=== PATIENT | female | born 1955 | race Caucasian/White ===

== ENCOUNTER 2018-04-06 13:31 | Emergency (ER) | payer MEDICAID, SELFPAY ==
[2018-04-06 13:36] VITALS: BP 146/68; PULSE 106; RESP 17; TEMP 35.9; O2SAT 97
--- NOTE | 2018-04-06 13:57 | W.ED.GENAD ---
Discharge Plan Disposition Patient Disposition: HOME Condition: Stable Discharge Details Chief Complaint: Cellulitis Clinical Impression: Abscess of neck Primary Care Provider: Malinda Call ED Provider: Chito Givens Home Meds and New Rx's Prescriptions: New sulfamethoxazole-trimethoprim [Bactrim DS] 800-160 mg tablet 1 tab PO BID Qty: 10 RF: 0 Continue rizatriptan [Maxalt-CAREER REPRESENTATIVE] 10 MG tablet,disintegrating 10 mg PO ONCE RF: 0 fluoxetine 40 MG capsule 40 mg PO DAILY RF: 0 loratadine 10 MG tablet 10 mg PO DAILY RF: 0 calcium carbonate-vitamin D3 1 EACH tablet 2 tab PO DAILY RF: 0 bupropion HCl 150 MG tablet extended release 12 hr 150 mg PO DAILY RF: 0 loperamide [Imodium A-D] 2 MG tablet 2 mg PO PRN PRNRF: 0 propranolol 10 MG tablet 10 mg PO BID Qty: 180 RF: 3 albuterol sulfate [ProAir HFA] 1 PUFF HFA aerosol inhaler 2 puff Inhalation Q2H PRN PRNQty: 1 RF: 3 tiotropium bromide [Spiriva with HandiHaler] 18 MCG capsule, w/inhalation device 18 mcg Inhalation DAILY Qty: 1 RF: 3 apixaban [Eliquis] 5 MG tablet 5 mg PO BID Qty: 60 RF: 3 Discharge Instructions Instructions: Abscess (ED) Discharge Data Discharge Physician: Chito Givens Medical Decision Making 63 yo female comes in with redness and swelling to the neck just posterior and inferior to the right ear. No fevers or chills. HAs abscess on exam that I drained and obtained bloody/purulent material. No fevers, severe pain or crepitus and appears well systemically sod oubt sepsis or nec fasc. Will place on abx, advised f/u with pcp and return precautions given Differential Diagnosis abscess, cellulitis HPI General Mode of arrival: ambulatory. Date/Time Provider Initiated Documentation: 04/06/18 13:35. Limitations to Documentation: no limitations. Information obtained by: patient. History of Present Illness 63 year old F presents to the emergency department with the chief complaint of right neck rash, described as mild, with intensity rated at 3. Quality is described as burning, and is localized to the neck. Patient reports no radiation. Patient started experiencing this day(s) (3) and it has been constant. No relieving factors improve symptom(s), No exacerbating factors reported . Patient notes no other symptoms.. Patient did receive the following treatments prior to arrival, none Related Data Home Medications Medication Instructions Recorded Confirmed loratadine 10 mg PO DAILY 09/22/12 04/06/18 bupropion HCl 150 mg PO DAILY 04/02/14 04/06/18 calcium carbonate-vitamin D3 2 tab PO DAILY 04/02/14 04/06/18 fluoxetine 40 mg PO DAILY tab-cap 01/11/15 04/06/18 rizatriptan [Maxalt-CAREER REPRESENTATIVE] 10 mg PO ONCE tab-cap 01/11/15 04/06/18 loperamide [Imodium A-D] 2 mg PO PRN PRN 02/24/16 01/11/18 albuterol sulfate [ProAir HFA] 2 puff INHALATION Q2H PRN PRN #1 10/29/16 04/06/18 inh propranolol 10 mg PO BID #180 tab-cap 10/29/16 04/06/18 tiotropium bromide [Spiriva with 18 mcg INHALATION DAILY #1 tab-cap 10/29/16 04/06/18 HandiHaler] apixaban [Eliquis] 5 mg PO BID #60 tablet 12/24/16 04/06/18 sulfamethoxazole-trimethoprim 1 tab PO BID #10 tab 04/06/18 [Bactrim DS] Previous Rx's Medication Instructions Recorded albuterol sulfate [ProAir HFA] 2 puff INHALATION Q2H PRN PRN #1 10/29/16 inh propranolol 10 mg PO BID #180 tab-cap 10/29/16 tiotropium bromide [Spiriva with 18 mcg INHALATION DAILY #1 tab-cap 10/29/16 HandiHaler] apixaban [Eliquis] 5 mg PO BID #60 tablet 12/24/16 sulfamethoxazole-trimethoprim 1 tab PO BID #10 tab 04/06/18 [Bactrim DS] Allergies Allergy/AdvReac Type Severity Reaction Status Date / Time aspirin AdvReac Mild Nausea Unverified 04/06/18 13:39 egg AdvReac Mild Nausea Unverified 04/06/18 13:39 chocolate flavor AdvReac cough Unverified 04/06/18 13:39 migraines General Stated Complaint: Cellulitis KIERAN: 3 Review of Systems Review of Systems All systems reviewed & are unremarkable except as noted in HPI and below Constitutional Denies chills, Denies fever(s) and Denies weakness Eyes Denies loss of vision ENT Denies change in voice Cardiovascular Denies chest pain and Denies dyspnea Respiratory Denies dyspnea Gastrointestinal Denies abdominal pain, Denies nausea and Denies vomiting Genitourinary Denies dysuria Musculoskeletal Denies joint swelling Neurologic Denies loss of vision and Denies weakness Psychiatric Denies depression Endocrine Denies cold intolerance and Denies heat intolerance Allergic/Immunologic Denies urticaria PFSH Medical History Arthritis COPD (chronic obstructive pulmonary disease) Depression with anxiety Essential tremor HTN (hypertension) Migraine Pulmonary emboli Weight gain Social History Smoking/Tobacco Use Status: Current every day Exam Const General: no acute distress Orientation: alert HENMT Head: normal to inspection Ears: external ears normal General nose exam: external nose normal Mouth: moist mucous membranes Eyes General: appearance normal, both eyes and all related structures Neck Neck: full ROM, no lymphadenopathy and other (2x2cm fluctuance with 1cm surrounding erythema just posterior the the right ear, no crepitus or severe pain) Resp Effort & Inspection: normal respiratory effort and able to speak in complete sentences Cardio Rate: regular rate Neuro General: alert and oriented x3 Extrem General: normal to inspection Psych Mental Status: mental status grossly normal Course Vital Signs Temperature 35.9 C L 04/06/18 13:36 Pulse 106 H 04/06/18 13:36 Respiratory Rate 17 04/06/18 13:36 Blood Pressure 146/68 H 04/06/18 13:36 Pulse Oximetry 97 04/06/18 13:36 Temperature 35.9 C L 04/06/18 13:36 Temperature Source Temporal Artery Scan 04/06/18 13:36 Pulse 106 H 04/06/18 13:36 Respiratory Rate 17 04/06/18 13:36 Respiratory Effort 04/06/18 13:43 Blood Pressure 146/68 H 04/06/18 13:36 Pulse Oximetry 97 04/06/18 13:36 Oxygen Delivery Method Room Air 04/06/18 13:36 Oxygen Flow Rate 0 10/20/18 13:36 Procedures Abscess I/D Site: Neck Side (if applicable): Right Sedation/analgesia: None Amount of anesthesia used (mL): 5 Technique: Incised with #11 Blade Amount of fluid expressed (mL): 5 Irrigation: Yes Packing used?: None Complications: Other (none)
--- NOTE | 2018-04-06 14:02 | ED.GENADUL_ITS ---
Discharge Plan Disposition Patient Disposition: HOME Condition: Stable Discharge Details Chief Complaint: Cellulitis Clinical Impression: Abscess of neck Primary Care Provider: Malinda Call ED Provider: Chito Givens Home Meds and New Rx's Prescriptions: New sulfamethoxazole-trimethoprim [Bactrim DS] 800-160 mg tablet 1 tab PO BID Qty: 10 RF: 0 Continue rizatriptan [Maxalt-PUBLIC EMPLOYMENT MEDIATOR] 10 MG tablet,disintegrating 10 mg PO ONCE RF: 0 fluoxetine 40 MG capsule 40 mg PO DAILY RF: 0 loratadine 10 MG tablet 10 mg PO DAILY RF: 0 calcium carbonate-vitamin D3 1 EACH tablet 2 tab PO DAILY RF: 0 bupropion HCl 150 MG tablet extended release 12 hr 150 mg PO DAILY RF: 0 loperamide [Imodium A-D] 2 MG tablet 2 mg PO PRN PRNRF: 0 propranolol 10 MG tablet 10 mg PO BID Qty: 180 RF: 3 albuterol sulfate [ProAir HFA] 1 PUFF HFA aerosol inhaler 2 puff Inhalation Q2H PRN PRNQty: 1 RF: 3 tiotropium bromide [Spiriva with HandiHaler] 18 MCG capsule, w/inhalation device 18 mcg Inhalation DAILY Qty: 1 RF: 3 apixaban [Eliquis] 5 MG tablet 5 mg PO BID Qty: 60 RF: 3 Discharge Instructions Instructions: Abscess (ED) Discharge Data Discharge Physician: Chito Givens Medical Decision Making 63 yo female comes in with redness and swelling to the neck just posterior and inferior to the right ear. No fevers or chills. HAs abscess on exam that I drained and obtained bloody/purulent material. No fevers, severe pain or crepitus and appears well systemically sod oubt sepsis or nec fasc. Will place on abx, advised f/u with pcp and return precautions given Differential Diagnosis abscess, cellulitis HPI General Mode of arrival: ambulatory . Date/Time Provider Initiated Documentation: 04/06/18 13:35 . Limitations to Documentation: no limitations . Information obtained by: patient . History of Present Illness 63 year old F presents to the emergency department with the chief complaint of right neck rash, described as mild, with intensity rated at 3. Quality is described as burning, and is localized to the neck. Patient reports no radiation. Patient started experiencing this day(s) (3) and it has been constant. No relieving factors improve symptom(s), No exacerbating factors reported . Patient notes no other symptoms.. Patient did receive the following treatments prior to arrival, none Related Data Home Medications Medication Instructions Recorded Confirmed loratadine 10 mg PO DAILY 09/22/12 04/06/18 bupropion HCl 150 mg PO DAILY 04/02/14 04/06/18 calcium carbonate-vitamin D3 2 tab PO DAILY 04/02/14 04/06/18 fluoxetine 40 mg PO DAILY tab-cap 01/11/15 04/06/18 rizatriptan [Maxalt-PUBLIC EMPLOYMENT MEDIATOR] 10 mg PO ONCE tab-cap 01/11/15 04/06/18 loperamide [Imodium A-D] 2 mg PO PRN PRN 02/24/16 01/11/18 albuterol sulfate [ProAir HFA] 2 puff INHALATION Q2H PRN PRN #1 10/29/16 inh propranolol 10 mg PO BID #180 tab-cap 10/29/16 04/06/18 tiotropium bromide [Spiriva with 18 mcg INHALATION DAILY #1 tab-cap 10/29/16 HandiHaler] apixaban [Eliquis] 5 mg PO BID #60 tablet 12/24/16 04/06/18 sulfamethoxazole-trimethoprim 1 tab PO BID #10 tab 04/06/18 [Bactrim DS] Previous Rx's Medication Instructions Recorded albuterol sulfate [ProAir HFA] 2 puff INHALATION Q2H PRN PRN #1 10/29/16 inh propranolol 10 mg PO BID #180 tab-cap 10/29/16 tiotropium bromide [Spiriva with 18 mcg INHALATION DAILY #1 tab-cap 10/29/16 HandiHaler] apixaban [Eliquis] 5 mg PO BID #60 tablet 12/24/16 sulfamethoxazole-trimethoprim 1 tab PO BID #10 tab 04/06/18 [Bactrim DS] Allergies Allergy/AdvReac Type Severity Reaction Status Date / Time aspirin AdvReac Mild Nausea Unverified 04/06/18 13:39 egg AdvReac Mild Nausea Unverified 04/06/18 13:39 chocolate flavor AdvReac cough Unverified 04/06/18 13:39 migraines General Stated Complaint: Cellulitis KIERAN: 3 Review of Systems Review of Systems All systems reviewed & are unremarkable except as noted in HPI and below Constitutional Denies chills, Denies fever(s) and Denies weakness Eyes Denies loss of vision ENT Denies change in voice Cardiovascular Denies chest pain and Denies dyspnea Respiratory Denies dyspnea Gastrointestinal Denies abdominal pain, Denies nausea and Denies vomiting Genitourinary Denies dysuria Musculoskeletal Denies joint swelling Neurologic Denies loss of vision and Denies weakness Psychiatric Denies depression Endocrine Denies cold intolerance and Denies heat intolerance Allergic/Immunologic Denies urticaria PFSH Medical History Arthritis COPD (chronic obstructive pulmonary disease) Depression with anxiety Essential tremor HTN (hypertension) Migraine Pulmonary emboli Weight gain Social History Smoking/Tobacco Use Status: Current every day Exam Const General: no acute distress Orientation: alert HENMT Head: normal to inspection Ears: external ears normal General nose exam: external nose normal Mouth: moist mucous membranes Eyes General: appearance normal, both eyes and all related structures Neck Neck: full ROM, no lymphadenopathy and other (2x2cm fluctuance with 1cm surrounding erythema just posterior the the right ear, no crepitus or severe pain) Resp Effort & Inspection: normal respiratory effort and able to speak in complete sentences Cardio Rate: regular rate Neuro General: alert and oriented x3 Extrem General: normal to inspection Psych Mental Status: mental status grossly normal Course Vital Signs Temperature 35.9 C L 04/06/18 13:36 Pulse 106 H 04/06/18 13:36 Respiratory Rate 17 04/06/18 13:36 Blood Pressure 146/68 H 04/06/18 13:36 Pulse Oximetry 97 04/06/18 13:36 Temperature 35.9 C L 04/06/18 13:36 Temperature Source Temporal Artery Scan 04/06/18 13:36 Pulse 106 H 04/06/18 13:36 Respiratory Rate 17 04/06/18 13:36 Respiratory Effort 04/06/18 13:43 Blood Pressure 146/68 H 04/06/18 13:36 Pulse Oximetry 97 04/06/18 13:36 Oxygen Delivery Method Room Air 04/06/18 13:36 Oxygen Flow Rate 0 10/20/18 13:36 Procedures Abscess I/D Site: Neck Side (if applicable): Right Sedation/analgesia: None Amount of anesthesia used (mL): 5 Technique: Incised with #11 Blade Amount of fluid expressed (mL): 5 Irrigation: Yes Packing used?: None Complications: Other (none)
== END 2018-04-06 14:41 | disposition home or self-care (01) ==
LOC: ER 14:14
PROVIDERS: Emergency Provider Emergency Medicine; PCP Nurse Practitioner
DX: L02.11 Cutaneous abscess of neck (principal); I10 Essential (primary) hypertension; J44.9 Chronic obstructive pulmonary disease, unspecified; F17.210 Nicotine dependence, cigarettes, uncomplicated
CPT/HCPCS: 10060

== ENCOUNTER 2018-04-08 14:20 | Outpatient (REF) | payer MEDICAID, SELFPAY | END 2018-04-08 14:40 | LOC: NCHCN 14:20 | PROVIDERS: PCP Nurse Practitioner; Visit Provider Family Medicine | DX: L02.11 Cutaneous abscess of neck (principal) | CPT/HCPCS: 87077; 87070; 87186; 87205 ==

== ENCOUNTER 2018-07-16 01:57 | Outpatient (CLI) | payer MEDICAID, SELFPAY | END 2018-07-16 02:17 | PROVIDERS: PCP Nurse Practitioner; Visit Provider Nurse Practitioner | DX: J44.9 Chronic obstructive pulmonary disease, unspecified (principal) ==

== ENCOUNTER 2018-07-26 10:45 | Inpatient (IN) | payer MEDICARE, MEDICAID, SELFPAY ==
[2018-07-26 10:48] VITALS: BP 122/91; PULSE 129; RESP 26; TEMP 36.3; O2SAT 97
[2018-07-26 11:01] VITALS: TEMP 38.2
--- NOTE | 2018-07-26 11:03 | DI.RAD_ITS ---
SYMPTOMS/DIAGNOSIS: FEVER, COUGH, CRACKLES, COPD, ? PNEUMONIA AP AND LATERAL CHEST: The heart is not enlarged. There is loss of the contour of the diaphragm on the left which may indicate a left lower lobe pneumonia. Otherwise the lungs appear generally clear with some suggestion of streaky and patchy posterior radiodensities on the lateral view. No pleural effusion is seen. CONCLUSION: Suspect left basilar pneumonia. Appropriate follow up studies requested.
--- NOTE | 2018-07-26 11:06 | ED.GENADUL_ITS ---
Discharge Plan Disposition Patient Disposition: [facility] INPATIENT Condition: Good Discharge Details Chief Complaint: RespSymp Clinical Impression: Community acquired pneumonia, Asthma exacerbation in COPD, Influenza A Primary Care Provider: Malinda Call ED Provider: Clifford Borges Home Meds and New Rx's Prescriptions: No Action rizatriptan [Maxalt-MATHEMATICIAN RESEARCH] 10 MG tablet,disintegrating 10 mg PO ONCE RF: 0 fluoxetine 40 MG capsule 40 mg PO DAILY RF: 0 loratadine 10 MG tablet 10 mg PO DAILY RF: 0 calcium carbonate-vitamin D3 1 EACH tablet 2 tab PO DAILY RF: 0 bupropion HCl 150 MG tablet extended release 12 hr 150 mg PO DAILY RF: 0 loperamide [Imodium A-D] 2 MG tablet 2 mg PO PRN PRNRF: 0 propranolol 10 MG tablet 10 mg PO BID Qty: 180 RF: 3 ProAir HFA 1 PUFF HFA aerosol inhaler 2 puff Inhalation Q2H PRN PRNQty: 1 RF: 3 Spiriva with HandiHaler 18 MCG capsule, w/inhalation device 18 mcg Inhalation DAILY Qty: 1 RF: 3 Eliquis 5 MG tablet 5 mg PO BID Qty: 60 RF: 3 Medical Decision Making This is a pleasant 63-year-old female with a past medical history of PEs, COPD, hypertension, who presents for 3 days of shortness of breath, fever, chills, cough, productive green sputum and mild headache. Patient has notably decreased breath sounds throughout, wheezes and rhonchi throughout. No significant chest pain on exam. She is hypoxic at 88-89% on room air, and she does not normally use oxygen. She is febrile here. With her cough, chills, fever, tachycardia and mild shortness of breath and concern for community- acquired pneumonia. She has been taking her Eliquis as directed and I feel that a new or worsening PE is unlikely, she does demonstrate a normal blood pressure. We will check for flu, rehydrate, start antibiotics for community-acquired pneumonia which I highly suspect, treat for COPD exacerbation, and place the patient on oxygen. I feel that she will require admission with her current symptomatology. EKG 10: 57 Rate 110, intervals normal, sinus tachycardia, no significant ST elevations or depressions, no T wave inversions except for V1, no Q waves. 1242PM laboratory workup has returned and the patient is influenza positive, she has a mild improvement with the breathing treatments, laboratory workup is relatively benign, troponin and EKG are benign. On my inspection of the chest x-ray does appear that there is a mild right lower/mid lobe infiltrate, which correlates well with her symptomatology. With the patient's risk factors in general for both her COPD exacerbation and influenza I feel that she would benefit from antibiotic coverage anyway for clinical pneumonia even without radiographic evidence. Patient has been started on Rocephin and azithromycin. She has been started on Tamiflu for her influenza. I did contact the hospitalist and she agrees with the assessment and plan and the need for admission. I have extensively reviewed the treatment plan with the patient. I have addressed all patient concerns at this time. I have also discussed the plan with the admitting physician and they agree with the current assessment and plan and have agreed to assume responsibility for the patient. All parties demonstrate verbal understanding and agreement with our assessment and plan at this time. HPI General Date/Time Provider Initiated Documentation: 07/26/18 10:47 . HPI Narrative: This is a 63-year-old female with a past medical history of pulmonary embolisms for which she takes Eliquis, COPD, hypertension, and migraines who presents today for evaluations of feeling ill. For the last 3 days she has had upper respiratory symptoms with shortness of breath, chills, night sweats, cough with productive green sputum, mild headache, but no significant chest pain. She denies any fever at home but has felt very warm. She denies any vomiting or diarrhea but does admit to decreased appetite. She has not taken the flu vaccine secondary to an allergy to eggs. She has been taking her Eliquis and other medications as directed, including her breathing treatments at home however unfortunately none of these have improved her symptoms. Last admission was greater than 90 days ago. She has been on no recent antibiotics. She denies any recent long trips, avoidance of anticoagulants, recent surgeries except for an in office removal of a superficial cyst/abscess. The patient is hemoptysis, hematemesis, hematochezia, melena, or acholic stool. She denies any dysuria or hematuria. She has no other complaints at this time. No other modifying factors. Related Data Home Medications Medication Instructions Recorded Confirmed loratadine 10 mg PO DAILY 09/22/12 07/26/18 bupropion HCl 150 mg PO DAILY 04/02/14 07/26/18 calcium carbonate-vitamin D3 2 tab PO DAILY 04/02/14 07/26/18 fluoxetine 40 mg PO DAILY tab-cap 01/11/15 07/26/18 rizatriptan [Maxalt-MATHEMATICIAN RESEARCH] 10 mg PO ONCE tab-cap 01/11/15 07/26/18 loperamide [Imodium A-D] 2 mg PO PRN PRN 02/24/16 07/26/18 ProAir HFA 2 puff INHALATION Q2H PRN PRN #1 17 07/26/18 inh Spiriva with HandiHaler 18 mcg INHALATION DAILY #1 tab-cap 17 07/26/18 propranolol 10 mg PO BID #180 tab-cap 10/29/16 07/26/18 Eliquis 5 mg PO BID #60 tablet 12/24/16 07/26/18 Previous Rx's Medication Instructions Recorded ProAir HFA 2 puff INHALATION Q2H PRN PRN #1 10/29/16 inh Spiriva with HandiHaler 18 mcg INHALATION DAILY #1 tab-cap 10/29/16 propranolol 10 mg PO BID #180 tab-cap 10/29/16 Eliquis 5 mg PO BID #60 tablet 12/24/16 Allergies Allergy/AdvReac Type Severity Reaction Status Date / Time aspirin AdvReac Mild Nausea Unverified 07/26/18 11:14 egg AdvReac Mild Nausea Unverified 07/26/18 11:14 chocolate flavor AdvReac cough Unverified 07/26/18 11:14 migraines General Stated Complaint: RespSymp KIERAN: 3 Review of Systems Review of Systems All systems reviewed & are unremarkable except as noted in HPI and below PFSH Social History Smoking and Tabacco status: Current every day Exam Narrative Exam Narrative: 1.Const: Well-nourished, Well-developed, appearing stated age 2.Eyes: PERRL, no conjunctival injection, and symmetrical lids. 3.ENT: Atraumatic external nose and ears. Moist MM. Neck: Symmetric, trachea midline, No thyromegaly. Patient demonstrates good movement of cervical neck. There is no nuchal rigidity, no nuchal tenderness. Patient is able to flex the neck without any difficulty or significant pain. Negative Kernig's and Brudzinski sign. 4.CVS: +S1/S2. Peripheral pulses 2+ and equal in all extremities. Brisk capillary refill in all extremities. 5.RESP: Notable decreased breath sounds throughout, wheezes and rhonchi throughout. Minimal crackles. 6.GI: Soft, Nondistended, No hepatosplenomegaly. No guarding or rebound. No significant tenderness on exam. 7.MSK: Normocephalic/Atraumatic, Extremities w/o deformity or ttp No cyanosis or clubbing, Normal movement of all extremities no significant calf tenderness.. 8.Skin: Warm, Dry. No rashes or lesions. 9.Neuro: district administrator II-XII grossly intact. Sensation grossly intact, no focal neurologic deficits. 10.Psych: (AAO) x3. Appropriate mood and affect Course Vital Signs Temperature 36.3 C L 07/26/18 10:48 Pulse 129 H 07/26/18 10:48 Respiratory Rate 26 H 07/26/18 10:48 Blood Pressure 122/91 H 07/26/18 10:48 Pulse Oximetry 97 07/26/18 10:48 Temperature 38.2 C H 07/26/18 11:01 Temperature Source Oral 07/26/18 11:01 Pulse 129 H 07/26/18 10:48 Respiratory Rate 26 H 07/26/18 10:48 Respiratory Effort Non-Labored 07/26/18 10:50 Blood Pressure 122/91 H 07/26/18 10:48 Blood Pressure Position Sitting 07/26/18 10:48 Pulse Oximetry 97 07/26/18 10:48 Oxygen Delivery Method Room Air 07/26/18 10:48 Oxygen Flow Rate 0 07/26/18 10:48 Pain Level 8 07/26/18 10:48 Comment 07/26/18 10:48 Lab/Test Results Lab/Test Results: 07/26/18 11:03 Blood Blood Culture - Pending 07/26/18 11:03 Blood Blood Culture - Pending
[2018-07-26 11:25] LABS: Lactate-non-spesis 1.1 mmol/l (0.6-1.4)
[2018-07-26 11:30] LABS: Abs Immature Grans 0.01 k/cumm (0.0-0.09); Absolute Basophil Count 0.01 k/cumm (0.0-0.2); Absolute Lymphocyte Count 0.56 k/cumm (1.2-3.4); Absolute Neutrophil Count 4.57 k/cumm (1.2-6.7); Basophils % 0.2; HCT 41.4 % (36.0-46.0); HGB 13.4 g/dL (12.0-15.5); Immature Grans % 0.2; Lymphocytes % 9.6; Mean Corp. HGB Concentration 32.4 g/dL (32.0-36.0); Mean Corpuscular Hemoglobin 28.4 pg (27.0-33.0); Mean Corpuscular Volume 87.7 fL (80-95); Mean Platelet Volume 10.3 fL (8.0-11.0); Platelet Count 183 x1000/uL (130-400); RBC 4.72 m/cumm (4.00-5.20); RBC Distribution Width 13.2 % (11.7-14.6); White Blood Cell Count 5.85 k/cumm (4.4-10.8)
[2018-07-26] MEDS: Acetaminophen 500 MG TAB 1000 MG PO (11:33)
[2018-07-26] MEDS: Albuterol/Ipratropium 3 ML UPD VIAL UPD ×2 (11:34→20:41)
[2018-07-26] MEDS: diphenhydrAMINE 25 MG CAP PO (11:36)
[2018-07-26] MEDS: methylPREDNISolone SUCC 125 MG VIAL IVP (11:36)
[2018-07-26] MEDS: Metoclopramide 10 MG/2 ML VIAL IVP (11:37)
[2018-07-26 11:42] LABS: INR 1.1 (0.9-1.1); PTT Activated 27.3 sec (21.0-31.4)
[2018-07-26] MEDS: Normal Saline 1,000 ML 1000 ML IV (11:44)
[2018-07-26 11:46] LABS: ALT 23 U/L (12-78); AST 19 U/L (15-37); Albumin 3.4 g/dL (3.4-5.0); Alkaline Phosphatase 104 U/L (46-116); Anion Gap 11.6 mmol/L (3-11); BUN 16 mg/dL (7-18); Bilirubin, Total 0.4 mg/dL (0.2-1.0); CO2 24.4 mmol/L (21.0-32.0); CREATININE 0.78 mg/dL (0.55-1.02); Chloride 100 mmol/L (98-107); Glucose 118 mg/dL (70-100); Potassium 3.8 mmol/L (3.5-5.1); Sodium 136 mmol/L (136-145); Total Protein 7.8 g/dL (6.4-8.2)
[2018-07-26 11:48] LABS: Troponin I < 0.02 ng/mL (0.00-0.06)
[2018-07-26 11:56] LABS: Bilirubin Small (Negative); Blood Negative (Negative); Clarity Clear; Glucose Negative (Negative); Ketones 80 mg/dL (Negative); Leukocyte Esterase Negative (Negative); Nitrite Negative (Negative); Specific Gravity >= 1.030 (1.005-1.025); Urobilinogen 0.2 EU/dL (Up TO 0.2)
[2018-07-26 11:57] LABS: Bacteria Moderate HPF (Negative); C & S Indicated? No; Crystals Negative HPF (Negative); Epithelial Cells Few HPF (Negative); Mucus Trace (Negative); Other Cells Few Renal (Negative); RBC 0-2 (0-2); WBC 0-2 HPF (0-5)
[2018-07-26] MEDS: AZITHROMYCIN 500 MG in Normal Saline 250 ML 250 MG IVPB (12:53)
[2018-07-26 12:57] VITALS: BP 116/45; PULSE 96; RESP 18; TEMP 37.4; O2SAT 95
[2018-07-26 13:53] VITALS: BP 133/78; PULSE 90; RESP 20; TEMP 36.6; O2SAT 98
[2018-07-26] MEDS: Normal Saline 1,000 ML 125 ML IV ×2 (14:44→22:32)
[2018-07-26] MEDS: Benzonatate 200 MG CAP PO ×2 (14:44→20:46)
[2018-07-26] MEDS: Oseltamivir 75 MG CAP PO ×2 (14:45→20:45)
[2018-07-26 15:59] VITALS: BP 131/68; PULSE 87; RESP 24; TEMP 37.4; O2SAT 95
--- NOTE | 2018-07-26 16:44 | W.PM.HP.N ---
Date of service: 07/26/18 Time of Service: 16:44 Assessment and Plan (1) CAP (community acquired pneumonia): Start date: 07/26/18 Start time: 17:05 Current visit: Yes Status: Acute Positive influenza A, likely cause, started on Azithromycin and rocephin until sputum culture results. Blood cultures in ED and lactate 1.1, guaifenin po bid . (2) Influenza A: Start date: 07/26/18 Start time: 17:03 Current visit: Yes Status: Acute Positive for influenza A which likely exacerbated COPD and caused CAP. Started on tamiflu. (3) COPD with acute exacerbation: Start date: 07/26/18 Start time: 17:05 Current visit: Yes Status: Acute Likely due to influenza A. duonebs, albuterol, 80 mg solumedrol q8, ICS, sputum culture, Protonix 40 mg po while on steroids. (4) DVT prophylaxis: Start date: 07/26/18 Start time: 17:07 Current visit: Yes Status: Acute Currently taking eliquis for stable PE (5) Pulmonary embolism: Start date: 07/26/18 Start time: 17:08 Current visit: Yes Status: Chronic Continue Eliquis. History of Present Illness Chief Complaint: CAP, COPD Exacerbation Narrative: Mr. Lang is a 63 y.o female with PMH of non oxygen dependent COPD, PE, HTN, GERD, who presents to [facility] ED after 3 days of SOB, fever, chills, cough, productive green sputum. She endorses being around the flu with her neighbors. She did test positive for flu A and was started on tamiflu. Her SpO 2 in ED on RA 88 placed on 2 L for 92 %. CXR shows Left basilar pneumonia which azithromycin and rocephin have been started for CAP blood cultures and sputum have been ordered and will treat according to results. She currently takes eliquis for her hx of PE. Duonebs, steroids and ICS have been ordered for COPD exacerbation. I will continue her propanolol for HTN as well. Review of Systems Constitutional Reports system reviewed and no additional complaints, except as docu Eyes Reports system reviewed and no additional complaints, except as docu ENT Reports system reviewed and no additional complaints, except as docu Cardiovascular Reports system reviewed and no additional complaints, except as docu Respiratory Reports as per [facility] Gastrointestinal Reports system reviewed and no additional complaints, except as docu Genitourinary Reports system reviewed and no additional complaints, except as [facility] Musculoskeletal Reports system reviewed and no additional complaints, except as [facility] Integumentary/Breasts Reports system reviewed and no additional complaints, except as [facility] Neurologic Reports system reviewed and no additional complaints, except as [facility] Psychiatric Reports system reviewed and no additional complaints, except as docu PFSH Family History Sister Diabetes Brother Hypertension Other Heart disease Social History Smoking and Tabacco status: Current every day Meds Home Medications Medication Instructions Recorded Confirmed Type loratadine 10 mg PO DAILY 09/22/12 07/26/18 History bupropion HCl 150 mg PO DAILY 04/02/14 07/26/18 History calcium carbonate-vitamin D3 2 tab PO DAILY 04/02/14 07/26/18 History fluoxetine 40 mg PO DAILY tab-cap 01/11/15 07/26/18 History rizatriptan [Maxalt-LINEMAN] 10 mg PO ONCE tab-cap 01/11/15 07/26/18 History loperamide [Imodium A-D] 2 mg PO PRN PRN 02/24/16 07/26/18 History ProAir HFA 2 puff INHALATION Q2H PRN PRN #1 10/29/16 07/26/18 Rx inh Spiriva with HandiHaler 18 mcg INHALATION DAILY #1 tab-cap 10/29/16 07/26/18 Rx propranolol 10 mg PO BID #180 tab-cap 10/29/16 07/26/18 Rx Eliquis 5 mg PO BID #60 tablet 12/24/16 07/26/18 Rx Allergies Allergy/AdvReac Type Severity Reaction Status Date / Time aspirin AdvReac Mild Nausea Unverified 07/26/18 11:14 egg AdvReac Mild Nausea Unverified 07/26/18 11:14 chocolate flavor AdvReac cough Unverified 07/26/18 11:14 migraines Exam Const General: cooperative HENMT Head: normal to inspection Eyes General: appearance normal, both eyes and all related structures Neck Neck: normal visual inspection Lymphatic: no lymphadenopathy noted and no lymphedema noted Chest Chest: normal inspection of the chest Resp Effort & Inspection: able to speak in complete sentences and cough (green sputum) Auscultation: crackles (that clear with coughing) Cardio Jugular venous pressure: no JVD Rate: regular rate Rhythm: regular rhythm Heart Sounds: S1 normal and S2 normal GI Inspection: normal to inspection Skin General skin exam: no rashes or lesions noted Extrem General: normal to inspection Results Labs : 07/26/18 11:15 07/26/18 11:15 Laboratory Results - last 24 hr 07/26/18 07/26/18 07/26/18 11:15 11:15 11:15 WBC 5.85 RBC 4.72 Hgb 13.4 Hct 41.4 MCV 87.7 MCH 28.4 MCHC 32.4 RDW 13.2 Plt Count 183 MPV 10.3 Immature Gran % 0.2 Neutrophils % 78.0 Lymphocytes % 9.6 Monocytes % 12.0 Eosinophils % 0.0 Basophils % 0.2 Absolute Neutrophils 4.57 Absolute Lymphocytes 0.56 L Absolute Monocytes 0.70 Absolute Eosinophils 0.00 Absolute Basophils 0.01 PT 11.0 INR 1.1 APTT 27.3 Sodium 136 Potassium 3.8 Chloride 100 Carbon Dioxide 24.4 Anion Gap 11.6 H BUN 16 Creatinine 0.78 Estimated GFR/1.73 m2 >= 60.00 Glucose 118 H Lactate Calcium 9.0 Total Bilirubin 0.4 AST 19 ALT 23 Alkaline Phosphatase 104 Troponin I < 0.02 Total Protein 7.8 Albumin 3.4 Urine Color Urine Clarity Urine pH Ur Specific [place] Urine Protein Urine Ketones Urine Blood Urine Nitrite Urine Bilirubin Urine Urobilinogen Ur Leukocyte Esterase Urine RBC Urine WBC Ur Epithelial Cells Urine Crystals Urine Bacteria Urine Mucus Urine Other Ur Culture Indicated? Urine Glucose 07/26/18 07/26/18 11:15 11:38 WBC RBC Hgb Hct MCV MCH MCHC RDW Plt Count MPV Immature Gran % Neutrophils % Lymphocytes % Monocytes % Eosinophils % Basophils % Absolute Neutrophils Absolute Lymphocytes Absolute Monocytes Absolute Eosinophils Absolute Basophils PT INR APTT Sodium Potassium Chloride Carbon Dioxide Anion Gap BUN Creatinine Estimated GFR/1.73 m2 Glucose Lactate 1.1 Calcium Total Bilirubin AST ALT Alkaline Phosphatase Troponin I Total Protein Albumin Urine Color Yellow Urine Clarity Clear Urine pH 6.0 Ur Specific [place] >= 1.030 H Urine Protein 30 H Urine Ketones 80 H Urine Blood Negative Urine Nitrite Negative Urine Bilirubin Small H Urine Urobilinogen 0.2 Ur Leukocyte Esterase Negative Urine RBC 0-2 Urine WBC 0-2 Ur Epithelial Cells Few Urine Crystals Negative Urine Bacteria Moderate Urine Mucus Trace Urine Other Few renal Ur Culture Indicated? No Urine Glucose Negative Last Vital Signs Temp 37.4 C 07/26/18 15:59 Pulse 87 07/26/18 15:59 Resp 24 07/26/18 15:59 BP 131/68 07/26/18 15:59 Pulse Ox 95 07/26/18 15:59
--- NOTE | 2018-07-26 16:47 | HPE_ITS ---
Date of service: 07/26/18 Time of Service: 16:44 Assessment and Plan (1) CAP (community acquired pneumonia): Start date: 07/26/18 Start time: 17:05 Current visit: Yes Status: Acute Positive influenza A, likely cause, started on Azithromycin and rocephin until sputum culture results. Blood cultures in ED and lactate 1.1, guaifenin po bid . (2) Influenza A: Start date: 07/26/18 Start time: 17:03 Current visit: Yes Status: Acute Positive for influenza A which likely exacerbated COPD and caused CAP. Started on tamiflu. (3) COPD with acute exacerbation: Start date: 07/26/18 Start time: 17:05 Current visit: Yes Status: Acute Likely due to influenza A. duonebs, albuterol, 80 mg solumedrol q8, ICS, sputum culture, Protonix 40 mg po while on steroids. (4) DVT prophylaxis: Start date: 07/26/18 Start time: 17:07 Current visit: Yes Status: Acute Currently taking eliquis for stable PE (5) Pulmonary embolism: Start date: 07/26/18 Start time: 17:08 Current visit: Yes Status: Chronic Continue Eliquis. History of Present Illness Chief Complaint: CAP, COPD Exacerbation Narrative: Mr. Lang is a 63 y.o female with PMH of non oxygen dependent COPD, PE, HTN, GERD, who presents to [facility] ED after 3 days of SOB, fever, chills, cough, productive green sputum. She endorses being around the flu with her neighbors. She did test positive for flu A and was started on tamiflu. Her SpO 2 in ED on RA 88 placed on 2 L for 92 %. CXR shows Left basilar pneumonia which azithromycin and rocephin have been started for CAP blood cultures and sputum have been ordered and will treat according to results. She currently takes eliquis for her hx of PE. Duonebs, steroids and ICS have been ordered for COPD exacerbation. I will continue her propanolol for HTN as well. Review of Systems Constitutional Reports system reviewed and no additional complaints, except as docu Eyes Reports system reviewed and no additional complaints, except as docu ENT Reports system reviewed and no additional complaints, except as docu Cardiovascular Reports system reviewed and no additional complaints, except as docu Respiratory Reports as per [facility] Gastrointestinal Reports system reviewed and no additional complaints, except as docu Genitourinary Reports system reviewed and no additional complaints, except as [facility] Musculoskeletal Reports system reviewed and no additional complaints, except as [facility] Integumentary/Breasts Reports system reviewed and no additional complaints, except as [facility] Neurologic Reports system reviewed and no additional complaints, except as [facility] Psychiatric Reports system reviewed and no additional complaints, except as docu PFSH Family History Sister Diabetes Brother Hypertension Other Heart disease Social History Smoking and Tabacco status: Current every day Meds Home Medications Medication Instructions Recorded Confirmed Type loratadine 10 mg PO DAILY 09/22/12 07/26/18 History bupropion HCl 150 mg PO DAILY 04/02/14 07/26/18 History calcium carbonate-vitamin D3 2 tab PO DAILY 04/02/14 07/26/18 History fluoxetine 40 mg PO DAILY tab-cap 01/11/15 07/26/18 History rizatriptan [Maxalt-ADDING MACHINE OPERATOR] 10 mg PO ONCE tab-cap 01/11/15 07/26/18 History loperamide [Imodium A-D] 2 mg PO PRN PRN 02/24/16 07/26/18 History ProAir HFA 2 puff INHALATION Q2H PRN PRN #1 10/29/16 07/26/18 Rx inh Spiriva with HandiHaler 18 mcg INHALATION DAILY #1 tab-cap 10/29/16 07/26/18 Rx propranolol 10 mg PO BID #180 tab-cap 10/29/16 07/26/18 Rx Eliquis 5 mg PO BID #60 tablet 12/24/16 07/26/18 Rx Allergies Allergy/AdvReac Type Severity Reaction Status Date / Time aspirin AdvReac Mild Nausea Unverified 07/26/18 11:14 egg AdvReac Mild Nausea Unverified 07/26/18 11:14 chocolate flavor AdvReac cough Unverified 07/26/18 11:14 migraines Exam Const General: cooperative HENMT Head: normal to inspection Eyes General: appearance normal, both eyes and all related structures Neck Neck: normal visual inspection Lymphatic: no lymphadenopathy noted and no lymphedema noted Chest Chest: normal inspection of the chest Resp Effort & Inspection: able to speak in complete sentences and cough (green sputum) Auscultation: crackles (that clear with coughing) Cardio Jugular venous pressure: no JVD Rate: regular rate Rhythm: regular rhythm Heart Sounds: S1 normal and S2 normal GI Inspection: normal to inspection Skin General skin exam: no rashes or lesions noted Extrem General: normal to inspection Results Labs : 07/26/18 11:15 07/26/18 11:15 Laboratory Results - last 24 hr 07/26/18 07/26/18 07/26/18 11:15 11:15 11:15 WBC 5.85 RBC 4.72 Hgb 13.4 Hct 41.4 MCV 87.7 MCH 28.4 MCHC 32.4 RDW 13.2 Plt Count 183 MPV 10.3 Immature Gran % 0.2 Neutrophils % 78.0 Lymphocytes % 9.6 Monocytes % 12.0 Eosinophils % 0.0 Basophils % 0.2 Absolute Neutrophils 4.57 Absolute Lymphocytes 0.56 L Absolute Monocytes 0.70 Absolute Eosinophils 0.00 Absolute Basophils 0.01 PT 11.0 INR 1.1 APTT 27.3 Sodium 136 Potassium 3.8 Chloride 100 Carbon Dioxide 24.4 Anion Gap 11.6 H BUN 16 Creatinine 0.78 Estimated GFR/1.73 m2 >= 60.00 Glucose 118 H Lactate Calcium 9.0 Total Bilirubin 0.4 AST 19 ALT 23 Alkaline Phosphatase 104 Troponin I < 0.02 Total Protein 7.8 Albumin 3.4 Urine Color Urine Clarity Urine pH Ur Specific [place] Urine Protein Urine Ketones Urine Blood Urine Nitrite Urine Bilirubin Urine Urobilinogen Ur Leukocyte Esterase Urine RBC Urine WBC Ur Epithelial Cells Urine Crystals Urine Bacteria Urine Mucus Urine Other Ur Culture Indicated? Urine Glucose 07/26/18 07/26/18 11:15 11:38 WBC RBC Hgb Hct MCV MCH MCHC RDW Plt Count MPV Immature Gran % Neutrophils % Lymphocytes % Monocytes % Eosinophils % Basophils % Absolute Neutrophils Absolute Lymphocytes Absolute Monocytes Absolute Eosinophils Absolute Basophils PT INR APTT Sodium Potassium Chloride Carbon Dioxide Anion Gap BUN Creatinine Estimated GFR/1.73 m2 Glucose Lactate 1.1 Calcium Total Bilirubin AST ALT Alkaline Phosphatase Troponin I Total Protein Albumin Urine Color Yellow Urine Clarity Clear Urine pH 6.0 Ur Specific [place] >= 1.030 H Urine Protein 30 H Urine Ketones 80 H Urine Blood Negative Urine Nitrite Negative Urine Bilirubin Small H Urine Urobilinogen 0.2 Ur Leukocyte Esterase Negative Urine RBC 0-2 Urine WBC 0-2 Ur Epithelial Cells Few Urine Crystals Negative Urine Bacteria Moderate Urine Mucus Trace Urine Other Few renal Ur Culture Indicated? No Urine Glucose Negative Last Vital Signs Temp 37.4 C 07/26/18 15:59 Pulse 87 07/26/18 15:59 Resp 24 07/26/18 15:59 BP 131/68 07/26/18 15:59 Pulse Ox 95 07/26/18 15:59
[2018-07-26] MEDS: methylPREDNISolone SUCC 125 MG VIAL 80 MG IVP (20:42)
[2018-07-26] MEDS: Budesonide/Formoterol 160/4.5 6 GM 60 PUFF INH IH (20:43)
[2018-07-26] MEDS: Acetaminophen 325 MG TAB PO (20:44)
[2018-07-26] MEDS: Normal Saline Flush 10 ML SYR IVP (20:44)
[2018-07-26] MEDS: guaiFENesin 600 MG TABCR PO (20:45)
[2018-07-26] MEDS: Propranolol 10 MG TAB PO (20:46)
[2018-07-26] MEDS: Apixaban 5 MG TAB PO (20:46)
[2018-07-26 23:57] VITALS: BP 114/66; PULSE 77; RESP 19; TEMP 37; O2SAT 92
[2018-07-27] VITALS (13 sets, daily range): BP systolic 105–146; BP diastolic 65–82; PULSE 54–91; RESP 1–24; TEMP 36.9–37.2; O2SAT 87–97
[2018-07-27] MEDS: Albuterol/Ipratropium 3 ML UPD VIAL UPD ×6 (00:10→23:49)
[2018-07-27] MEDS: Normal Saline Flush 10 ML SYR IVP ×2 (04:25→13:16)
[2018-07-27] MEDS: methylPREDNISolone SUCC 125 MG VIAL 80 MG IVP ×3 (04:26→20:28)
[2018-07-27] MEDS: Normal Saline 1,000 ML 125 ML IV (06:07)
[2018-07-27 07:52] LABS: Absolute Lymphocyte Count 0.62 k/cumm (1.2-3.4); Absolute Monocyte Count 0.19 k/cumm (0.11-0.7); Absolute Neutrophil Count 3.46 k/cumm (1.2-6.7); HCT 37.7 % (36.0-46.0); Lymphocytes % 14.5; Mean Corp. HGB Concentration 31.8 g/dL (32.0-36.0); Mean Corpuscular Hemoglobin 28.2 pg (27.0-33.0); Mean Corpuscular Volume 88.7 fL (80-95); Mean Platelet Volume 10.4 fL (8.0-11.0); Monocytes % 4.4; Neutrophils % 81.1; Platelet Count 194 x1000/uL (130-400); RBC 4.25 m/cumm (4.00-5.20); RBC Distribution Width 13.1 % (11.7-14.6); White Blood Cell Count 4.27 k/cumm (4.4-10.8)
[2018-07-27 08:05] LABS: Anion Gap 8.5 mmol/L (3-11); BUN 13 mg/dL (7-18); CO2 25.5 mmol/L (21.0-32.0); CREATININE 0.59 mg/dL (0.55-1.02); Calcium 8.3 mg/dL (8.5-10.1); Chloride 108 mmol/L (98-107); Glucose 148 mg/dL (70-100); Magnesium 1.9 mg/dL (1.8-2.4); Sodium 142 mmol/L (136-145)
[2018-07-27] MEDS: Pantoprazole 40 MG TABCR PO (08:49)
[2018-07-27] MEDS: Budesonide/Formoterol 160/4.5 6 GM 60 PUFF INH IH ×2 (08:55→20:29)
[2018-07-27] MEDS: buPROPion-CR 150 MG TABCR PO (10:20)
[2018-07-27] MEDS: FLUoxetine 20 MG CAP 40 MG PO (10:21)
[2018-07-27] MEDS: Propranolol 10 MG TAB PO ×2 (10:21→20:26)
[2018-07-27] MEDS: Oseltamivir 75 MG CAP PO ×2 (10:21→20:26)
[2018-07-27] MEDS: Apixaban 5 MG TAB PO ×2 (10:21→20:25)
[2018-07-27] MEDS: guaiFENesin 600 MG TABCR PO ×2 (10:22→20:25)
[2018-07-27] MEDS: Benzonatate 200 MG CAP PO ×3 (10:23→20:25)
--- NOTE | 2018-07-27 11:52 | W.PM.PROGNOT ---
Date of Service Date of service: 07/27/18 Time of Service: 12:07 Assessment and Plan (1) Influenza A: Start date: 07/27/18 Start time: 11:53 Current visit: Yes Status: Acute Day 2 of tamiflu bid continue, feeling better, afebrile (2) COPD with acute exacerbation: Start date: 07/27/18 Start time: 11:56 Current visit: Yes Status: Acute likely from Influenza A, 91% on RA. Continue with steroids and nebs, ICS, and exercise oximetery. (3) CAP (community acquired pneumonia): Start date: 07/27/18 Start time: 11:57 Current visit: Yes Status: Acute Likely from Flu, continue with azithromycin and ceftriaxone. Day 2, O2 sat is 91% (4) Pulmonary embolism: Start date: 07/27/18 Start time: 12:02 Current visit: Yes Status: Chronic on current treatment with eliquis for prehospital PE (5) Essential tremor: Start date: 07/27/18 Start time: 12:05 Current visit: Yes Status: Acute left arm is tremorous, continue home medication of propanolol (6) DVT prophylaxis: Start date: 07/27/18 Start time: 12:06 Current visit: Yes Status: Acute currently taking eliquis. (7) Discharge planning issues: Start date: 07/27/18 Start time: 12:06 Current visit: Yes Status: Acute Should be able to go home Subjective Patient reports: feels better Interval history since last seen: Mrs. Lang is a 63 y.o female with PMH of non oxygen dependent COPD, PE, GERD, essential tremor who presents to [facility] ED after 3 days of SOB, fever, chills, cough, productive green sputum. She endorses being around the flu with her neighbors. She did test positive for flu A and was started on tamiflu. Her SpO 2 in ED on RA 88 placed on 2 L for 92 %. CXR shows Left basilar pneumonia which azithromycin and rocephin have been started for CAP blood cultures and sputum have been ordered and will treat according to results. She currently takes eliquis for her hx of PE. Duonebs, steroids and ICS have been ordered for COPD exacerbation. Today she is feeling better. She feels a little tired but states she slept well. Her lungs are clear and SPO2 on RA was 91%. I will keep her on steroids 80 IV for another day and wean her down. I have decreased her fluid rate and she is on her 2 day of tamiflu, feeling better. I will RT ambulate her with exercise oximetry. Exam Const General: cooperative, healthy appearing, comfortable and no acute distress [facility] Head: normal to inspection Eyes General: appearance normal, both eyes and all related structures Neck Neck: normal visual inspection Lymphatic: no lymphadenopathy noted and no lymphedema noted Chest Chest: normal inspection of the chest Resp Effort & Inspection: able to speak in complete sentences and cough (green sputum) Auscultation: clear to auscultation bilaterally Cardio Jugular venous pressure: no JVD Rate: regular rate Rhythm: regular rhythm Heart Sounds: S1 normal and S2 normal GI Inspection: normal to inspection Skin General skin exam: no rashes or lesions noted Extrem General: normal to inspection Other: no edema, tremors to left arm Objective Objective Clinical Data: Abnormal lab results 07/26/18 07/27/18 07/27/18 Range/Units 11:38 07:20 07:20 WBC 4.27 L (4.4-10.8) k/cumm MCHC 31.8 L (32.0-36.0) g/dL Absolute Lymphocytes 0.62 L (1.2-3.4) k/cumm Chloride 108 H (98-107) mmol/L Glucose 148 H (70-100) mg/dL Calcium 8.3 L (8.5-10.1) mg/dL Ur Specific [place] >= 1.030 H (1.005-1.025) Urine Protein 30 H (Negative) mg/dL Urine Ketones 80 H (Negative) mg/dL Urine Bilirubin Small H (Negative) Vital Signs Temperature 37.1 C 07/27/18 03:37 Temperature Source Tympanic 07/27/18 03:37 Pulse 68 07/27/18 07:23 Pulse Rhythm Regular 07/27/18 00:00 Respiratory Rate 20 07/27/18 07:23 Respiratory Effort 07/27/18 00:00 Respiratory Depth Normal 07/27/18 00:00 Respiratory Pattern Normal 07/27/18 00:00 Blood Pressure 105/65 07/27/18 03:37 Blood Pressure Position Sitting 07/26/18 10:48 Pulse Oximetry 90 L 07/27/18 07:23 Oxygen Delivery Method Room Air 07/27/18 07:00 Oxygen Flow Rate 0 07/27/18 07:00 Pain Level 8 07/26/18 20:44 Comment 07/26/18 13:53 Intake & Output 07/26/18 07/26/18 07/27/18 11:59 23:59 11:59 Intake Total 1210.833 / 4058.348 5803.917 / 1397.917 Output Total 1800 / 1800 1600 / 1600 Balance -589.167 / -589.167 -202.083 / -202.083 Weight 74.389 kg 102.6 kg 77.4 kg Intake: IV 970.833 / 970.833 947.917 / 947.917 Oral 240 / 240 450 / 450 Output: Urine 1800 / 1800 1600 / 1600 Other: Urine Color Yellow Yellow Urine Appearance Clear Clear Urine Odor Normal Normal Stool Size Copious Stool Characteristics Soft Formed Brown Voiding Methods Toilet Toilet Laboratory Results WBC 4.27 k/cumm (4.4-10.8) L 07/27/18 07:20 RBC 4.25 m/cumm (4.00-5.20) 07/27/18 07:20 Hgb 12.0 g/dL (12.0-15.5) 07/27/18 07:20 Hct 37.7 % (36.0-46.0) 07/27/18 07:20 MCV 88.7 fL (80-95) 07/27/18 07:20 MCH 28.2 pg (27.0-33.0) 07/27/18 07:20 MCHC 31.8 g/dL (32.0-36.0) L 07/27/18 07:20 RDW 13.1 % (11.7-14.6) 07/27/18 07:20 Plt Count 194 x1000/uL (130-400) 07/27/18 07:20 MPV 10.4 fL (8.0-11.0) 07/27/18 07:20 Immature Gran % 0.0 07/27/18 07:20 Neutrophils % 81.1 07/27/18 07:20 Lymphocytes % 14.5 07/27/18 07:20 Monocytes % 4.4 07/27/18 07:20 Eosinophils % 0.0 07/27/18 07:20 Basophils % 0.0 07/27/18 07:20 Absolute Neutrophils 3.46 k/cumm (1.2-6.7) 07/27/18 07:20 Absolute Lymphocytes 0.62 k/cumm (1.2-3.4) L 07/27/18 07:20 Absolute Monocytes 0.19 k/cumm (0.11-0.7) 07/27/18 07:20 Absolute Eosinophils 0.00 k/cumm (0.0-0.7) 07/27/18 07:20 Absolute Basophils 0.00 k/cumm (0.0-0.2) 07/27/18 07:20 PT 11.0 sec (9.3-11.0) 07/26/18 11:15 INR 1.1 (0.9-1.1) 07/26/18 11:15 APTT 27.3 sec (21.0-31.4) 07/26/18 11:15 Sodium 142 mmol/L (136-145) 07/27/18 07:20 Potassium 4.0 mmol/L (3.5-5.1) 07/27/18 07:20 Chloride 108 mmol/L (98-107) H 07/27/18 07:20 Carbon Dioxide 25.5 mmol/L (21.0-32.0) 07/27/18 07:20 Anion Gap 8.5 mmol/L (3-11) 07/27/18 07:20 BUN 13 mg/dL (7-18) 07/27/18 07:20 Creatinine 0.59 mg/dL (0.55-1.02) 07/27/18 07:20 Estimated GFR/1.73 m2 >= 60.00 (mL/min/1.73m2) 07/27/18 07:20 Glucose 148 mg/dL (70-100) H 07/27/18 07:20 Lactate 1.1 mmol/l (0.6-1.4) 07/26/18 11:15 Calcium 8.3 mg/dL (8.5-10.1) L 07/27/18 07:20 Magnesium 1.9 mg/dL (1.8-2.4) 07/27/18 07:20 Total Bilirubin 0.4 mg/dL (0.2-1.0) 07/26/18 11:15 AST 19 U/L (15-37) 07/26/18 11:15 ALT 23 U/L (12-78) 07/26/18 11:15 Alkaline Phosphatase 104 U/L (46-116) 07/26/18 11:15 Troponin I < 0.02 ng/mL (0.00-0.06) 07/26/18 11:15 Total Protein 7.8 g/dL (6.4-8.2) 07/26/18 11:15 Albumin 3.4 g/dL (3.4-5.0) 07/26/18 11:15 Urine Color Yellow (Yellow) 07/26/18 11:38 Urine Clarity Clear 07/26/18 11:38 Urine pH 6.0 (5-8) 07/26/18 11:38 Ur Specific [place] >= 1.030 (1.005-1.025) H 07/26/18 11:38 Urine Protein 30 mg/dL (Negative) H 07/26/18 11:38 Urine Ketones 80 mg/dL (Negative) H 07/26/18 11:38 Urine Blood Negative (Negative) 07/26/18 11:38 Urine Nitrite Negative (Negative) 07/26/18 11:38 Urine Bilirubin Small (Negative) H 07/26/18 11:38 Urine Urobilinogen 0.2 EU/dL (Up TO 0.2) 07/26/18 11:38 Ur Leukocyte Esterase Negative (Negative) 07/26/18 11:38 Urine RBC 0-2 (0-2) 07/26/18 11:38 Urine WBC 0-2 HPF (0-5) 07/26/18 11:38 Ur Epithelial Cells Few HPF (Negative) 07/26/18 11:38 Urine Crystals Negative HPF (Negative) 07/26/18 11:38 Urine Bacteria Moderate HPF (Negative) 07/26/18 11:38 Urine Mucus Trace (Negative) 07/26/18 11:38 Urine Other Few renal (Negative) 07/26/18 11:38 Ur Culture Indicated? No 07/26/18 11:38 Urine Glucose Negative mg/dL (Negative) 07/26/18 11:38
--- NOTE | 2018-07-27 12:51 | PHARADMIT ---
Admission Pharmacy Clinical Review Flu A, CAP, acute exac. of COPD Code Status Full Code Current Weight 77.4 kg Renally Cleared and Narrow Therapeutic Index Meds Crcl ~90.9 mL/min using adjusted body weight QTc Value / Action Taken QTc 446 BP Control, Fever BP 113/74 afebrile Electrolytes reviewed Cl 108 DVT Prophylaxis pt is on apixaban Opiate Usage / Scheduled Bowel Regimen Ordered no/prn Plt/SCr for Heparin / Enoxaparin plt 194 SCr 0.59 INR for Warfarin n/a H/H stable, WBC/Bands h/h 12.0/37.7 wbc 4.27 Antibiotic appropriateness ceftriaxone and azithromycin for CAP Cultures and Sensitivities blood and sputum cultures pending rapid flu- positive for Flu A antigen; has oseltamivir ordered Surgical ABX d/c within 24 hr n/a DM control / Insulin Dosing BG Heart Failure (Check EF%) (BLANCA's, B-Block, Diuretics) propranolol IV to PO Switch n/a Home Meds Reviewed -propranolol may diminish the bronchodilatory effects of albuterol -loratadine may enhance the anticholinergic effects of tiotropium -bupropion and fluoxetine may inhibit the metabolism of propranolol Home Meds Not Ordered calcium and vit D, loperamide, loratadine, rizatriptan, triotropium Comments day 2 of oseltamivir and abx
[2018-07-27] MEDS: AZITHROMYCIN 500 MG in Normal Saline 250 ML 250 MG IVPB (13:15)
[2018-07-27] MEDS: Normal Saline 1,000 ML 75 ML IV (16:42)
--- NOTE | 2018-07-27 20:30 | PDOC.CMIN ---
Care Management Initial Assess REASON FOR HOSPITALIZATION:: Flu A, Acute exacerbation of COPD PAST MEDICAL HISTORY/PAST SURGICAL HISTORY:: Arthritis, COPD, Depression with Anxiety, essential tremor, HTN, Migraine, PE, Weight gain, current everyday smoker, colonoscopy, hysterectomy, bunionectomy, foot surgery PREVIOUS FUNCTIONAL STATUS/SOCIAL/FAMILY SUPPORTS:: Tracie resides with her adult son Roge in [facility]. Tracie is independent at baseline but states that she does not drive and depends on family and friends for transportation. Tracie shares that she has a large family, all of whom are supportive. CURRENT FUNCTIONAL STATUS:: Tracie was unavailable; assessment per chart review--CM will assess when Tracie is available. ADVANCE DIRECTIVES:: None on file at [facility]. Has patient been provided with information about the portal?: No Did the patient sign up for the portal?: No CODE STATUS:: Full Code INSURANCE COVERAGE / FINANCIAL ISSUES:: Medicaid CURRENT HOME/COMMUNITY SERVICES/EQUIPMENT:: Handheld shower, PRIMARY CARE PHYSICIAN:: Malinda Call POTENTIAL DISCHARGE NEEDS:: F/U appointment with PCP, evaluation for further needs, smoking cessation supports. PATIENT/FAMILY EDUCATION NEEDS:: Review discharge instructions, any limitations, and ongoing discharge planning discussion; Ask Me Three. ANTICIPATED BARRIERS TO DISCHARGE:: None identified. TRANSPORTATION:: Via private vehicle with family. PLAN:: Tracie will continue to be closely monitored and treated accordingly at this time. CM will continue to follow and support discharge planning consideration. Tracie will likely return home when ready per MD and transport via private vehicle with family.
--- NOTE | 2018-07-27 20:38 | INITIAL_ITS ---
Care Management Initial Assess REASON FOR HOSPITALIZATION:: Flu A, Acute exacerbation of COPD PAST MEDICAL HISTORY/PAST SURGICAL HISTORY:: Arthritis, COPD, Depression with Anxiety, essential tremor, HTN, Migraine, PE, Weight gain, current everyday smoker, colonoscopy, hysterectomy, bunionectomy, foot surgery PREVIOUS FUNCTIONAL STATUS/SOCIAL/FAMILY SUPPORTS:: Tracie resides with her adult son Roge in [facility]. Tracie is independent at baseline but states that she does not drive and depends on family and friends for transportation. Tracie shares that she has a large family, all of whom are supportive. CURRENT FUNCTIONAL STATUS:: Tracie was unavailable; assessment per chart review--CM will assess when Tracie is available. ADVANCE DIRECTIVES:: None on file at [facility]. Has patient been provided with information about the portal?: No Did the patient sign up for the portal?: No CODE STATUS:: Full Code INSURANCE COVERAGE / FINANCIAL ISSUES:: Medicaid CURRENT HOME/COMMUNITY SERVICES/EQUIPMENT:: Handheld shower, PRIMARY CARE PHYSICIAN:: Malinda Call POTENTIAL DISCHARGE NEEDS:: F/U appointment with PCP, evaluation for further needs, smoking cessation supports. PATIENT/FAMILY EDUCATION NEEDS:: Review discharge instructions, any limitations, and ongoing discharge planning discussion; Ask Me Three. ANTICIPATED BARRIERS TO DISCHARGE:: None identified. TRANSPORTATION:: Via private vehicle with family. PLAN:: Tracie will continue to be closely monitored and treated accordingly at this time. CM will continue to follow and support discharge planning considerati on. rTacie will likely return home when ready per MD and transport via private vehicle with family.
[2018-07-28 00:19] VITALS: RESP 1
[2018-07-28] MEDS: methylPREDNISolone SUCC 125 MG VIAL 80 MG IVP (03:34)
[2018-07-28 03:37] VITALS: BP 158/83; PULSE 60; RESP 16; TEMP 37.1; O2SAT 91
[2018-07-28] MEDS: Acetaminophen 325 MG TAB PO (03:37)
[2018-07-28] MEDS: Normal Saline 1,000 ML 75 ML IV (06:05)
[2018-07-28] MEDS: Albuterol/Ipratropium 3 ML UPD VIAL UPD ×2 (06:38→11:30)
[2018-07-28 07:59] VITALS: BP 158/83; PULSE 72; RESP 18; TEMP 37; O2SAT 94
[2018-07-28 08:00] LABS: Abs Immature Grans 0.01 k/cumm (0.0-0.09); Absolute Lymphocyte Count 0.69 k/cumm (1.2-3.4); Absolute Monocyte Count 0.31 k/cumm (0.11-0.7); Absolute Neutrophil Count 7.22 k/cumm (1.2-6.7); HCT 38.6 % (36.0-46.0); HGB 12.2 g/dL (12.0-15.5); Immature Grans % 0.1; Lymphocytes % 8.4; Mean Corp. HGB Concentration 31.6 g/dL (32.0-36.0); Mean Corpuscular Hemoglobin 28.2 pg (27.0-33.0); Mean Corpuscular Volume 89.4 fL (80-95); Mean Platelet Volume 10.6 fL (8.0-11.0); Monocytes % 3.8; Neutrophils % 87.7; Platelet Count 179 x1000/uL (130-400); RBC 4.32 m/cumm (4.00-5.20); RBC Distribution Width 13.4 % (11.7-14.6); White Blood Cell Count 8.23 k/cumm (4.4-10.8)
[2018-07-28 08:08] LABS: Anion Gap 9.6 mmol/L (3-11); BUN 15 mg/dL (7-18); CO2 26.4 mmol/L (21.0-32.0); CREATININE 0.62 mg/dL (0.55-1.02); Calcium 8.7 mg/dL (8.5-10.1); Chloride 107 mmol/L (98-107); Glucose 138 mg/dL (70-100); Magnesium 1.9 mg/dL (1.8-2.4); Potassium 3.8 mmol/L (3.5-5.1); Sodium 143 mmol/L (136-145)
[2018-07-28] MEDS: Oseltamivir 75 MG CAP PO (09:05)
[2018-07-28] MEDS: guaiFENesin 600 MG TABCR PO (09:05)
[2018-07-28] MEDS: Benzonatate 200 MG CAP PO (09:05)
[2018-07-28] MEDS: Apixaban 5 MG TAB PO (09:06)
[2018-07-28] MEDS: FLUoxetine 20 MG CAP 40 MG PO (09:06)
[2018-07-28] MEDS: Pantoprazole 40 MG TABCR PO (09:06)
[2018-07-28] MEDS: buPROPion-CR 150 MG TABCR PO (09:06)
[2018-07-28] MEDS: Propranolol 10 MG TAB PO (09:06)
[2018-07-28 09:25] VITALS: O2SAT 94
[2018-07-28] MEDS: Budesonide/Formoterol 160/4.5 6 GM 60 PUFF INH IH (09:25)
[2018-07-28] MEDS: Potassium Chloride 20 MEQ TABCR PO (09:29)
[2018-07-28] MEDS: Magnesium Oxide 400 MG TAB PO (09:30)
--- NOTE | 2018-07-28 09:49 | PT.INIE ---
Date of service: 07/28/18 Time of Service: 09:49 PT Notes Inpatient Physical Therapy Evaluation Date: Saturday, July 28, 2018 Referring Doctor: Cele Lewis PT Orders: PT CONSULT: Essential tremors and strengthening Patient Profile/Admitting Diagnosis: Patient admitted to [facility] July 26, 2018 secondary to community-acquired pneumonia and influenza. PMHX: COPD with acute exacerbation with no oxygen dependency, DVT, PE (on Eliquis) hypertension,GERD, essential tremors Social History/Home Situation: Lives on a second story apartment. Full flight with railing into dwelling. Lives with her son who is disabled secondary to head trauma. Current Functional Limitations: Deconditioned Equipment Owned/DME: none Subjective: Feeling much better. I feel I am ready to go back home. I have been up a number of times walking to the bathroom already. Objective: General Observation: IV right forearm. Patient resting comfortably in bed with HOB at 35 degrees. Mental Status: Alert and orientated x3 Pain: 0/10 Vital Signs: 94% O2 on room air ROM: Right Upper Extremity: WFL Left Upper Extremity: WFL Right Lower Extremity: WFL Left Lower Extremity: WFL Strength: Right Upper Extremity: 5/5 Left Upper Extremity: 5/5 Right Lower Extremity: 5/5 Left Lower Extremity: 5/5 Sensation: Intact to light touch to bilateral LE Bed Mobility/Transfers: Supine-sit: SBA Sit-stand: SBA Stand to sit: SBA Bed mobility: I Gait: 250' SBA with no assistive device. Negotiated clinic steps with railing SBA. Balance: Static Sitting: Normal Dynamic Sitting: Normal Static Standing: Normal Dynamic Standing: Normal Special Tests: Mobility Limitations Standardized Measure [facility] AM-PAC 6 clicks Basic Mobility Inpatient Short Form: Raw Score: 24 Standardized Score: 61.14 CMS Score: 0% [facility] Modifier: CH Informed Consent/Education: Patient instructed in purpose of PT consult and plan of care. Assessment: Patient is a 63 year old female referred to physical therapy services with the diagnosis of community acquired pneumonia and influenza. Patient presents with clinical signs and symptoms consistent with this diagnosis. She is at premorbid functional level/baseline. She is independent with functional mobility, transfers and gait. Patient does not need formal PT at this time. She has good balance does not need an assistive device for ambulation. Patient is assessed as a X Low 23179 [] Moderate 84574 [] High 07184 complexity based on the following: History: as per emr Examination: no limitations Presentation: stable Decision Making: [facility] 0% Plan of Care/Treatment Plan: Plan of care has been reviewed with the OCCUPATIONAL HYGIENIST providing the service under Physical Therapy direction. Patient does not require formal physical therapy at this time DISCHARGE RECOMMENDATIONS: Discharge to home TREATMENT CODE/TIME: IE 20 minutes 9:30-9:50
--- NOTE | 2018-07-28 10:00 | IN_ITS ---
Date of service: 07/28/18 Time of Service: 09:49 PT Notes Inpatient Physical Therapy Evaluation Date: Saturday, July 28, 2018 Referring Doctor: Cele Lewis PT Orders: PT CONSULT: Essential tremors and strengthening Patient Profile/Admitting Diagnosis: Patient admitted to [facility] July 26, 2018 secondary to community-acquired pneumonia and influenza. PMHX: COPD with acute exacerbation with no oxygen dependency, DVT, PE (on Eliquis) hypertension,GERD, essential tremors Social History/Home Situation: Lives on a second story apartment. Full flight with railing into dwelling. Lives with her son who is disabled secondary to head trauma. Current Functional Limitations: Deconditioned Equipment Owned/DME: none Subjective: Feeling much better. I feel I am ready to go back home. I have been up a number of times walking to the bathroom already. Objective: General Observation: IV right forearm. Patient resting comfortably in bed with HOB at 35 degrees. Mental Status: Alert and orientated x3 Pain: 0/10 Vital Signs: 94% O2 on room air ROM: Right Upper Extremity: WFL Left Upper Extremity: WFL Right Lower Extremity: WFL Left Lower Extremity: WFL Strength: Right Upper Extremity: 5/5 Left Upper Extremity: 5/5 Right Lower Extremity: 5/5 Left Lower Extremity: 5/5 Sensation: Intact to light touch to bilateral LE Bed Mobility/Transfers: Supine-sit: SBA Sit-stand: SBA Stand to sit: SBA Bed mobility: I Gait: 250' SBA with no assistive device. Negotiated clinic steps with railing SBA. Balance: Static Sitting: Normal Dynamic Sitting: Normal Static Standing: Normal Dynamic Standing: Normal Special Tests: Mobility Limitations Standardized Measure [facility] AM-PAC 6 clicks Basic Mobility Inpatient Short Form: Raw Score: 24 Standardized Score: 61.14 CMS Score: 0% [facility] Modifier: CH Informed Consent/Education: Patient instructed in purpose of PT consult and plan of care. Assessment: Patient is a 63 year old female referred to physical therapy services with the diagnosis of community acquired pneumonia and influenza. Patient presents with clinical signs and symptoms consistent with this diagnosis. She is at premorbid functional level/baseline. She is independent with functional mobility, transfers and gait. Patient does not need formal PT at this time. She has good balance does not need an assistive device for ambulation. Patient is assessed as a X Low 06442 [] Moderate 98627 [] High 53281 complexity based on the following: History: as per emr Examination: no limitations Presentation: stable Decision Making: [facility] [address] 0% Plan of Care/Treatment Plan: Plan of care has been reviewed with the FUEL CELL ASSEMBLER providing the service under Physical Therapy direction. Patient does not require formal physical therapy at this time DISCHARGE RECOMMENDATIONS: Discharge to home TREATMENT CODE/TIME: IE 20 minutes 9:30-9:50
--- NOTE | 2018-07-28 11:05 | W.PM.DS.N ---
Date of service: 07/28/18 Time of Service: 11:06 DS: Diagnosis Discharge Diagnosis (1) Influenza A: Status: Acute (2) COPD with acute exacerbation: Status: Acute (3) CAP (community acquired pneumonia): Status: Acute (4) Pulmonary embolism: Status: Chronic (5) Essential tremor: Status: Acute (6) DVT prophylaxis: Status: Acute (7) Discharge planning issues: Status: Acute Discharge Plan Disposition Patient Disposition: HOME Condition: Good Discharge Details Reason For Visit: FLU A, CAP, ACUTE EXAC. OF COPD Admit Date/Time: 07/26/18 12:35 Admit Provider: Michelle Rowan Attending Provider: Michelle Rowan Primary Care Provider: Malinda Call Hospital Course Hospital Course: Mrs. Lang is a 63 y.o female with PMH of non oxygen dependent COPD, PE, HTN, GERD, who presents to [facility] ED after 3 days of SOB, fever, chills, cough, productive green sputum. She endorses being around the flu with her neighbors. She did test positive for flu A and was started on tamiflu. Her SpO 2 in ED on RA 88 placed on 2 L for 92 %. CXR showed Left basilar pneumonia which azithromycin and rocephin have been started for CAP. She currently takes eliquis for her hx of PE. Today she is doing very well. Oxygen on RA 95%, exercise oximetry was 92 ambulating, LSC and no SOB. Her cough has improved. Her BC are showing no growth, WBC at 6 and afebrile, She is responding well to steroids, nebs and antibotics. I will continue azithromycin x 4 days and cefpodixime x 5 days, along with steroid taper and tamiflu x 3 days. (1) Influenza A: Day 3 of tamiflu bid continue, feeling better, afebrile (2) COPD with acute exacerbation: likely from Influenza A, 95 % on RA, exercise spo2 was 92%, continue nebs, steroid taper (3) CAP (community acquired pneumonia): Likely from Flu, continue with azithromycin, cefpodixime, nebs, steroid taper, tamiflu (4) Pulmonary embolism: on current treatment with eliquis for prehospital PE (5) Essential tremor: left arm is tremorous, continue home medication of propanolol (6) DVT prophylaxis: currently taking eliquis. (7) Discharge planning issues: Should be able to go home Home Meds and New Rx's Prescriptions: New benzonatate 200 mg Capsule 200 mg PO TID Qty: 15 RF: 0 Symbicort 160-4.5 mcg/actuation Hfa Aerosol Inhaler 2 puff Inhalation BID Qty: 6 RF: 0 guaifenesin [Mucinex] 600 mg Tablet Extended Release 12hr 600 mg PO BID Qty: 10 RF: 0 prednisone 10 mg tablet 10 mg PO DAILY Qty: 42 RF: 0 cefpodoxime 200 mg tablet 200 mg PO BID 5 Days Qty: 10 RF: 0 famotidine [Heartburn Relief (famotidine)] 20 mg tablet 20 mg PO DAILY Qty: 30 RF: 0 oseltamivir [Tamiflu] 75 mg capsule 75 mg PO BID 3 Days Qty: 6 RF: 0 azithromycin 500 mg tablet 500 mg PO DAILY 3 Days Qty: 3 RF: 0 Lactobacillus acidophilus 1 billion cell capsule 100 mg PO DAILY Qty: 30 RF: 0 Continued rizatriptan [Maxalt-REAL ESTATE ECONOMIST] 10 MG tablet,disintegrating 10 mg PO ONCE RF: 0 fluoxetine 40 MG capsule 40 mg PO DAILY RF: 0 loratadine 10 MG tablet 10 mg PO DAILY RF: 0 calcium carbonate-vitamin D3 1 EACH tablet 2 tab PO DAILY RF: 0 bupropion HCl 150 MG tablet extended release 12 hr 150 mg PO DAILY RF: 0 loperamide [Imodium A-D] 2 MG tablet 2 mg PO PRN PRNRF: 0 propranolol 10 MG tablet 10 mg PO BID Qty: 180 RF: 3 ProAir HFA 1 PUFF HFA aerosol inhaler 2 puff Inhalation Q2H PRN PRNQty: 1 RF: 3 Spiriva with HandiHaler 18 MCG capsule, w/inhalation device 18 mcg Inhalation DAILY Qty: 1 RF: 3 Eliquis 5 MG tablet 5 mg PO BID Qty: 60 RF: 3 Discharge Instructions Instructions: Influenza (GEN), COPD (Chronic Obstructive Pulmonary Disease) (GEN), Community Acquired Pneumonia (GEN) Additional Instructions: Follow up with your primary Provider in one week, Take all prescriptions as prescribed. Finish all antibiotics. Take probiotic for 1 month. Go to the Emergency Department if worsening cough, fever, swelling, Chest pain or Shortness of Breath Stand Alone Forms: Nursing Discharge Form Referrals: Malinda Call [Primary Care Provider] - Activity:: Activity as Tolerated Equipment/Supplies:: No Equipment Needed Diet:: As Tolerated Discharge Orders Discharge Orders: Discharge Order (Routine); Ordered 07/28/18 Ordered By: Cele Lewis Exam Const General: cooperative, healthy appearing and no acute distress Orientation: alert, awake and oriented x3 HENMT Head: normal to inspection Eyes General: appearance normal, both eyes and all related structures Chest Chest: normal inspection of the chest Resp Effort & Inspection: normal respiratory effort and able to speak in complete sentences Auscultation: clear to auscultation bilaterally and diminished lung sounds Cardio Jugular venous pressure: no JVD Rhythm: regular rhythm Heart Sounds: S1 normal and S2 normal GI Inspection: normal to inspection Skin General skin exam: no rashes or lesions noted Extrem General: normal to inspection Psych Appearance: grossly normal DS: Data Vitals/I&O Vitals and I&O: Vital Signs Temperature 37.0 C 07/28/18 07:59 Temperature Source Tympanic 07/28/18 07:59 Pulse 72 07/28/18 07:59 Pulse Rhythm Regular 07/28/18 09:21 Respiratory Rate 18 07/28/18 07:59 Respiratory Effort Non-Labored 07/28/18 09:21 Respiratory Depth Normal 07/28/18 09:21 Respiratory Pattern Normal 07/28/18 09:21 Blood Pressure 158/83 H 07/28/18 07:59 Blood Pressure Position Sitting 07/26/18 10:48 Pulse Oximetry 94 L 07/28/18 07:59 Oxygen Delivery Method Room Air 07/28/18 07:59 Oxygen Flow Rate 0 07/28/18 07:59 Pain Level 7 07/28/18 03:37 Comment 07/28/18 03:37 Intake & Output 07/27/18 07/27/18 07/28/18 11:59 23:59 11:59 Intake Total 1637.917 / 3590.417 1952.50 / 3590.417 1397.5 / 1397.5 Output Total 1800 / 2351 551 / 2351 1200 / 1200 Balance -162.083 / 6934.733 1481.50 / 1239.417 197.5 / 197.5 Weight 77.4 kg 77.2 kg Intake: IV 947.917 / 2420.417 1472.50 / 2420.417 827.5 / 827.5 Oral 690 / 1170 480 / 1170 570 / 570 Output: Urine 1800 / 2350 550 / 2350 1200 / 1200 Stool Other: Urine Color Yellow Yellow Yellow Urine Appearance Clear Clear Clear Urine Odor Normal Normal Stool Size Large Moderate Small Stool Characteristics Soft Soft Soft Formed Liquid Brown Brown Voiding Methods Toilet Toilet Toilet Completed studies during hospitalization [Text1]: AP AND LATERAL CHEST: 07/26/2018 The heart is not enlarged. There is loss of the contour of the diaphragm on the left which may indicate a left lower lobe pneumonia. Otherwise the lungs appear generally clear with some suggestion of streaky and patchy posterior radiodensities on the lateral view. No pleural effusion is seen. CONCLUSION: Suspect left basilar pneumonia. Appropriate follow up studies requested. Gram Stain Final 07/27/18-1109 GRAM STAIN Moderate White Blood Cells Moderate Epithelial Cells Mixed Gram Positive & Gram Negative Abbi; None Predominant Rare Yeast Labs on day of discharge: Labs from last 24 hours 07/28/18 07/28/18 07:45 07:45 WBC 8.23 D RBC 4.32 Hgb 12.2 Hct 38.6 MCV 89.4 MCH 28.2 MCHC 31.6 L RDW 13.4 Plt Count 179 MPV 10.6 Immature Gran % 0.1 Neutrophils % 87.7 Lymphocytes % 8.4 Monocytes % 3.8 Eosinophils % 0.0 Basophils % 0.0 Absolute Neutrophils 7.22 H Absolute Lymphocytes 0.69 L Absolute Monocytes 0.31 Absolute Eosinophils 0.00 Absolute Basophils 0.00 Sodium 143 Potassium 3.8 Chloride 107 Carbon Dioxide 26.4 Anion Gap 9.6 BUN 15 Creatinine 0.62 Estimated GFR/1.73 m2 >= 60.00 Glucose 138 H Calcium 8.7 Magnesium 1.9 07/27/18 09:15 Sputum Sputum Culture - Pending Preliminary micro results at discharge 07/26/18 11:34 Blood Culture - Preliminary Blood NO GROWTH 24 HOURS 07/26/18 11:15 Blood Culture - Preliminary Blood NO GROWTH 24 HOURS 07/27/18 09:15 Sputum Culture - Pending Sputum [facility] Medical History HTN (hypertension) COPD (chronic obstructive pulmonary disease) Migraine Arthritis Depression with anxiety Essential tremor Pulmonary emboli Weight gain Family History Sister Diabetes Brother Hypertension Other Heart disease Social History Smoking and Tabacco status: Current every day
[2018-07-28 11:25] VITALS: BP 160/84; PULSE 63; RESP 18; TEMP 37; O2SAT 94
[2018-07-28] MEDS: AZITHROMYCIN 500 MG in Normal Saline 250 ML 250 MG IVPB (11:32)
--- NOTE | 2018-07-28 14:47 | PDOC.CMDIS ---
LACE Index Scoring Tool - Questions: Length of Stay (in days): 3 Acuity (Admit via E.D.?): Yes Comorbidities: Chronic Pulmonary Disease E.D. Visits: 3 - Answers: Total Score: 11 Risk of Readmission: High Risk Care Management Discharge Reason for Hospitalization: Flu A, Acute exacerbation of COPD Discharge Plan: Tracie will return home when ready per MD with no additional services anticipated at this time. She will transport via private vehicle with family. Patient/Family Education Needs: Review discharge instructions, any limitations, and ongoing discharge planning discussion; Ask Me Three.
== END 2018-07-28 12:59 | disposition home or self-care (01) | DRG 194 ==
LOC: ER 13:35 → MS 13:56
PROVIDERS: Nurse Practitioner Family; Admitting Provider Internal Medicine; Emergency Provider Student in an Organized Health Care Education/Training Program; PCP Nurse Practitioner; Visit Provider Internal Medicine
DX: J44.0 Chronic obstructive pulmonary disease with (acute) lower respiratory infection; J44.1 Chronic obstructive pulmonary disease with (acute) exacerbation; F17.210 Nicotine dependence, cigarettes, uncomplicated; G25.0 Essential tremor; I10 Essential (primary) hypertension; K21.9 Gastro-esophageal reflux disease without esophagitis; F41.8 Other specified anxiety disorders; Z86.711 Personal history of pulmonary embolism; Z79.01 Long term (current) use of anticoagulants; J10.00 Influenza due to other identified influenza virus with unspecified type of pneumonia
CPT/HCPCS: 36415; 80048; 80053; 87040; 87077; 87449; 93005; 94618; 94640; 96361; 96365; 96366; 96368; 96375; 97161; 99233; 99239; 99285; 71046; 81003; 81015; 83605; 83735; 84484; 85025; 85610; 85730; 87070; 87205; 93010; 99222; J0456; J0696; J2765; J2930; J7620

== ENCOUNTER 2019-06-26 20:06 | Emergency (ER) | payer MEDICARE, MEDICAID, SELFPAY ==
[2019-06-26] VITALS (26 sets, daily range): BP systolic 122–160; BP diastolic 68–90; PULSE 76–93; RESP 4–37; TEMP 37.4; O2SAT 90–96
--- NOTE | 2019-06-26 20:37 | ED.GENADUL_ITS ---
Discharge Plan Disposition Patient Disposition: HOME Condition: Good Discharge Details Chief Complaint: RespSymp Clinical Impression: Bronchitis, Community acquired pneumonia, Acute exacerbation of chronic obstructive pulmonary disease Primary Care Provider: Malinda Call ED Provider: Clifford Borges Home Meds and New Rx's Prescriptions: New ipratropium-albuterol 0.5 mg-3 mg(2.5 mg base)/3 mL solution for nebulization 3 ml IH Q6H Qty: 90 RF: 0 prednisone 50 MG tablet 50 mg PO DAILY Qty: 5 RF: 0 doxycycline hyclate 100 mg capsule 100 mg PO BID Qty: 20 RF: 0 No Action rizatriptan [Maxalt-HYDRAULIC ELEVATOR CONSTRUCTOR] 10 MG tablet,disintegrating 10 mg PO ONCE RF: 0 fluoxetine 40 MG capsule 40 mg PO DAILY RF: 0 loratadine 10 MG tablet 10 mg PO DAILY RF: 0 calcium carbonate-vitamin D3 1 EACH tablet 2 tab PO DAILY RF: 0 bupropion HCl 150 MG tablet extended release 12 hr 150 mg PO DAILY RF: 0 loperamide [Imodium A-D] 2 MG tablet 2 mg PO PRN PRNRF: 0 propranolol 10 MG tablet 10 mg PO BID Qty: 180 RF: 3 ProAir HFA 1 PUFF HFA aerosol inhaler 2 puff Inhalation Q2H PRN PRNQty: 1 RF: 3 Spiriva with HandiHaler 18 MCG capsule, w/inhalation device 18 mcg Inhalation DAILY Qty: 1 RF: 3 Eliquis 5 MG tablet 5 mg PO BID Qty: 60 RF: 3 benzonatate 200 mg Capsule 200 mg PO TID Qty: 15 RF: 0 Symbicort 160-4.5 mcg/actuation Hfa Aerosol Inhaler 2 puff Inhalation BID Qty: 6 RF: 0 guaifenesin [Mucinex] 600 mg Tablet Extended Release 12hr 600 mg PO BID Qty: 10 RF: 0 prednisone 10 mg tablet 10 mg PO DAILY Qty: 42 RF: 0 famotidine [Heartburn Relief (famotidine)] 20 mg tablet 20 mg PO DAILY Qty: 30 RF: 0 Lactobacillus acidophilus 1 billion cell capsule 100 mg PO DAILY Qty: 30 RF: 0 Discharge Instructions Instructions: COPD (Chronic Obstructive Pulmonary Disease) (ED), Community Acquired Pneumonia (ED) Additional Instructions: At this time your oxygen remained stable, there is no evidence of heart abnormality or problem on your work-up. Your symptoms appear consistent with mild pneumonia/bronchitis and COPD exacerbation. Please use the Symbicort inhaler with the spacer twice daily. Please take the antibiotic doxycycline twice daily as directed. Do not take your calcium with this or any dairy products as it can decrease absorption. Additionally make sure you take the doxycycline with food otherwise it can cause nausea and vomiting. Please use the nebulizer that we have provided and the nebulizer solutions every 4-6 hours as needed for the next 2 to 3 days. Please take the prednisone as directed to help with your COPD. If you notice any worsening of your symptoms, or any new symptoms such as vomiting, diarrhea, fever, chills, shortness of breath, chest pain, numbness, weakness, or fainting , please return immediately to the emergency department for reevaluation. Please follow up with your primary care provider as soon as possible for reassessment and reevaluation. As always, it was a pleasure participating in your medical care today. Referrals: Malinda Call [Primary Care Provider] - Medical Decision Making 64-year-old female with a past medical history of pulmonary embolism on Eliquis, hypertension, COPD, who presents today for cough, mild shortness of breath, productive green sputum. Patient states that she recently ran out of her inhaler at home, but when she was using it had notable improvement of her symptoms. Symptoms have been present for the last 3 to 5 days. Family members have been sick with similar symptoms. Due to her egg allergy she has not gotten her influenza vaccine. She does admit to mild pain when she coughs but denies otherwise any pleuritic chest pain, chest heaviness, chest tightness, bandlike sensation around the chest, or tearing sensation. She does have a family history of cardiac disease but has no cardiac disease for self. She has been taking her Eliquis as directed. She denies any recent long trips, surgeries, procedures, hemoptysis, nausea vomiting or diarrhea. No other complaints at this time. No other modifying factors. Patient's physical exam demonstrates no pitting edema or calf tenderness. She has coarse breath sounds throughout, crackles and wheezes throughout. Oxygenation is stable on room air at this time. Symptoms are inconsistent with PE especially in conjunction with her Eliquis use. Certainly unlikely for ACS, symptoms are most concerning and consistent with community-acquired pneumonia and COPD exacerbation. We will get a chest x-ray, evaluate for influenza, give duo nebs, steroids, reassess. Of note she has not had any admissions since last year, no recent antibiotics. 9:07 PM Patient's fever had results read clear lungs, however I do disagree, I do feel that there is evidence of a small infiltrate in the right mid to lower lung meyers. This also correlates notably clinically well with her symptomatology. Will start antibiotics of Rocephin and doxycycline. Pending the remainder of the laboratory work-up. 10:56 PM Laboratory work-up is returned, no significant white count, left shift, VBG stable, electrolytes normal, troponin normal, proBNP normal, port score is 54 points, low risk category. Ambulatory pulse ox demonstrates no hypoxemia with ambulation, no significant tachycardia. She remains afebrile, lung sounds have improved with breathing treatments. Patient is feeling better. She is hemodynamically stable. I had a long discussion regarding inpatient versus outpatient admission, I do feel that she would be stable for outpatient treatment. Weighing the risks and benefits after discussion with the patient about this patient has chosen outpatient treatment. I do feel this is notably reasonable. We will treat with outpatient doxycycline, will give 2 pills to go. We will give Symbicort for inhalation, nebulizer for home use, and prescription for steroids. We discussed red flags which return. I have extensively reviewed the treatment plan and discharge instructions with the patient. I have addressed all patient concerns at this time. The patient was made aware of what symptoms to monitor for that would warrant a return to the emergency department. Discussed the plan with the patient, they demonstrate verbal understanding and agreement with our assessment and plan at this time. EKG 21: 20 Rate 84, intervals normal, sinus rhythm, no significant ST elevations or depressions, no T wave inversions. No evidence of STEMI. Comparison of prior EKG from 07/26/2018 demonstrates evidence of no significant change or abnormality. FINDINGS: Lungs: Clear lungs. Pleural space: No pneumothorax. No sizable pleural effusion. Heart/Mediastinum: No cardiomegaly. Bones/joints: Unremarkable. IMPRESSION: Clear lungs. Thank you for allowing us to participate in the care of your patient. Dictated and Authenticated by: Bryce Breaux MD 06/26/2019 9:05 PM Eastern Time ([place] & [place]) HPI General Date/Time Provider Initiated Documentation: 06/26/19 20:09 . HPI Narrative: 64-year-old female with a past medical history of pulmonary embolism on Eliquis, hypertension, COPD, who presents today for cough, mild shortness of breath, productive green sputum. Patient states that she recently ran out of her inhaler at home, but when she was using it had notable improvement of her symptoms. Symptoms have been present for the last 3 to 5 days. Family members have been sick with similar symptoms. Due to her egg allergy she has not gotten her influenza vaccine. She does admit to mild pain when she coughs but denies otherwise any pleuritic chest pain, chest heaviness, chest tightness, bandlike sensation around the chest, or tearing sensation. She does have a family history of cardiac disease but has no cardiac disease for self. She has been taking her Eliquis as directed. She denies any recent long trips, surgeries, procedures, hemoptysis, nausea vomiting or diarrhea. No other complaints at this time. No other modifying factors. Related Data Home Medications Medication Instructions Recorded Confirmed loratadine 10 mg PO DAILY 09/22/12 07/26/18 bupropion HCl 150 mg PO DAILY 04/02/14 07/26/18 calcium carbonate-vitamin D3 2 tab PO DAILY 04/02/14 07/26/18 fluoxetine 40 mg PO DAILY tab-cap 01/11/15 07/26/18 rizatriptan [Maxalt-HYDRAULIC ELEVATOR CONSTRUCTOR] 10 mg PO ONCE tab-cap 01/11/15 07/26/18 loperamide [Imodium A-D] 2 mg PO PRN PRN 02/24/16 07/26/18 ProAir HFA 2 puff INHALATION Q2H PRN PRN #1 10/29/16 07/26/18 inh Spiriva with HandiHaler 18 mcg INHALATION DAILY #1 tab-cap 10/29/16 07/26/18 propranolol 10 mg PO BID #180 tab-cap 10/29/16 07/26/18 Eliquis 5 mg PO BID #60 tablet 12/24/16 07/26/18 Lactobacillus acidophilus 100 mg PO DAILY #30 cap 07/28/18 benzonatate 200 mg PO TID #15 cap 07/28/18 budesonide-formoterol [Symbicort] 2 puff INHALATION BID #6 gm 07/28/18 famotidine [Heartburn Relief 20 mg PO DAILY #30 tab 07/28/18 (famotidine)] guaifenesin [Mucinex] 600 mg PO BID #10 tab 07/28/18 prednisone 10 mg PO DAILY #42 tab 07/28/18 doxycycline hyclate 100 mg PO BID #20 cap 06/26/19 ipratropium-albuterol 3 ml IH Q6H #90 ml 06/26/19 prednisone 50 mg PO DAILY #5 tab 06/26/19 Previous Rx's Medication Instructions Recorded ProAir HFA 2 puff INHALATION Q2H PRN PRN #1 10/29/16 inh Spiriva with HandiHaler 18 mcg INHALATION DAILY #1 tab-cap 10/29/16 propranolol 10 mg PO BID #180 tab-cap 10/29/16 Eliquis 5 mg PO BID #60 tablet 12/24/16 Lactobacillus acidophilus 100 mg PO DAILY #30 cap 07/28/18 benzonatate 200 mg PO TID #15 cap 07/28/18 budesonide-formoterol [Symbicort] 2 puff INHALATION BID #6 gm 07/28/18 famotidine [Heartburn Relief 20 mg PO DAILY #30 tab 07/28/18 (famotidine)] guaifenesin [Mucinex] 600 mg PO BID #10 tab 07/28/18 prednisone 10 mg PO DAILY #42 tab 07/28/18 doxycycline hyclate 100 mg PO BID #20 cap 06/26/19 ipratropium-albuterol 3 ml IH Q6H #90 ml 06/26/19 prednisone 50 mg PO DAILY #5 tab 06/26/19 Allergies Allergy/AdvReac Type Severity Reaction Status Date / Time aspirin AdvReac Mild Nausea Unverified 07/26/18 11:14 egg AdvReac Mild Nausea Unverified 07/26/18 11:14 chocolate flavor AdvReac cough Unverified 07/26/18 11:14 migraines General KIERAN: 3 Review of Systems All systems reviewed & are unremarkable except as noted in HPI and below PFSH Social History Smoking/Tobacco Use Status: Current every day Drug use: Never Do you feel safe in your relationship?: Yes Exam Narrative Exam Narrative: 1.Const: Well-nourished, Well-developed, appearing stated age 2.Eyes: PERRL, no conjunctival injection, and symmetrical lids. 3.ENT: Atraumatic external nose and ears. Moist MM. Neck: Symmetric, trachea midline, No thyromegaly. 4.CVS: +S1/S2, No murmurs or gallops. Peripheral pulses 2+ and equal in all extremities. Brisk capillary refill in all extremities. Radial pulses +2 bilaterally. 5.RESP: Unlabored respiratory effort. Crackles and wheezes throughout, diminished breath sounds in the bases bilaterally. No rhonchi. 6.GI: Soft, Nontender/Nondistended, No hepatosplenomegaly. No guarding or rebound. 7.MSK: Normocephalic/Atraumatic, Extremities w/o deformity or ttp No cyanosis or clubbing, Normal movement of all extremities, no calf tenderness, no pitting edema. 8.Skin: Warm, Dry. No rashes or lesions. 9.Neuro: wetlands technician II-XII grossly intact. Sensation grossly intact, no focal neurologic deficits. 10.Psych: (AAO) x3. Appropriate mood and affect
[2019-06-26] MEDS: methylPREDNISolone SUCC 125 MG VIAL (20:40)
[2019-06-26] MEDS: Albuterol/Ipratropium 3 ML UPD VIAL (20:44)
--- NOTE | 2019-06-26 21:00 | DI.RAD_ITS ---
EXAM: XR CHEST 2V PA LATERAL CLINICAL HISTORY: cough, crackles throughout, r/o pneumonia TECHNIQUE: COMPARISON: XR CHEST 2V PA LATERAL from 07/26/2018 FINDINGS: The heart may be mildly enlarged. Lungs appear predominantly clear, question slight scarring or atel ectasis in the bases. No lucia consolidation seen. IMPRESSION: Question basilar atelectasis and/or scarring. Follow-up film may be obtained if clinically indicated .
[2019-06-26 21:01] LABS: BE (Venous) 3.4 mmol/L (-3-3); HCO3 (Venous) 29 mmol/L (22-28); O2 Sat (Venous) 64 % (70-80); TCO2 (Venous) 26 mmol/L (22-29); pCO2 (Venous) 50 mm/Hg (34-47); pH (Venous) 7.37 (7.35-7.45); pO2 (Venous) 35 mm/Hg (28-44)
[2019-06-26 21:02] LABS: Abs Immature Grans 0.01 k/cumm (0.0-0.09); Absolute Basophil Count 0.02 k/cumm (0.0-0.2); Absolute Eosinophil Count 0.32 k/cumm (0.0-0.7); Absolute Lymphocyte Count 1.78 k/cumm (1.2-3.4); Absolute Neutrophil Count 2.51 k/cumm (1.2-6.7); Basophils % 0.4; HCT 41.7 % (36.0-46.0); HGB 13.2 g/dL (12.0-15.5); Immature Grans % 0.2 %; Lymphocytes % 33.3; Mean Corp. HGB Concentration 31.7 g/dL (32.0-36.0); Mean Corpuscular Hemoglobin 28.3 pg (27.0-33.0); Mean Corpuscular Volume 89.3 fL (80-95); Mean Platelet Volume 9.8 fL (8.0-11.0); Monocytes % 13.1; Platelet Count 272 x1000/uL (130-400); RBC 4.67 m/cumm (4.00-5.20); RBC Distribution Width 13.6 % (11.7-14.6); White Blood Cell Count 5.34 k/cumm (4.4-10.8)
--- NOTE | 2019-06-26 21:06 | DI.VRAD_ITS ---
PROCEDURE INFORMATION: Exam: XR Chest, 2 Views Exam date and time: 06/26/2019 8:53 PM Age: 64 years old Clinical indication: Cough and shortness of breath; Patient HX: Productive cough, green sputum, SOB, weakness. Crackles throughout. R/O pneumonia TECHNIQUE: Imaging protocol: XR of the chest Views: 2 views. COMPARISON: CR XR CHEST 2V PA LATERAL 07/26/2018 11:59 AM FINDINGS: Lungs: Clear lungs. Pleural space: No pneumothorax. No sizable pleural effusion. Heart/Mediastinum: No cardiomegaly. Bones/joints: Unremarkable. IMPRESSION: Clear lungs. Dictated and Authenticated by: Bryce Breaux MD. Ordering:BRANDON Horton MD
[2019-06-26 21:07] LABS: Lactate 0.9 mmol/L (0.6-1.4)
[2019-06-26 21:30] LABS: ALT 31 U/L (14-59); AST 25 U/L (15-37); Albumin 3.4 g/dL (3.4-5.0); Alkaline Phosphatase 106 U/L (46-116); Anion Gap 7.1 mmol/L (3-11); BUN 23 mg/dL (7-18); Bilirubin, Total 0.2 mg/dL (0.2-1.0); CO2 29.9 mmol/L (21.0-32.0); CREATININE 0.86 mg/dL (0.55-1.02); Chloride 106 mmol/L (98-107); Glucose 86 mg/dL (74-106); NT-proBNP 97 pg/mL (<300); Potassium 4.3 mmol/L (3.5-5.1); Sodium 143 mmol/L (136-145); Total Protein 7.3 g/dL (6.4-8.2)
[2019-06-26 21:35] LABS: Troponin I < 0.05 ng/Ml (<0.06)
[2019-06-26] MEDS: DOXYCYCLINE 100 MG in Normal Saline 100 ML IVPB (21:41)
[2019-06-26] MEDS: cefTRIAXone 2 GM/50 ML BAG IVPB (22:51)
[2019-06-26] MEDS: Budesonide/Formoterol 160/4.5 6 GM 60 PUFF INH IH (23:15)
== END 2019-06-26 23:30 | disposition home or self-care (01) ==
PROVIDERS: Emergency Provider Student in an Organized Health Care Education/Training Program; PCP Nurse Practitioner
DX: J44.0 Chronic obstructive pulmonary disease with (acute) lower respiratory infection (principal); J20.9 Acute bronchitis, unspecified; J18.9 Pneumonia, unspecified organism; J44.1 Chronic obstructive pulmonary disease with (acute) exacerbation; Z79.01 Long term (current) use of anticoagulants; Z86.711 Personal history of pulmonary embolism; F17.210 Nicotine dependence, cigarettes, uncomplicated; I10 Essential (primary) hypertension
CPT/HCPCS: 36415; 80053; 82805; 87449; 93005; 94640; 96365; 96367; 96375; 99285; 71046; 83605; 83880; 84484; 85025; 93010; J2930; J7620

== ENCOUNTER 2019-10-04 16:01 | Emergency (ER) | payer MEDICARE, MEDICAID, SELFPAY ==
[2019-10-04 16:07] VITALS: BP 153/89; PULSE 85; RESP 30; TEMP 36.6; O2SAT 98
--- NOTE | 2019-10-04 16:31 | DI.RAD_ITS ---
EXAM: XR PORTABLE CHEST AP CLINICAL HISTORY: SOB TECHNIQUE: COMPARISON: XR CHEST 2V PA LATERAL from 06/26/2019 FINDINGS: The heart may be mildly enlarged. There is a poor inspiration. No focal pulmonary consolidation see n. No evidence of pneumothorax IMPRESSION: No evidence of acute process. No change from 06/26/2019.
--- NOTE | 2019-10-04 16:32 | ED.GENADUL_ITS ---
Discharge Plan Disposition Patient Disposition: HOME Condition: Stable Discharge Details Chief Complaint: SOB Clinical Impression: COPD exacerbation Primary Care Provider: Malinda Call ED Provider: Nicolas Xavier Home Meds and New Rx's Prescriptions: New prednisone 20 mg tablet 60 mg PO DAILY 5 Days Qty: 15 RF: 0 No Action rizatriptan [Maxalt-CERTIFIED ORTHOTIST] 10 MG tablet,disintegrating 10 mg PO ONCE RF: 0 fluoxetine 40 MG capsule 40 mg PO DAILY RF: 0 loratadine 10 MG tablet 10 mg PO DAILY RF: 0 calcium carbonate-vitamin D3 1 EACH tablet 2 tab PO DAILY RF: 0 bupropion HCl 150 MG tablet extended release 12 hr 150 mg PO DAILY RF: 0 loperamide [Imodium A-D] 2 MG tablet 2 mg PO PRN PRNRF: 0 propranolol 10 MG tablet 10 mg PO BID Qty: 180 RF: 3 albuterol sulfate [ProAir HFA] 1 PUFF HFA aerosol inhaler 2 puff Inhalation Q2H PRN PRNQty: 1 RF: 3 Spiriva with HandiHaler 18 MCG capsule, w/inhalation device 18 mcg Inhalation DAILY Qty: 1 RF: 3 ipratropium-albuterol 0.5 mg-3 mg(2.5 mg base)/3 mL solution for nebulization 3 ml IH Q6H Qty: 90 RF: 0 Eliquis 5 MG tablet 5 mg PO BID Qty: 60 RF: 3 budesonide-formoterol [Symbicort] 160-4.5 mcg/actuation Hfa Aerosol Inhaler 2 puff Inhalation BID Qty: 6 RF: 0 guaifenesin [Mucinex] 600 mg Tablet Extended Release 12hr 600 mg PO BID Qty: 10 RF: 0 famotidine [Heartburn Relief (famotidine)] 20 mg tablet 20 mg PO DAILY Qty: 30 RF: 0 Discharge Instructions Instructions: COPD (Chronic Obstructive Pulmonary Disease) (ED) Additional Instructions: At this time work-up in the ER on unremarkable for emergent process. You responded nicely to the breathing treatments and steroids. Continue current home medications and add on prednisone as directed. I have set you up for Covid testing on Sunday, you should receive a call Sunday morning. I also recommend reaching out to your primary care provider on Sunday for prompt outpatient reevaluation. Please watch for new or worsening symptoms and return to the ER for any concerns At this time your symptoms are concerning for coronavirus. CDC does recommend testing. It takes 48 - 72 hours for the test results to return. You will be contacted by [facility] staff when your results return. If you do not hear from them in 48 to 72 hours, please contact [facility]. Out of an abundance of precaution it is highly recommended that you self quarantine yourself for a total of 14 days or until symptom-free for greater than 24 to 48 hours. It would be prudent to wear a mask at all times, always wash her hands frequently, and follow-up closely with your primary care provider. It is recommended that you call your primary care provider prior to reassessment. If you are going to a health facility, please call/contact them before you arrive. At this time based on your current symptoms the CDC does not recommend admission, and there is no current clinical indication for your admission here at the hospital. However it is vitally important to monitor your symptoms closely, and if you notice any worsening of your symptoms, or any new symptoms such as worsening shortness of breath, difficulty breathing, persistent fever, worsening chills, chest pain, numbness, weakness, or fainting please call and then return immediately to the emergency department for reevaluation. Please call your primary care provider as soon as possible to make them aware of your current situation and for continued monitoring. As always, it was a pleasure participating in your medical care today. Stand Alone Forms: POSITIVE COVID-19/TO BE TESTED Discharge Data Discharge Date/Time-TO BE ENTERED AT DEPARTURE: 10/04/19 18:16 Medical Decision Making 64-year-old female with history of COPD, pulmonary embolism, hypertension, migraines, presents for what she describes as 12-week history of worsening and progressive mild dry cough and wheezing. Reports increased over the past week. She has not been seen by her primary care provider for the symptoms. She has been taking her medications as directed. Of note she was slightly tachypneic during triage but not during my evaluation. She has diffuse wheezing throughout. Extremely low suspicion that this is COVID given her symptoms and the duration however will make her a PUI. Will obtain cardiac work-up including BNP. Given the duration of her symptoms I do believe a single troponin is sufficient here in the ER. Will obtain chest x- ray, give IV Solu-Medrol, and I would like to give her neb treatments to help with her wheezing. Most likely diagnosis is that of COPD exacerbation but obviously cannot exclude pneumonia, viral syndrome, bronchitis, CHF, atypical ACS, and as above extremely low suspicion for PE given her symptoms and the fact that she is already on Eliquis. Chest x-ray clear, laboratory values unremarkable. Upon reevaluation patient reports dramatic improvement of her symptoms with the breathing treatments. O2 sats are still in the high 90s on room air and her respiratory rate is in the low 20s. We discussed our options. Patient is comfortable with discharge at this time. We will set her up with a 5-day burst dose of steroids and I do recommend that she reaches out to her primary care provider on Sunday for prompt outpatient reevaluation. She was encouraged to return to the ER for new or worsening symptoms. I do believe that COVID is rather unlikely given her symptoms today are primarily respiratory I will set her up for COVID testing on Sunday through our tent. The patient demonstartes some symptomsas noted by the CDC for coronavirus inc luding cough, and shortness of breath. The patient looks notably clinically well, and does not demonstrate evidence of respiratory distress, significant or severe illness, or sepsis. Per CDC recommendations, coronavirus testing will be performed on Sunday. Additionally, patient currently does not demonstrate symptoms indicative of admission or further observation here. At this time based on the patient's current clinical picture symptoms are likely secondary to a non-coronavirus viral illness. Out of an abundance of precaution taking into account the current level of national concern, the patient's entire clinical picture, and CDC recommendations, the patient can be discharged home. Per CDC recommendations we will recommend a 14-day quarantine of the patient I have discussed good handwashing techniques, the importance of a mask, and we have also included CDC recommendations for home monitoring and isolation. I have extensively reviewed the treatment plan and discharge instructions with the patient. I have addressed all patient concerns at this time. The patient was made aware of what symptoms to monitor for that would warrant a return to the emergency department. I also discussed the importance of calling the patients's PCP, as well as the ED for any concern on prior to return. Discussed the plan with the patient, they demonstrate verbal understanding and agreement with our assessment and plan at this time. Medical Records Medical records reviewed: Yes I reviewed the patient's medical records. Imaging Data Radiologic Study: Attestation: I personally reviewed and interpreted this imaging study as follows: Imaging: X-Ray My impression: Read by me as negative, later confirmed through virtual radiology Lab Data Lab results reviewed: Yes I reviewed the patient's lab results. Lab results narrative: Laboratory Tests Range/Units 10/04/19 10/04/19 16:30 16:30 WBC (4.4-10.8) k/cumm 8.13 RBC (4.00-5.20) m/cumm 4.75 Hgb (12.0-15.5) g/dL 13.4 Hct (36.0-46.0) % 41.9 MCV (80-95) fL 88.2 MCH (27.0-33.0) pg 28.2 MCHC (32.0-36.0) g/dL 32.0 RDW (11.7-14.6) % 13.4 Plt Count (130-400) x1000/uL 313 MPV (8.0-11.0) fL 10.0 Immature Gran % % 0.1 Neutrophils % 59.5 Lymphocytes % 23.2 Monocytes % 8.6 Eosinophils % 8.0 Basophils % 0.6 Absolute Neutrophils (1.2-6.7) k/cumm 4.83 Absolute Lymphocytes (1.2-3.4) k/cumm 1.89 Absolute Monocytes (0.11-0.7) k/cumm 0.70 Absolute Eosinophils (0.0-0.7) k/cumm 0.65 Absolute Basophils (0.0-0.2) k/cumm 0.05 Sodium (136-145) mmol/L 140 Potassium (3.5-5.1) mmol/L 4.3 Chloride (98-107) mmol/L 106 Carbon Dioxide (21.0-32.0) mmol/L 26.0 Anion Gap (3-11) mmol/L 8.0 BUN (7-18) mg/dL 12 Creatinine (0.55-1.02) mg/dL 0.67 Estimated GFR/1.73 m2 (mL/min/1.73m2) >= 60.00 Glucose (74-106) mg/dL 101 Calcium (8.5-10.1) mg/dL 8.8 Magnesium (1.8-2.4) mg/dL 2.1 Total Bilirubin (0.2-1.0) mg/dL 0.3 AST (15-37) U/L 15 ALT (14-59) U/L 22 Alkaline Phosphatase (46-116) U/L 93 Troponin I (<0.06) ng/Ml < 0.05 NT-Pro-B Natriuret Pep (<300) pg/mL 152 Total Protein (6.4-8.2) g/dL 7.3 Albumin (3.4-5.0) g/dL 3.5 ECG Data Attestation: I personally reviewed and interpreted this ECG (s) as follows: Interpretation: EKG performed at 1622, reviewed and interpreted by Dr. Samayoa. Sinus rhythm, ventricular rate of 86. No acute ST elevation segments. HPI General Mode of arrival: ambulatory . Date/Time Provider Initiated Documentation: 10/04/19 16:11 . Limitations to Documentation: no limitations . Information obtained by: patient . HPI Narrative: This is a 64-year-old female with a history of COPD, migraines, hypertension, PE, currently anticoagulated, taking Eliquis. She reports primarily wheezing, mild dry cough, mild shortness of breath worsening over a 12-week time span but worse over the last week or so. She denies any headache, chest pain, fever, productive cough, recent travel or sick contact. She has not been seen by her primary care provider for her symptoms. She does not use oxygen at home at baseline. She reports that she has been taking all of her medications including her Eliquis inhalers as directed but they do not seem to be working as well. She denies any pain or swelling in her legs. Related Data Home Medications Medication Instructions Recorded Confirmed loratadine 10 mg PO DAILY 09/22/12 10/04/19 bupropion HCl 150 mg PO DAILY 04/02/14 10/04/19 calcium carbonate-vitamin D3 2 tab PO DAILY 04/02/14 10/04/19 fluoxetine 40 mg PO DAILY tab-cap 01/11/15 10/04/19 rizatriptan [Maxalt-CERTIFIED ORTHOTIST] 10 mg PO ONCE tab-cap 01/11/15 10/04/19 loperamide [Imodium A-D] 2 mg PO PRN PRN 02/24/16 10/04/19 Spiriva with HandiHaler 18 mcg INHALATION DAILY #1 tab-cap 10/29/16 10/04/19 albuterol sulfate [ProAir HFA] 2 puff INHALATION Q2H PRN PRN #1 10/29/16 10/04/19 inh propranolol 10 mg PO BID #180 tab-cap 10/29/16 10/04/19 Eliquis 5 mg PO BID #60 tablet 12/24/16 10/04/19 budesonide-formoterol [Symbicort] 2 puff INHALATION BID #6 gm 07/28/18 10/04/19 famotidine [Heartburn Relief 20 mg PO DAILY #30 tab 07/28/18 10/04/19 (famotidine)] guaifenesin [Mucinex] 600 mg PO BID #10 tab 07/28/18 10/04/19 ipratropium-albuterol 3 ml IH Q6H #90 ml 06/26/19 10/04/19 prednisone 60 mg PO DAILY 5 Days #15 tab 10/04/19 Previous Rx's Medication Instructions Recorded Spiriva with HandiHaler 18 mcg INHALATION DAILY #1 tab-cap 10/29/16 albuterol sulfate [ProAir HFA] 2 puff INHALATION Q2H PRN PRN #1 10/29/16 inh propranolol 10 mg PO BID #180 tab-cap 10/29/16 Eliquis 5 mg PO BID #60 tablet 12/24/16 budesonide-formoterol [Symbicort] 2 puff INHALATION BID #6 gm 07/28/18 famotidine [Heartburn Relief 20 mg PO DAILY #30 tab 07/28/18 (famotidine)] guaifenesin [Mucinex] 600 mg PO BID #10 tab 07/28/18 ipratropium-albuterol 3 ml IH Q6H #90 ml 06/26/19 prednisone 60 mg PO DAILY 5 Days #15 tab 10/04/19 Allergies Allergy/AdvReac Type Severity Reaction Status Date / Time aspirin AdvReac Mild Nausea Unverified 10/04/19 16:12 egg AdvReac Mild Nausea Unverified 10/04/19 16:12 chocolate flavor AdvReac cough Unverified 10/04/19 16:12 migraines General Stated Complaint: SOB KIERAN: 2 Review of Systems Constitutional Constitutional: Denies chills, Denies fatigue, Denies fever(s), Denies headache(s) and Denies weakness Eyes Eyes: Denies eye discharge ENT Ears, Nose, Mouth, and Throat: Denies headache(s), Denies nasal congestion and Denies sore throat Cardiovascular Cardiovascular: Denies chest pain and Reports dyspnea Respiratory Respiratory: Reports cough, Reports dyspnea and Reports wheezing Gastrointestinal Gastrointestinal: Denies abdominal pain, Denies diarrhea, Denies nausea and Denies vomiting Genitourinary Genitourinary: Denies dysuria Musculoskeletal Musculoskeletal: Denies back pain, Denies myalgias, Denies numbness and Denies tingling Integumentary/Breasts Skin/Breast: Denies rash Neurologic Neurologic: Denies headache(s), Denies numbness, Denies tingling and Denies weakness Endocrine Endocrine: Denies fatigue Allergic/Immunologic Allergic/Immunologic: Reports wheezing PFSH Medical History Arthritis COPD (chronic obstructive pulmonary disease) Depression with anxiety Essential tremor HTN (hypertension) Migraine Pulmonary emboli Weight gain Family History Sister Diabetes Brother Hypertension Other Heart disease Social History Smoking/Tobacco Use Status: Former Tobacco Use Alcohol Intake: never Drug use: Never Substance use type: marijuana Do you feel safe at home: Yes Do you feel safe in your relationship?: Yes Exam Const General: cooperative, healthy appearing, comfortable and no acute distress Orientation: alert and awake [facility] Head: normal to inspection, normocephalic and atraumatic Ears: external ears normal, TM's normal bilaterally and EAC's normal General nose exam: nasal discharge clear Mouth: moist mucous membranes Throat: posterior oropharynx normal Eyes Conjunctivae: conjunctivae normal Neck Neck: normal visual inspection, full ROM, no lymphadenopathy, trachea midline and supple Chest Chest: normal inspection of the chest and normal palpation of entire chest wall Resp Effort & Inspection: normal respiratory effort, able to speak in complete sentences and cough Quality of cough: dry Auscultation: wheezes expiratory wheezes (Throughout) Cardio Rate: regular rate Rhythm: regular rhythm GI Inspection: normal to inspection Palpation: soft, not firm, no guarding and nontender Auscultation: normal bowel sounds Back/Spine/Pelvis Back: No back tenderness Skin General skin exam: no rashes or lesions noted Neuro General: patient alert, patient awake, patient oriented x3, moves all extremities and no focal motor deficits Cognition: normal cognition Motor: muscle tone normal throughout and strength 5/5 throughout Sensory Exam: no sensory deficits noted Extrem General: normal to inspection, full ROM, capillary refill normal, no pedal edema and no calf tenderness Psych Appearance: grossly normal Mental Status: mental status grossly normal Course Vital Signs Vital signs: Vital Signs Temperature 36.6 C 10/04/19 16:07 Pulse 85 10/04/19 16:07 Respiratory Rate 30 H 10/04/19 16:07 Blood Pressure 153/89 H 10/04/19 16:07 Pulse Oximetry 98 10/04/19 16:07 Temperature 36.6 C 10/04/19 16:07 Temperature Source Temporal Artery Scan 10/04/19 16:07 Pulse 85 10/04/19 16:07 Respiratory Rate 30 H 10/04/19 16:07 Respiratory Effort Accessory Muscle Use 10/04/19 16:11 Blood Pressure 153/89 H 10/04/19 16:07 Blood Pressure Position Supine 10/04/19 16:07 Pulse Oximetry 98 10/04/19 16:07 Oxygen Delivery Method Room Air 10/04/19 16:07 Oxygen Flow Rate 0 10/04/19 16:07 Pain Level 0 10/04/19 16:07
[2019-10-04 16:33] VITALS: RESP 22
[2019-10-04 16:47] LABS: Abs Immature Grans 0.01 k/cumm (0.0-0.09); Absolute Basophil Count 0.05 k/cumm (0.0-0.2); Absolute Eosinophil Count 0.65 k/cumm (0.0-0.7); Absolute Lymphocyte Count 1.89 k/cumm (1.2-3.4); Absolute Neutrophil Count 4.83 k/cumm (1.2-6.7); Basophils % 0.6; HCT 41.9 % (36.0-46.0); HGB 13.4 g/dL (12.0-15.5); Immature Grans % 0.1 %; Lymphocytes % 23.2; Mean Corpuscular Hemoglobin 28.2 pg (27.0-33.0); Mean Corpuscular Volume 88.2 fL (80-95); Monocytes % 8.6; Neutrophils % 59.5; Platelet Count 313 x1000/uL (130-400); RBC 4.75 m/cumm (4.00-5.20); RBC Distribution Width 13.4 % (11.7-14.6); White Blood Cell Count 8.13 k/cumm (4.4-10.8)
[2019-10-04 17:03] LABS: ALT 22 U/L (14-59); AST 15 U/L (15-37); Albumin 3.5 g/dL (3.4-5.0); Alkaline Phosphatase 93 U/L (46-116); BUN 12 mg/dL (7-18); Bilirubin, Total 0.3 mg/dL (0.2-1.0); CREATININE 0.67 mg/dL (0.55-1.02); Calcium 8.8 mg/dL (8.5-10.1); Chloride 106 mmol/L (98-107); Glucose 101 mg/dL (74-106); Magnesium 2.1 mg/dL (1.8-2.4); NT-proBNP 152 pg/mL (<300); Potassium 4.3 mmol/L (3.5-5.1); Sodium 140 mmol/L (136-145); Total Protein 7.3 g/dL (6.4-8.2); Troponin I < 0.05 ng/Ml (<0.06)
--- NOTE | 2019-10-04 17:06 | DI.VRAD_ITS ---
PROCEDURE INFORMATION: Exam: XR Chest, 1 View Exam date and time: 10/04/2019 4:55 PM Age: 64 years old Clinical indication: Shortness of breath TECHNIQUE: Imaging protocol: XR of the chest Views: 1 view. COMPARISON: CR XR CHEST 2V PA LATERAL 06/26/2019 8:50 PM FINDINGS: Lungs: Low lung volumes. Lungs otherwise clear. Pleural space: Unremarkable. No pleural effusion. No pneumothorax. Heart/Mediastinum: Stable enlarged cardiomediastinal silhouette. Bones/joints: Unremarkable. IMPRESSION: No acute findings. Dictated and Authenticated by: Lele Veras MD. Ordering:OBDULIO Valenzuela MD
[2019-10-04] MEDS: methylPREDNISolone SUCC 125 MG VIAL IVP (17:10)
[2019-10-04 17:20] VITALS: RESP 4; O2SAT 95
[2019-10-04] MEDS: Albuterol 2.5 MG/3 ML INH SOLN VIAL UPD (17:20)
[2019-10-04 17:21] VITALS: RESP 4
[2019-10-04] MEDS: Albuterol/Ipratropium 3 ML UPD VIAL UPD (17:21)
[2019-10-04 17:53] VITALS: BP 139/86; PULSE 80; RESP 22; TEMP 37; O2SAT 96
== END 2019-10-04 18:16 | disposition home or self-care (01) ==
PROVIDERS: Emergency Provider Physician Assistant; PCP Nurse Practitioner
DX: J44.1 Chronic obstructive pulmonary disease with (acute) exacerbation (principal); Z87.891 Personal history of nicotine dependence; R05 Cough; I10 Essential (primary) hypertension
CPT/HCPCS: 80053; 93005; 94640; 96374; 99284; 71045; 83735; 83880; 84484; 85025; 93010; J2930; J7613; J7620

== ENCOUNTER 2019-11-11 13:45 | Emergency (ER) | payer MEDICARE, MEDICAID, SELFPAY ==
[2019-11-11] VITALS (49 sets, daily range): BP systolic 105–138; BP diastolic 46–91; PULSE 67–99; RESP 4–30; TEMP 36.6; O2SAT 90–100
--- NOTE | 2019-11-11 13:45 | DI.RAD_ITS ---
EXAM: XR PORTABLE CHEST AP CLINICAL HISTORY: SOB TECHNIQUE: 2D digital imaging was performed. COMPARISON: CR XR CHEST 2V PA LATERAL from 07/26/2018 CR,XR XR CHEST 2V PA LATERAL from 06/26/2019 CR,XR XR PORTABLE CHEST AP from 10/04/2019 FINDINGS: The heart appears mildly enlarged. The aorta is mildly ectatic. Leads overlie the chest. The lung s are not well inflated. No infiltrate, effusion or pulmonary edema is seen. IMPRESSION: Limited exam. No acute abnormality.
--- NOTE | 2019-11-11 13:59 | W.ED.GENAD ---
Discharge Plan Disposition Patient Disposition: HOME Condition: Stable Discharge Details Chief Complaint: SOB Clinical Impression: COPD (chronic obstructive pulmonary disease) Primary Care Provider: Malinda Call ED Provider: Nicolas Xavier Home Meds and New Rx's Prescriptions: New prednisone 20 mg tablet 60 mg PO DAILY 5 Days Qty: 15 RF: 0 Continued rizatriptan [Maxalt-FLUID DYNAMICIST] 10 MG tablet,disintegrating 10 mg PO ONCE RF: 0 fluoxetine 40 MG capsule 40 mg PO DAILY RF: 0 loratadine 10 MG tablet 10 mg PO DAILY RF: 0 calcium carbonate-vitamin D3 1 EACH tablet 2 tab PO DAILY RF: 0 bupropion HCl 150 MG tablet extended release 12 hr 150 mg PO DAILY RF: 0 loperamide [Imodium A-D] 2 MG tablet 2 mg PO PRN PRNRF: 0 propranolol 10 MG tablet 10 mg PO BID Qty: 180 RF: 3 albuterol sulfate [ProAir HFA] 1 PUFF HFA aerosol inhaler 2 puff Inhalation Q2H PRN PRNQty: 1 RF: 3 Spiriva with HandiHaler 18 MCG capsule, w/inhalation device 18 mcg Inhalation DAILY Qty: 1 RF: 3 ipratropium-albuterol 0.5 mg-3 mg(2.5 mg base)/3 mL solution for nebulization 3 ml IH Q6H Qty: 90 RF: 0 Eliquis 5 MG tablet 5 mg PO BID Qty: 60 RF: 3 budesonide-formoterol [Symbicort] 160-4.5 mcg/actuation Hfa Aerosol Inhaler 2 puff Inhalation BID Qty: 6 RF: 0 guaifenesin [Mucinex] 600 mg Tablet Extended Release 12hr 600 mg PO BID Qty: 10 RF: 0 famotidine [Heartburn Relief (famotidine)] 20 mg tablet 20 mg PO DAILY Qty: 30 RF: 0 Discharge Instructions Instructions: COPD (Chronic Obstructive Pulmonary Disease) (ED) Additional Instructions: Prednisone as directed. Continue your home medications. You will be contacted tomorrow for outpatient COVID testing. Please watch for new or worsening symptoms and return to the ER for any concerns. I do recommend reaching out your primary care provider tomorrow for prompt outpatient reevaluation Stand Alone Forms: POSITIVE COVID-19/TO BE TESTED Discharge Data Discharge Date/Time-TO BE ENTERED AT DEPARTURE: 11/11/19 18:00 Medical Decision Making <Emelia Lao - Last Filed: 11/12/19 21:59> 64-year-old female with a history of COPD presents with a chief complaint of shortness of breath. This began 2 nights ago was associated with one episode of substernal chest pain which lasted less than 30 minutes. She is chest pain free upon arrival to the department. She does use albuterol nebulizers at home and has had 1 prior to arrival with little to no relief. She does have wheezes scattered throughout bilaterally on auscultation. She is satting 95% on room air, she denies fever, recent travel, no sick contacts no nausea vomiting diarrhea. She denies pain. EKG was reviewed by Nicki Samayoa MD ER attending, old EKG available for review no significant change noted, no ST elevation or depression no STEMI. 1313: Patient reevaluation after nebulizer, patient states that she feels much better and less short of breath. Lung sounds are still with scattered wheezes throughout additional nebulizer ordered. At this time we are awaiting second troponin which is due to be drawn in approximately 5 PM. Care will be handed off to oncoming provider AJ Romero pending second troponin, if negative I will suggest outpatient COVID-19 testing through the tent. 1542: Patient resting quietly, breathing eupneic. <AJ Lindsey - Last Filed: 11/11/19 17:47> This is a 64-year-old female with history of hypertension, COPD, migraines, PE, currently anticoagulated presenting to the ER today with 2-day history of increasing shortness of breath, did have mild chest pain 2 days ago but that resolved completely, using her home nebs without much improvement. I received signout with the patient resting comfortably, sleeping, pending repeat troponin and EKG. Patient has already received 2 neb treatments here in the ER and reported to be feeling much improved. Upon evaluation patient is resting comfortably, she tells me that she feels much improved when compared to her initial evaluation. She appears well, nontoxic. Head normocephalic, atraumatic. Moist mucous membranes. Heart regular rate and rhythm. Patient is able to speak in full sentences, no respiratory distress. There are occasional expiratory wheezes scattered throughout which primarily clear with coughing. O2 sats are in the mid to high 90s on room air. Abdomen is soft, nontender. Legs without any pedal edema, negative Homans sign bilaterally. Repeat EKG at 1714. Sinus rhythm, ventricular rate of 77. No acute ST elevation or depression segments. Reviewed and interpreted with Dr. Samayoa. Repeat troponin was less than 0.05. We will provide patient with 60 mg p.o. steroids now and sent home with a burst dose for the next 5 days. Patient reports that she feels comfortable with discharge at this time. She does have neb treatments at home that she will continue using as directed and will reach out to her primary care provider tomorrow for prompt outpatient reevaluation. Patient was encouraged to return to the ER for new or worsening symptoms. Patient has been set up for Covid testing tomorrow Medical Records Medical records reviewed: Yes I reviewed the patient's medical records. Lab Data Lab results reviewed: Yes I reviewed the patient's lab results. Lab results narrative: Laboratory Tests Range/Units 11/11/19 11/11/19 11/11/19 14:00 14:00 16:55 WBC (4.4-10.8) k/cumm 6.83 RBC (4.00-5.20) m/cumm 4.80 Hgb (12.0-15.5) g/dL 13.4 Hct (36.0-46.0) % 41.9 MCV (80-95) fL 87.3 MCH (27.0-33.0) pg 27.9 MCHC (32.0-36.0) g/dL 32.0 RDW (11.7-14.6) % 13.2 Plt Count (130-400) x1000/uL 346 MPV (8.0-11.0) fL 9.9 Immature Gran % % 0.3 Neutrophils % 56.8 Lymphocytes % 29.6 Monocytes % 7.3 Eosinophils % 5.4 Basophils % 0.6 Absolute Neutrophils (1.2-6.7) k/cumm 3.88 Absolute Lymphocytes (1.2-3.4) k/cumm 2.02 Absolute Monocytes (0.11-0.7) k/cumm 0.50 Absolute Eosinophils (0.0-0.7) k/cumm 0.37 Absolute Basophils (0.0-0.2) k/cumm 0.04 Sodium (136-145) mmol/L 137 Potassium (3.5-5.1) mmol/L 4.1 Chloride (98-107) mmol/L 102 Carbon Dioxide (21.0-32.0) mmol/L 28.8 Anion Gap (3-11) mmol/L 6.2 BUN (7-18) mg/dL 17 Creatinine (0.55-1.02) mg/dL 0.84 Estimated GFR/1.73 m2 (mL/min/1.73m2) >= 60.00 Glucose (74-106) mg/dL 112 H Calcium (8.5-10.1) mg/dL 9.4 Magnesium (1.8-2.4) mg/dL 2.1 Total Bilirubin (0.2-1.0) mg/dL 0.4 AST (15-37) U/L 17 ALT (14-59) U/L 21 Alkaline Phosphatase (46-116) U/L 96 Troponin I (<0.06) ng/Ml < 0.05 < 0.05 Total Protein (6.4-8.2) g/dL 8.0 Albumin (3.4-5.0) g/dL 3.6 HPI <Emelia Lao - Last Filed: 11/12/19 21:59> General Mode of arrival: ambulatory. Date/Time Provider Initiated Documentation: 11/11/19 13:50. Limitations to Documentation: no limitations. Information obtained by: patient. HPI Narrative: 64-year-old female with a history of COPD presents with a chief complaint of shortness of breath. This began 2 nights ago was associated with one episode of substernal chest pain which lasted less than 30 minutes. She is chest pain free upon arrival to the department. She does use albuterol nebulizers at home and has had 1 prior to arrival with little to no relief. She does have wheezes scattered throughout bilaterally on auscultation. She is satting 95% on room air, she denies fever, recent travel, no sick contacts no nausea vomiting diarrhea. She denies pain. Related Data Home Medications Medication Instructions Recorded Confirmed loratadine 10 mg PO DAILY 09/22/12 11/11/19 bupropion HCl 150 mg PO DAILY 04/02/14 11/11/19 calcium carbonate-vitamin D3 2 tab PO DAILY 10/16/14 05/26/20 fluoxetine 40 mg PO DAILY tab-cap 01/11/15 11/11/19 rizatriptan [Maxalt-FLUID DYNAMICIST] 10 mg PO ONCE tab-cap 01/11/15 11/11/19 loperamide [Imodium A-D] 2 mg PO PRN PRN 02/24/16 11/11/19 Spiriva with HandiHaler 18 mcg INHALATION DAILY #1 tab-cap 10/29/16 11/11/19 albuterol sulfate [ProAir HFA] 2 puff INHALATION Q2H PRN PRN #1 10/29/16 11/11/19 inh propranolol 10 mg PO BID #180 tab-cap 10/29/16 11/11/19 Eliquis 5 mg PO BID #60 tablet 12/24/16 11/11/19 budesonide-formoterol [Symbicort] 2 puff INHALATION BID #6 gm 07/28/18 11/11/19 famotidine [Heartburn Relief 20 mg PO DAILY #30 tab 07/28/18 11/11/19 (famotidine)] guaifenesin [Mucinex] 600 mg PO BID #10 tab 07/28/18 11/11/19 ipratropium-albuterol 3 ml IH Q6H #90 ml 06/26/19 11/11/19 prednisone 60 mg PO DAILY 5 Days #15 tab 11/11/19 Previous Rx's Medication Instructions Recorded Spiriva with HandiHaler 18 mcg INHALATION DAILY #1 tab-cap 10/29/16 albuterol sulfate [ProAir HFA] 2 puff INHALATION Q2H PRN PRN #1 10/29/16 inh propranolol 10 mg PO BID #180 tab-cap 10/29/16 Eliquis 5 mg PO BID #60 tablet 12/24/16 budesonide-formoterol [Symbicort] 2 puff INHALATION BID #6 gm 07/28/18 famotidine [Heartburn Relief 20 mg PO DAILY #30 tab 07/28/18 (famotidine)] guaifenesin [Mucinex] 600 mg PO BID #10 tab 07/28/18 ipratropium-albuterol 3 ml IH Q6H #90 ml 06/26/19 prednisone 60 mg PO DAILY 5 Days #15 tab 11/11/19 Allergies Allergy/AdvReac Type Severity Reaction Status Date / Time aspirin AdvReac Mild Nausea Unverified 11/11/19 13:54 egg AdvReac Mild Nausea Unverified 11/11/19 13:54 chocolate flavor AdvReac cough Unverified 11/11/19 13:54 migraines General Stated Complaint: SOB KIERAN: 2 Review of Systems <Emelia Lao - Last Filed: 11/12/19 21:59> Narrative: Constitutional: Negative for weight loss, alert and oriented, well groomed, normal body habitus, appears comfortable. HEENT: Denies trauma, headaches, blurry vision, nasal discharge, sore throat, trouble swallowing. Chest: Denies chest pain, palpitations, irregular rhythm, hypertension. Respiratory: Denies cough, hemoptysis. Positive shortness of breath and wheezes history of COPD. GI: Denies abdominal pain, nausea, vomiting, diarrhea, constipation. : Denies dysuria, hematuria, flank pain, rectal bleeding. Neuro: Denies dizziness, blurry vision, weakness, syncope, headache or facial numbness. Hematologic: Denies easy bruising, intolerance to heat or cold, hair loss. All systems reviewed & are unremarkable except as noted in HPI and below PFSH <Emelia Lao - Last Filed: 11/12/19 21:59> Medical History Arthritis COPD (chronic obstructive pulmonary disease) Depression with anxiety Essential tremor HTN (hypertension) Migraine Pulmonary emboli Weight gain Family History Sister Diabetes Brother Hypertension Other Heart disease Social History Smoking/Tobacco Use Status: Former Tobacco Use Alcohol Intake: never Drug use: Never Do you feel safe at home: Yes Do you feel safe in your relationship?: Yes Exam <Emelia Lao - Last Filed: 11/12/19 21:59> Narrative Exam Narrative: Constitutional: Alert and oriented x3. Appears stated age. Normal body habitus. Head: Normocephalic, no trauma. Eyes: Pupils PERRLA, Red reflex noted, EOM's intact. Eyelids symmetrical without lesions, discharge, or swelling. ENT: Bilateral TM's WNL, External ear normal to inspection, no mastoid TTP, swelling, or erythema, Nasal turbinates WNL, no nasal discharge. Normal dentition, Posterior pharynx WNL, no exudate. Chest: RRR, Normal S1, S2, distal pulses intact. Resp: Inspiratory and expiratory scattered wheezes throughout lung meyers. Musculoskeletal: Normal gait, 5/5 strength to all four extremities. Skin: No suspicious rashes or lesions. Capillary refill less than 2 sec. Neurologic: Cranial nerves II-XII intact. Alert and oriented x 3. DTR's intact. Hematologic/Lymphatic: No ecchymosis, no lymphadenopathy. Course <Emelia Lao - Last Filed: 11/12/19 21:59> Vital Signs Vital signs: Vital Signs Temperature 36.6 C 11/11/19 13:49 Pulse 81 11/11/19 13:49 Respiratory Rate 24 11/11/19 13:49 Blood Pressure 138/89 11/11/19 13:49 Pulse Oximetry 95 11/11/19 13:49 Temperature 36.6 C 11/11/19 13:49 Temperature Source Temporal Artery Scan 11/11/19 13:49 Pulse 81 11/11/19 13:49 Respiratory Rate 24 11/11/19 13:49 Respiratory Effort Labored 11/11/19 13:52 Blood Pressure 138/89 11/11/19 13:49 Blood Pressure Position Supine 11/11/19 13:49 Pulse Oximetry 95 11/11/19 13:49 Oxygen Delivery Method Room Air 11/11/19 13:49 Oxygen Flow Rate 0 11/11/19 13:49 Pain Level 0 11/11/19 13:49 Sign Out <Emelia Lao - Last Filed: 11/12/19 21:59> Sign Out Data: Sign Out Comment: Pending repeat Troponin and discharge. Last updated by Emelia Lao at 11/11/19 15:43
[2019-11-11] MEDS: Normal Saline Flush 10 ML SYR IVP (14:00)
[2019-11-11] MEDS: Albuterol/Ipratropium 3 ML UPD VIAL UPD ×2 (14:05→15:12)
[2019-11-11 14:13] LABS: Abs Immature Grans 0.02 k/cumm (0.0-0.09); Absolute Basophil Count 0.04 k/cumm (0.0-0.2); Absolute Eosinophil Count 0.37 k/cumm (0.0-0.7); Absolute Lymphocyte Count 2.02 k/cumm (1.2-3.4); Absolute Neutrophil Count 3.88 k/cumm (1.2-6.7); Basophils % 0.6; Eosinophils % 5.4; HCT 41.9 % (36.0-46.0); HGB 13.4 g/dL (12.0-15.5); Immature Grans % 0.3 %; Lymphocytes % 29.6; Mean Corpuscular Hemoglobin 27.9 pg (27.0-33.0); Mean Corpuscular Volume 87.3 fL (80-95); Mean Platelet Volume 9.9 fL (8.0-11.0); Monocytes % 7.3; Neutrophils % 56.8; Platelet Count 346 x1000/uL (130-400); RBC Distribution Width 13.2 % (11.7-14.6); White Blood Cell Count 6.83 k/cumm (4.4-10.8)
[2019-11-11 14:23] LABS: ALT 21 U/L (14-59); AST 17 U/L (15-37); Albumin 3.6 g/dL (3.4-5.0); Alkaline Phosphatase 96 U/L (46-116); Anion Gap 6.2 mmol/L (3-11); BUN 17 mg/dL (7-18); Bilirubin, Total 0.4 mg/dL (0.2-1.0); CO2 28.8 mmol/L (21.0-32.0); CREATININE 0.84 mg/dL (0.55-1.02); Calcium 9.4 mg/dL (8.5-10.1); Chloride 102 mmol/L (98-107); Glucose 112 mg/dL (74-106); Magnesium 2.1 mg/dL (1.8-2.4); Potassium 4.1 mmol/L (3.5-5.1); Sodium 137 mmol/L (136-145)
[2019-11-11 14:25] LABS: Troponin I < 0.05 ng/Ml (<0.06)
[2019-11-11 17:27] LABS: Troponin I < 0.05 ng/Ml (<0.06)
[2019-11-11] MEDS: predniSONE 20 MG TAB 60 MG PO (17:58)
== END 2019-11-11 18:00 | disposition home or self-care (01) ==
PROVIDERS: Registered Nurse Emergency; Emergency Provider Physician Assistant; PCP Nurse Practitioner
DX: J44.9 Chronic obstructive pulmonary disease, unspecified (principal); R07.9 Chest pain, unspecified; I10 Essential (primary) hypertension; Z86.711 Personal history of pulmonary embolism; Z79.01 Long term (current) use of anticoagulants
CPT/HCPCS: 36415; 80053; 93005; 94640; 99285; 71045; 83735; 84484; 85025; 93010; J7512; J7620

== ENCOUNTER 2020-01-12 05:16 | Emergency (ER) | payer MEDICARE, MEDICAID, SELFPAY ==
[2020-01-12 05:14] VITALS: BP 142/108; PULSE 107; RESP 18; TEMP 37.2; O2SAT 96
[2020-01-12 05:21] VITALS: RESP 23
--- NOTE | 2020-01-12 05:25 | ED.GENADUL_ITS ---
Discharge Plan Disposition Patient Disposition: HOME Condition: Stable Discharge Details Chief Complaint: SOB Clinical Impression: COPD with acute exacerbation Primary Care Provider: Malinda Call ED Provider: Chito Givens Home Meds and New Rx's Prescriptions: New prednisone 20 mg tablet 60 mg PO DAILY 4 Days Qty: 12 RF: 0 doxycycline hyclate 100 mg tablet 100 mg PO BID Qty: 14 RF: 0 Continued rizatriptan [Maxalt-EVENTS AND PROMOTIONS ASSISTANT] 10 MG tablet,disintegrating 10 mg PO ONCE RF: 0 fluoxetine 40 MG capsule 40 mg PO DAILY RF: 0 loratadine 10 MG tablet 10 mg PO DAILY RF: 0 calcium carbonate-vitamin D3 1 EACH tablet 2 tab PO DAILY RF: 0 bupropion HCl 150 MG tablet extended release 12 hr 150 mg PO DAILY RF: 0 loperamide [Imodium A-D] 2 MG tablet 2 mg PO PRN PRNRF: 0 propranolol 10 MG tablet 10 mg PO BID Qty: 180 RF: 3 albuterol sulfate [ProAir HFA] 1 PUFF HFA aerosol inhaler 2 puff Inhalation Q2H PRN PRNQty: 1 RF: 3 Spiriva with HandiHaler 18 MCG capsule, w/inhalation device 18 mcg Inhalation DAILY Qty: 1 RF: 3 ipratropium-albuterol 0.5 mg-3 mg(2.5 mg base)/3 mL solution for nebulization 3 ml IH Q6H Qty: 90 RF: 0 Eliquis 5 MG tablet 5 mg PO BID Qty: 60 RF: 3 budesonide-formoterol [Symbicort] 160-4.5 mcg/actuation Hfa Aerosol Inhaler 2 puff Inhalation BID Qty: 6 RF: 0 Discharge Instructions Instructions: COPD (Chronic Obstructive Pulmonary Disease) (ED) Additional Instructions: follow up with your primary care provider within 1 week if you feel more ill, have worsening trouble breathing or chest pain/pressure return to the emergency department Medical Decision Making 65 yo female with hx of copd, PE, who comes in with cc of shortness of breath slowly worsening since the time that her duoneb stopped working Sunday night and mild increase in dry cough. Denies fevers, chest pain/pressure, recent travel or sick contacts. She called ems today and was given duoneb with someimprovement in symptoms. Arrives hd stable in no distress speaking in full sentences though does have diffuse wheezing consistent with copd exacerbation in all lung meyers. Suspect copd exacerbation due to machine malfunction. Will tx with nebs and steroids. No chest pain/pressure and exam consistent with copd so doubt acs and no jvd, crackles or pedal edema so doubt chf. Is on eliquis with no missed doses per pt and nocalf pain or leg swelling or pleuritic chest pain so doubt PE. No fever and no focal findings on lung exam so doubt pna though will likely tx with abx given increase in cough pt remains stable, sleeping on reassmessment with stable vitals and lungs clear now and feels better. Will d/c on prednisone and doxy and have RT see if we can assist in getting her duoneb machine replaced Differential Diagnosis Differential Diagnosis: copd, pna, pe Medical Records Medical records reviewed: Yes I reviewed the patient's medical records. Lab Data Lab results reviewed: Yes I reviewed the patient's lab results. HPI General Mode of arrival: EMS . Date/Time Provider Initiated Documentation: 01/12/20 05:18 . Limitations to Documentation: no limitations . Information obtained by: patient . History of Present Illness 65 year old F presents to the emergency department with the chief complaint of shortness of breath, described as moderate, and it has been constant. No relieving factors improve symptom(s), No exacerbating factors reported . Patient notes no other symptoms.. Related Data Home Medications Medication Instructions Recorded Confirmed loratadine 10 mg PO DAILY 09/22/12 01/12/20 bupropion HCl 150 mg PO DAILY 04/02/14 01/12/20 calcium carbonate-vitamin D3 2 tab PO DAILY 04/02/14 01/12/20 fluoxetine 40 mg PO DAILY tab-cap 01/11/15 01/12/20 rizatriptan [Maxalt-EVENTS AND PROMOTIONS ASSISTANT] 10 mg PO ONCE tab-cap 01/11/15 01/12/20 loperamide [Imodium A-D] 2 mg PO PRN PRN 02/24/16 01/12/20 Spiriva with HandiHaler 18 mcg INHALATION DAILY #1 tab-cap 10/29/16 01/12/20 albuterol sulfate [ProAir HFA] 2 puff INHALATION Q2H PRN PRN #1 10/29/16 01/12/20 inh propranolol 10 mg PO BID #180 tab-cap 10/29/16 01/12/20 Eliquis 5 mg PO BID #60 tablet 12/24/16 01/12/20 budesonide-formoterol [Symbicort] 2 puff INHALATION BID #6 gm 07/28/18 01/12/20 ipratropium-albuterol 3 ml IH Q6H #90 ml 06/26/19 01/12/20 doxycycline hyclate 100 mg PO BID #14 tab 01/12/20 prednisone 60 mg PO DAILY 4 Days #12 tab 01/12/20 Previous Rx's Medication Instructions Recorded Spiriva with HandiHaler 18 mcg INHALATION DAILY #1 tab-cap 10/29/16 albuterol sulfate [ProAir HFA] 2 puff INHALATION Q2H PRN PRN #1 10/29/16 inh propranolol 10 mg PO BID #180 tab-cap 10/29/16 Eliquis 5 mg PO BID #60 tablet 12/24/16 budesonide-formoterol [Symbicort] 2 puff INHALATION BID #6 gm 07/28/18 ipratropium-albuterol 3 ml IH Q6H #90 ml 06/26/19 doxycycline hyclate 100 mg PO BID #14 tab 01/12/20 prednisone 60 mg PO DAILY 4 Days #12 tab 01/12/20 Allergies Allergy/AdvReac Type Severity Reaction Status Date / Time aspirin AdvReac Mild Nausea Unverified 01/12/20 05:19 egg AdvReac Mild Nausea Unverified 01/12/20 05:19 chocolate flavor AdvReac cough Unverified 01/12/20 05:19 migraines General Stated Complaint: SOB KIERAN: 3 Review of Systems All systems reviewed & are unremarkable except as noted in HPI and below Constitutional Constitutional: Denies chills, Denies fever(s) and Denies weakness Cardiovascular Cardiovascular: Denies chest pain Gastrointestinal Gastrointestinal: Denies abdominal pain, Denies nausea and Denies vomiting Musculoskeletal Musculoskeletal: Denies joint swelling Neurologic Neurologic: Denies weakness Psychiatric Psychiatric: Denies depression [facility] Medical History (Updated 01/12/20 @ 06:16 by Chito Givens MD) Arthritis COPD (chronic obstructive pulmonary disease) (Chronic) Depression with anxiety Essential tremor HTN (hypertension) Migraine Pulmonary emboli Weight gain Surgical History (Updated 01/12/20 @ 05:18 by Ellyn Mackenzie) History of bunionectomy (Acute) History of partial hysterectomy (Acute) Social History Smoking/Tobacco Use Status: Former Tobacco Use Alcohol Intake: never Drug use: Never Do you feel safe at home: Yes Do you feel safe in your relationship?: Yes Exam Const General: no acute distress Orientation: alert HENMT Head: normal to inspection Ears: external ears normal General nose exam: external nose normal Mouth: moist mucous membranes Eyes General: appearance normal, both eyes and all related structures Neck Neck: normal visual inspection Resp Effort & Inspection: normal respiratory effort and able to speak in complete sentences Cardio Rate: regular rate Skin General skin exam: no rashes or lesions noted Neuro General: patient alert and patient oriented x3 Extrem General: normal to inspection Psych Mental Status: mental status grossly normal Course Vital Signs Vital signs: Vital Signs Temperature 37.2 C 01/12/20 05:14 Pulse 107 H 01/12/20 05:14 Respiratory Rate 18 01/12/20 05:14 Blood Pressure 142/108 H 01/12/20 05:14 Pulse Oximetry 96 01/12/20 05:14 Temperature 37.2 C 01/12/20 05:14 Temperature Source Skin 01/12/20 05:14 Pulse 107 H 01/12/20 05:14 Respiratory Rate 18 01/12/20 05:14 Blood Pressure 142/108 H 01/12/20 05:14 Pulse Oximetry 96 01/12/20 05:14 Pain Level 8 01/12/20 05:14
[2020-01-12] MEDS: methylPREDNISolone SUCC 125 MG VIAL IVP (05:32)
[2020-01-12 05:33] VITALS: PULSE 99; RESP 27; RESP 4; O2SAT 94
[2020-01-12] MEDS: Albuterol/Ipratropium 3 ML UPD VIAL UPD (05:33)
[2020-01-12 05:34] LABS: BE (Venous) 0.4 mmol/L (-3-3); HCO3 (Venous) 25 mmol/L (22-28); O2 Sat (Venous) 93 % (70-80); TCO2 (Venous) 22 mmol/L (22-29); pCO2 (Venous) 39 mm/Hg (34-47); pH (Venous) 7.42 (7.35-7.45); pO2 (Venous) 65 mm/Hg (28-44)
[2020-01-12 05:37] LABS: Abs Immature Grans 0.02 k/cumm (0.0-0.09); Absolute Basophil Count 0.04 k/cumm (0.0-0.2); Absolute Eosinophil Count 0.83 k/cumm (0.0-0.7); Absolute Lymphocyte Count 2.91 k/cumm (1.2-3.4); Absolute Monocyte Count 0.81 k/cumm (0.11-0.7); Absolute Neutrophil Count 4.15 k/cumm (1.2-6.7); Basophils % 0.5; Eosinophils % 9.5; HGB 13.2 g/dL (12.0-15.5); Immature Grans % 0.2 %; Lymphocytes % 33.2; Mean Corp. HGB Concentration 32.2 g/dL (32.0-36.0); Mean Corpuscular Hemoglobin 28.2 pg (27.0-33.0); Mean Corpuscular Volume 87.6 fL (80-95); Mean Platelet Volume 10.2 fL (8.0-11.0); Monocytes % 9.2; Neutrophils % 47.4; Platelet Count 256 x1000/uL (130-400); RBC 4.68 m/cumm (4.00-5.20); RBC Distribution Width 14.9 % (11.7-14.6); White Blood Cell Count 8.76 k/cumm (4.4-10.8)
[2020-01-12 05:52] LABS: ALT 23 U/L (14-59); AST 18 U/L (15-37); Albumin 3.6 g/dL (3.4-5.0); Alkaline Phosphatase 77 U/L (46-116); Anion Gap 10.6 mmol/L (3-11); BUN 23 mg/dL (7-18); Bilirubin, Total 0.3 mg/dL (0.2-1.0); CO2 25.4 mmol/L (21.0-32.0); CREATININE 0.88 mg/dL (0.55-1.02); Calcium 9.3 mg/dL (8.5-10.1); Chloride 105 mmol/L (98-107); Glucose 129 mg/dL (74-106); Potassium 3.5 mmol/L (3.5-5.1); Sodium 141 mmol/L (136-145); Total Protein 7.1 g/dL (6.4-8.2)
[2020-01-12 06:05] LABS: INR 1.1 (0.9-1.1); PTT Activated 27.4 sec (21.0-31.4); Prothrombin Time 11.2 sec (9.3-11.0)
[2020-01-12] MEDS: Doxycycline Hyclate 100 MG CAP PO (06:32)
--- NOTE | 2020-01-12 07:07 | NUR.NOTE ---
Referral faxed to [facility].Nursing Note:
[2020-01-12 07:26] VITALS: BP 146/88; PULSE 96; RESP 28; O2SAT 94
--- NOTE | 2020-01-12 10:03 | PDOC.ERCMACT ---
- If Service Date Differs Date of service: 01/12/20 Time of Service: 10:03 Care Management Activity Note CM completes and faxes authorization form for transport to [facility].
== END 2020-01-12 07:25 | disposition home or self-care (01) ==
LOC: ER 06:55
PROVIDERS: Emergency Provider Emergency Medicine; PCP Nurse Practitioner
DX: J44.1 Chronic obstructive pulmonary disease with (acute) exacerbation (principal); Z86.711 Personal history of pulmonary embolism; I10 Essential (primary) hypertension
CPT/HCPCS: 36415; 80053; 82805; 94640; 96374; 99284; 85025; 85610; 85730; J2930; J7620

== ENCOUNTER 2020-01-20 00:22 | Outpatient (CLI) | payer MEDICARE, MEDICAID, SELFPAY | END 2020-01-20 00:42 | PROVIDERS: PCP Nurse Practitioner; Visit Provider Nurse Practitioner | DX: R69 Illness, unspecified (principal) ==

== ENCOUNTER 2020-02-06 13:59 | Emergency (ER) | payer MEDICARE, MEDICAID, SELFPAY ==
[2020-02-06] VITALS (30 sets, daily range): BP systolic 120–151; BP diastolic 60–98; PULSE 67–94; RESP 1–20; TEMP 36.4–36.7; O2SAT 90–99
[2020-02-06] MEDS: methylPREDNISolone SUCC 125 MG VIAL IVP (14:00)
[2020-02-06] MEDS: Albuterol/Ipratropium 3 ML UPD VIAL UPD ×2 (14:00→15:04)
--- NOTE | 2020-02-06 14:00 | DI.RAD_ITS ---
EXAM: XR PORTABLE CHEST AP CLINICAL HISTORY: shortness of breath, wheeze TECHNIQUE: 2D digital imaging was performed. COMPARISON: CR XR PORTABLE CHEST AP from 11/11/2019 FINDINGS: LUNGS: Clear. No pleural abnormality seen. HEART: Normal. MEDIASTINUM: Normal. OTHER FINDINGS: None. IMPRESSION: No acute pulmonary findings. DATA REPOSITORY: RADIATION DOSE DELIVERED:
--- NOTE | 2020-02-06 14:00 | RT.EKG_ITS ---
APPROVED REPORT Exam: Resting ECG Patient Location: E HR:90 bpm ECG Measurements Heart Rate 90 AXIS AZ 141 P 48 QRSd 79 QRS 45 QT 383 T 47 QTc 469 Conclusion Sinus rhythm...normal P axis, V-rate 60- 99 Ventricular premature complex...V complex w/ short R-R interval Borderline ST elevation, anterolateral leads...ST >0.06mV, I aVL V2-V6 no stemi
--- NOTE | 2020-02-06 14:23 | ED.GENADUL_ITS ---
Discharge Plan Disposition Patient Disposition: HOME Condition: Stable Discharge Details Chief Complaint: SOB Clinical Impression: COPD with acute exacerbation Primary Care Provider: Malinda Call ED Provider: Tomy Taveras Home Meds and New Rx's Prescriptions: Continued rizatriptan [Maxalt-[employer] SO[employer]ING] 10 MG tablet,disintegrating 10 mg PO ONCE RF: 0 fluoxetine 40 MG capsule 40 mg PO DAILY RF: 0 calcium carb-vit D2-minerals Tablet 1 tab PO DAILY RF: 0 loratadine 10 MG tablet 10 mg PO DAILY RF: 0 calcium carbonate-vitamin D3 1 EACH tablet 2 tab PO DAILY RF: 0 bupropion HCl 150 MG tablet extended release 12 hr 150 mg PO DAILY RF: 0 loperamide [Imodium A-D] 2 MG tablet 2 mg PO PRN PRNRF: 0 propranolol 10 MG tablet 10 mg PO BID Qty: 180 RF: 3 albuterol sulfate [ProAir HFA] 1 PUFF HFA aerosol inhaler 2 puff Inhalation Q2H PRN PRNQty: 1 RF: 3 Spiriva with HandiHaler 18 MCG capsule, w/inhalation device 18 mcg Inhalation DAILY Qty: 1 RF: 3 ipratropium-albuterol 0.5 mg-3 mg(2.5 mg base)/3 mL solution for nebulization 3 ml IH Q6H Qty: 90 RF: 0 Eliquis 5 MG tablet 5 mg PO BID Qty: 60 RF: 3 budesonide-formoterol [Symbicort] 160-4.5 mcg/actuation Hfa Aerosol Inhaler 2 puff Inhalation BID Qty: 6 RF: 0 No Action prednisone 10 mg tablet 10 mg PO DAILY Qty: 39 RF: 0 Discharge Instructions Instructions: COPD (Chronic Obstructive Pulmonary Disease) (ED) Additional Instructions: Please take medication as prescribed. Use your nebulizer as prescribed. Please contact your primary care physician to arrange follow-up. Return to the ER for any worsening or new concerning symptoms. Referrals: Malinda Call [Primary Care Provider] - Discharge Data Discharge Date/Time-TO BE ENTERED AT DEPARTURE: 02/06/20 17:25 Medical Decision Making 65-year-old female with history of COPD exacerbation here with wheezing and shortness of breath. Patient saturating low 90s and tachypneic with bilateral wheeze. No COVID-19 exposure, no fever. Screening ECG was reviewed and interpreted by me: Nondiagnostic, please see report. Chest x-ray was reviewed and interpreted by radiology: IMPRESSION: No acute pulmonary findings. Exam and history consistent with acute COPD exacerbation. Patient was here about a month ago with similar and responded to prednisone and doxycycline treatment. Patient denies any cough or fever. Patient was given DuoNeb x2 and Solu-Medrol and reassess. She notes she feels much better and is breathing at baseline. She continues to have mild wheeze which she notes is normal for her. She does have nebulizer at home and understands how to use it. I encouraged her to use this today. She understands importance of timely follow-up with her PCP and to return should have any worsening or new concerning symptoms. HPI General Mode of arrival: ambulatory . Date/Time Provider Initiated Documentation: 02/06/20 14:03 . Limitations to Documentation: no limitations . Information obtained by: patient . HPI Narrative: 65-year-old female with history of COPD exacerbation here with wheezing and shortness of breath. Patient notes shortness of breath has been persistent since this morning. Severe. No relief with albuterol MDI today. No chest pain. No COVID-19 exposure, no associated fever. Related Data Home Medications Medication Instructions Recorded Confirmed loratadine 10 mg PO DAILY 09/22/12 02/12/20 bupropion HCl 150 mg PO DAILY 04/02/14 02/12/20 calcium carbonate-vitamin D3 2 tab PO DAILY 04/02/14 02/12/20 fluoxetine 40 mg PO DAILY tab-cap 01/11/15 02/12/20 rizatriptan [Maxalt-[employer]] 10 mg PO ONCE tab-cap 01/11/15 02/12/20 loperamide [Imodium A-D] 2 mg PO PRN PRN 02/24/16 02/12/20 Spiriva with HandiHaler 18 mcg INHALATION DAILY #1 tab-cap 10/29/16 02/12/20 albuterol sulfate [ProAir HFA] 2 puff INHALATION Q2H PRN PRN #1 10/29/16 02/12/20 inh propranolol 10 mg PO BID #180 tab-cap 10/29/16 02/12/20 Eliquis 5 mg PO BID #60 tablet 12/24/16 02/12/20 budesonide-formoterol [Symbicort] 2 puff INHALATION BID #6 gm 07/28/18 02/12/20 ipratropium-albuterol 3 ml IH Q6H #90 ml 06/26/19 02/12/20 calcium carb-vit D2-minerals 1 tab PO DAILY tab 02/04/20 02/12/20 prednisone 10 mg PO DAILY #39 tab 02/12/20 Previous Rx's Medication Instructions Recorded Spiriva with HandiHaler 18 mcg INHALATION DAILY #1 tab-cap 10/29/16 albuterol sulfate [ProAir HFA] 2 puff INHALATION Q2H PRN PRN #1 10/29/16 inh propranolol 10 mg PO BID #180 tab-cap 10/29/16 Eliquis 5 mg PO BID #60 tablet 12/24/16 budesonide-formoterol [Symbicort] 2 puff INHALATION BID #6 gm 07/28/18 ipratropium-albuterol 3 ml IH Q6H #90 ml 06/26/19 prednisone 10 mg PO DAILY #39 tab 02/12/20 Allergies Allergy/AdvReac Type Severity Reaction Status Date / Time aspirin AdvReac Mild Nausea Unverified 02/12/20 12:12 egg AdvReac Mild Nausea Unverified 02/12/20 12:12 chocolate flavor AdvReac cough Unverified 02/12/20 12:12 migraines General Stated Complaint: SOB KIERAN: 3 Review of Systems All systems reviewed & are unremarkable except as noted in HPI and below Constitutional Constitutional: Denies fever(s) Cardiovascular Cardiovascular: Denies chest pain and Reports dyspnea Respiratory Respiratory: Reports dyspnea PFSH Medical History (Updated 02/12/20 @ 15:09 by Grant Lang MD) Anxiety with depression (Acute) Arthritis COPD (chronic obstructive pulmonary disease) (Chronic) Depression with anxiety Elevated hemoglobin A1c (Acute) Essential tremor H/O: HTN (hypertension) (Acute) HTN (hypertension) Knee joint pain (Acute) Migraine Pneumonia (Acute) Pulmonary emboli Screening for breast cancer (Acute) Weight gain Surgical History History of bunionectomy (Acute) History of partial hysterectomy (Acute) Family History Sister Diabetes Brother Hypertension Other Heart disease Social History Smoking/Tobacco Use Status: Former Tobacco Use Alcohol Intake: never Drug use: Never Substance use type: does not use Do you feel safe at home: Yes Do you feel safe in your relationship?: Yes Exam Const General: cooperative and no acute distress HENMT Mouth: moist mucous membranes Eyes Conjunctivae: normal conjunctivae Sclera: normal sclerae Neck Neck: trachea midline, supple and no JVD Resp Effort & Inspection: able to speak in complete sentences and tachypneic Auscultation: no rales, no rhonchi, wheezes expiratory wheezes (Faint bilateral) and other (Decreased breath sounds bilaterally) Cardio Jugular venous pressure: no JVD Rate: regular rate and not tachycardic Rhythm: regular rhythm GI Palpation: soft, not firm, no guarding, no masses, not rigid and nontender Skin General skin exam: no rashes or lesions noted Neuro General: patient alert, patient awake and tone normal Extrem General: no calf tenderness and no edema Psych Appearance: grossly normal Mental Status: mental status grossly normal Speech and Movement: speech and movement normal Course Vital Signs Vital signs: Vital Signs Temperature 36.4 C L 02/06/20 13:46 Pulse 94 H 02/06/20 13:46 Respiratory Rate 20 02/06/20 13:46 Blood Pressure 135/75 02/06/20 13:46 Pulse Oximetry 93 L 02/06/20 13:46 Temperature 36.4 C L 02/06/20 13:46 Temperature Source Tympanic 02/06/20 13:46 Pulse 94 H 02/06/20 13:46 Respiratory Rate 16 02/06/20 13:54 Respiratory Effort 02/06/20 13:54 Respiratory Depth Normal 02/06/20 13:54 Respiratory Pattern Normal 02/06/20 13:54 Blood Pressure 135/75 02/06/20 13:46 Blood Pressure Position Sitting 02/06/20 13:46 Pulse Oximetry 93 L 02/06/20 13:46 Oxygen Delivery Method Room Air 02/06/20 13:46 Oxygen Flow Rate 0 02/06/20 13:46 Pain Level 0 02/06/20 13:46
[2020-02-06 14:39] LABS: Abs Immature Grans 0.02 10^3/uL (0.0-0.06); Absolute Basophil Count 0.05 10^3/uL (0.0-0.2); Absolute Eosinophil Count 0.56 10^3/uL (0.0-0.7); Absolute Lymphocyte Count 1.52 10^3/uL (1.2-3.4); Absolute Monocyte Count 0.48 10^3/uL (0.1-0.8); Absolute Neutrophil Count 6.43 10^3/uL (1.2-6.7); Basophils % 0.6; Eosinophils % 6.2; HCT 43.1 % (36.0-46.0); HGB 13.9 g/dL (11.2-15.7); Immature Grans % 0.2; Lymphocytes % 16.8; MCH 28.4 pg (27.0-33.0); MCHC 32.3 % (32.0-36.0); MPV 10.2 fL (8.0-11.0); Monocytes % 5.3; Neutrophils % 70.9; Nucleated RBC 0 %; Platelet Count 252 10^3/uL (130-400); RDW 13.7 % (11.7-14.6); RDW-SD 43.7 fL; WBC 9.06 10^3/uL (4.4-10.8)
[2020-02-06 14:46] LABS: Anion Gap 7.7 mmol/L (3-11); BUN 15 mg/dL (7-18); CO2 27.3 mmol/L (21.0-32.0); CREATININE 0.66 mg/dL (0.55-1.02); Calcium 9.2 mg/dL (8.5-10.1); Chloride 104 mmol/L (98-107); Glucose 114 mg/dL (74-106); Potassium 4.2 mmol/L (3.5-5.1); Sodium 139 mmol/L (136-145)
== END 2020-02-06 17:25 | disposition home or self-care (01) ==
PROVIDERS: Emergency Provider Student in an Organized Health Care Education/Training Program; PCP Nurse Practitioner
DX: J44.1 Chronic obstructive pulmonary disease with (acute) exacerbation (principal); R06.82 Tachypnea, not elsewhere classified; I10 Essential (primary) hypertension; Z79.51 Long term (current) use of inhaled steroids; Z87.891 Personal history of nicotine dependence
CPT/HCPCS: 36415; 80048; 93005; 94640; 96374; 99285; 71045; 85025; 93010; 99284; J2930; J7620

== ENCOUNTER 2020-02-12 12:05 | Emergency (ER) | payer MEDICARE, MEDICAID, SELFPAY ==
[2020-02-12] VITALS (36 sets, daily range): BP systolic 129–155; BP diastolic 53–96; PULSE 69–99; RESP 4–34; TEMP 36.4–36.6; O2SAT 91–100
--- NOTE | 2020-02-12 12:15 | RT.EKG_ITS ---
APPROVED REPORT Exam: Resting ECG Patient Location: E HR:81 bpm ECG Measurements Heart Rate 81 AXIS OR 154 P 52 QRSd 79 QRS 43 QT 393 T 43 QTc 458 Conclusion Sinus rhythm...normal P axis, Multiple ventricular premature complexes...V complexes w/ short R-R intervals Borderline ST elevation, lateral leads...ST >0.06mV, I aVL V5 V6. ST chsnges similar to 11/11/19
--- NOTE | 2020-02-12 12:21 | ED.GENADUL_ITS ---
Discharge Plan Disposition Patient Disposition: HOME Condition: Improving Discharge Details Chief Complaint: SOB Clinical Impression: COPD with acute exacerbation Primary Care Provider: Malinda Call ED Provider: Grant Lang Home Meds and New Rx's Prescriptions: New prednisone 10 mg tablet 10 mg PO DAILY Qty: 39 RF: 0 Continued rizatriptan [Maxalt-S[employer] LEADER] 10 MG tablet,disintegrating 10 mg PO ONCE RF: 0 fluoxetine 40 MG capsule 40 mg PO DAILY RF: 0 calcium carb-vit D2-minerals Tablet 1 tab PO DAILY RF: 0 loratadine 10 MG tablet 10 mg PO DAILY RF: 0 calcium carbonate-vitamin D3 1 EACH tablet 2 tab PO DAILY RF: 0 bupropion HCl 150 MG tablet extended release 12 hr 150 mg PO DAILY RF: 0 loperamide [Imodium A-D] 2 MG tablet 2 mg PO PRN PRNRF: 0 propranolol 10 MG tablet 10 mg PO BID Qty: 180 RF: 3 albuterol sulfate [ProAir HFA] 1 PUFF HFA aerosol inhaler 2 puff Inhalation Q2H PRN PRNQty: 1 RF: 3 Spiriva with HandiHaler 18 MCG capsule, w/inhalation device 18 mcg Inhalation DAILY Qty: 1 RF: 3 ipratropium-albuterol 0.5 mg-3 mg(2.5 mg base)/3 mL solution for nebulization 3 ml IH Q6H Qty: 90 RF: 0 Eliquis 5 MG tablet 5 mg PO BID Qty: 60 RF: 3 budesonide-formoterol [Symbicort] 160-4.5 mcg/actuation Hfa Aerosol Inhaler 2 puff Inhalation BID Qty: 6 RF: 0 Discharge Instructions Instructions: COPD (Chronic Obstructive Pulmonary Disease) (ED) Additional Instructions: We will ask our occasional caregiver to arrange an outpatient follow-up for you in clinic for recheck. Continue your regular medications. Take prednisone as prescribed with next dose tomorrow morning. Return if you have recurrent difficulty breathing or any other acute concerns. Today you underwent laboratory testing, CT scan of the chest and do not have evidence of pneumonia or blood clot present. Medical Decision Making 65-year-old female with history of COPD states she was at home when she developed fairly rapid onset of shortness of breath. She had an inhaler at home and then a DuoNeb by EMS which provided her some relief. She denies a new cough. She is not had a fever, no known sick contacts or travel. She arrives to the ED with a blood pressure 155/96, pulse in the 90s she speaking in full sentences and oxygenating 93 to 94% on room air. Patient does have a history of PE in addition to COPD. Today's differential diagnosis includes COPD exacerbation, breakthrough PE, must exclude ACS, as well as bronchitis versus pneumonia. Patient IV access established, given parenteral steroids, inhaled beta agonist therapy. Labs: White count of 8, reassuring chemistries, negative troponin, BNP of 208. D-dimer is elevated at 889. Patient referred for CT imaging of the chest to rule out PE versus other underlying lung pathology: No acute findings per Dr. Marx. Patient received 5 aliquot administration of DuoNeb in addition to parenteral steroids. She was observed over 3 hours time with subjective and objective improvement. Her work of breathing decreased, her wheezing improved, her oxygenation remained within normal limits and 95 to 100% through the latter half of her stay. Do not feel she requires admission, she is desirous of returning to home. As she was just on a small burst of steroid and she will need additional systemic steroids, I will place her on a burst of steroids with taper. She is due for outpatient PFTs. She has a working nebulizer with medications at home. We will ask occasional caregiver to arrange a follow-up for her in clinic for recheck. Lab Data Lab results reviewed: Yes I reviewed the patient's lab results. Labs: Laboratory Results - last 24 hr 02/12/20 02/12/20 02/12/20 12:12 12:12 12:12 WBC 8.37 RBC 4.87 Hgb 13.7 Hct 42.4 MCV 87.1 MCH 28.1 MCHC 32.3 RDW 14.0 Plt Count 260 MPV 10.5 Immature Gran % 0.5 Neutrophils % 63.7 Lymphocytes % 22.1 Monocytes % 6.6 Eosinophils % 6.7 Basophils % 0.4 Nucleated RBC % 0 Absolute Neutrophils 5.34 Absolute Lymphocytes 1.85 Absolute Monocytes 0.55 Absolute Eosinophils 0.56 Absolute Basophils 0.03 D-Dimer 889 H Sodium 142 Potassium 4.2 Chloride 105 Carbon Dioxide 29.4 Anion Gap 7.6 BUN 9 Creatinine 0.74 Estimated GFR/1.73 m2 >= 60.00 Glucose 102 Calcium 9.5 Magnesium 2.0 Total Bilirubin 0.4 AST 13 L ALT 26 Alkaline Phosphatase 68 Troponin I < 0.05 Total Protein 7.0 Albumin 3.4 HPI General Mode of arrival: EMS . Date/Time Provider Initiated Documentation: 02/12/20 12:58 . Limitations to Documentation: no limitations . Information obtained by: patient and EMS . History of Present Illness 65 year old F presents to the emergency department with the chief complaint of Shortness of breath at home, described as moderate, Quality is described as dull, and is localized to the chest. Patient reports no radiation. Patient started experiencing this minute(s) and it has been other (Improving). other things that improve symptom(s), (DuoNeb by EMS) No exacerbating factors reported . Patient notes shortness of breath; denies chest pain, cough, fever/chills, loss of appetite and nausea/vomiting. Patient did receive the following treatments prior to arrival, none Related Data Home Medications Medication Instructions Recorded Confirmed loratadine 10 mg PO DAILY 09/22/12 02/12/20 bupropion HCl 150 mg PO DAILY 04/02/14 02/12/20 calcium carbonate-vitamin D3 2 tab PO DAILY 04/02/14 02/12/20 fluoxetine 40 mg PO DAILY tab-cap 01/11/15 02/12/20 rizatriptan [Maxalt-S[employer]ONMENT[employer]ACT[employer] LEADER] 10 mg PO ONCE tab-cap 01/11/15 02/12/20 loperamide [Imodium A-D] 2 mg PO PRN PRN 02/24/16 02/12/20 Spiriva with HandiHaler 18 mcg INHALATION DAILY #1 tab-cap 10/29/16 02/12/20 albuterol sulfate [ProAir HFA] 2 puff INHALATION Q2H PRN PRN #1 10/29/16 02/12/20 inh propranolol 10 mg PO BID #180 tab-cap 10/29/16 02/12/20 Eliquis 5 mg PO BID #60 tablet 12/24/16 02/12/20 budesonide-formoterol [Symbicort] 2 puff INHALATION BID #6 gm 07/28/18 02/12/20 ipratropium-albuterol 3 ml IH Q6H #90 ml 06/26/19 02/12/20 calcium carb-vit D2-minerals 1 tab PO DAILY tab 02/04/20 02/12/20 prednisone 10 mg PO DAILY #39 tab 02/12/20 Previous Rx's Medication Instructions Recorded Spiriva with HandiHaler 18 mcg INHALATION DAILY #1 tab-cap 10/29/16 albuterol sulfate [ProAir HFA] 2 puff INHALATION Q2H PRN PRN #1 10/29/16 inh propranolol 10 mg PO BID #180 tab-cap 10/29/16 Eliquis 5 mg PO BID #60 tablet 12/24/16 budesonide-formoterol [Symbicort] 2 puff INHALATION BID #6 gm 07/28/18 ipratropium-albuterol 3 ml IH Q6H #90 ml 06/26/19 prednisone 10 mg PO DAILY #39 tab 02/12/20 Allergies Allergy/AdvReac Type Severity Reaction Status Date / Time aspirin AdvReac Mild Nausea Unverified 02/12/20 12:12 egg AdvReac Mild Nausea Unverified 02/12/20 12:12 chocolate flavor AdvReac cough Unverified 02/12/20 12:12 migraines General Stated Complaint: SOB KIERAN: 3 Review of Systems Narrative: No cough, no fever, otherwise well. No known sick contacts. Denies chest pain or syncope. 8 systems reviewed and otherwise negative. States she is taking her Eliquis. [facility] Medical History Anxiety with depression (Acute) Arthritis COPD (chronic obstructive pulmonary disease) (Chronic) Depression with anxiety Elevated hemoglobin A1c (Acute) Essential tremor H/O: HTN (hypertension) (Acute) HTN (hypertension) Knee joint pain (Acute) Migraine Pneumonia (Acute) Pulmonary emboli Screening for breast cancer (Acute) Weight gain Surgical History History of bunionectomy (Acute) History of partial hysterectomy (Acute) Family History Sister Diabetes Brother Hypertension Other Heart disease Social History Smoking/Tobacco Use Status: Former Tobacco Use Alcohol Intake: never Drug use: Never Substance use type: does not use Do you feel safe at home: Yes Do you feel safe in your relationship?: Yes Exam Narrative Exam Narrative: GEN: awake, alert, oriented 3. Pleasant, well groomed, interactive. HEAD: Normocephalic, atraumatic ENT: Mucous membranes moist, oropharynx unremarkable, External ear exam unremarkable EYES: PERRL, EOMI NECK: Full ROM, no KWAME, no menigismus CHEST/RESP: Bilateral slight inspiratory and moderate expiratory wheeze present CARDIOVASCULAR: RRR, no murmur, rub kelly. 2+ Rad pulse bilateral ABDOMEN: Soft, nontender, no mass. +Bowel sounds EXT: Full ROM, no edema, no rash Neuro: Grossly normal neurologic exam, conversant, interactive. Psych: Speech fluent, thoughts congruent, affect normal Course Vital Signs Vital signs: Vital Signs Temperature 36.6 C 02/12/20 12:05 Pulse 93 H 02/12/20 12:05 Respiratory Rate 18 02/12/20 12:05 Blood Pressure 155/96 H 02/12/20 12:05 Pulse Oximetry 95 02/12/20 12:05 Temperature 36.6 C 02/12/20 12:05 Temperature Source Temporal Artery Scan 02/12/20 12:05 Pulse 93 H 02/12/20 12:05 Respiratory Rate 18 02/12/20 12:16 Respiratory Effort 02/12/20 12:16 Blood Pressure 155/96 H 02/12/20 12:05 Blood Pressure Position Sitting 02/12/20 12:05 Pulse Oximetry 95 02/12/20 12:05 Oxygen Delivery Method Room Air 02/12/20 12:05 Oxygen Flow Rate 0 02/12/20 12:05
[2020-02-12] MEDS: Normal Saline Flush 10 ML SYR IVP (12:25)
[2020-02-12] MEDS: methylPREDNISolone SUCC 125 MG VIAL IVP (12:25)
[2020-02-12] MEDS: Albuterol/Ipratropium 3 ML UPD VIAL UPD (12:35)
[2020-02-12 12:37] LABS: Abs Immature Grans 0.04 10^3/uL (0.0-0.06); Absolute Basophil Count 0.03 10^3/uL (0.0-0.2); Absolute Eosinophil Count 0.56 10^3/uL (0.0-0.7); Absolute Lymphocyte Count 1.85 10^3/uL (1.2-3.4); Absolute Monocyte Count 0.55 10^3/uL (0.1-0.8); Absolute Neutrophil Count 5.34 10^3/uL (1.2-6.7); Basophils % 0.4; Eosinophils % 6.7; HCT 42.4 % (36.0-46.0); HGB 13.7 g/dL (11.2-15.7); Immature Grans % 0.5; Lymphocytes % 22.1; MCH 28.1 pg (27.0-33.0); MCHC 32.3 % (32.0-36.0); MCV 87.1 fL (80-95); MPV 10.5 fL (8.0-11.0); Monocytes % 6.6; Neutrophils % 63.7; Nucleated RBC 0 %; Platelet Count 260 10^3/uL (130-400); RBC 4.87 10^6/uL (3.93-5.22); WBC 8.37 10^3/uL (4.4-10.8)
[2020-02-12] MEDS: Albuterol/Ipratropium 3 ML UPD VIAL (12:42)
[2020-02-12 12:49] LABS: ALT 26 U/L (14-59); AST 13 U/L (15-37); Albumin 3.4 g/dL (3.4-5.0); Alkaline Phosphatase 68 U/L (46-116); Anion Gap 7.6 mmol/L (3-11); BUN 9 mg/dL (7-18); Bilirubin, Total 0.4 mg/dL (0.2-1.0); CO2 29.4 mmol/L (21.0-32.0); CREATININE 0.74 mg/dL (0.55-1.02); Calcium 9.5 mg/dL (8.5-10.1); Chloride 105 mmol/L (98-107); Glucose 102 mg/dL (74-106); Potassium 4.2 mmol/L (3.5-5.1); Sodium 142 mmol/L (136-145); Troponin I < 0.05 ng/mL (<0.06)
--- NOTE | 2020-02-12 13:00 | DI.CT_ITS ---
EXAM: CT CHEST PE CTA CLINICAL HISTORY: Hx PE, COPD, +SOB TECHNIQUE: COMPARISON: CT CHEST FOR PULMONARY EMBOLUS from 12/23/2016 CT CHEST FOR PULMONARY EMBOLUS from 12/23/2016 FINDINGS: CT angiography of the chest was performed bolus infusion of 62 cc Omnipaque 350. Images obtained thr ough the upper abdomen show unremarkable appearance of visualized portions of liver, spleen, pancreas , adrenals, and kidneys. There is no mediastinal or hilar adenopathy. Tracheobronchial tree appears intact. Mild lingular sc arring or atelectasis is noted. Otherwise lungs appear clear. No pleural effusion or pneumothorax. No evidence of pulmonary embolic disease. Thoracic aorta and major branch vessels appear intact with no evidence of thoracic aortic aneurysm or dissection. IMPRESSION: No evidence of pulmonary embolic disease. No evidence of acute process. RADIATION DOSE DELIVERED: 357.37mGy.cm Total DLP
[2020-02-12 13:08] LABS: D-Dimer 889 ng/mlFEU (<500)
[2020-02-12 13:19] LABS: NT-proBNP 208 pg/mL (<300)
[2020-02-12] MEDS: Omnipaque 350 MG/ML 100 ML BTL IJ (13:40)
[2020-02-12] MEDS: Normal Saline - Diluent 50 ML VIAL IV (13:41)
[2020-02-12] MEDS: Albuterol/Ipratropium 3 ML UPD VIAL 6 ML UPD (14:10)
--- NOTE | 2020-02-12 14:16 | NUR.NOTE ---
Nursing Note: More air movement noted after repeat duoneb treatment. Wheezing heard throughout. Patient appears more comfortable.
[2020-02-12] MEDS: predniSONE 40 MG, predniSONE 10 MG 50 MG PO (15:17)
--- NOTE | 2020-02-12 17:37 | NUR.NOTE ---
Nursing Note: Referral to PCP for follow up sent.
== END 2020-02-12 15:46 | disposition home or self-care (01) ==
PROVIDERS: Emergency Provider Emergency Medicine; PCP Nurse Practitioner
DX: J44.1 Chronic obstructive pulmonary disease with (acute) exacerbation (principal); Z87.891 Personal history of nicotine dependence; I10 Essential (primary) hypertension; Z79.51 Long term (current) use of inhaled steroids; Z86.711 Personal history of pulmonary embolism; Z79.01 Long term (current) use of anticoagulants
CPT/HCPCS: 36415; 71275; 80053; 93005; 94640; 96374; 99285; 83735; 83880; 84484; 85025; 85379; 93010; 99284; J2930; J3490; J7512; J7620

== ENCOUNTER 2020-04-08 08:25 | Observation (INO) | payer OTHER, MEDICAID, SELFPAY ==
[2020-04-08] VITALS (56 sets, daily range): BP systolic 112–170; BP diastolic 56–111; PULSE 109–134; RESP 2–35; TEMP 36.6–37.6; O2SAT 89–100
--- NOTE | 2020-04-08 08:22 | W.ED.GENAD ---
Discharge Plan Disposition Patient Disposition: [facility] INPATIENT Condition: Fair Discharge Details Clinical Impression: Acute exacerbation of chronic obstructive pulmonary disease Admit Date/Time: 04/08/20 13:08 Admit Provider: Nicolas Feliciano Attending Provider: Nicolas Feliciano Primary Care Provider: Malinda Call ED Provider: Nicki Samayoa Discharge Data Discharge Date/Time-TO BE ENTERED AT DEPARTURE: 04/08/20 14:43 Medical Decision Making 0830 -- 65-year-old female with a history of COPD, pulmonary embolism on Eliquis, hypertension, anxiety, depression presents with dry cough, shortness of breath and chest tightness since last night. Rate 120s, oxygen saturation 94% on room air and afebrile on arrival. She appears to have minimal work of breathing. She has scattered wheezing and minimal rhonchi throughout. Suspect most likely COPD exacerbation. During age and history, will also obtain a cardiac work-up, chest x-ray, EKG and give 7.5 mg neb and 125 Solu-Medrol IV. PE appears less likely as she is taking Eliquis and she has wheezing and rhonchi consistent with her previous COPD exacerbations. 0940 -- patient reassessed and she states she feels only slightly better. Patient noted to be talking on the phone quite loudly and appears in no acute respiratory distress. Oxygen saturation 96% on room air. She has increase in sounds of wheezing and rhonchi. Will give a 5 mg neb and reassess. Labs and imaging reviewed and unremarkable. 1050 --patient reassessed and she feels a little better. O2 sat 91% on room air. She states she does not feel ready to go home at this time. Breath sounds improved. We will give her some time and then give another 5 mg albuterol neb and reassess. 1245 --patient ambulated and oxygen saturation low to mid 90s on room air which is close to her baseline. She complained of some shortness of breath but mainly fatigue as she was awake all night with the symptoms. Patient was able to eat a meal but states this made her cough more. She has audible wheezing noted when speaking. Oxygen saturation 97% on room air. Patient states she does not feel well enough to go home. Will admit patient for continued nebs and IV steroids. We will also obtain a CT chest to rule out any other acute findings not noted on chest x-ray, obtain an ABG. Case discussed with hospitalist who accepts patient for admission. Medical Records Medical records reviewed: Yes I reviewed the patient's medical records. Imaging Data Radiologic Study: Radiologist's impression: XR PORTABLE CHEST AP CLINICAL HISTORY: sob, cough, r/o pneumonia, chf TECHNIQUE: 2D digital imaging was performed. COMPARISON: CR,XR XR CHEST 2V PA LATERAL from 06/26/2019 CR,XR XR PORTABLE CHEST AP from 10/04/2019 CR XR PORTABLE CHEST AP from 11/11/[address] CHEST PE CTA from 02/12/2020 FINDINGS: LUNGS: Clear. No pleural abnormality seen. HEART: Normal size.. MEDIASTINUM: Mildly tortuous aorta. IMPRESSION: No evidence pneumonia or CHF. Lab Data Lab results reviewed: Yes I reviewed the patient's lab results. Labs: Laboratory Tests Range/Units 04/08/20 04/08/20 04/08/20 08:35 08:35 08:35 WBC (4.4-10.8) 10^3/uL 10.66 RBC (3.93-5.22) 10^6/uL 4.77 Hgb (11.2-15.7) g/dL 13.3 Hct (36.0-46.0) % 42.9 MCV (80-95) fL 89.9 MCH (27.0-33.0) pg 27.9 MCHC (32.0-36.0) % 31.0 L RDW (11.7-14.6) % 13.6 Plt Count (130-400) 10^3/uL 253 MPV (8.0-11.0) fL 10.2 Immature Gran % 0.5 Neutrophils % 65.8 Lymphocytes % 18.8 Monocytes % 7.1 Eosinophils % 7.1 Basophils % 0.7 Nucleated RBC % % 0 Absolute Neutrophils (1.2-6.7) 10^3/uL 7.02 H Absolute Lymphocytes (1.2-3.4) 10^3/uL 2.00 Absolute Monocytes (0.1-0.8) 10^3/uL 0.76 Absolute Eosinophils (0.0-0.7) 10^3/uL 0.76 H Absolute Basophils (0.0-0.2) 10^3/uL 0.07 PT (9.3-11.0) sec 10.5 INR (0.9-1.1) 1.0 APTT (21.0-31.4) sec 24.7 Sodium (136-145) mmol/L 139 Potassium (3.5-5.1) mmol/L 3.3 L Chloride (98-107) mmol/L 105 Carbon Dioxide (21.0-32.0) mmol/L 25.9 Anion Gap (3-11) mmol/L 8.1 BUN (7-18) mg/dL 15 Creatinine (0.55-1.02) mg/dL 0.73 Estimated GFR/1.73 m2 (mL/min/1.73m2) >= 60.00 Glucose (74-106) mg/dL 126 H Calcium (8.5-10.1) mg/dL 9.0 Magnesium (1.8-2.4) mg/dL 2.2 Total Bilirubin (0.2-1.0) mg/dL 0.5 AST (15-37) U/L 15 ALT (14-59) U/L 20 Alkaline Phosphatase (46-116) U/L 88 Troponin I (<0.06) ng/mL < 0.05 NT-Pro-B Natriuret Pep (<300) pg/mL Total Protein (6.4-8.2) g/dL 7.4 Albumin (3.4-5.0) g/dL 3.6 Range/Units 04/08/20 04/08/20 11:30 11:30 WBC (4.4-10.8) 10^3/uL RBC (3.93-5.22) 10^6/uL Hgb (11.2-15.7) g/dL Hct (36.0-46.0) % MCV (80-95) fL MCH (27.0-33.0) pg MCHC (32.0-36.0) % RDW (11.7-14.6) % Plt Count (130-400) 10^3/uL MPV (8.0-11.0) fL Immature Gran % Neutrophils % Lymphocytes % Monocytes % Eosinophils % Basophils % Nucleated RBC % % Absolute Neutrophils (1.2-6.7) 10^3/uL Absolute Lymphocytes (1.2-3.4) 10^3/uL Absolute Monocytes (0.1-0.8) 10^3/uL Absolute Eosinophils (0.0-0.7) 10^3/uL Absolute Basophils (0.0-0.2) 10^3/uL PT (9.3-11.0) sec INR (0.9-1.1) APTT (21.0-31.4) sec Sodium (136-145) mmol/L Potassium (3.5-5.1) mmol/L Chloride (98-107) mmol/L Carbon Dioxide (21.0-32.0) mmol/L Anion Gap (3-11) mmol/L BUN (7-18) mg/dL Creatinine (0.55-1.02) mg/dL Estimated GFR/1.73 m2 (mL/min/1.73m2) Glucose (74-106) mg/dL Calcium (8.5-10.1) mg/dL Magnesium (1.8-2.4) mg/dL Total Bilirubin (0.2-1.0) mg/dL AST (15-37) U/L ALT (14-59) U/L Alkaline Phosphatase (46-116) U/L Troponin I (<0.06) ng/mL < 0.05 NT-Pro-B Natriuret Pep (<300) pg/mL 73 Total Protein (6.4-8.2) g/dL Albumin (3.4-5.0) g/dL ECG Data Attestation: I personally reviewed and interpreted this ECG (s) as follows: Interpretation: rate of 112, sinus, borderline ST elevation seen in V3 through V5 which has been seen in previous EKGs from October and January 2020. I do not see an acute ST elevation or depression. MT 144. QRS 76. QTc 479. HPI General Mode of arrival: ambulatory. Date/Time Provider Initiated Documentation: 04/08/20 08:40. Limitations to Documentation: no limitations. Information obtained by: patient. HPI Narrative: Patient is a 65-year-old female with a history of COPD, pulmonary embolism on Eliquis, anxiety, depression, hypertension who presents with cough, shortness of breath and chest tightness since last night, worsened 3 AM this morning. Patient states she has been using her prescribed inhalers as directed and took 1 puff of her albuterol rescue inhaler this morning without relief. She denies any recent hospital admissions or antibiotics. She was last treated with steroids when she was here in the ED in January 2020. She denies fever, sputum production, vomiting, recent sick contacts or recent travel. Related Data Home Medications Medication Instructions Recorded Confirmed loratadine 10 mg PO DAILY 09/22/12 04/08/20 calcium carbonate-vitamin D3 2 tab PO DAILY 04/02/14 04/08/20 fluoxetine 40 mg PO DAILY tab-cap 01/11/15 04/08/20 rizatriptan [Maxalt-HYDRAULIC TESTER] 10 mg PO ONCE tab-cap 01/11/15 04/08/20 Spiriva with HandiHaler 18 mcg INHALATION DAILY #1 tab-cap 10/29/16 04/08/20 albuterol sulfate [ProAir HFA] 2 puff INHALATION Q2H PRN PRN #1 10/29/16 04/08/20 inh Eliquis 5 mg PO BID #60 tablet 12/24/16 04/08/20 budesonide-formoterol [Symbicort] 2 puff INHALATION BID #6 gm 07/28/18 04/08/20 ipratropium-albuterol 3 ml IH Q6H #90 ml 06/26/19 04/08/20 cholecalciferol (vitamin D3) 25 mcg PO DAILY 04/08/20 04/08/20 [Vitamin D3] Previous Rx's Medication Instructions Recorded Spiriva with HandiHaler 18 mcg INHALATION DAILY #1 tab-cap 10/29/16 albuterol sulfate [ProAir HFA] 2 puff INHALATION Q2H PRN PRN #1 10/29/16 inh Eliquis 5 mg PO BID #60 tablet 12/24/16 budesonide-formoterol [Symbicort] 2 puff INHALATION BID #6 gm 07/28/18 ipratropium-albuterol 3 ml IH Q6H #90 ml 06/26/19 Allergies Allergy/AdvReac Type Severity Reaction Status Date / Time aspirin AdvReac Mild Nausea Unverified 04/08/20 08:36 egg AdvReac Mild Nausea Unverified 04/08/20 08:36 chocolate flavor AdvReac cough Unverified 04/08/20 08:36 migraines General KIERAN: 3 Review of Systems All systems reviewed & are unremarkable except as noted in HPI and below Constitutional Constitutional: Reports as per HPI, Denies chills and Denies fever(s) Eyes Eyes: Denies blurry vision ENT Ears, Nose, Mouth, and Throat: Denies dizziness, Denies sore throat and Denies throat swelling Cardiovascular Cardiovascular: Denies chest pain and Reports dyspnea Respiratory Respiratory: Reports cough and Reports dyspnea Gastrointestinal Gastrointestinal: Denies abdominal pain, Denies diarrhea and Denies vomiting Genitourinary Genitourinary: Denies hematuria and Denies dysuria Musculoskeletal Musculoskeletal: Denies back pain and Denies numbness Integumentary/Breasts Skin/Breast: Denies lesions and Denies rash Neurologic Neurologic: Denies dizziness, Denies localized weakness and Denies numbness Allergic/Immunologic Allergic/Immunologic: Denies throat swelling PFSH Medical History Anxiety with depression Arthritis COPD (chronic obstructive pulmonary disease) Depression with anxiety Elevated hemoglobin A1c Essential tremor H/O: HTN (hypertension) HTN (hypertension) Knee joint pain Migraine Pneumonia Pulmonary emboli Screening for breast cancer Weight gain Surgical History History of bunionectomy History of partial hysterectomy Family History Sister Diabetes Brother Hypertension Other Heart disease Social History Smoking/Tobacco Use Status: Former Tobacco Use Alcohol Intake: never Drug use: Never Substance use type: does not use Do you feel safe at home: Yes Do you feel safe in your relationship?: Yes Exam Const General: cooperative and no acute distress Orientation: alert, awake and oriented x3 HENMT Head: normal to inspection Face and sinus: normal facial exam Eyes General: appearance normal, both eyes and all related structures EOM: EOM intact bilaterally Neck Neck: normal visual inspection and No submandibular swelling Lymphatic: no lymphadenopathy noted Chest Chest: normal inspection of the chest and no tenderness Resp Effort & Inspection: normal respiratory effort and able to speak in complete sentences Auscultation: clear to auscultation bilaterally, rhonchi upper bilaterally and lower bilaterally and wheezes scattered wheezes Cardio Rate: regular rate Rhythm: regular rhythm GI Inspection: normal to inspection Palpation: soft, not firm, not rigid and nontender Auscultation: normal bowel sounds Back/Spine/Pelvis Thoracic/Lumbar Spine: thoracic and lumbar spine normal to inspection Skin General skin exam: no rashes or lesions noted Neuro General: patient alert, patient awake and patient oriented x3 Cognition: normal cognition Speech: speech normal Motor: muscle tone normal throughout Sensory Exam: no sensory deficits noted Extrem General: normal to inspection, full ROM, capillary refill normal, no calf tenderness bilaterally and no edema Psych Appearance: grossly normal Mental Status: mental status grossly normal Speech and Movement: speech and movement normal Affect: normal affect
--- NOTE | 2020-04-08 08:30 | RT.EKG_ITS ---
APPROVED REPORT Exam: Resting ECG Patient Location: E HR:122 bpm ECG Measurements Heart Rate 122 AXIS CA 137 P 139 QRSd 80 QRS 144 QT 337 T 126 QTc 482 Conclusion Right and left arm electrode reversal, interpretation assumes no reversal Sinus or ectopic atrial tachycardia...P axis (-45,135), rate> 99 Multiple ventricular premature complexes...V complexes w/ short R-R intervls Right axis deviation...QRS axis ( 91,269) Nonspecific T abnormalities, lateral leads...T <-0.10mV, I aVL V5 V6. Right axis deviation, suspect arm lead reversal. PVCs. No STEMI. I have reviewed and interpreted ECG and agree with software generated interpretation.
[2020-04-08] MEDS: Albuterol/Ipratropium 3 ML UPD VIAL UPD ×3 (08:49→20:07)
[2020-04-08] MEDS: Normal Saline 500 ML IV ×2 (08:50→11:53)
[2020-04-08] MEDS: methylPREDNISolone SUCC 125 MG VIAL IVP (08:50)
[2020-04-08] MEDS: Albuterol 2.5 MG/3 ML INH SOLN VIAL 5 MG UPD ×2 (08:53→11:30)
[2020-04-08 08:54] LABS: Abs Immature Grans 0.05 10^3/uL (0.0-0.06); Absolute Basophil Count 0.07 10^3/uL (0.0-0.2); Absolute Eosinophil Count 0.76 10^3/uL (0.0-0.7); Absolute Monocyte Count 0.76 10^3/uL (0.1-0.8); Absolute Neutrophil Count 7.02 10^3/uL (1.2-6.7); Basophils % 0.7; Eosinophils % 7.1; HCT 42.9 % (36.0-46.0); HGB 13.3 g/dL (11.2-15.7); Immature Grans % 0.5; Lymphocytes % 18.8; MCH 27.9 pg (27.0-33.0); MCV 89.9 fL (80-95); MPV 10.2 fL (8.0-11.0); Monocytes % 7.1; Neutrophils % 65.8; Nucleated RBC 0 %; Platelet Count 253 10^3/uL (130-400); RBC 4.77 10^6/uL (3.93-5.22); RDW 13.6 % (11.7-14.6); RDW-SD 44.6 fL; WBC 10.66 10^3/uL (4.4-10.8)
--- NOTE | 2020-04-08 09:00 | RT.EKG_ITS ---
APPROVED REPORT Exam: Resting ECG Patient Location: E HR:112 bpm ECG Measurements Heart Rate 112 AXIS SD 144 P 44 QRSd 76 QRS 27 QT 351 T 41 QTc 479 Conclusion Sinus tachycardia...rate> 99. Repeat EKG w/ now normal axis w/ leads in proper position. No STEMI. I have reviewed and interpreted ECG and agree with software generated interpretation.
[2020-04-08 09:13] LABS: ALT 20 U/L (14-59); AST 15 U/L (15-37); Albumin 3.6 g/dL (3.4-5.0); Alkaline Phosphatase 88 U/L (46-116); Anion Gap 8.1 mmol/L (3-11); BUN 15 mg/dL (7-18); Bilirubin, Total 0.5 mg/dL (0.2-1.0); CO2 25.9 mmol/L (21.0-32.0); CREATININE 0.73 mg/dL (0.55-1.02); Chloride 105 mmol/L (98-107); Glucose 126 mg/dL (74-106); Magnesium 2.2 mg/dL (1.8-2.4); PTT Activated 24.7 sec (21.0-31.4); Potassium 3.3 mmol/L (3.5-5.1); Prothrombin Time 10.5 sec (9.3-11.0); Sodium 139 mmol/L (136-145); Total Protein 7.4 g/dL (6.4-8.2)
[2020-04-08 09:14] LABS: Troponin I < 0.05 ng/mL (<0.06)
--- NOTE | 2020-04-08 09:14 | DI.RAD_ITS ---
EXAM: XR PORTABLE CHEST AP CLINICAL HISTORY: sob, cough, r/o pneumonia, chf TECHNIQUE: 2D digital imaging was performed. COMPARISON: CR,XR XR CHEST 2V PA LATERAL from 06/26/2019 CR,XR XR PORTABLE CHEST AP from 10/04/2019 CR XR PORTABLE CHEST AP from 11/11/[address] CHEST PE CTA from 02/12/2020 FINDINGS: LUNGS: Clear. No pleural abnormality seen. HEART: Normal size.. MEDIASTINUM: Mildly tortuous aorta. IMPRESSION: No evidence pneumonia or CHF. DATA REPOSITORY: RADIATION DOSE DELIVERED:
[2020-04-08] MEDS: Acetaminophen 500 MG TAB (09:35)
[2020-04-08] MEDS: Albuterol 2.5 MG/3 ML INH SOLN VIAL (09:51)
[2020-04-08] MEDS: Potassium Chloride 20 MEQ TABCR PO ×2 (10:05→15:49)
[2020-04-08 12:04] LABS: Troponin I < 0.05 ng/mL (<0.06)
--- NOTE | 2020-04-08 12:34 | NUR.NOTE ---
Nursing Note:[place], chips and gingerale to patient.
--- NOTE | 2020-04-08 12:45 | DI.CT_ITS ---
EXAM: CT CHEST PE CTA CLINICAL HISTORY: dyspnea, sob, r/o PE/pneumonia. TECHNIQUE: Imaging Protocol: Axial CT angiography was performed with multi-slice acquisition and mu lti-planar and/or 3D reconstructions. CONTRAST MATERIAL: Intravenous: Omnipaque 350 Contrast volume:100 cc COMPARISON: CT CT CHEST PE CTA from 02/12/2020 CR XR PORTABLE CHEST AP from 04/08/2020 FINDINGS: Pulmonary Arteries: No evidence of filling defect to suggest pulmonary emboli. Tracheobronchial tree: Patent . Mediastinum and Yisel: No dominant adenopathy or fluid collection. Pulmonary parenchyma: Somewhat limited evaluation due to respiratory motion. No consolidation or dom inant measurable mass. No visible emphysematous changes. Pleura: No effusion or pneumothorax. Heart: The heart is not dilated. Mild coronary artery calcifications are seen. No pericardial effusio n. Aorta: Thoracic aorta non-dilated. Upper abdomen: Small hiatal hernia. Bones: Degenerative changes in the spine. IMPRESSION: No evidence of pulmonary embolism or other acute abnormality. No evidence of pneumonia.. RADIATION DOSE DELIVERED: 350.82mGy.cm Total DLP DATA REPOSITORY: All CT scans at this facility are submitted to the National Radiology Data Registry (NRDR) Dose Index Registry (DIR) with the [employer] (ACR). RADIATION OPTIMIZATION: All CT scans at this facility use at least one of these dose optimization te chniques: automated exposure control; mA and/or kV adjustment per patient size (includes targeted exa ms where dose is matched to clinical indication); or iterative reconstruction.
[2020-04-08] MEDS: Omnipaque 350 MG/ML 100 ML BTL IJ (13:13)
[2020-04-08] MEDS: Normal Saline - Diluent 50 ML VIAL IV (13:13)
[2020-04-08] MEDS: Normal Saline Flush 10 ML SYR IVP (13:14)
--- NOTE | 2020-04-08 13:16 | HPE_ITS ---
Date of service: 04/08/20 Time of Service: 13:16 Assessment and Plan Assessment and plan (1) COPD with acute exacerbation: Start date: 04/08/20 Start time: 13:26 Status: Acute Assessment and plan: After several nebs and steroids in the ED, wheezing continues. Not requiring oxygen. Was unable to ambulate without feeling SOB. Will admit for further management Steroids po ICS Duonebs fidencio with prn albuterol At this time will hold off antibiotics, clinical no symptoms requiring them. CXR negative (2) Pulmonary embolism: Start date: 04/08/20 Start time: 13:27 Status: Chronic Assessment and plan: On eliquis. (3) DVT prophylaxis: Start date: 04/08/20 Start time: 13:27 Status: Acute Assessment and plan: On eliquis for history of PE above case discussed with who is in agreement. History of Present Illness History of Present Illness Chief Complaint: COPD exacerbation Narrative: 65 y.o female with PMH COPD, HTN, PE (on eliquis) presents to [facility] ED with dry cough, SOB and chest tightness. Labs remarkable for potassium 3.3, repleted with po supplementation in ED, otherwise unremarkable. She received several duo nebs with steroids and continued to have wheezing. CXR negative for CHF and pneumonia. Due to persistent wheezing she has been asked to be admitted for further management of her symptoms. She will be admitted for steroids and nebs. Will hold of on antibiotics at this time due to abscence of sputum, fever and clinical symptoms. Review of Systems All systems reviewed & are unremarkable except as noted in HPI and below PFSH Medical History Anxiety with depression Arthritis COPD (chronic obstructive pulmonary disease) Depression with anxiety Elevated hemoglobin A1c Essential tremor H/O: HTN (hypertension) HTN (hypertension) Knee joint pain Migraine Pneumonia Pulmonary emboli Screening for breast cancer Weight gain Surgical History History of bunionectomy History of partial hysterectomy Family History Sister Diabetes Brother Hypertension Other Heart disease Social History Smoking/Tobacco Use Status: Former Tobacco Use Alcohol Intake: never Drug use: Never Substance use type: does not use Do you feel safe at home: Yes Do you feel safe in your relationship?: Yes Meds Home Medications and Allergies Home Medications Medication Instructions Recorded Confirmed Type loratadine 10 mg PO DAILY 09/22/12 04/08/20 History calcium carbonate-vitamin D3 2 tab PO DAILY 04/02/14 04/08/20 History fluoxetine 40 mg PO DAILY tab-cap 01/11/15 04/08/20 History rizatriptan [Maxalt-INTEGRATED MARKETING SPECIALIST] 10 mg PO ONCE tab-cap 01/11/15 04/08/20 History Spiriva with HandiHaler 18 mcg INHALATION DAILY #1 tab-cap 10/29/16 04/08/20 Rx albuterol sulfate [ProAir HFA] 2 puff INHALATION Q2H PRN PRN #1 10/29/16 04/08/20 Rx inh Eliquis 5 mg PO BID #60 tablet 12/24/16 04/08/20 Rx budesonide-formoterol [Symbicort] 2 puff INHALATION BID #6 gm 07/28/18 04/08/20 Rx ipratropium-albuterol 3 ml IH Q6H #90 ml 06/26/19 04/08/20 Rx cholecalciferol (vitamin D3) 25 mcg PO DAILY 04/08/20 04/08/20 History [Vitamin D3] Allergies Allergy/AdvReac Type Severity Reaction Status Date / Time aspirin AdvReac Mild Nausea Unverified 04/08/20 08:36 egg AdvReac Mild Nausea Unverified 04/08/20 08:36 chocolate flavor AdvReac cough Unverified 04/08/20 08:36 migraines Exam Const General: cooperative, healthy appearing, comfortable and no acute distress Orientation: alert, awake and oriented x3 HENMT Head: normocephalic and atraumatic Eyes Pupils: PERRL EOM: EOM intact bilaterally Resp Effort & Inspection: able to speak in complete sentences Auscultation: rhonchi lower bilaterally and wheezes Cardio Rate: tachycardic Rhythm: regular rhythm Heart Sounds: S1 normal and S2 normal GI Inspection: normal to inspection Palpation: soft Auscultation: normal bowel sounds Skin General skin exam: no rashes or lesions noted Neuro General: patient alert, patient awake and patient oriented x3 Extrem General: normal to inspection and no clubbing, cyanosis or edema Results Labs Result diagrams: 04/08/20 08:35 04/08/20 08:35 Labs: Laboratory Results - last 24 hr 04/08/20 04/08/20 04/08/20 08:35 08:35 08:35 WBC 10.66 RBC 4.77 Hgb 13.3 Hct 42.9 MCV 89.9 MCH 27.9 MCHC 31.0 L RDW 13.6 Plt Count 253 MPV 10.2 Immature Gran % 0.5 Neutrophils % 65.8 Lymphocytes % 18.8 Monocytes % 7.1 Eosinophils % 7.1 Basophils % 0.7 Nucleated RBC % 0 Absolute Neutrophils 7.02 H Absolute Lymphocytes 2.00 Absolute Monocytes 0.76 Absolute Eosinophils 0.76 H Absolute Basophils 0.07 PT 10.5 INR 1.0 APTT 24.7 Sodium 139 Potassium 3.3 L Chloride 105 Carbon Dioxide 25.9 Anion Gap 8.1 BUN 15 Creatinine 0.73 Estimated GFR/1.73 m2 >= 60.00 Glucose 126 H Calcium 9.0 Magnesium 2.2 Total Bilirubin 0.5 AST 15 ALT 20 Alkaline Phosphatase 88 Troponin I < 0.05 Total Protein 7.4 Albumin 3.6 04/08/20 11:30 WBC RBC Hgb Hct MCV MCH MCHC RDW Plt Count MPV Immature Gran % Neutrophils % Lymphocytes % Monocytes % Eosinophils % Basophils % Nucleated RBC % Absolute Neutrophils Absolute Lymphocytes Absolute Monocytes Absolute Eosinophils Absolute Basophils PT INR APTT Sodium Potassium Chloride Carbon Dioxide Anion Gap BUN Creatinine Estimated GFR/1.73 m2 Glucose Calcium Magnesium Total Bilirubin AST ALT Alkaline Phosphatase Troponin I < 0.05 Total Protein Albumin Last Vital Signs Temp 36.6 C 04/08/20 08:27 Pulse 128 H 04/08/20 13:01 Resp 24 04/08/20 13:01 BP 134/66 04/08/20 13:01 Pulse Ox 95 04/08/20 13:01 COVID-19 Screening Have you,or household,traveled outside [place] in last 14 days?: No Had IN PERSON contact w/suspected or confirmed C-19 person: No
[2020-04-08 13:31] LABS: BE -6 mmol/L (-2-3); HCO3 20 mmol/L (22-26); pCO2 35 mmHg (35-45); pH 7.36 (7.35-7.45); pO2 72 mmHg (80-105); sO2 95 % (95-98); tCO2 18 mmol/L (23-27)
[2020-04-08 13:36] LABS: FIO2 RA %; Site Left Radial
[2020-04-08 13:39] LABS: NT-proBNP 73 pg/mL (<300)
--- NOTE | 2020-04-08 14:10 | PDOC.ERCMIN ---
- If Service Date Differs Date of service: 04/08/20 Time of Service: 14:10 Care Management Initial Assess REASON FOR HOSPITALIZATION:: COPD with acute exacerbation. PAST MEDICAL HISTORY/PAST SURGICAL HISTORY:: Medical History: Anxiety with depression, Arthritis, COPD (chronic obstructive pulmonary disease), Depression with anxiety, Elevated hemoglobin A1c, Essential tremor, H/O: HTN (hypertension), HTN (hypertension), Knee joint pain, Migraine, Pneumonia, Pulmonary emboli,. Screening for breast cancer, and Weight gain. Surgical History: History of bunionectomy and History of partial hysterectomy. PREVIOUS FUNCTIONAL STATUS/SOCIAL/FAMILY SUPPORTS:: Tracie lives in a second floor apartment in [facility] with her adult son, Roge. 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 She is an avid reader and enjoys mystery novels and historical fiction novels, such as [employer]. Tracie has three sons and one daughter. Two of her sons live locally and are supportive of her. She reports she is one of seven kids and is in daily phone contact with her sister Kristine, who resides in [place], [place], and her brother, Mihai, who lives in [place], [place]. Tracie proudly shares she has 10 grandkids, an additional 8 grandkids through marriage, and 2 great grandsons. Tracie does not drive but she is independent with her ADLs at baseline. She also cooks and cleans her apartment. CURRENT FUNCTIONAL STATUS:: Tracie is lying in bed when CM comes to meet with her. She is pleasant and easily engages in conversation despite having some difficulty breathing and being visibly tremulous. Tracie talks about [place] [facility] and talks about her family. CM will continue to follow. ADVANCE DIRECTIVES:: None on file, but patient is interested in taking an Advance Directive form home to complete. CM will provide her with an Advance Directive prior to discharge. Has patient been provided with info about the portal/API?: No Did the patient sign up for the portal?: No CODE STATUS:: Full Code INSURANCE COVERAGE / FINANCIAL ISSUES:: Medicare and Medicaid. CURRENT HOME/COMMUNITY SERVICES/EQUIPMENT:: Tracie denies having any home or community services. The only medical equipment she has at home is a nebulizer. PRIMARY CARE PHYSICIAN:: Malinda Call np. POTENTIAL DISCHARGE NEEDS:: Follow up appointment with PCP and discharge plan of care. PATIENT/FAMILY EDUCATION NEEDS:: Discharge instructions, limitations, follow-up plan of care, including Ask Me Three and self management. ANTICIPATED BARRIERS TO DISCHARGE:: None anticipated at this time. TRANSPORTATION:: Via [facility] to be arranged by CM. PLAN:: Anticipate Tracie will be discharged home with no new services when medically cleared by provider. She will follow up with her PCP and discharge plan of care as directed. Transport home will be via [facility], to be arranged by CM, when ready. CM will continue to support Tracie and discharge planning needs.
[2020-04-08] MEDS: Acetaminophen 325 MG TAB 650 MG PO (18:25)
[2020-04-08] MEDS: Budesonide/Formoterol 160/4.5 6 GM 60 PUFF INH IH (20:06)
[2020-04-08] MEDS: predniSONE 20 MG TAB 60 MG PO (20:07)
[2020-04-08] MEDS: Apixaban 5 MG TAB PO (20:07)
[2020-04-09 01:00] VITALS: BP 128/70; PULSE 108; RESP 18; TEMP 36.8; O2SAT 95
[2020-04-09 02:07] VITALS: RESP 4; RESP 5
[2020-04-09] MEDS: Albuterol/Ipratropium 3 ML UPD VIAL UPD ×2 (02:07→08:17)
[2020-04-09 07:30] LABS: Anion Gap 7.8 mmol/L (3-11); BUN 15 mg/dL (7-18); CO2 23.2 mmol/L (21.0-32.0); CREATININE 0.66 mg/dL (0.55-1.02); Calcium 9.1 mg/dL (8.5-10.1); Chloride 107 mmol/L (98-107); Glucose 123 mg/dL (74-106); Sodium 138 mmol/L (136-145)
[2020-04-09] MEDS: predniSONE 20 MG TAB 60 MG PO (08:09)
[2020-04-09] MEDS: Loratidine 10 MG TAB PO (08:09)
[2020-04-09] MEDS: Cholecalciferol (Vitamin D3) 1,000 UNIT TAB 1000 UNITS PO (08:09)
[2020-04-09] MEDS: FLUoxetine 20 MG CAP 40 MG PO (08:09)
[2020-04-09] MEDS: Apixaban 5 MG TAB PO (08:09)
[2020-04-09] MEDS: Normal Saline Flush 10 ML SYR IVP (08:10)
[2020-04-09 08:11] VITALS: BP 158/83; PULSE 113; RESP 18; TEMP 36.9; O2SAT 93
[2020-04-09 08:13] LABS: COVID-19 RT-PCR UVMMC Result Negative (Negative)
[2020-04-09] MEDS: Budesonide/Formoterol 160/4.5 6 GM 60 PUFF INH IH (08:16)
[2020-04-09 08:17] VITALS: PULSE 111; RESP 20; RESP 4; RESP 8; O2SAT 94
[2020-04-09 08:37] VITALS: PULSE 120; RESP 16; RESP 4; RESP 8; O2SAT 96
--- NOTE | 2020-04-09 09:26 | W.PM.DS.N ---
Date of service: 04/09/20 Time of Service: DS: Diagnosis Discharge Diagnosis (1) COPD with acute exacerbation: Start date: 04/09/20 Start time: Status: Resolved Asessment and Plan: After reviewing records patient has had normal PFT in the past. There is no evidence of COPD, however she does come in with wheezing and SOB usually resolving with neb treatments and steroids. This morning she is feeling better, LSC no wheezing rhonchi or rales. She has used ICS and recommended she continue to use at home. She should have another PFT to evaluate for COPD and follow up with Pulmonary for further work up of etiology of symptoms. Will send on short steroid burst. She is not requiring antibiotics. (2) Pulmonary embolism: Start date: 04/09/20 Start time: Status: Chronic Asessment and Plan: Continue eliquis Above case discussed with Dr. Feliciano who is in agreement Discharge Plan Disposition Patient Disposition: HOME Condition: Good Discharge Details Reason For Visit: COPD EXACERBATION Admit Date/Time: 04/08/20 13:08 Admit Provider: Nicolas Feliciano Attending Provider: Nicolas Feliciano Primary Care Provider: Malinda Call Hospital Course Hospital Course: 65 y.o female with PMH COPD, HTN, PE (on eliquis) admitted to m/s obs from [facility] for apparent COPD exacerbation. She was given several nebs in ED with solumedrol and continue to have SOB with wheezing. She was admitted for nebs, steroids, ICS. Today she is feeling better. LSC without wheezing. Chart review reveals two previous PFT one in 2017 and 2009 showing no evidence of obstructive disease. She is currently on several medications for COPD, therefore she should have another PFT and follow up with Pulmonary for further work up to determine etiology of underlying disease. She denies CP, CXR from ED was negative for disease, CT negative for abnormality. She does have a history of PE and take Eliquis. I will set up for outpatient PFT with follow up. She is being discharged home will give short steroid burst. Home Meds and New Rx's Prescriptions: New prednisone 20 mg tablet 40 mg PO DAILY Qty: 8 RF: 0 Continued rizatriptan [Maxalt-DOCUMENT MANAGEMENT ANALYST] 10 MG tablet,disintegrating 10 mg PO ONCE RF: 0 fluoxetine 40 MG capsule 40 mg PO DAILY RF: 0 loratadine 10 MG tablet 10 mg PO DAILY RF: 0 calcium carbonate-vitamin D3 1 EACH tablet 2 tab PO DAILY RF: 0 albuterol sulfate [ProAir HFA] 1 PUFF HFA aerosol inhaler 2 puff Inhalation Q2H PRN PRNQty: 1 RF: 3 Spiriva with HandiHaler 18 MCG capsule, w/inhalation device 18 mcg Inhalation DAILY Qty: 1 RF: 3 ipratropium-albuterol 0.5 mg-3 mg(2.5 mg base)/3 mL solution for nebulization 3 ml IH Q6H Qty: 90 RF: 0 Eliquis 5 MG tablet 5 mg PO BID Qty: 60 RF: 3 budesonide-formoterol [Symbicort] 160-4.5 mcg/actuation Hfa Aerosol Inhaler 2 puff Inhalation BID Qty: 6 RF: 0 cholecalciferol (vitamin D3) [Vitamin D3] 25 mcg (1,000 unit) Capsule 25 mcg PO DAILY RF: 0 Discharge Instructions Instructions: COPD (Chronic Obstructive Pulmonary Disease) (DC), Chronic Lung Disease and Infection Prevention (DC) Additional Instructions: Follow up for outpatient Pulmonary function testing Follow up with Pulmonary in 2 weeks Take prednisone 40 mg daily x 4 days Continue to use incentive spirometry at home Referrals: Neha Marx MD [ NON-[facility] STAFF PHYSICIAN] - (Follow up for further work up, COPD) Activity:: Activity as Tolerated Equipment/Supplies:: No Equipment Needed Diet:: As Tolerated Discharge Orders Discharge Orders: Discharge Order (Routine); Ordered 04/09/20 Ordered By: Cele Lewis Other Ambulatory Orders: PFT ([facility]/Volumes) (Outpt) (ONCE) Location: None Selected Ordered By: Cele Lewis DS: Summary Status at Discharge Functional status at discharge: independent ambulation Overall status at discharge: patient is back to baseline Mental Status: mental status grossly normal Speech and Movement: speech and movement normal Mood: congruent mood Affect: normal affect Exam Const General: cooperative, healthy appearing, comfortable and no acute distress Orientation: alert, awake and oriented x3 HENMT Head: normocephalic and atraumatic Eyes Pupils: PERRL EOM: EOM intact bilaterally Resp Effort & Inspection: able to speak in complete sentences Auscultation: clear to auscultation bilaterally, diminished lung sounds and no rhonchi Cardio Rate: tachycardic Rhythm: regular rhythm Heart Sounds: S1 normal and S2 normal GI Inspection: normal to inspection Palpation: soft Auscultation: normal bowel sounds Skin General skin exam: no rashes or lesions noted Neuro General: patient alert, patient awake and patient oriented x3 Extrem General: normal to inspection and no clubbing, cyanosis or edema Psych Mental Status: mental status grossly normal Speech and Movement: speech and movement normal Mood: congruent mood Affect: normal affect DS: Data Vitals/I&O Vitals and I&O: Vital Signs Temperature 36.9 C 04/09/20 08:11 Temperature Source Tympanic 04/09/20 08:11 Pulse 120 H 04/09/20 08:37 Pulse Rhythm Regular 04/09/20 06:39 Pulse 127 H 04/08/20 14:31 Respiratory Rate 16 04/09/20 08:37 Respiratory Effort Incrsd Work of Breathing 04/09/20 06:39 Respiratory Depth Normal 04/09/20 06:39 Respiratory Pattern Normal 04/09/20 06:39 Blood Pressure 158/83 H 04/09/20 08:11 Blood Pressure Mean 74 04/08/20 14:30 Pulse Oximetry 96 04/09/20 08:37 Oxygen Delivery Method Room Air 04/09/20 08:17 Oxygen Flow Rate 0 04/09/20 08:17 Pain Level 0 04/09/20 08:11 Intake & Output 04/08/20 04/08/20 04/09/20 11:59 23:59 11:59 Intake Total 500 / 1240 740 / 1240 500 / 500 Output Total 550 / 550 Balance 500 / 1240 740 / 1240 -50 / -50 Weight 83.2 kg Intake: IV 500 / 1000 500 / 1000 500 / 500 Oral 240 / 240 Output: Urine 550 / 550 Other: Urine Color Yellow Urine Appearance Clear Voiding Methods Toilet Data Completed and Pending Completed studies during hospitalization [Text1]: OMPARISON: CT CT CHEST PE CTA from 02/12/2020 CR XR PORTABLE CHEST AP from 04/08/2020 FINDINGS: Pulmonary Arteries: No evidence of filling defect to suggest pulmonary emboli. Tracheobronchial tree: Patent . Mediastinum and Yisel: No dominant adenopathy or fluid collection. Pulmonary parenchyma: Somewhat limited evaluation due to respiratory motion. No consolidation or dominant measurable mass. No visible emphysematous changes. Pleura: No effusion or pneumothorax. Heart: The heart is not dilated. Mild coronary artery calcifications are seen. No pericardial effusion. Aorta: Thoracic aorta non-dilated. Upper abdomen: Small hiatal hernia. Bones: Degenerative changes in the spine. IMPRESSION: No evidence of pulmonary embolism or other acute abnormality. No evidence of pneumonia.. Exam(s) a RAD:XR portable chest AP EXAM: XR PORTABLE CHEST AP CLINICAL HISTORY: sob, cough, r/o pneumonia, chf TECHNIQUE: 2D digital imaging was performed. COMPARISON: CR,XR XR CHEST 2V PA LATERAL from 06/26/2019 CR,XR XR PORTABLE CHEST AP from 10/04/2019 CR XR PORTABLE CHEST AP from 11/11/[address] CHEST PE CTA from 02/12/2020 FINDINGS: LUNGS: Clear. No pleural abnormality seen. HEART: Normal size.. MEDIASTINUM: Mildly tortuous aorta. IMPRESSION: No evidence pneumonia or CHF. Labs on day of discharge: Labs from last 24 hours 04/09/20 04/08/20 04/08/20 06:26 13:50 13:30 ABG Sample Site Left radial ABG pH 7.36 ABG pCO2 35 ABG pO2 72 L ABG HCO3 20 L ABG Total CO2 18 L ABG O2 Saturation 95 ABG Base Excess -6 L FiO2 Ra Sodium 138 Potassium 4.0 D Chloride 107 Carbon Dioxide 23.2 Anion Gap 7.8 BUN 15 Creatinine 0.66 Estimated GFR/1.73 m2 >= 60.00 Glucose 123 H Calcium 9.1 Troponin I NT-Pro-B Natriuret Pep COVID-19 PCR Negative Nasopharyn COVID-19 PCR Not Applicable Ref Test Perform Site Spr[facility] lab 04/08/20 04/08/20 11:30 11:30 ABG Sample Site ABG pH ABG pCO2 ABG pO2 ABG HCO3 ABG Total CO2 ABG O2 Saturation ABG Base Excess FiO2 Sodium Potassium Chloride Carbon Dioxide Anion Gap BUN Creatinine Estimated GFR/1.73 m2 Glucose Calcium Troponin I < 0.05 NT-Pro-B Natriuret Pep 73 COVID-19 PCR Nasopharyn COVID-19 PCR Ref Test Perform Site [facility] Medical History Anxiety with depression Arthritis COPD (chronic obstructive pulmonary disease) Depression with anxiety Elevated hemoglobin A1c Essential tremor H/O: HTN (hypertension) HTN (hypertension) Knee joint pain Migraine Pneumonia Pulmonary emboli Screening for breast cancer Weight gain Surgical History History of bunionectomy History of partial hysterectomy Family History Sister Diabetes Brother Hypertension Other Heart disease Social History Smoking/Tobacco Use Status: Former Tobacco Use Alcohol Intake: never Drug use: Never Substance use type: does not use Do you feel safe at home: Yes Do you feel safe in your relationship?: Yes
--- NOTE | 2020-04-09 09:46 | PDOC.CMDIS ---
LACE Index Scoring Tool - Questions: Length of Stay (in days): 1 Acuity (Admit via E.D.?): Yes Comorbidities: Chronic Pulmonary Disease E.D. Visits: 7 - Answers: Total Score: 10 Risk of Readmission: High Risk Care Management Discharge Reason for Hospitalization: COPD with acute exacerbation. 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 She will also follow up with her PCP and plan of care as prescribed. No additional services anticipated. She will transport via private vehicle through [facility], coordinated by this typewriter repairer. Patient/Family Education Needs: Review discharge instructions, discuss Ask Me Three. Services Needed at Discharge: Transportation
[2020-04-09 10:35] VITALS: PULSE 115
== END 2020-04-09 10:51 | disposition home or self-care (01) ==
LOC: ER 13:35 → MS 14:50
PROVIDERS: Admitting Provider Internal Medicine; Emergency Provider Physician Assistant; PCP Nurse Practitioner; Visit Provider Internal Medicine
DX: J44.1 Chronic obstructive pulmonary disease with (acute) exacerbation (principal); Z79.01 Long term (current) use of anticoagulants; I10 Essential (primary) hypertension; Z29.9 Encounter for prophylactic measures, unspecified; Z86.711 Personal history of pulmonary embolism; F41.8 Other specified anxiety disorders; M19.90 Unspecified osteoarthritis, unspecified site; G25.0 Essential tremor; G43.909 Migraine, unspecified, not intractable, without status migrainosus; Z87.891 Personal history of nicotine dependence; R63.5 Abnormal weight gain; Z68.37 Body mass index [BMI] 37.0-37.9, adult
CPT/HCPCS: 36415; 71275; 80048; 80053; 82805; 93005; 94640; 96361; 96374; 99217; 99220; 99285; U0003; 36600; 71045; 83735; 83880; 84484; 85025; 85610; 85730; 93010; G0378; J2930; J3490; J7512; J7613; J7620

== ENCOUNTER 2020-04-19 02:52 | Outpatient (CLI) | payer OTHER, MEDICAID, SELFPAY ==
[2020-04-19] MEDS: Albuterol HFA 18 GM 200 PUFF INH IH (15:43)
[2020-04-19] MEDS: Inhaler, Assist Device 1 EACH MC (15:44)
--- NOTE | 2020-04-21 07:59 | W.PFT ---
Date of service: 04/19/20 Time of Service: 02:32 Pulmonary Function Test Result Interpretation Spirometry: Shows moderately severe obstructive airways disease with significant bronchodilator response Lung Volumes: No evidence of restriction Diffusion Capacity: Normal Airway Pressure: Normal Impression Moderately severe obstructive airways disease with significant bronchodilator response. Somewhat suboptimal patient effort for both tests of spirometry as well as the diffusion capacity maneuver. When the study was compared to previous ones from 08/02/2009, 05/09/2017, the patient has a gradual decline in FVC of a total of 580 cc, FEV1 has declined by a total of 570 cc. Clinical Correlation therefore is recommended.
== END 2020-04-19 03:12 ==
PROVIDERS: PCP Nurse Practitioner; Visit Provider Nurse Practitioner
DX: J44.9 Chronic obstructive pulmonary disease, unspecified (principal)
CPT/HCPCS: 94060; 94726; 94729

== ENCOUNTER 2020-04-22 10:30 | Emergency (ER) | payer OTHER, MEDICAID, SELFPAY ==
[2020-04-22] VITALS (26 sets, daily range): BP systolic 117–175; BP diastolic 70–102; PULSE 95–122; RESP 14–35; TEMP 36.8; O2SAT 89–100
--- NOTE | 2020-04-22 10:30 | RT.EKG_ITS ---
APPROVED REPORT Exam: Resting ECG Patient Location: E HR:108 bpm ECG Measurements Heart Rate 108 AXIS OH 141 P 55 QRSd 77 QRS 40 QT 360 T 47 QTc 485 Conclusion Sinus tachycardia...rate> 99
[2020-04-22] MEDS: Normal Saline 1,000 ML 125 ML IV (10:45)
[2020-04-22] MEDS: Albuterol/Ipratropium 3 ML UPD VIAL (10:45)
[2020-04-22] MEDS: Albuterol 2.5 MG/3 ML INH SOLN VIAL (10:45)
[2020-04-22] MEDS: methylPREDNISolone SUCC 125 MG VIAL (10:49)
[2020-04-22] MEDS: Normal Saline Flush 10 ML SYR IVP ×2 (10:59→12:16)
[2020-04-22 11:05] LABS: Abs Immature Grans 0.05 10^3/uL (0.0-0.06); Absolute Basophil Count 0.03 10^3/uL (0.0-0.2); Absolute Eosinophil Count 0.43 10^3/uL (0.0-0.7); Absolute Lymphocyte Count 1.49 10^3/uL (1.2-3.4); Absolute Monocyte Count 0.67 10^3/uL (0.1-0.8); Absolute Neutrophil Count 7.28 10^3/uL (1.2-6.7); Basophils % 0.3; Eosinophils % 4.3; HCT 41.4 % (36.0-46.0); HGB 13.2 g/dL (11.2-15.7); Immature Grans % 0.5; MCH 28.3 pg (27.0-33.0); MCHC 31.9 % (32.0-36.0); MCV 88.7 fL (80-95); MPV 10.2 fL (8.0-11.0); Monocytes % 6.7; Neutrophils % 73.2; Nucleated RBC 0 %; Platelet Count 233 10^3/uL (130-400); RBC 4.67 10^6/uL (3.93-5.22); RDW 13.7 % (11.7-14.6); RDW-SD 44.3 fL; WBC 9.95 10^3/uL (4.4-10.8)
--- NOTE | 2020-04-22 11:07 | ED.GENADUL_ITS ---
Discharge Plan Disposition Patient Disposition: HOME Condition: Stable Discharge Details Clinical Impression: Acute exacerbation of chronic obstructive pulmonary disease Primary Care Provider: Malinda Call ED Provider: Nicolas Xavier Home Meds and New Rx's Prescriptions: New prednisone 20 mg tablet 60 mg PO DAILY 5 Days Qty: 15 RF: 0 Continued rizatriptan [Maxalt-COMMERCIAL REAL ESTATE UNDERWRITER] 10 MG tablet,disintegrating 10 mg PO ONCE RF: 0 fluoxetine 40 MG capsule 40 mg PO DAILY RF: 0 loratadine 10 MG tablet 10 mg PO DAILY RF: 0 calcium carbonate-vitamin D3 1 EACH tablet 2 tab PO DAILY RF: 0 albuterol sulfate [ProAir HFA] 1 PUFF HFA aerosol inhaler 2 puff Inhalation Q2H PRN PRNQty: 1 RF: 3 Spiriva with HandiHaler 18 MCG capsule, w/inhalation device 18 mcg Inhalation DAILY Qty: 1 RF: 3 ipratropium-albuterol 0.5 mg-3 mg(2.5 mg base)/3 mL solution for nebulization 3 ml IH Q6H Qty: 90 RF: 0 Eliquis 5 MG tablet 5 mg PO BID Qty: 60 RF: 3 budesonide-formoterol [Symbicort] 160-4.5 mcg/actuation Hfa Aerosol Inhaler 2 puff Inhalation BID Qty: 6 RF: 0 cholecalciferol (vitamin D3) [Vitamin D3] 25 mcg (1,000 unit) Capsule 25 mcg PO DAILY RF: 0 Discharge Instructions Instructions: COPD (Chronic Obstructive Pulmonary Disease) (ED) Additional Instructions: At this time your work-up in the ER has been unremarkable for any obvious emergent process and she did respond nicely to the breathing treatment and steroids. Please continue your current medications as directed and add on the prednisone that I am prescribing. Be sure to use your nebulizer machine at home as directed as well. I recommend that you watch for new or worsening symptoms and return to the ER for any concerns, otherwise reach out to your primary care provider later today or tomorrow for prompt outpatient reevaluation. Remember that your Covid test is pending, you should be quarantining until a negative test is resulted Stand Alone Forms: POSITIVE COVID-19/TO BE TESTED Medical Decision Making 65-year-old female, history of COPD, presents to the ER today complaining of a cold over the past few days now with increasing wheezing and shortness of breath over the past 24 hours. She does have diffuse wheezing and mild tachypnea otherwise she appears well. Denies any chest pain whatsoever. She does present with mild hypertension, tachycardia, is afebrile. O2 sats are 98% on room air. Clinically this appears to be a COPD exacerbation however certainly need to rule out Covid, bronchitis, pneumonia, PE, atypical ACS. I do believe that a single troponin and EKG is reasonable to rule out ACS given the duration of her symptoms. Will obtain IV access, give IV fluids, duo and albuterol neb. Upon reevaluation, blood pressure is trending down. Heart rate now in the 90s. She is no longer tachypneic. A few scattered occasional wheezes persist but have cleared up nicely with the neb treatments and she subjectively reports feeling significant improvement. Her initial laboratory values do not reveal any obvious emergent process, white blood cell count of 9.95, electrolytes unremarkable. Creatinine 0.68, GFR greater than 60. Troponin less than 0.05. BNP 131. Awaiting CTA CTA read by radiology as negative. Discussed CTA and work-up with patient. Blood pressure continues to trend down nicely. We then discussed disposition. Patient reports that she is feeling significantly better since her initial presentation and is comfortable with discharge home. At this time her O2 sats remained in the 90s on room air, she is no longer tachypneic. White blood cell count is unremarkable. She is afebrile, and her sputum is clear. I see no clear indication for antibiotic therapy at this time. Likely COPD exacerbation and will add on steroids. Patient is comfortable with this plan and has no additional questions or concerns. She does understand that her Covid test is pending. Medical Records Medical records reviewed: Yes I reviewed the patient's medical records. Lab Data Lab results reviewed: Yes I reviewed the patient's lab results. Lab results narrative: Laboratory Tests Range/Units 04/22/20 04/22/20 04/22/20 10:50 10:50 10:50 WBC (4.4-10.8) 10^3/uL 9.95 RBC (3.93-5.22) 10^6/uL 4.67 Hgb (11.2-15.7) g/dL 13.2 Hct (36.0-46.0) % 41.4 MCV (80-95) fL 88.7 MCH (27.0-33.0) pg 28.3 MCHC (32.0-36.0) % 31.9 L RDW (11.7-14.6) % 13.7 Plt Count (130-400) 10^3/uL 233 MPV (8.0-11.0) fL 10.2 Immature Gran % 0.5 Neutrophils % 73.2 Lymphocytes % 15.0 Monocytes % 6.7 Eosinophils % 4.3 Basophils % 0.3 Nucleated RBC % % 0 Absolute Neutrophils (1.2-6.7) 10^3/uL 7.28 H Absolute Lymphocytes (1.2-3.4) 10^3/uL 1.49 Absolute Monocytes (0.1-0.8) 10^3/uL 0.67 Absolute Eosinophils (0.0-0.7) 10^3/uL 0.43 Absolute Basophils (0.0-0.2) 10^3/uL 0.03 PT (9.3-11.0) sec 10.6 INR (0.9-1.1) 1.1 APTT (21.0-27.5) sec 24.4 Sodium (136-145) mmol/L 142 Potassium (3.5-5.1) mmol/L 3.5 Chloride (98-107) mmol/L 105 Carbon Dioxide (21.0-32.0) mmol/L 25.1 Anion Gap (3-11) mmol/L 11.9 H BUN (7-18) mg/dL 22 H Creatinine (0.55-1.02) mg/dL 0.68 Estimated GFR/1.73 m2 (mL/min/1.73m2) >= 60.00 Glucose (74-106) mg/dL 101 Calcium (8.5-10.1) mg/dL 9.2 Magnesium (1.8-2.4) mg/dL 1.9 Total Bilirubin (0.2-1.0) mg/dL 0.5 AST (15-37) U/L 14 L ALT (14-59) U/L 25 Alkaline Phosphatase (46-116) U/L 78 Troponin I (<0.06) ng/mL < 0.05 NT-Pro-B Natriuret Pep (<300) pg/mL 131 Total Protein (6.4-8.2) g/dL 7.3 Albumin (3.4-5.0) g/dL 3.6 ECG Data Attestation: I personally reviewed and interpreted this ECG (s) as follows: Interpretation: Please see official report by Dr. Taveras. Sinus tachycardia, ventricular rate of 108. No STEMI HPI General Mode of arrival: ambulatory . Date/Time Provider Initiated Documentation: 04/22/20 10:31 . Limitations to Documentation: no limitations . Information obtained by: patient . HPI Narrative: This is a 65-year-old female with past medical history of COPD, community-acquired pneumonia, PE, essential tremor, hypertension, former smoker, migraines. She is on Eliquis for her history of PE. She states a negative Covid test approximately 2 weeks ago. She tells me that she has had a cold for the past, runny nose, slightly productive clear cough, mild wheezing. Over the past 24 hours she reports increased wheezing and shortness of breath. Has taken all of her medications as directed, last neb treatment around 6 AM this morning. She quit smoking roughly 4 years ago. Denies recent travel or sick contacts. She denies fever, neck pain, sore throat, chest pain, abdominal pain, nausea, vomiting, change in bowel or bladder habits, skin rash. Related Data Home Medications Medication Instructions Recorded Confirmed loratadine 10 mg PO DAILY 09/22/12 04/22/20 calcium carbonate-vitamin D3 2 tab PO DAILY 04/02/14 04/22/20 fluoxetine 40 mg PO DAILY tab-cap 01/11/15 04/22/20 rizatriptan [Maxalt-COMMERCIAL REAL ESTATE UNDERWRITER] 10 mg PO ONCE tab-cap 01/11/15 04/22/20 Spiriva with HandiHaler 18 mcg INHALATION DAILY #1 tab-cap 10/29/16 04/22/20 albuterol sulfate [ProAir HFA] 2 puff INHALATION Q2H PRN PRN #1 10/29/16 04/22/20 inh Eliquis 5 mg PO BID #60 tablet 12/24/16 04/22/20 budesonide-formoterol [Symbicort] 2 puff INHALATION BID #6 gm 07/28/18 04/22/20 ipratropium-albuterol 3 ml IH Q6H #90 ml 06/26/19 04/22/20 cholecalciferol (vitamin D3) 25 mcg PO DAILY 04/08/20 04/22/20 [Vitamin D3] prednisone 60 mg PO DAILY 5 Days #15 tab 04/22/20 Previous Rx's Medication Instructions Recorded Spiriva with HandiHaler 18 mcg INHALATION DAILY #1 tab-cap 10/29/16 albuterol sulfate [ProAir HFA] 2 puff INHALATION Q2H PRN PRN #1 10/29/16 inh Eliquis 5 mg PO BID #60 tablet 12/24/16 budesonide-formoterol [Symbicort] 2 puff INHALATION BID #6 gm 07/28/18 ipratropium-albuterol 3 ml IH Q6H #90 ml 06/26/19 prednisone 60 mg PO DAILY 5 Days #15 tab 04/22/20 Allergies Allergy/AdvReac Type Severity Reaction Status Date / Time aspirin AdvReac Mild Nausea Unverified 04/22/20 10:55 egg AdvReac Mild Nausea Unverified 04/22/20 10:55 chocolate flavor AdvReac cough Unverified 04/22/20 10:55 migraines General Stated Complaint: SOB KIERAN: 2 Review of Systems Constitutional Constitutional: Denies fatigue, Denies fever(s) and Denies headache(s) ENT Ears, Nose, Mouth, and Throat: Denies headache(s), Denies neck pain and Denies sore throat Cardiovascular Cardiovascular: Denies chest pain and Reports dyspnea Respiratory Respiratory: Reports cough and Reports dyspnea Gastrointestinal Gastrointestinal: Denies abdominal pain, Denies nausea and Denies vomiting Genitourinary Genitourinary: Denies difficulty voiding Musculoskeletal Musculoskeletal: Denies back pain and Denies neck pain Integumentary/Breasts Skin/Breast: Denies rash Neurologic Neurologic: Denies headache(s) Endocrine Endocrine: Denies fatigue [facility] Medical History (Updated 04/22/20 @ 12:49 by AJ Lindsey) Anxiety with depression Arthritis COPD (chronic obstructive pulmonary disease) Depression with anxiety Elevated hemoglobin A1c Essential tremor H/O: HTN (hypertension) HTN (hypertension) Knee joint pain Migraine Pneumonia Pulmonary emboli Screening for breast cancer Weight gain Surgical History History of bunionectomy History of partial hysterectomy Family History Sister Diabetes Brother Hypertension Other Heart disease Social History Smoking/Tobacco Use Status: Former Tobacco Use Smoking risk assessment performed?: Yes Alcohol Intake: never Drug use: Never Substance use type: does not use Do you feel safe at home: Yes Do you feel safe in your relationship?: Yes Exam Const General: cooperative, healthy appearing, comfortable and no acute distress Orientation: alert, awake and oriented x3 HENMT Head: normal to inspection, normocephalic and atraumatic Ears: external ears normal, TM's normal bilaterally and EAC's normal General nose exam: external nose normal Face and sinus: normal facial exam Mouth: moist mucous membranes Throat: posterior oropharynx normal Eyes Conjunctivae: conjunctivae normal Sclera: sclerae normal Neck Neck: normal visual inspection, full ROM, no lymphadenopathy, no meningeal signs, trachea midline, supple and nontender Resp Effort & Inspection: normal respiratory effort, able to speak in complete sente nces and tachypneic (Mild) Auscultation: wheezes scattered wheezes (Throughout, worse in upper lobes) Cardio Rate: tachycardic (108) Rhythm: regular rhythm GI Palpation: soft and nontender Back/Spine/Pelvis Back: No back tenderness Skin General skin exam: no rashes or lesions noted Neuro General: patient alert, patient awake, moves all extremities and no focal motor deficits Cognition: normal cognition Speech: speech normal Gait: normal gait Motor: muscle tone normal throughout and strength 5/5 throughout Sensory Exam: no sensory deficits noted Extrem General: normal to inspection, full ROM, capillary refill normal, no pedal edema, no calf tenderness and other (Negative Josi bilaterally) Psych Appearance: grossly normal Mental Status: mental status grossly normal Course Vital Signs Vital signs: Vital Signs Temperature 36.8 C 04/22/20 10:53 Pulse 105 H 04/22/20 10:53 Respiratory Rate 26 H 04/22/20 10:53 Blood Pressure 175/83 H 04/22/20 10:53 Pulse Oximetry 92 04/22/20 10:53 Temperature 36.8 C 04/22/20 10:53 Temperature Source Temporal Artery Scan 04/22/20 10:53 Pulse 105 H 04/22/20 10:53 Respiratory Rate 31 H 04/22/20 11:03 Respiratory Effort Incrsd Work of Breathing 04/22/20 11:03 Respiratory Pattern Tachypnea 04/22/20 11:03 Blood Pressure 175/83 H 04/22/20 10:53 Blood Pressure Position Sitting 04/22/20 10:53 Pulse Oximetry 92 04/22/20 10:53 Oxygen Delivery Method Room Air 04/22/20 10:53 Oxygen Flow Rate 0 04/22/20 10:53 Pain Level 0 04/22/20 10:53 Lab/Test Results Lab/Test Results: Laboratory Tests Range/Units 04/22/20 10:50 WBC (4.4-10.8) 10^3/uL 9.95 RBC (3.93-5.22) 10^6/uL 4.67 Hgb (11.2-15.7) g/dL 13.2 Hct (36.0-46.0) % 41.4 MCV (80-95) fL 88.7 MCH (27.0-33.0) pg 28.3 MCHC (32.0-36.0) % 31.9 L RDW (11.7-14.6) % 13.7 Plt Count (130-400) 10^3/uL 233 MPV (8.0-11.0) fL 10.2 Immature Gran % 0.5 Neutrophils % 73.2 Lymphocytes % 15.0 Monocytes % 6.7 Eosinophils % 4.3 Basophils % 0.3 Nucleated RBC % % 0 Absolute Neutrophils (1.2-6.7) 10^3/uL 7.28 H Absolute Lymphocytes (1.2-3.4) 10^3/uL 1.49 Absolute Monocytes (0.1-0.8) 10^3/uL 0.67 Absolute Eosinophils (0.0-0.7) 10^3/uL 0.43 Absolute Basophils (0.0-0.2) 10^3/uL 0.03
[2020-04-22 11:19] LABS: INR 1.1 (0.9-1.1); PTT Activated 24.4 sec (21.0-27.5); Prothrombin Time 10.6 sec (9.3-11.0)
[2020-04-22 11:25] LABS: ALT 25 U/L (14-59); AST 14 U/L (15-37); Albumin 3.6 g/dL (3.4-5.0); Alkaline Phosphatase 78 U/L (46-116); Anion Gap 11.9 mmol/L (3-11); BUN 22 mg/dL (7-18); Bilirubin, Total 0.5 mg/dL (0.2-1.0); CO2 25.1 mmol/L (21.0-32.0); CREATININE 0.68 mg/dL (0.55-1.02); Calcium 9.2 mg/dL (8.5-10.1); Chloride 105 mmol/L (98-107); Glucose 101 mg/dL (74-106); Magnesium 1.9 mg/dL (1.8-2.4); NT-proBNP 131 pg/mL (<300); Potassium 3.5 mmol/L (3.5-5.1); Sodium 142 mmol/L (136-145); Total Protein 7.3 g/dL (6.4-8.2)
[2020-04-22 11:33] LABS: Troponin I < 0.05 ng/mL (<0.06)
[2020-04-22] MEDS: Omnipaque 350 MG/ML 100 ML BTL IJ (12:15)
[2020-04-22] MEDS: Normal Saline - Diluent 50 ML VIAL IV (12:16)
--- NOTE | 2020-04-22 12:30 | DI.CT_ITS ---
EXAM: CT CHEST PE CTA CLINICAL HISTORY: hx of PE, tachy, sob. TECHNIQUE: Imaging Protocol: Axial CT angiography was performed with multi-slice acquisition and mu lti-planar and/or 3D reconstructions. CONTRAST MATERIAL: Intravenous: Omnipaque 350 Contrast volume:100 mL COMPARISON: CT CT CHEST PE CTA from 04/08/2020 FINDINGS: Pulmonary Arteries: No evidence of filling defect to suggest pulmonary emboli. Tracheobronchial tree: Patent where visualized. Mediastinum and Yisel: No dominant adenopathy or fluid collection. Small hiatal hernia. Pulmonary parenchyma: No focal consolidating infiltrate. Dependent atelectasis. No architectural di stortion. Pleura: No effusion or pneumothorax. Heart: Mild cardiomegaly. Mild coronary artery calcification. No pericardial effusion. Aorta: Thoracic aorta non-dilated. No dissection. Mild atherosclerosis. Upper abdomen: Unremarkable. Bones: Mild degenerative changes. Soft tissues: Unremarkable. IMPRESSION: No evidence of pulmonary embolism, thoracic aortic dissection or aneurysm. Findings were discussed with the emergency department on the date of the examination. RADIATION DOSE DELIVERED: 365.35mGy.cm Total DLP DATA REPOSITORY: All CT scans at this facility are submitted to the National Radiology Data Registry (NRDR) Dose Index Registry (DIR) with the [employer] (ACR). RADIATION OPTIMIZATION: All CT scans at this facility use at least one of these dose optimization te chniques: automated exposure control; mA and/or kV adjustment per patient size (includes targeted exa ms where dose is matched to clinical indication); or iterative reconstruction.
[2020-04-23 11:38] LABS: SARS-CoV-2 RNA Not Detected (NotDetected); SARS-CoV-2 RNA Source Nasal/Nares
== END 2020-04-22 13:37 | disposition home or self-care (01) ==
PROVIDERS: Emergency Provider Physician Assistant; PCP Nurse Practitioner
DX: J44.1 Chronic obstructive pulmonary disease with (acute) exacerbation (principal); R00.0 Tachycardia, unspecified; I10 Essential (primary) hypertension; Z87.891 Personal history of nicotine dependence; Z11.59 Encounter for screening for other viral diseases
CPT/HCPCS: 36415; 71275; 80053; 93005; 94640; 96361; 96374; 99285; U0003; 83735; 83880; 84484; 85025; 85610; 85730; 93010; J2930; J3490; J7613; J7620

== ENCOUNTER 2020-09-24 15:01 | Emergency (ER) | payer OTHER, MEDICAID, SELFPAY ==
[2020-09-24] VITALS (26 sets, daily range): BP systolic 123–161; BP diastolic 49–99; PULSE 90–113; RESP 4–39; TEMP 37.1; O2SAT 92–98
--- NOTE | 2020-09-24 15:00 | DI.CT_ITS ---
EXAM: CT CHEST PE CTA CLINICAL HISTORY: shortness of breath, h/o PE/COPD. TECHNIQUE: Imaging Protocol: Axial CT angiography was performed with multi-slice acquisition and mu lti-planar and/or 3D reconstructions. CONTRAST MATERIAL: Intravenous: Omnipaque 350 Contrast volume:75 mL COMPARISON: CT CT CHEST PE CTA from 04/22/2020 FINDINGS: Tracheobronchial tree: Patent where visualized. Pulmonary parenchyma: Small focal area of consolidation in the lingula which may represent atelectasi s, scarring or pneumonia. Dependent atelectasis in the lung bases. No architectural distortion. Pulmonary Arteries: No evidence of filling defect to suggest pulmonary emboli. Mediastinum and Yisel: No dominant adenopathy or fluid collection. Visualized thyroid gland: Unremarkable. Pleura: No effusion or pneumothorax. Heart: Mild cardiomegaly. Mild coronary artery calcification. No pericardial effusion. Aorta: Thoracic aorta non-dilated. No dissection. Mild atherosclerosis. Upper abdomen: Unremarkable. Soft tissues: Unremarkable. Bones: Within normal limits. IMPRESSION: 1. No evidence of pulmonary embolism, thoracic aortic dissection or aneurysm. 2. Mild atelectasis or pneumonia in the lingula. RADIATION DOSE DELIVERED: 270.14mGy.cm Total DLP DATA REPOSITORY: All CT scans at this facility are submitted to the National Radiology Data Registry (NRDR) Dose Index Registry (DIR) with the [employer] (ACR). RADIATION OPTIMIZATION: All CT scans at this facility use at least one of these dose optimization te chniques: automated exposure control; mA and/or kV adjustment per patient size (includes targeted exa ms where dose is matched to clinical indication); or iterative reconstruction.
--- NOTE | 2020-09-24 15:00 | RT.EKG_ITS ---
APPROVED REPORT Exam: Resting ECG Patient Location: E HR:105 bpm ECG Measurements Heart Rate 105 AXIS ND 141 P 29 QRSd 77 QRS 28 QT 351 T 39 QTc 466 Conclusion Sinus tachycardia...rate> 99 Consider left ventricular hypertrophy...(S V1+R V5/V6) >3.25mV I have reviewed and interpreted ECG and agree with software generated interpretation.
--- NOTE | 2020-09-24 15:03 | ED.GENADUL_ITS ---
Discharge Plan Disposition Patient Disposition: HOME Condition: Improving Discharge Details Clinical Impression: Acute exacerbation of chronic obstructive pulmonary disease Primary Care Provider: Malinda Call ED Provider: Nicki Samayoa Home Meds and New Rx's Prescriptions: New prednisone 50 mg tablet 50 mg PO DAILY 5 Days Qty: 5 RF: 0 Continued rizatriptan [Maxalt-[employer]] 10 MG tablet,disintegrating 10 mg PO ONCE RF: 0 fluoxetine 40 MG capsule 40 mg PO DAILY RF: 0 loratadine 10 MG tablet 10 mg PO DAILY RF: 0 calcium carbonate-vitamin D3 1 EACH tablet 2 tab PO DAILY RF: 0 albuterol sulfate [ProAir HFA] 1 PUFF HFA aerosol inhaler 2 puff Inhalation Q2H PRN PRNQty: 1 RF: 3 Spiriva with HandiHaler 18 MCG capsule, w/inhalation device 18 mcg Inhalation DAILY Qty: 1 RF: 3 ipratropium-albuterol 0.5 mg-3 mg(2.5 mg base)/3 mL solution for nebulization 3 ml IH Q6H Qty: 90 RF: 0 Eliquis 5 MG tablet 5 mg PO BID Qty: 60 RF: 3 budesonide-formoterol [Symbicort] 160-4.5 mcg/actuation Hfa Aerosol Inhaler 2 puff Inhalation BID Qty: 6 RF: 0 cholecalciferol (vitamin D3) [Vitamin D3] 25 mcg (1,000 unit) Capsule 25 mcg PO DAILY RF: 0 Discharge Instructions Instructions: COPD (Chronic Obstructive Pulmonary Disease) (ED) Additional Instructions: Drink plenty of fluids and get plenty of rest. Take 2 puffs of the Symbicort twice daily. Use the albuterol inhaler and nebulizer as needed and directed. Your prescription for steroids has been sent electronically to your pharmacy. Call the pharmacy to make sure your prescription is ready before pickup. Take the prescription as directed. Call your primary care doctor's office and the silk crepe machine operator Dr. Marx's office on Sunday morning to schedule follow-up appointments for reevaluation. Return immediately to the emergency department if you develop any worsening or new concerning symptoms. Referrals: Neha Marx MD [ NON-[facility] STAFF PHYSICIAN] - Discharge Data Discharge Physician: Nicki Samayoa Medical Decision Making 1519 -- 65-year-old female with a history of COPD, pulmonary embolism on Eliquis presents for shortness of breath since last night. Heart rate 113 on arrival. Blood pressure hypertensive. Oxygen saturation 95% on room air. She has fairly good air movement but inspiratory and expiratory wheezing throughout. She appears to have some increased work of breathing but is able to speak in full sentences. Suspect most likely COPD exacerbation. Also consider PE, ACS, pneumonia, bronchitis, electrolyte abnormality, etc. Will place an IV, bolus IV fluids, screening labs, CT chest and give a DuoNeb and Solu-Medrol and reassess. 1555 -- patient reassessed and she states she feels better but still some shortness of breath. Oxygen saturation 94% on room air. She has scattered wheezing throughout. Will give a 5 mg albuterol neb. Labs reviewed. Normal white blood cell count. Troponin negative. 171 -- CT chest notes mild consolidation of the lingula with mild opacities in the right lower lobe which may reflect atelectasis or minimal pneumonia. As patient is a non-smoker, has no report of cough or fever with normal white blood cell count here, will hold on treating with antibiotics at this time. There is no evidence of PE. Pt is agreeable with plan for no antibiotics at this time. Patient reassessed and she feels much better. Oxygen saturation 96% on room air. Significant improvement in wheezing. Patient appears much more comfortable and feels good to go home. Patient was also evaluated by Pretty from respiratory therapy at bedside. Patient states she is not currently on an inhaled steroid. She has Symbicort on her list but she states she is currently not taking this so unsure if she ran out or stopped taking. Spiriva is on her list and she states she is taking it but review of records notes that pt has not filled this for quite some time. Will add Symbicort to her daily regimen. Will send prescriptions for oral steroids electronically to her pharmacy. She was given an albuterol inhaler to jermaine osorio. Patient also placed on care management list to help arrange for a follow-up appointment with pulmonology Dr. Guadarrama. Usual and customary return precautions given prior to discharge. Medical Records Medical records reviewed: Yes I reviewed the patient's medical records. Imaging Data Radiologic Study: Radiologist's impression: CTA Chest With Contrast Exam date and time: 09/24/2020 4:17 PM Age: 65 years old Clinical indication: Patient HX: Shortness of breath, h/o pe/copd TECHNIQUE: Imaging protocol: Computed tomographic angiography of the chest with contrast. 3D rendering (Not supervised by radiologist): MIP and/or 3D reconstructed images were created by the technologist. COMPARISON: CT CHEST PE CTA 04/22/2020 12:19 PM FINDINGS: Pulmonary arteries: No evidence of pulmonary embolus to the segmental level. Aorta: No aneurysm of the aorta. No dissection of the aorta. Lungs: Mild consolidation in the lingula. Mild opacities in the right lower lobe. Findings may reflect atelectasis or minimal pneumonia.. Bronchiectasis in the lower lobes. Pleural spaces: Unremarkable. No pneumothorax. No pleural effusion. Heart: Unremarkable. No cardiomegaly. No pericardial effusion. Mediastinal space: Small hiatal hernia Lymph nodes: Unremarkable. No enlarged lymph nodes. Bones/joints: Unremarkable. No acute fracture. Soft tissues: Unremarkable. IMPRESSION: 1. No evidence of pulmonary embolus to the segmental level. 2. No aneurysm of the aorta. 3. No dissection of the aorta. 4. Mild consolidation in the lingula. Mild opacities in the right lower lobe. Findings may reflect atelectasis or minimal pneumonia.. 5. Bronchiectasis in the lower lobes. Lab Data Lab results reviewed: Yes I reviewed the patient's lab results. Labs: Laboratory Tests Range/Units 09/24/20 09/24/20 09/24/20 15:15 15:15 15:15 WBC (4.4-10.8) 10^3/uL 7.14 RBC (3.93-5.22) 10^6/uL 4.48 Hgb (11.2-15.7) g/dL 12.7 Hct (36.0-46.0) % 39.4 MCV (80-95) fL 87.9 MCH (27.0-33.0) pg 28.3 MCHC (32.0-36.0) % 32.2 RDW (11.7-14.6) % 12.7 Plt Count (130-400) 10^3/uL 234 MPV (8.0-11.0) fL 10.0 Immature Gran % 0.3 Neutrophils % 61.9 Lymphocytes % 25.8 Monocytes % 7.0 Eosinophils % 4.3 Basophils % 0.7 Nucleated RBC % % 0 Absolute Neutrophils (1.2-6.7) 10^3/uL 4.42 Absolute Lymphocytes (1.2-3.4) 10^3/uL 1.84 Absolute Monocytes (0.1-0.8) 10^3/uL 0.50 Absolute Eosinophils (0.0-0.7) 10^3/uL 0.31 Absolute Basophils (0.0-0.2) 10^3/uL 0.05 PT (9.3-11.0) sec 10.9 INR (0.9-1.1) 1.1 APTT (21.0-27.5) sec 25.0 Sodium (136-145) mmol/L 139 Potassium (3.5-5.1) mmol/L 3.7 Chloride (98-107) mmol/L 106 Carbon Dioxide (21.0-32.0) mmol/L 26.3 Anion Gap (3-11) mmol/L 6.7 BUN (7-18) mg/dL 21 H Creatinine (0.55-1.02) mg/dL 0.8 Estimated GFR/1.73 m2 (mL/min/1.73m2) >= 60.00 Glucose (74-106) mg/dL 131 H Calcium (8.5-10.1) mg/dL 9.2 Magnesium (1.8-2.4) mg/dL 1.8 Total Bilirubin (0.2-1.0) mg/dL 0.2 AST (15-37) U/L 15 ALT (14-59) U/L 22 Alkaline Phosphatase (46-116) U/L 98 Troponin I (<0.06) ng/mL < 0.05 Total Protein (6.4-8.2) g/dL 7.2 Albumin (3.4-5.0) g/dL 3.4 ECG Data Attestation: I personally reviewed and interpreted this ECG (s) as follows: Interpretation: rate of 105, sinus, no acute ST elevation or depression. KS 141, QRS 77, QTc 466. HPI General Mode of arrival: ambulatory . Date/Time Provider Initiated Documentation: 09/24/20 15:03 . Limitations to Documentation: no limitations . Information obtained by: patient . HPI Narrative: Patient is a 65-year-old fema le with a history of anxiety, depression, COPD, hypertension, pulmonary embolism on Eliquis who presents with shortness of breath since last night. Patient states she has been outside most of the day yesterday and today in the warmer weather which she states sometimes is a trigger for her COPD to exacerbate. She states she used nebulizers at home without significant relief. She is not on home oxygen. She denies any fever, cough, chest pain, recent travel, recent hospital admissions, recent sick contacts or recent known exposure to coronavirus. Related Data Home Medications Medication Instructions Recorded Confirmed loratadine 10 mg PO DAILY 09/22/12 09/24/20 calcium carbonate-vitamin D3 2 tab PO DAILY 04/02/14 09/24/20 fluoxetine 40 mg PO DAILY tab-cap 01/11/15 09/24/20 rizatriptan [Maxalt-[employer]] 10 mg PO ONCE tab-cap 01/11/15 09/24/20 Spiriva with HandiHaler 18 mcg INHALATION DAILY #1 tab-cap 10/29/16 09/24/20 albuterol sulfate [ProAir HFA] 2 puff INHALATION Q2H PRN PRN #1 10/29/16 09/24/20 inh Eliquis 5 mg PO BID #60 tablet 12/24/16 09/24/20 budesonide-formoterol [Symbicort] 2 puff INHALATION BID #6 gm 07/28/18 09/24/20 ipratropium-albuterol 3 ml IH Q6H #90 ml 06/26/19 09/24/20 cholecalciferol (vitamin D3) 25 mcg PO DAILY 04/08/20 09/24/20 [Vitamin D3] prednisone 50 mg PO DAILY 5 Days #5 tab 09/24/20 Previous Rx's Medication Instructions Recorded Spiriva with HandiHaler 18 mcg INHALATION DAILY #1 tab-cap 10/29/16 albuterol sulfate [ProAir HFA] 2 puff INHALATION Q2H PRN PRN #1 10/29/16 inh Eliquis 5 mg PO BID #60 tablet 12/24/16 budesonide-formoterol [Symbicort] 2 puff INHALATION BID #6 gm 07/28/18 ipratropium-albuterol 3 ml IH Q6H #90 ml 06/26/19 prednisone 50 mg PO DAILY 5 Days #5 tab 09/24/20 Allergies Allergy/AdvReac Type Severity Reaction Status Date / Time aspirin AdvReac Mild Nausea Unverified 09/24/20 15:08 egg AdvReac Mild Nausea Unverified 09/24/20 15:08 chocolate flavor AdvReac cough Unverified 09/24/20 15:08 migraines General KIERAN: 2 Review of Systems All systems reviewed & are unremarkable except as noted in HPI and below Constitutional Constitutional: Reports as per HPI, Denies chills and Denies fever(s) Eyes Eyes: Denies blurry vision ENT Ears, Nose, Mouth, and Throat: Denies dizziness, Denies sore throat and Denies throat swelling Cardiovascular Cardiovascular: Denies chest pain and Reports dyspnea Respiratory Respiratory: Denies cough and Reports dyspnea Gastrointestinal Gastrointestinal: Denies abdominal pain, Denies diarrhea and Denies vomiting Genitourinary Genitourinary: Denies hematuria and Denies dysuria Musculoskeletal Musculoskeletal: Denies back pain and Denies numbness Integumentary/Breasts Skin/Breast: Denies lesions and Denies rash Neurologic Neurologic: Denies dizziness, Denies localized weakness and Denies numbness Allergic/Immunologic Allergic/Immunologic: Denies throat swelling [facility] Medical History (Updated 09/24/20 @ 17:22 by Nicki Samayoa DO) Anxiety with depression Arthritis COPD (chronic obstructive pulmonary disease) Depression with anxiety Elevated hemoglobin A1c Essential tremor H/O: HTN (hypertension) HTN (hypertension) Knee joint pain Migraine Pneumonia Pulmonary emboli Screening for breast cancer Weight gain Surgical History History of bunionectomy History of partial hysterectomy Family History Sister Diabetes Brother Hypertension Other Heart disease Social History Smoking/Tobacco Use Status: Former Tobacco Use Smoking risk assessment performed?: Yes Alcohol Intake: never Drug use: Never Substance use type: does not use Do you feel safe at home: Yes Do you feel safe in your relationship?: Yes Exam Const General: cooperative and no acute distress HENMT Head: normal to inspection Face and sinus: normal facial exam Eyes General: appearance normal, both eyes and all related structures EOM: EOM intact bilaterally Neck Neck: normal visual inspection and No submandibular swelling Lymphatic: no lymphadenopathy noted Chest Chest: normal inspection of the chest and no tenderness Resp Effort & Inspection: normal respiratory effort and able to speak in complete sentences Auscultation: wheezes expiratory wheezes and inspiratory wheezes Cardio Rate: tachycardic Rhythm: regular rhythm GI Inspection: normal to inspection Palpation: soft, not firm, not rigid and nontender Auscultation: normal bowel sounds Skin General skin exam: no rashes or lesions noted Neuro General: patient alert, patient awake and patient oriented x3 Cognition: normal cognition Speech: speech normal Motor: muscle tone normal throughout Sensory Exam: no sensory deficits noted Extrem General: normal to inspection, full ROM, capillary refill normal, no calf tenderness bilaterally and no edema Psych Appearance: grossly normal Mental Status: mental status grossly normal Speech and Movement: speech and movement normal Affect: normal affect
[2020-09-24 15:24] LABS: Abs Immature Grans 0.02 10^3/uL (0.0-0.06); Absolute Basophil Count 0.05 10^3/uL (0.0-0.2); Absolute Eosinophil Count 0.31 10^3/uL (0.0-0.7); Absolute Lymphocyte Count 1.84 10^3/uL (1.2-3.4); Absolute Neutrophil Count 4.42 10^3/uL (1.2-6.7); Basophils % 0.7; Eosinophils % 4.3; HCT 39.4 % (36.0-46.0); HGB 12.7 g/dL (11.2-15.7); Immature Grans % 0.3; Lymphocytes % 25.8; MCH 28.3 pg (27.0-33.0); MCHC 32.2 % (32.0-36.0); MCV 87.9 fL (80-95); Neutrophils % 61.9; Nucleated RBC 0 %; Platelet Count 234 10^3/uL (130-400); RBC 4.48 10^6/uL (3.93-5.22); RDW 12.7 % (11.7-14.6); RDW-SD 41.1 fL; WBC 7.14 10^3/uL (4.4-10.8)
[2020-09-24] MEDS: methylPREDNISolone SUCC 125 MG VIAL IVP (15:28)
[2020-09-24] MEDS: Normal Saline 500 ML IV (15:28)
[2020-09-24] MEDS: Albuterol/Ipratropium 3 ML UPD VIAL UPD (15:28)
[2020-09-24 15:38] LABS: INR 1.1 (0.9-1.1); Prothrombin Time 10.9 sec (9.3-11.0)
[2020-09-24 15:51] LABS: ALT 22 U/L (14-59); AST 15 U/L (15-37); Albumin 3.4 g/dL (3.4-5.0); Alkaline Phosphatase 98 U/L (46-116); Anion Gap 6.7 mmol/L (3-11); BUN 21 mg/dL (7-18); Bilirubin, Total 0.2 mg/dL (0.2-1.0); CO2 26.3 mmol/L (21.0-32.0); CREATININE 0.8 mg/dL (0.55-1.02); Calcium 9.2 mg/dL (8.5-10.1); Chloride 106 mmol/L (98-107); Glucose 131 mg/dL (74-106); Magnesium 1.8 mg/dL (1.8-2.4); Potassium 3.7 mmol/L (3.5-5.1); Sodium 139 mmol/L (136-145); Total Protein 7.2 g/dL (6.4-8.2); Troponin I < 0.05 ng/mL (<0.06)
[2020-09-24] MEDS: Omnipaque 350 MG/ML 100 ML BTL IJ (16:22)
[2020-09-24] MEDS: Normal Saline - Diluent 50 ML VIAL IV (16:23)
[2020-09-24] MEDS: Albuterol 2.5 MG/3 ML INH SOLN VIAL 5 MG UPD (16:27)
--- NOTE | 2020-09-24 17:16 | DI.VRAD_ITS ---
PROCEDURE INFORMATION: Exam: CTA Chest With Contrast Exam date and time: 09/24/2020 4:17 PM Age: 65 years old Clinical indication: Patient HX: Shortness of breath, h/o pe/copd TECHNIQUE: Imaging protocol: Computed tomographic angiography of the chest with contrast. 3D rendering (Not supervised by radiologist): MIP and/or 3D reconstructed images were created by the technologist. COMPARISON: CT CHEST PE CTA 04/22/2020 12:19 PM FINDINGS: Pulmonary arteries: No evidence of pulmonary embolus to the segmental level. Aorta: No aneurysm of the aorta. No dissection of the aorta. Lungs: Mild consolidation in the lingula. Mild opacities in the right lower lobe. Findings may reflect atelectasis or minimal pneumonia.. Bronchiectasis in the lower lobes. Pleural spaces: Unremarkable. No pneumothorax. No pleural effusion. Heart: Unremarkable. No cardiomegaly. No pericardial effusion. Mediastinal space: Small hiatal hernia Lymph nodes: Unremarkable. No enlarged lymph nodes. Bones/joints: Unremarkable. No acute fracture. Soft tissues: Unremarkable. IMPRESSION: 1. No evidence of pulmonary embolus to the segmental level. 2. No aneurysm of the aorta. 3. No dissection of the aorta. 4. Mild consolidation in the lingula. Mild opacities in the right lower lobe. Findings may reflect atelectasis or minimal pneumonia.. 5. Bronchiectasis in the lower lobes. Dictated and Authenticated by: Lizzeth Ellison MD. Ordering:REN Caceres MD
[2020-09-24] MEDS: Budesonide/Formoterol 160/4.5 6 GM 60 PUFF INH IH (17:25)
[2020-09-24] MEDS: Inhaler, Assist Device 1 EACH MC (17:26)
--- NOTE | 2020-09-24 17:38 | NUR.NOTE ---
Referral to Care Management to help patient get appt with Dr Vidales, pulmonology for management of her COPD.Nursing Note:
[2020-09-24] MEDS: Albuterol HFA 8 GM 60 PUFF INH IH (17:57)
== END 2020-09-24 17:55 | disposition home or self-care (01) ==
PROVIDERS: Emergency Provider Physician Assistant; PCP Nurse Practitioner
DX: J44.1 Chronic obstructive pulmonary disease with (acute) exacerbation (principal); Z87.891 Personal history of nicotine dependence
CPT/HCPCS: 71275; 80053; 93005; 94640; 96361; 96374; 99285; 83735; 84484; 85025; 85610; 85730; 93010; J2930; J3490; J7613; J7620

== ENCOUNTER 2020-12-08 03:11 | Emergency (ER) | payer OTHER, MEDICAID, SELFPAY ==
--- NOTE | 2020-12-08 03:00 | RT.EKG_ITS ---
APPROVED REPORT Exam: Resting ECG Reason for Exam: SOB Patient Location: E HR:92 bpm ECG Measurements Heart Rate 92 AXIS LA 148 P 57 QRSd 82 QRS 27 QT 373 T 47 QTc 462 Conclusion Sinus rhythm...normal P axis, V-rate 60- 99 no acute ischemic findings
--- NOTE | 2020-12-08 03:00 | DI.CT_ITS ---
Exam(s) CT CHEST PE CTA EXAM: CT CHEST PE CTA CLINICAL HISTORY: prior pe, shortness of breath. TECHNIQUE: Imaging Protocol: CT angiography of the chest was performed using pulmonary embolus rochelle col. Multi planar reconstructions were performed. CONTRAST MATERIAL: Intravenous: Omnipaque 350 Contrast volume: 100 cc COMPARISON: CT CT CHEST PE CTA from 09/24/2020 FINDINGS: CHEST: PULMONARY ARTERIES: There are no intraluminal filling defects to suggest acute pulmonary emboli. LUNGS: There are relatively symmetrical ground-glass infiltrates in both upper lobes. Small 3 millim eter noncalcified nodule anterior segment left upper lobe. Atelectasis noted in the lingular segment left lung. There are no pleural effusions. There are no pleural effusions. MEDIASTINUM: There is no hilar nor mediastinal adenopathy. Visualized thyroid unremarkable. CARDIAC: Heart size is upper normal. There is no pericardial effusion.Caliber of the thoracic aorta is within normal limits. There is no significant shift of the interventricular septum. PARTIALLY VISUALIZED UPPERMOST ABDOMEN: No obvious findings OSSEOUS: No significant osseous lesions.. IMPRESSION: 1. No evidence of acute pulmonary emboli. No evidence of pulmonary infarction.No pleural effusions. 2. There are ground-glass infiltrates evident in both upper lobes. Describes follow-up. 3. Small 3 millimeter noncalcified nodule in the left upper lobe upper lingular segment. RADIATION DOSE DELIVERED: 453.69mGy.cm Total DLP DATA REPOSITORY: All CT scans at this facility are submitted to the National Radiology Data Registry (NRDR) Dose Index Registry (DIR) with the [employer] (ACR). RADIATION OPTIMIZATION: All CT scans at this facility use at least one of these dose optimization te chniques: automated exposure control; mA and/or kV adjustment per patient size (includes targeted exa ms where dose is matched to clinical indication); or iterative reconstruction.
[2020-12-08 03:16] VITALS: BP 135/49; PULSE 98; RESP 27; TEMP 36.9; O2SAT 96
--- NOTE | 2020-12-08 03:16 | ED.GENADUL_ITS ---
Discharge Plan Disposition Patient Disposition: HOME Condition: Stable Discharge Details Clinical Impression: Acute exacerbation of chronic obstructive pulmonary disease, Shortness of breath Primary Care Provider: Malinda Call ED Provider: Chito Givens Home Meds and New Rx's Prescriptions: New doxycycline hyclate 100 mg tablet 100 mg PO BID Qty: 14 RF: 0 prednisone 20 mg tablet 60 mg PO DAILY 4 Days Qty: 12 RF: 0 Continued rizatriptan [Maxalt-CREW BOAT OPERATOR] 10 MG tablet,disintegrating 10 mg PO ONCE RF: 0 fluoxetine 40 MG capsule 40 mg PO DAILY RF: 0 loratadine 10 MG tablet 10 mg PO DAILY RF: 0 calcium carbonate-vitamin D3 1 EACH tablet 2 tab PO DAILY RF: 0 albuterol sulfate [ProAir HFA] 1 PUFF HFA aerosol inhaler 2 puff Inhalation Q2H PRN PRNQty: 1 RF: 3 Spiriva with HandiHaler 18 MCG capsule, w/inhalation device 18 mcg Inhalation DAILY Qty: 1 RF: 3 ipratropium-albuterol 0.5 mg-3 mg(2.5 mg base)/3 mL solution for nebulization 3 ml IH Q6H Qty: 90 RF: 0 Eliquis 5 MG tablet 5 mg PO BID Qty: 60 RF: 3 budesonide-formoterol [Symbicort] 160-4.5 mcg/actuation Hfa Aerosol Inhaler 2 puff Inhalation BID Qty: 6 RF: 0 cholecalciferol (vitamin D3) [Vitamin D3] 25 mcg (1,000 unit) Capsule 25 mcg PO DAILY RF: 0 Discharge Instructions Instructions: COPD (Chronic Obstructive Pulmonary Disease) (ED) Additional Instructions: you had no blood clots on your cat scan and your blood work was reassuring if you feel more ill, have worsening difficulty breathing or pain return to the emergency department follow up with your primary care provider within a week Medical Decision Making 65 yo female with hx of copd and quit smoking 4-5 years ago per patient, prior pe on eliquis, who comes in with chief complaint of cough and shortness of breath slowly worsening over the past 2-3 days despite using her prescribed inhalers. She denies chest pressure/pain though states her side of her chest hurts when she coughs. Denies fevers and is over 2 weeks from her 2nd covid vaccine per patient. She arrives with ems after they were called to her house and she was given a duoneb as she had wheezing on their exam per report. She states the duoneb did help. She is able to speak in 4-5 word sentences while using a nebulizer and has wheezing in all lung meyers, no leg swelling or calf tenderness. Suspect copd exacerbation will treat with steroids and nebs and reassess. Wells score is moderate so will obtaincta to evaluate for PE. She has no chest pressure so doubt nstemi but will obtain troponin and ecg. labs and imaging reassuring and she feels better after nebs, imaging does show non specific ground glass opacities, given increased cough will treat with antibiotics. Will reassess after duoneb given. She has had over 2 days of symptoms so do not feel repeat troponin or ecg indicated pt feels much better only has mild bilateral apical wheezing, requesting d/c which I feel is reasonable. Will continue oral antibiotics and prednisone and advised follow up with pcp and return precautions given s well Differential Diagnosis Differential Diagnosis: copd, asthma, pe, nstemi, pneumonia Medical Records Medical records reviewed: Yes I reviewed the patient's medical records. Imaging Data Radiologic Study: Attestation: I personally reviewed and interpreted this imaging study as follows: Imaging: CT Scan Radiologist's impression: IMPRESSION: No pulmonary emboli Minimal ground-glass opacities in the upper lobes which are nonspecific 2 mm nodular density in the lingula. Mild cardiomegaly Small hiatal hernia/mild distal esophagitis Lab Data Lab results reviewed: Yes I reviewed the patient's lab results. ECG Data Attestation: I personally reviewed and interpreted this ECG (s) as follows: Prior ECG tracings: available for review Interpretation: sinus rhythm, rate of 92, pr 148, qtc 462, no acute st t wave ischemic findings HPI General Mode of arrival: EMS . Date/Time Provider Initiated Documentation: 12/08/20 03:22 . Limitations to Documentation: no limitations . Information obtained by: patient . History of Present Illness 65 year old F presents to the emergency department with the chief complaint of shortness of breath, described as moderate, and it has been constant. No relieving factors improve symptom(s), No exacerbating factors reported . Patient did receive the following treatments prior to arrival, none Related Data Home Medications Medication Instructions Recorded Confirmed loratadine 10 mg PO DAILY 09/22/12 12/08/20 calcium carbonate-vitamin D3 2 tab PO DAILY 04/02/14 12/08/20 fluoxetine 40 mg PO DAILY tab-cap 01/11/15 12/08/20 rizatriptan [Maxalt-CREW BOAT OPERATOR] 10 mg PO ONCE tab-cap 01/11/15 12/08/20 Spiriva with HandiHaler 18 mcg INHALATION DAILY #1 tab-cap 10/29/16 12/08/20 albuterol sulfate [ProAir HFA] 2 puff INHALATION Q2H PRN PRN #1 10/29/16 12/08/20 inh Eliquis 5 mg PO BID #60 tablet 12/24/16 12/08/20 budesonide-formoterol [Symbicort] 2 puff INHALATION BID #6 gm 07/28/18 12/08/20 ipratropium-albuterol 3 ml IH Q6H #90 ml 06/26/19 12/08/20 cholecalciferol (vitamin D3) 25 mcg PO DAILY 04/08/20 12/08/20 [Vitamin D3] doxycycline hyclate 100 mg PO BID #14 tab 12/08/20 prednisone 60 mg PO DAILY 4 Days #12 tab 12/08/20 Previous Rx's Medication Instructions Recorded Spiriva with HandiHaler 18 mcg INHALATION DAILY #1 tab-cap 10/29/16 albuterol sulfate [ProAir HFA] 2 puff INHALATION Q2H PRN PRN #1 10/29/16 inh Eliquis 5 mg PO BID #60 tablet 12/24/16 budesonide-formoterol [Symbicort] 2 puff INHALATION BID #6 gm 07/28/18 ipratropium-albuterol 3 ml IH Q6H #90 ml 06/26/19 doxycycline hyclate 100 mg PO BID #14 tab 12/08/20 prednisone 60 mg PO DAILY 4 Days #12 tab 12/08/20 Allergies Allergy/AdvReac Type Severity Reaction Status Date / Time aspirin AdvReac Mild Nausea Unverified 09/24/20 15:08 egg AdvReac Mild Nausea Unverified 09/24/20 15:08 chocolate flavor AdvReac cough Unverified 09/24/20 15:08 migraines General Stated Complaint: RespSymp KIERAN: 2 Review of Systems All systems reviewed & are unremarkable except as noted in HPI and below Constitutional Constitutional: Denies chills, Denies fever(s) and Denies weakness Cardiovascular Cardiovascular: Denies chest pain Gastrointestinal Gastrointestinal: Denies abdominal pain, Denies nausea and Denies vomiting Musculoskeletal Musculoskeletal: Denies joint swelling Neurologic Neurologic: Denies weakness Psychiatric Psychiatric: Denies depression [facility] Medical History (Updated 12/08/20 @ 04:11 by Chito Givens MD) Anxiety with depression Arthritis COPD (chronic obstructive pulmonary disease) Depression with anxiety Elevated hemoglobin A1c Essential tremor H/O: HTN (hypertension) HTN (hypertension) Knee joint pain Migraine Pneumonia Pulmonary emboli Screening for breast cancer Weight gain Surgical History History of bunionectomy History of partial hysterectomy Family History Sister Diabetes Brother Hypertension Other Heart disease Social History Smoking/Tobacco Use Status: Former Tobacco Use Smoking risk assessment performed?: Yes Alcohol Intake: never Drug use: Never Substance use type: does not use Do you feel safe at home: Yes Do you feel safe in your relationship?: Yes Exam Const General: no acute distress Orientation: alert HENMT Head: normal to inspection Ears: external ears normal General nose exam: external nose normal Mouth: moist mucous membranes Eyes General: appearance normal, both eyes and all related structures Neck Neck: normal visual inspection Resp Effort & Inspection: audible wheezes and no use of accessory muscles Cardio Rate: regular rate Skin General skin exam: no rashes or lesions noted Neuro General: patient alert and patient oriented x3 Extrem General: normal to inspection Psych Mental Status: mental status grossly normal
[2020-12-08] MEDS: methylPREDNISolone SUCC 125 MG VIAL IVP (03:28)
[2020-12-08 03:30] LABS: BE (Venous) 3 mmol/L (-2-3); HCO3 (Venous) 28 mmol/L (23-28); O2 Sat (Venous) 49 %; TCO2 (Venous) 26 mmol/L (24-29); pCO2 (Venous) 47 mmHg (41-51); pH (Venous) 7.38 (7.31-7.41); pO2 (Venous) 26 mmHg
[2020-12-08] MEDS: Omnipaque 350 MG/ML 100 ML BTL IJ (03:30)
[2020-12-08 03:32] LABS: Abs Immature Grans 0.02 10^3/uL (0.0-0.06); Absolute Basophil Count 0.02 10^3/uL (0.0-0.2); Absolute Eosinophil Count 0.02 10^3/uL (0.0-0.7); Absolute Lymphocyte Count 1.54 10^3/uL (1.2-3.4); Absolute Monocyte Count 0.76 10^3/uL (0.1-0.8); Absolute Neutrophil Count 5.02 10^3/uL (1.2-6.7); Basophils % 0.3; Eosinophils % 0.3; HCT 41.9 % (36.0-46.0); HGB 13.3 g/dL (11.2-15.7); Immature Grans % 0.3; Lymphocytes % 20.9; MCH 28.1 pg (27.0-33.0); MCHC 31.7 % (32.0-36.0); MCV 88.4 fL (80-95); MPV 9.8 fL (8.0-11.0); Monocytes % 10.3; Neutrophils % 67.9; Nucleated RBC 0 %; Platelet Count 218 10^3/uL (130-400); RBC 4.74 10^6/uL (3.93-5.22); RDW 13.4 % (11.7-14.6); RDW-SD 43.5 fL; WBC 7.38 10^3/uL (4.4-10.8)
[2020-12-08] MEDS: Albuterol/Ipratropium 3 ML UPD VIAL UPD (03:46)
[2020-12-08] MEDS: Normal Saline - Diluent 50 ML VIAL IV (03:48)
[2020-12-08 03:49] LABS: ALT 25 U/L (14-59); AST 14 U/L (15-37); Albumin 3.5 g/dL (3.4-5.0); Alkaline Phosphatase 93 U/L (46-116); Anion Gap 9.6 mmol/L (3-11); BUN 19 mg/dL (7-18); Bilirubin, Total 0.3 mg/dL (0.2-1.0); CO2 27.4 mmol/L (21.0-32.0); CREATININE 0.8 mg/dL (0.55-1.02); Calcium 8.8 mg/dL (8.5-10.1); Chloride 106 mmol/L (98-107); Glucose 109 mg/dL (74-106); Potassium 3.6 mmol/L (3.5-5.1); Sodium 143 mmol/L (136-145); Total Protein 7.2 g/dL (6.4-8.2)
[2020-12-08] MEDS: Normal Saline Flush 10 ML SYR IVP (03:49)
[2020-12-08 03:50] LABS: Troponin I < 0.05 ng/mL (<0.06)
--- NOTE | 2020-12-08 04:04 | DI.VRAD_ITS ---
PROCEDURE INFORMATION: Exam: CTA Chest With Contrast Exam date and time: 12/08/2020 3:13 AM Age: 65 years old Clinical indication: Cough and shortness of breath; Patient HX: Prior pe, SOB TECHNIQUE: Imaging protocol: Computed tomographic angiography of the chest with contrast. 3D rendering (Not supervised by radiologist): MIP and/or 3D reconstructed images were created by the technologist. Radiation optimization: All CT scans at this facility use at least one of these dose optimization techniques: automated exposure control; mA and/or kV adjustment per patient size (includes targeted exams where dose is matched to clinical indication); or iterative reconstruction. Contrast material: OMNIPAQUE 350; Contrast volume: 100 ml; Contrast route: INTRAVENOUS (IV); COMPARISON: 1. CT CHEST PE CTA 09/24/2020 4:[address] CHEST PE CTA 04/22/2020 12:19 PM FINDINGS: Pulmonary arteries: No pulmonary emboli. Aorta: No aortic aneurysm. No aortic dissection. Lungs: No consolidation. No masses. Minimal subsegmental atelectasis versus scarring. Minimal nonspecific ground-glass opacities in the upper lobes. 2 mm nodular density in the lingula Pleural spaces: No pneumothorax. No pleural effusion. Heart: Mild cardiomegaly. No pericardial effusion. Lymph nodes: Unremarkable. No enlarged lymph nodes. Bones/joints: Degenerative changes in the spine No acute fracture. Soft tissues: Unremarkable. Small Bochdalek's type hernia containing fat in the right lower lobe Small hiatal hernia/mild esophageal thickening distally IMPRESSION: No pulmonary emboli Minimal ground-glass opacities in the upper lobes which are nonspecific 2 mm nodular density in the lingula. Mild cardiomegaly Small hiatal hernia/mild distal esophagitis Dictated and Authenticated by: Olivier Mcclellan MD. Ordering:LILIAN Dale MD
[2020-12-08] MEDS: Doxycycline Hyclate 100 MG CAP PO (04:23)
[2020-12-08] MEDS: Acetaminophen 500 MG TAB 1000 MG PO (04:23)
[2020-12-08 05:07] VITALS: BP 138/85; PULSE 89; RESP 22; TEMP 36.9; O2SAT 95
== END 2020-12-08 06:05 | disposition home or self-care (01) ==
PROVIDERS: Emergency Provider Emergency Medicine; PCP Nurse Practitioner
DX: J44.1 Chronic obstructive pulmonary disease with (acute) exacerbation (principal); R06.02 Shortness of breath; R05 Cough; Z87.891 Personal history of nicotine dependence
CPT/HCPCS: 36415; 71275; 80053; 82805; 93005; 94640; 96374; 99285; 84484; 85025; 93010; J2930; J3490; J7620

== ENCOUNTER 2021-01-03 19:30 | Emergency (ER) | payer OTHER, MEDICAID, SELFPAY ==
[2021-01-03 19:50] VITALS: BP 148/82; PULSE 89; RESP 14; TEMP 37.4; O2SAT 95
--- NOTE | 2021-01-03 20:04 | ED.GENADUL_ITS ---
Discharge Plan Disposition Patient Disposition: HOME Condition: Improving Discharge Details Clinical Impression: Insect bite Primary Care Provider: Malinda Call ED Provider: Grant Lang Home Meds and New Rx's Prescriptions: New prednisone 50 mg tablet 50 mg PO DAILY 3 Days Qty: 3 RF: 0 Continued rizatriptan [Maxalt-WIRELESS COMMUNICATIONS ENGINEER] 10 MG tablet,disintegrating 10 mg PO ONCE RF: 0 fluoxetine 40 MG capsule 40 mg PO DAILY RF: 0 loratadine 10 MG tablet 10 mg PO DAILY RF: 0 calcium carbonate-vitamin D3 1 EACH tablet 2 tab PO DAILY RF: 0 albuterol sulfate [ProAir HFA] 1 PUFF HFA aerosol inhaler 2 puff Inhalation Q2H PRN PRNQty: 1 RF: 3 Spiriva with HandiHaler 18 MCG capsule, w/inhalation device 18 mcg Inhalation DAILY Qty: 1 RF: 3 ipratropium-albuterol 0.5 mg-3 mg(2.5 mg base)/3 mL solution for nebulization 3 ml IH Q6H Qty: 90 RF: 0 Eliquis 5 MG tablet 5 mg PO BID Qty: 60 RF: 3 budesonide-formoterol [Symbicort] 160-4.5 mcg/actuation Hfa Aerosol Inhaler 2 puff Inhalation BID Qty: 6 RF: 0 cholecalciferol (vitamin D3) [Vitamin D3] 25 mcg (1,000 unit) Capsule 25 mcg PO DAILY RF: 0 No Action doxycycline hyclate 100 mg tablet 100 mg PO BID Qty: 14 RF: 0 Discharge Instructions Additional Instructions: Take prednisone once daily as prescribed until finished. May continue your regular medications including loratadine. May apply cool compress to area to reduce swelling and discomfort. Return to the emergency department for any acute concerns. Follow-up with regular doctor if not improved in 5 days time. Medical Decision Making This is a 65-year-old female who was stung by an unknown insect yesterday, developed swelling of the left perioral region overnight for which she seeks evaluation today. She is stable and well-appearing, there is no evidence of cellulitis, nor is there evidence of systemic reaction. We will treat her with oral prednisone, she may continue antihistamines, she is stable and appropriate outpatient management. HPI General Mode of arrival: ambulatory . Date/Time Provider Initiated Documentation: 01/03/21 19:53 . Limitations to Documentation: no limitations . Information obtained by: patient . History of Present Illness 65 year old F presents to the emergency department with the chief complaint of Left periorbital rash, described as moderate, Quality is described as dull, and is localized to the face and left. Patient reports no radiation. Patient started experiencing this hour(s) and it has been constant. No relieving factors improve symptom(s), No exacerbating factors reported . Patient notes denies fever/chills and headaches. Patient did receive the following treatments prior to arrival, none Related Data Home Medications Medication Instructions Recorded Confirmed loratadine 10 mg PO DAILY 09/22/12 01/03/21 calcium carbonate-vitamin D3 2 tab PO DAILY 04/02/14 01/03/21 fluoxetine 40 mg PO DAILY tab-cap 01/11/15 01/03/21 rizatriptan [Maxalt-WIRELESS COMMUNICATIONS ENGINEER] 10 mg PO ONCE tab-cap 01/11/15 01/03/21 Spiriva with HandiHaler 18 mcg INHALATION DAILY #1 tab-cap 10/29/16 01/03/21 albuterol sulfate [ProAir HFA] 2 puff INHALATION Q2H PRN PRN #1 10/29/16 01/03/21 inh Eliquis 5 mg PO BID #60 tablet 12/24/16 01/03/21 budesonide-formoterol [Symbicort] 2 puff INHALATION BID #6 gm 07/28/18 01/03/21 ipratropium-albuterol 3 ml IH Q6H #90 ml 06/26/19 01/03/21 cholecalciferol (vitamin D3) 25 mcg PO DAILY 04/08/20 01/03/21 [Vitamin D3] doxycycline hyclate 100 mg PO BID #14 tab 12/08/20 01/03/21 prednisone 50 mg PO DAILY 3 Days #3 tab 01/03/21 Previous Rx's Medication Instructions Recorded Spiriva with HandiHaler 18 mcg INHALATION DAILY #1 tab-cap 10/29/16 albuterol sulfate [ProAir HFA] 2 puff INHALATION Q2H PRN PRN #1 10/29/16 inh Eliquis 5 mg PO BID #60 tablet 12/24/16 budesonide-formoterol [Symbicort] 2 puff INHALATION BID #6 gm 07/28/18 ipratropium-albuterol 3 ml IH Q6H #90 ml 06/26/19 doxycycline hyclate 100 mg PO BID #14 tab 12/08/20 prednisone 50 mg PO DAILY 3 Days #3 tab 01/03/21 Allergies Allergy/AdvReac Type Severity Reaction Status Date / Time aspirin AdvReac Mild Nausea Unverified 01/03/21 19:52 egg AdvReac Mild Nausea Unverified 01/03/21 19:52 chocolate flavor AdvReac cough Unverified 01/03/21 19:52 migraines General Stated Complaint: GenMedical KIERAN: 4 Review of Systems Narrative: No difficulty breathing, no change to vision, no change to voice. 4 systems reviewed and otherwise negative [facility] Medical History (Updated 01/03/21 @ 20:07 by Grant Lang MD) Anxiety with depression Arthritis COPD (chronic obstructive pulmonary disease) Depression with anxiety Elevated hemoglobin A1c Essential tremor H/O: HTN (hypertension) HTN (hypertension) Knee joint pain Migraine Pneumonia Pulmonary emboli Screening for breast cancer Weight gain Surgical History History of bunionectomy History of partial hysterectomy Family History Sister Diabetes Brother Hypertension Other Heart disease Social History Smoking/Tobacco Use Status: Former Tobacco Use Smoking risk assessment performed?: Yes Alcohol Intake: never Drug use: Never Substance use type: does not use Do you feel safe at home: Yes Do you feel safe in your relationship?: Yes Exam Narrative Exam Narrative: GEN: awake, alert, oriented 3. Pleasant, well groomed, interactive. HEAD: Normocephalic, atraumatic ENT: Mucous membranes moist, oropharynx unremarkable, left periorbital swelling with probable bite site superomedial of the nasal bridge. EYES: PERRL, EOMI NECK: Full ROM, no KWAME, no menigismus CHEST/RESP: Nontender, clear to auscultation bilateral, no wheeze/rhonchi/rales CARDIOVASCULAR: RRR, no murmur, rub kelly. 2+ Rad pulse bilateral EXT: Full ROM, no edema, no rash Neuro: Grossly normal neurologic exam, conversant, interactive. Psych: Speech fluent, thoughts congruent, affect normal Course Vital Signs Vital signs: Vital Signs Temperature 37.4 C 01/03/21 19:50 Pulse 89 01/03/21 19:50 Respiratory Rate 14 01/03/21 19:50 Blood Pressure 148/82 H 01/03/21 19:50 Pulse Oximetry 95 01/03/21 19:50 Temperature 37.4 C 01/03/21 19:50 Temperature Source Temporal Artery Scan 01/03/21 19:50 Pulse 89 01/03/21 19:50 Respiratory Rate 14 01/03/21 19:50 Respiratory Effort Non-Labored 01/03/21 19:52 Blood Pressure 148/82 H 01/03/21 19:50 Blood Pressure Position Sitting 01/03/21 19:50 Pulse Oximetry 95 01/03/21 19:50 Oxygen Delivery Method Room Air 01/03/21 19:50 Oxygen Flow Rate 0 01/03/21 19:50 Pain Level 7 01/03/21 19:50
[2021-01-03] MEDS: predniSONE 40 MG, predniSONE 10 MG 50 MG PO (20:08)
== END 2021-01-03 20:13 | disposition home or self-care (01) ==
PROVIDERS: Emergency Provider Emergency Medicine; PCP Nurse Practitioner
DX: S00.262A Insect bite (nonvenomous) of left eyelid and periocular area, initial encounter (principal); W57.XXXA Bitten or stung by nonvenomous insect and other nonvenomous arthropods, initial encounter
CPT/HCPCS: 99283; J7512

== ENCOUNTER 2021-05-23 01:24 | Outpatient (CLI) | payer OTHER, MEDICAID, SELFPAY ==
--- NOTE | 2021-05-23 13:00 | DI.RAD_ITS ---
Exam(s) XR KNEE LT 3V AP,LAT,SKY EXAM: XR KNEE LT 3V AP,LAT,SKY CLINICAL HISTORY: LT KNEE JOINT PAIN M25.562. TECHNIQUE: 2D digital imaging was performed. COMPARISON: CR RIGHT KNEE 3 VIEWS from 12/23/2016 FINDINGS: There is no evidence fracture. No prominent joint effusion. Tricompartmental osteoarthritic degener ative changes are noted, most prominent medial compartment. No osseous lesions. IMPRESSION: DATA REPOSITORY: RADIATION DOSE DELIVERED:
== END 2021-05-23 01:44 ==
PROVIDERS: PCP Nurse Practitioner; Visit Provider Nurse Practitioner
DX: M25.562 Pain in left knee (principal); M17.12 Unilateral primary osteoarthritis, left knee
CPT/HCPCS: 73562

== ENCOUNTER → 2021-10-11 04:26 | Outpatient (CLI) | payer OTHER, MEDICAID, SELFPAY | PROVIDERS: PCP Nurse Practitioner; Visit Provider Student in an Organized Health Care Education/Training Program ==

== ENCOUNTER 2022-06-12 12:03 | Emergency (ER) | payer MEDICARE, MEDICAID, SELFPAY ==
[2022-06-12] VITALS (34 sets, daily range): BP systolic 105–152; BP diastolic 64–93; PULSE 67–80; RESP 4–24; TEMP 36.8; O2SAT 89–97
--- NOTE | 2022-06-12 12:45 | DI.RAD_ITS ---
Exam(s) XR PORTABLE CHEST AP EXAM: XR PORTABLE CHEST AP CLINICAL HISTORY: SOB. TECHNIQUE: 2D digital imaging was performed. COMPARISON: CR XR PORTABLE CHEST AP from 04/08/[address] CHEST PE CTA from 06/12/2022 FINDINGS: Single AP portable view. Heart size is upper normal. The mediastinum is not widened. Right lung is clear. Subtle increased density behind the left side of the heart noted but without ai r bronchograms. This may indicate some fluid in the lower aspect of the major fissure. No other left lung findings. IMPRESSION: As above. Recommend nonportable PA and lateral views when clinically possible. DATA REPOSITORY: RADIATION DOSE DELIVERED:
--- NOTE | 2022-06-12 12:45 | RT.EKG_ITS ---
APPROVED REPORT Exam: Resting ECG Reason for Exam: SOB Patient Location: E HR:75 bpm ECG Measurements Heart Rate 75 AXIS IL 161 P 58 QRSd 85 QRS 33 QT 411 T 43 QTc 458 Conclusion Sinus rhythm...normal P axis, V-rate 60- [address] elevation, inferior leads...ST >0.06mV, II III aVF sinus rhythm at 75, normal axis, diffuse mild ST elevation noted, does not meet STEMI criteria, no re ciprocal changes, nondiagnostic EKG
[2022-06-12] MEDS: methylPREDNISolone SUCC 125 MG VIAL IVP (13:00)
[2022-06-12 13:13] LABS: Abs Immature Grans 0.02 10^3/uL (0.0-0.06); Absolute Basophil Count 0.06 10^3/uL (0.0-0.2); Absolute Lymphocyte Count 1.55 10^3/uL (1.2-3.4); Absolute Neutrophil Count 4.32 10^3/uL (1.2-6.7); Basophils % 0.9; Eosinophils % 4.4; HCT 41.6 % (36.0-46.0); HGB 13.4 g/dL (11.2-15.7); Immature Grans % 0.3; MCH 28.8 pg (27.0-33.0); MCHC 32.2 % (32.0-36.0); MCV 89 fL (80-95); Monocytes % 7.4; Platelet Count 256 10^3/uL (130-400); RBC 4.66 10^6/uL (3.93-5.22); RDW 12.9 % (11.7-14.6); RDW-SD 42.4 fL; WBC 6.75 10^3/uL (4.4-10.8)
[2022-06-12] MEDS: Albuterol/Ipratropium 3 ML UPD VIAL UPD ×2 (13:23→14:03)
--- NOTE | 2022-06-12 13:25 | DI.VRAD_ITS ---
PROCEDURE INFORMATION: Exam: XR Chest Exam date and time: 06/12/2022 12:50 PM Age: 67 years old Clinical indication: Shortness of breath TECHNIQUE: Imaging protocol: Radiologic exam of the chest. Views: 1 view. COMPARISON: CR XR PORTABLE CHEST AP 04/08/2020 9:06 AM FINDINGS: Lungs: Unremarkable. No consolidation. Pleural spaces: Unremarkable. No pleural effusion. No pneumothorax. Heart/Mediastinum: Unremarkable. No cardiomegaly. Bones/joints: Unremarkable. IMPRESSION: No acute findings. Dictated and Authenticated by: Lizzeth Ellison MD. Ordering:JERMAINE High MD
[2022-06-12 13:36] LABS: ALT 21 U/L (14-59); AST 19 U/L (15-37); Albumin 3.6 g/dL (3.4-5.0); Alkaline Phosphatase 110 U/L (46-116); Anion Gap 5.9 mmol/L (3-11); BUN 20 mg/dL (7-18); Bilirubin, Total 0.3 mg/dL (0.2-1.0); CO2 29.1 mmol/L (21.0-32.0); CREATININE 0.8 mg/dL (0.55-1.02); Calcium 9.2 mg/dL (8.5-10.1); Chloride 106 mmol/L (98-107); Estimated GFR 80.71 (mL/min/1.73m2); Glucose 112 mg/dL (74-106); NT-proBNP 158 pg/mL (<300); Potassium 4.2 mmol/L (3.5-5.1); Sodium 141 mmol/L (136-145); Total Protein 7.4 g/dL (6.4-8.2); Troponin I < 50 ng/L (<or=60)
[2022-06-12 13:50] LABS: COVID-19 PCR Negative (Negative); Influenza A PCR Negative (Negative); Influenza B PCR Negative (Negative); RSV PCR Negative (Negative)
[2022-06-12 13:52] LABS: Source Nasopharynx
[2022-06-12 14:28] LABS: D-Dimer 940 ng/mlFEU (<500)
--- NOTE | 2022-06-12 14:30 | DI.CT_ITS ---
Exam(s) CT CHEST PE CTA EXAM: CT CHEST PE CTA CLINICAL HISTORY: SOB. TECHNIQUE: Imaging Protocol: CT angiography of the chest was performed using pulmonary embolus rochelle col. Multi planar reconstructions were performed. CONTRAST MATERIAL: Intravenous: Omnipaque 350 Contrast volume: 100 cc COMPARISON: CT CT CHEST PE CTA from 12/08/2020 FINDINGS: CHEST: PULMONARY ARTERIES: There are no obvious intraluminal filling defects to suggest acute pulmonary embo li. LUNGS: There are no infiltrates nor evidence of pulmonary infarction.. There are no pleural effusions . MEDIASTINUM: There is no hilar nor mediastinal adenopathy. Visualized thyroid unremarkable. CARDIAC: Heart size is upper normal. There is no pericardial effusion.Caliber of the thoracic aorta is within normal limits. No evidence of dissection. There is no significant shift of the interventri cular septum. PARTIALLY VISUALIZED UPPERMOST ABDOzMEN: No obvious findings OSSEOUS: No significant osseous lesions.. IMPRESSION: 1. No evidence of acute pulmonary emboli. No evidence of pulmonary infarction.No pleural effusions. 2. No evidence of aortic dissection. 3. No intrathoracic adenopathy. RADIATION DOSE DELIVERED: 439.36mGy.cm Total DLP DATA REPOSITORY: All CT scans at this facility are submitted to the National Radiology Data Registry (NRDR) Dose Index Registry (DIR) with the [employer] (A[employer]). RADIATION OPTIMIZATION: All CT scans at this facility use at least one of these dose optimization te chniques: automated exposure control; mA and/or kV adjustment per patient size (includes targeted exa ms where dose is matched to clinical indication); or iterative reconstruction.
--- NOTE | 2022-06-12 15:43 | ED.GENADUL_ITS ---
Discharge Plan Disposition Patient Disposition: Home Condition: Improving Discharge Details Clinical Impression: COPD exacerbation Primary Care Provider: MEGA DIGGS ED Provider: Shant Tello Home Meds and New Rx's Prescriptions: No Action rizatriptan [Maxalt-PASTE UP COPY CAMERA OPERATOR] 10 MG tablet,disintegrating 10 mg PO ONCE fluoxetine 40 MG capsule 40 mg PO DAILY calcium carb-vit D2-minerals Tablet 2 tab PO DAILY fluticasone furoate-vilanterol [Breo Ellipta] 100-25 mcg/dose blister with device 1 inh inhalation DAILY propranolol 10 mg tablet 10 mg PO BID loratadine 10 MG tablet 10 mg PO DAILY albuterol sulfate [ProAir HFA] 1 PUFF HFA aerosol inhaler 2 puff Inhalation Q2H PRN PRNQty: 1 3RF Rx Instructions: use with spacer Spiriva with HandiHaler 18 MCG capsule, w/inhalation device 18 mcg Inhalation DAILY Qty: 1 3RF Rx Instructions: take every day to prevent worsening of COPD Eliquis 5 MG tablet 5 mg PO BID Qty: 60 3RF Rx Instructions: Take 2 tablets in the morning and 2 tablets in the evening for 6 days (until 12/31/2016), then take 1 tablet in the morning and 1 tablet in the evening. budesonide-formoterol [Symbicort] 160-4.5 mcg/actuation Hfa Aerosol Inhaler 2 puff Inhalation BID Qty: 6 0RF cholecalciferol (vitamin D3) [Vitamin D3] 25 mcg (1,000 unit) Capsule 25 mcg PO DAILY Discharge Instructions Instructions: COPD (Chronic Obstructive Pulmonary Disease) (ED) Additional Instructions: Please follow-up with your primary care physician. Return to the emergency department for any worsening symptoms. Discharge Data Discharge Date/Time-TO BE ENTERED AT DEPARTURE: 06/12/22 17:53 Medical Decision Making <Anila Taveras MD - Last Filed: 07/22/22 11:43> Concern for COPD exacerbation, PE, COVID, flu, bacterial pneumonia, other. Exam/history at this time is not consistent with acute aortic pathology, sepsis. Plan for EKG, screening labs, chest x-ray, DuoNeb, IV Solu-Medrol. Will monitor and reassess. Labs reviewed, troponin negative, D-dimer elevated. Plan for CT chest. Patient reports that she feels at baseline after DuoNeb's x2. Denies current symptoms. Pt signed out to Dr. Tello for CT results, repeat EKG, reassessment ayleen her (Sign out note mentions CT cerivical spine in error). 17: 11 patient resting comfortably no acute distress. Feeling much better after medications. Likely COPD exacerbation. Medical Records Medical records reviewed: Yes I reviewed the patient's medical records. Imaging Data Radiologic Study: Attestation: I personally reviewed and interpreted this imaging study as follows: Radiologist's impression: EXAM:? XR PORTABLE CHEST AP CLINICAL HISTORY: ? SOB. ? TECHNIQUE:? 2D digital imaging was performed. COMPARISON:? CR XR PORTABLE CHEST AP from 04/08/[address] CHEST PE CTA from 06/12/2022 FINDINGS: Single AP portable view. Heart size is upper normal.? The mediastinum is not widened. Right lung is clear.? Subtle increased density behind the left side of the heart noted but without air bronchograms.? This may indicate some fluid in the lower aspect of the major fissure. No other left lung findings. IMPRESSION: As above.? Recommend nonportable PA and lateral views when clinically possible. Lab Data Lab results reviewed: Yes I reviewed the patient's lab results. Labs: Laboratory Tests Range/Units 06/12/22 06/12/22 06/12/22 13:05 13:05 13:05 WBC (4.4-10.8) 10^3/uL 6.75 RBC (3.93-5.22) 10^6/uL 4.66 Hgb (11.2-15.7) g/dL 13.4 Hct (36.0-46.0) % 41.6 MCV (80-95) fL 89 MCH (27.0-33.0) pg 28.8 MCHC (32.0-36.0) % 32.2 RDW (11.7-14.6) % 12.9 Plt Count (130-400) 10^3/uL 256 MPV (8.0-11.0) fL 10.0 Immature Gran % 0.3 Neutrophils % 64.0 Lymphocytes % 23.0 Monocytes % 7.4 Eosinophils % 4.4 Basophils % 0.9 Nucleated RBC % (0.0-0.3) % 0.0 Absolute Neutrophils (1.2-6.7) 10^3/uL 4.32 Absolute Lymphocytes (1.2-3.4) 10^3/uL 1.55 Absolute Monocytes (0.1-0.8) 10^3/uL 0.50 Absolute Eosinophils (0.0-0.7) 10^3/uL 0.30 Absolute Basophils (0.0-0.2) 10^3/uL 0.06 D-Dimer (<500) ng/mlFEU Sodium (136-145) mmol/L 141 Potassium (3.5-5.1) mmol/L 4.2 Chloride (98-107) mmol/L 106 Carbon Dioxide (21.0-32.0) mmol/L 29.1 Anion Gap (3-11) mmol/L 5.9 BUN (7-18) mg/dL 20 H Creatinine (0.55-1.02) mg/dL 0.8 Est GFR (CKD-EPI 2020) (mL/min/1.73m2) 80.71 Glucose (74-106) mg/dL 112 H Calcium (8.5-10.1) mg/dL 9.2 Magnesium (1.8-2.4) mg/dL 2.0 Total Bilirubin (0.2-1.0) mg/dL 0.3 AST (15-37) U/L 19 ALT (14-59) U/L 21 Alkaline Phosphatase (46-116) U/L 110 Troponin I (<or=60) ng/L < 50 NT-Pro-B Natriuret Pep (<300) pg/mL 158 Total Protein (6.4-8.2) g/dL 7.4 Albumin (3.4-5.0) g/dL 3.6 COVID-19 Source Nasopharynx SARS-CoV-2 (PCR) (Negative) Negative Influenza Type A (PCR) (Negative) Negative Influenza Type B (PCR) (Negative) Negative RSV (PCR) (Negative) Negative Range/Units 06/12/22 06/12/22 13:55 16:20 WBC (4.4-10.8) 10^3/uL RBC (3.93-5.22) 10^6/uL Hgb (11.2-15.7) g/dL Hct (36.0-46.0) % MCV (80-95) fL MCH (27.0-33.0) pg MCHC (32.0-36.0) % RDW (11.7-14.6) % Plt Count (130-400) 10^3/uL MPV (8.0-11.0) fL Immature Gran % Neutrophils % Lymphocytes % Monocytes % Eosinophils % Basophils % Nucleated RBC % (0.0-0.3) % Absolute Neutrophils (1.2-6.7) 10^3/uL Absolute Lymphocytes (1.2-3.4) 10^3/uL Absolute Monocytes (0.1-0.8) 10^3/uL Absolute Eosinophils (0.0-0.7) 10^3/uL Absolute Basophils (0.0-0.2) 10^3/uL D-Dimer (<500) ng/mlFEU 940 H Sodium (136-145) mmol/L Potassium (3.5-5.1) mmol/L Chloride (98-107) mmol/L Carbon Dioxide (21.0-32.0) mmol/L Anion Gap (3-11) mmol/L BUN (7-18) mg/dL Creatinine (0.55-1.02) mg/dL Est GFR (CKD-EPI 2020) (mL/min/1.73m2) Glucose (74-106) mg/dL Calcium (8.5-10.1) mg/dL Magnesium (1.8-2.4) mg/dL Total Bilirubin (0.2-1.0) mg/dL AST (15-37) U/L ALT (14-59) U/L Alkaline Phosphatase (46-116) U/L Troponin I (<or=60) ng/L < 50 NT-Pro-B Natriuret Pep (<300) pg/mL Total Protein (6.4-8.2) g/dL Albumin (3.4-5.0) g/dL COVID-19 Source SARS-CoV-2 (PCR) (Negative) Influenza Type A (PCR) (Negative) Influenza Type B (PCR) (Negative) RSV (PCR) (Negative) ECG Data Attestation: I personally reviewed and interpreted this ECG (s) as follows: Interpretation: EKG shows sinus rhythm at 75, normal axis, diffuse mild ST elevation noted, does not meet STEMI criteria, no reciprocal changes, nondiagnostic EKG <Shant Tello MD - Last Filed: 06/12/22 17:12> Concern for COPD exacerbation, PE, COVID, flu, bacterial pneumonia, other. Exam/history at this time is not consistent with acute aortic pathology, sepsis. Plan for EKG, screening labs, chest x-ray, DuoNeb, IV Solu-Medrol. Will monitor and reassess. Labs reviewed, troponin negative, D-dimer elevated. Plan for CT chest. Patient reports that she feels at baseline after DuoNeb's x2. Denies current symptoms. 17: 11 patient resting comfortably no acute distress. Feeling much better after medications. Likely COPD exacerbation. HPI <Anila Taveras MD - Last Filed: 07/22/22 11:43> General Mode of arrival: ambulatory . Date/Time Provider Initiated Documentation: 06/12/22 12:27 . Limitations to Documentation: no limitations . Information obtained by: patient, RN notes reviewed and old records reviewed . HPI Narrative: Tracie Lang is a 67-year-old woman with history of pulmonary embolism in the past, hypertension, COPD presenting to the emergency department with shortness of breath. Patient reports that yesterday evening she noticed feeling short of breath consistent with her usual COPD exacerbations. Patient reports that she slept poorly due to feeling short of breath, and shortness of breath has persisted into this morning. She states that she has used her nebulizers at home without significant relief. She reports that this feels exactly typical of her multiple prior COPD exacerbations. She denies any pain, fever, cough, vomiting, diarrhea, numbness, weakness, rash, swelling. Does not use oxygen at home. Reports normal appetite. Patient reports no known inciting events yesterday. She denies any recent illness. Related Data Home Medications Medication Instructions Recorded Confirmed loratadine 10 mg tablet 10 mg PO DAILY 09/22/12 06/12/22 fluoxetine 40 mg capsule 40 mg PO DAILY 01/11/15 06/12/22 rizatriptan 10 mg disintegrating 10 mg PO ONCE 01/11/15 06/12/22 tablet (Maxalt-PASTE UP COPY CAMERA OPERATOR) albuterol sulfate 90 mcg/actuation 2 puff inhalation Q2H PRN PRN #1 10/29/16 06/12/22 aerosol inhaler (ProAir HFA) inh tiotropium bromide 18 mcg capsule 18 mcg inhalation DAILY #1 tab-cap 10/29/16 06/12/22 with inhalation device (Spiriva with HandiHaler) apixaban 5 mg tablet (Eliquis) 5 mg PO BID #60 tabs 12/24/16 06/12/22 budesonide-formoterol HFA 160 2 puff inhalation BID #6 grams 07/28/18 06/12/22 mcg-4.5 mcg/actuation aerosol inhaler (Symbicort) cholecalciferol (vitamin D3) 25 25 mcg PO DAILY 04/08/20 06/12/22 mcg (1,000 unit) capsule (Vitamin D3) calcium carbonate-vitamin 2 tab PO DAILY 05/25/21 06/12/22 D2-minerals tablet fluticasone furoate 100 1 inh inhalation DAILY 10/05/21 06/12/22 mcg-vilanterol 25 mcg/dose inhalation powder (Breo Ellipta) propranolol 10 mg tablet 10 mg PO BID 10/05/21 06/12/22 Previous Rx's Medication Instructions Recorded albuterol sulfate 90 mcg/actuation 2 puff inhalation Q2H PRN PRN #1 10/29/16 aerosol inhaler (ProAir HFA) inh tiotropium bromide 18 mcg capsule 18 mcg inhalation DAILY #1 tab-cap 10/29/16 with inhalation device (Spiriva with HandiHaler) apixaban 5 mg tablet (Eliquis) 5 mg PO BID #60 tabs 12/24/16 budesonide-formoterol HFA 160 2 puff inhalation BID #6 grams 07/28/18 mcg-4.5 mcg/actuation aerosol inhaler (Symbicort) Allergies Allergy/AdvReac Type Severity Reaction Status Date / Time aspirin AdvReac Mild Nausea Unverified 06/12/22 12:15 egg AdvReac Mild Nausea Unverified 06/12/22 12:15 chocolate flavor AdvReac cough Unverified 06/12/22 12:15 migraines General Stated Complaint: SOB KIERAN: 3 Review of Systems <Ainla Taveras MD - Last Filed: 07/22/22 11:43> Narrative: Constitutional: denies fevers Eyes: denies eye pain ENT: denies ear pain, dental pain, sore throat Cardiovascular: denies chest pain, reports baseline edema of feet and ankles that is unchanged Respiratory: denies cough, reports shortness of breath GI: denies abdominal pain, vomiting, diarrhea : denies flank pain MSK: denies back pain, neck pain, arthralgias, myalgias Skin: denies rash Neuro: denies headaches, numbness, weakness PFSH <Anila Taveras MD - Last Filed: 07/22/22 11:43> All Active Problems Personal history of nicotine dependence (Acute) Asthma-COPD overlap syndrome (Acute) Insect bite (Acute) Pulmonary embolism (Chronic) Essential tremor (Acute) Discharge planning issues (Acute) Medical History Acute exacerbation of chronic obstructive pulmonary disease Anxiety with depression Arthritis CAP (community acquired pneumonia) COPD (chronic obstructive pulmonary disease) COPD with acute exacerbation Depression with anxiety DVT prophylaxis Elevated hemoglobin A1c Essential tremor H/O: HTN (hypertension) Influenza A Knee joint pain Pneumonia Pulmonary emboli Screening for breast cancer Shortness of breath Weight gain Surgical History History of bunionectomy History of partial hysterectomy Family History Sister Diabetes Brother Hypertension Other Heart disease Social History Smoking/Tobacco Use Status: Former Tobacco Use Smoking risk assessment performed?: Yes Alcohol Intake: never Drug use: Never Substance use type: does not use Do you feel safe at home: Yes Do you feel safe in your relationship?: Yes Exam <Anila Taveras MD - Last Filed: 07/22/22 11:43> Narrative Exam Narrative: Constitutional: well and [id number], pleasant, conversing normally HENT: head atraumatic/normocephalic/normal inspection, mucous membranes moist Eyes: conjunctiva normal, sclera normal, pupils 3mm b/l Neck: no stridor, normal ROM, trachea midline Chest: normal inspection Resp: normal work of breathing, expiratory wheeze throughout worse in bilateral upper lobes Cardio: normal rate, normal rhythm, no murmur appreciated GI: abdomen soft, non-tender, non-distended Back: normal inspection, no rash Skin: warm, dry, normal color, no rash Neuro: alert, not altered, grossly non-focal, normal tone Ext: +1 edema of the feet and ankles bilaterally, no posterior calf tenderness to palpation Psych: normal mood, normal affect, normal behavior Course <Anila Taveras MD - Last Filed: 07/22/22 11:43> Vital Signs Vital signs: Vital Signs Temperature 36.8 C 06/12/22 12:12 Pulse 80 06/12/22 12:12 Respiratory Rate 24 06/12/22 12:12 Blood Pressure 152/93 H 06/12/22 12:12 Pulse Oximetry 96 06/12/22 12:12 Temperature 36.8 C 06/12/22 12:12 Temperature Source Skin 06/12/22 12:12 Pulse 80 06/12/22 12:12 Respiratory Rate 20 06/12/22 12:24 Respiratory Effort Labored 06/12/22 12:24 Respiratory Depth Normal 06/12/22 12:24 Respiratory Pattern Normal 06/12/22 12:24 Blood Pressure 152/93 H 06/12/22 12:12 Blood Pressure Position Sitting 06/12/22 12:12 Pulse Oximetry 96 06/12/22 12:12 Oxygen Delivery Method Room Air 06/12/22 12:12 Oxygen Flow Rate 0 06/12/22 12:12 Pain Level 0 06/12/22 12:12 Lab/Test Results Lab/Test Results: Laboratory Tests Range/Units 06/12/22 06/12/22 06/12/22 13:05 13:05 13:05 WBC (4.4-10.8) 10^3/uL 6.75 RBC (3.93-5.22) 10^6/uL 4.66 Hgb (11.2-15.7) g/dL 13.4 Hct (36.0-46.0) % 41.6 MCV (80-95) fL 89 MCH (27.0-33.0) pg 28.8 MCHC (32.0-36.0) % 32.2 RDW (11.7-14.6) % 12.9 Plt Count (130-400) 10^3/uL 256 MPV (8.0-11.0) fL 10.0 Immature Gran % 0.3 Neutrophils % 64.0 Lymphocytes % 23.0 Monocytes % 7.4 Eosinophils % 4.4 Basophils % 0.9 Nucleated RBC % (0.0-0.3) % 0.0 Absolute Neutrophils (1.2-6.7) 10^3/uL 4.32 Absolute Lymphocytes (1.2-3.4) 10^3/uL 1.55 Absolute Monocytes (0.1-0.8) 10^3/uL 0.50 Absolute Eosinophils (0.0-0.7) 10^3/uL 0.30 Absolute Basophils (0.0-0.2) 10^3/uL 0.06 D-Dimer (<500) ng/mlFEU Sodium (136-145) mmol/L 141 Potassium (3.5-5.1) mmol/L 4.2 Chloride (98-107) mmol/L 106 Carbon Dioxide (21.0-32.0) mmol/L 29.1 Anion Gap (3-11) mmol/L 5.9 BUN (7-18) mg/dL 20 H Creatinine (0.55-1.02) mg/dL 0.8 Est GFR (CKD-EPI 2020) (mL/min/1.73m2) 80.71 Glucose (74-106) mg/dL 112 H Calcium (8.5-10.1) mg/dL 9.2 Magnesium (1.8-2.4) mg/dL 2.0 Total Bilirubin (0.2-1.0) mg/dL 0.3 AST (15-37) U/L 19 ALT (14-59) U/L 21 Alkaline Phosphatase (46-116) U/L 110 Troponin I (<or=60) ng/L < 50 NT-Pro-B Natriuret Pep (<300) pg/mL 158 Total Protein (6.4-8.2) g/dL 7.4 Albumin (3.4-5.0) g/dL 3.6 COVID-19 Source Nasopharynx SARS-CoV-2 (PCR) (Negative) Negative Influenza Type A (PCR) (Negative) Negative Influenza Type B (PCR) (Negative) Negative RSV (PCR) (Negative) Negative Range/Units 06/12/22 13:55 WBC (4.4-10.8) 10^3/uL RBC (3.93-5.22) 10^6/uL Hgb (11.2-15.7) g/dL Hct (36.0-46.0) % MCV (80-95) fL MCH (27.0-33.0) pg MCHC (32.0-36.0) % RDW (11.7-14.6) % Plt Count (130-400) 10^3/uL MPV (8.0-11.0) fL Immature Gran % Neutrophils % Lymphocytes % Monocytes % Eosinophils % Basophils % Nucleated RBC % (0.0-0.3) % Absolute Neutrophils (1.2-6.7) 10^3/uL Absolute Lymphocytes (1.2-3.4) 10^3/uL Absolute Monocytes (0.1-0.8) 10^3/uL Absolute Eosinophils (0.0-0.7) 10^3/uL Absolute Basophils (0.0-0.2) 10^3/uL D-Dimer (<500) ng/mlFEU 940 H Sodium (136-145) mmol/L Potassium (3.5-5.1) mmol/L Chloride (98-107) mmol/L Carbon Dioxide (21.0-32.0) mmol/L Anion Gap (3-11) mmol/L BUN (7-18) mg/dL Creatinine (0.55-1.02) mg/dL Est GFR (CKD-EPI 2020) (mL/min/1.73m2) Glucose (74-106) mg/dL Calcium (8.5-10.1) mg/dL Magnesium (1.8-2.4) mg/dL Total Bilirubin (0.2-1.0) mg/dL AST (15-37) U/L ALT (14-59) U/L Alkaline Phosphatase (46-116) U/L Troponin I (<or=60) ng/L NT-Pro-B Natriuret Pep (<300) pg/mL Total Protein (6.4-8.2) g/dL Albumin (3.4-5.0) g/dL COVID-19 Source SARS-CoV-2 (PCR) (Negative) Influenza Type A (PCR) (Negative) Influenza Type B (PCR) (Negative) RSV (PCR) (Negative) Sign Out <Anila Taveras MD - Last Filed: 07/22/22 11:43> Sign Out Data: Sign Out Comment: Patient signed out to Dr. Tello with CT chest, CT cervical spine results, repeat EKG, reassessment pending Last updated by Anila Taveras MD at 06/12/22 16:40
[2022-06-12] MEDS: Normal Saline - Diluent 50 ML VIAL IJ (15:49)
[2022-06-12] MEDS: Omnipaque 350 MG/ML 100 ML BTL IJ (15:49)
[2022-06-12] MEDS: Normal Saline Flush 10 ML SYR IVP (15:50)
--- NOTE | 2022-06-12 16:15 | RT.EKG_ITS ---
APPROVED REPORT Exam: Resting ECG Reason for Exam: repeat chest pain Patient Location: E HR:72 bpm ECG Measurements Heart Rate 72 AXIS NM 155 P 32 QRSd 82 QRS 25 QT 433 T 37 QTc 476 Conclusion Sinus rhythm...normal P axis, V-rate 60- 99 normal sinus rhythm, normal axis, normal interals, non ischemic
--- NOTE | 2022-06-12 16:20 | DI.VRAD_ITS ---
PROCEDURE INFORMATION: Exam: CTA Chest With Contrast Exam date and time: 06/12/2022 3:47 PM Age: 67 years old Clinical indication: Shortness of breath TECHNIQUE: Imaging protocol: Computed tomographic angiography of the chest with contrast. 3D rendering (Not supervised by radiologist): MIP and/or 3D reconstructed images were created by the technologist. Contrast material: OMNIAPQUE 350; Contrast volume: 100 ml; Contrast route: INTRAVENOUS (IV); COMPARISON: CT CHEST PE CTA 12/08/2020 3:35 AM FINDINGS: Pulmonary arteries: No evidence of pulmonary embolus to the segmental level. Aorta: No aneurysm of the aorta. No dissection of the aorta. Lungs: Bibasilar atelectasis Pleural spaces: Unremarkable. No pneumothorax. No pleural effusion. Heart: Unremarkable. No cardiomegaly. No pericardial effusion. Coronary arteries: Coronary artery calcifications may indicate coronary artery disease. Lymph nodes: Unremarkable. No enlarged lymph nodes. Bones/joints: Unremarkable. No acute fracture. Soft tissues: Unremarkable. IMPRESSION: 1. No evidence of pulmonary embolus to the segmental level. 2. No aneurysm of the aorta. 3. No dissection of the aorta. Dictated and Authenticated by: Lizzeth Ellison MD. Ordering:JERMAINE High MD
[2022-06-12 16:45] LABS: Troponin I < 50 ng/L (<or=60)
== END 2022-06-12 17:53 | disposition home or self-care (01) ==
PROVIDERS: Student in an Organized Health Care Education/Training Program; Emergency Provider Emergency Medicine; PCP Nurse Practitioner Family
DX: J44.1 Chronic obstructive pulmonary disease with (acute) exacerbation (principal); R79.89 Other specified abnormal findings of blood chemistry; I10 Essential (primary) hypertension; R60.0 Localized edema; Z79.01 Long term (current) use of anticoagulants; Z79.52 Long term (current) use of systemic steroids; Z20.822 Contact with and (suspected) exposure to COVID-19
CPT/HCPCS: 36415; 71275; 80053; 87637; 93005; 96374; 99285; 71045; 83735; 83880; 84484; 85025; 85379; 93010; J2930; J3490; J7620

== ENCOUNTER 2023-01-26 16:50 | Emergency (ER) | payer MEDICARE, MEDICAID, SELFPAY ==
[2023-01-26 16:54] VITALS: BP 162/91; PULSE 83; RESP 18; TEMP 36.7; O2SAT 97
--- NOTE | 2023-01-26 17:30 | DI.CT_ITS ---
Exam(s) CT HEAD WO EXAM: CT HEAD WO CLINICAL HISTORY: right sided facial droop. TECHNIQUE: Imaging Protocol: Axial computed tomography images with coronal and sagittal reformatted images were created and reviewed COMPARISON: CT HEAD WITHOUT CONTRAST from 01/11/2017 FINDINGS: Ventricles and Extra axial spaces: Normal in size and morphology for the patient's age. Hemorrhage: None. Cerebral parenchyma: There is no evidence of an acute territorial infarct. There are areas of decrea sed attenuation in the white matter most consistent with small vessel ischemic disease. There is a p artially empty sella. Midline shift: None. Brainstem/Cerebellum: Normal. Calvarium: Normal. Visualized Paranasal sinuses/Mastoids: Clear. Soft Tissues: Unremarkable. IMPRESSION: 1. No acute intracranial process. 2. If is continued clinical concern, an MRI of the brain may be obtained for further evaluation. 3. Findings were discussed with the emergency department at 6:54 p.m. on 01/26/2023. RADIATION DOSE DELIVERED: 674.02mGy.cm Total DLP DATA REPOSITORY: All CT scans at this facility are submitted to the National Radiology Data Registry (NRDR) Dose Index Registry (DIR) with the [employer] ([employer]). RADIATION OPTIMIZATION: All CT scans at this facility use at least one of these dose optimization te chniques: automated exposure control; mA and/or kV adjustment per patient size (includes targeted exa ms where dose is matched to clinical indication); or iterative reconstruction.
--- NOTE | 2023-01-26 17:31 | ED.GENADUL_ITS ---
Discharge Plan Disposition Patient Disposition: Home Condition: Stable Discharge Details Clinical Impression: Khan's palsy Primary Care Provider: MEGA DIGGS ED Provider: Selam Hadley Home Meds and New Rx's Prescriptions: New prednisone 20 mg tablet 60 mg PO DAILY Qty: 18 0RF Continued rizatriptan [Maxalt-DECORATING INSTRUCTOR] 10 MG tablet,disintegrating 10 mg PO ONCE fluoxetine 40 MG capsule 40 mg PO DAILY calcium carb-vit D2-minerals Tablet 2 tab PO DAILY fluticasone furoate-vilanterol [Breo Ellipta] 100-25 mcg/dose blister with device 1 inh inhalation DAILY propranolol 10 mg tablet 10 mg PO BID loratadine 10 MG tablet 10 mg PO DAILY albuterol sulfate [ProAir HFA] 1 PUFF HFA aerosol inhaler 2 puff Inhalation Q2H PRN PRNQty: 1 3RF Rx Instructions: use with spacer Spiriva with HandiHaler 18 MCG capsule, w/inhalation device 18 mcg Inhalation DAILY Qty: 1 3RF Rx Instructions: take every day to prevent worsening of COPD Eliquis 5 MG tablet 5 mg PO BID Qty: 60 3RF Rx Instructions: Take 2 tablets in the morning and 2 tablets in the evening for 6 days (until 12/31/2016), then take 1 tablet in the morning and 1 tablet in the evening. budesonide-formoterol [Symbicort] 160-4.5 mcg/actuation Hfa Aerosol Inhaler 2 puff Inhalation BID Qty: 6 0RF cholecalciferol (vitamin D3) [Vitamin D3] 25 mcg (1,000 unit) Capsule 25 mcg PO DAILY Discharge Instructions Instructions: Khan Palsy (ED) Referrals: MEGA DIGGS, [facility] [facility] [Primary Care Provider] - Discharge Data Discharge Date/Time-TO BE ENTERED AT DEPARTURE: 01/26/23 19:14 Medical Decision Making 68-year-old female patient following viral illness with GI symptoms a week later presents with right-sided facial weakness there is no other deficits noted. She denies any facial numbness or pain there are no lesions to suggest herpes zoster. She denies any recent tick exposure. She has no headaches visual changes or symptoms of bilateral facial weakness to suggest Traci Castañeda?'s. We will obtain some routine blood work, and add a tick panel even though she denies tick exposure we will also obtain head CT to rule out intracranial process. Working differential at this time is Khan's palsy Medical Records Medical records reviewed: Yes I reviewed the patient's medical records. Imaging Data Radiologic Study: Imaging: CT Scan Radiologist's impression: IMPRESSION: 1. ? No acute intracranial findings. 2. ? Chronic small vessel deep white matter ischemic features. 3. ? Stable exam since 01/11/2017. Lab Data Lab results reviewed: Yes I reviewed the patient's lab results. Labs: Laboratory Tests Range/Units 01/26/23 01/26/23 01/26/23 17:50 17:50 17:50 WBC (4.4-10.8) 10^3/uL 7.35 RBC (3.93-5.22) 10^6/uL 4.96 Hgb (11.2-15.7) g/dL 13.8 Hct (36.0-46.0) % 43.2 MCV (80-95) fL 87 MCH (27.0-33.0) pg 27.8 MCHC (32.0-36.0) % 31.9 L RDW (11.7-14.6) % 13.1 Plt Count (130-400) 10^3/uL 261 MPV (8.0-11.0) fL 10.0 Immature Gran % 0.3 Neutrophils % 61.1 Lymphocytes % 28.3 Monocytes % 8.0 Eosinophils % 1.9 Basophils % 0.4 Nucleated RBC % (0.0-0.3) % 0.0 Absolute Neutrophils (1.2-6.7) 10^3/uL 4.49 Absolute Lymphocytes (1.2-3.4) 10^3/uL 2.08 Absolute Monocytes (0.1-0.8) 10^3/uL 0.59 Absolute Eosinophils (0.0-0.7) 10^3/uL 0.14 Absolute Basophils (0.0-0.2) 10^3/uL 0.03 ESR (0-30) mm/hr 24 Sodium (136-145) mmol/L 139 Potassium (3.5-5.1) mmol/L 4.1 Chloride (98-107) mmol/L 103 Carbon Dioxide (21.0-32.0) mmol/L 28.4 Anion Gap (3-11) mmol/L 7.6 BUN (7-18) mg/dL 16 Creatinine (0.55-1.02) mg/dL 0.8 Est GFR (CKD-EPI 2020) (mL/min/1.73m2) 80.21 Glucose (74-106) mg/dL 98 Calcium (8.5-10.1) mg/dL 9.3 Total Bilirubin (0.2-1.0) mg/dL 0.3 AST (15-37) U/L 11 L ALT (14-59) U/L 18 Alkaline Phosphatase (46-116) U/L 104 C-Reactive Protein (0.0-0.3) mg/dL 0.34 H Total Protein (6.4-8.2) g/dL 7.5 Albumin (3.4-5.0) g/dL 3.6 HPI General Mode of arrival: ambulatory . Date/Time Provider Initiated Documentation: 01/26/23 17:00 . Limitations to Documentation: no limitations . Information obtained by: patient . HPI Narrative: This is a 68-year-old female patient history of essential tremor hypertension asthma COPD smoking history who presents to the emergency department for evaluation of a right-sided facial droop that she has had for 2 days now. This was preceded by gastroenteritis she experienced last week with symptoms of nausea and vomiting. She has had no fever she states that her nausea vomiting has completely resolved she has been taking good p.o. she has had no fever no chest pain shortness of breath no headaches no visual disturbance states she feels at her baseline other than the right-sided facial droop. Related Data Home Medications Medication Instructions Recorded Confirmed loratadine 10 mg tablet 10 mg PO DAILY 09/22/12 01/26/23 fluoxetine 40 mg capsule 40 mg PO DAILY 01/11/15 01/26/23 rizatriptan 10 mg disintegrating 10 mg PO ONCE 01/11/15 01/26/23 tablet (Maxalt-DECORATING INSTRUCTOR) albuterol sulfate 90 mcg/actuation 2 puff inhalation Q2H PRN PRN #1 10/29/16 01/26/23 aerosol inhaler (ProAir HFA) inh tiotropium bromide 18 mcg capsule 18 mcg inhalation DAILY #1 tab-cap 10/29/16 01/26/23 with inhalation device (Spiriva with HandiHaler) apixaban 5 mg tablet (Eliquis) 5 mg PO BID #60 tabs 12/24/16 01/26/23 budesonide-formoterol HFA 160 2 puff inhalation BID #6 grams 07/28/18 01/26/23 mcg-4.5 mcg/actuation aerosol inhaler (Symbicort) cholecalciferol (vitamin D3) 25 25 mcg PO DAILY 04/08/20 01/26/23 mcg (1,000 unit) capsule (Vitamin D3) calcium carbonate-vitamin 2 tab PO DAILY 05/25/21 01/26/23 D2-minerals tablet fluticasone furoate 100 1 inh inhalation DAILY 10/05/21 01/26/23 mcg-vilanterol 25 mcg/dose inhalation powder (Breo Ellipta) propranolol 10 mg tablet 10 mg PO BID 10/05/21 01/26/23 prednisone 20 mg tablet 60 mg PO DAILY #18 tabs 01/26/23 Previous Rx's Medication Instructions Recorded albuterol sulfate 90 mcg/actuation 2 puff inhalation Q2H PRN PRN #1 10/29/16 aerosol inhaler (ProAir HFA) inh tiotropium bromide 18 mcg capsule 18 mcg inhalation DAILY #1 tab-cap 10/29/16 with inhalation device (Spiriva with HandiHaler) apixaban 5 mg tablet (Eliquis) 5 mg PO BID #60 tabs 12/24/16 budesonide-formoterol HFA 160 2 puff inhalation BID #6 grams 07/28/18 mcg-4.5 mcg/actuation aerosol inhaler (Symbicort) prednisone 20 mg tablet 60 mg PO DAILY #18 tabs 01/26/23 Allergies Allergy/AdvReac Type Severity Reaction Status Date / Time aspirin AdvReac Mild Nausea Unverified 01/26/23 16:59 egg AdvReac Mild Nausea Unverified 01/26/23 16:59 chocolate flavor AdvReac cough Unverified 01/26/23 16:59 migraines General Stated Complaint: CVA/TIA KIERAN: 3 Review of Systems All systems reviewed & are unremarkable except as noted in HPI and below PFSH All Active Problems (Updated 01/26/23 @ 18:55 by Selam Hadley NP) Khan's palsy (Acute) Personal history of nicotine dependence (Acute) Asthma-COPD overlap syndrome (Acute) Insect bite (Acute) Pulmonary embolism (Chronic) Essential tremor (Acute) Discharge planning issues (Acute) Medical History Acute exacerbation of chronic obstructive pulmonary disease Anxiety with depression Arthritis CAP (community acquired pneumonia) COPD (chronic obstructive pulmonary disease) COPD with acute exacerbation Depression with anxiety DVT prophylaxis Elevated hemoglobin A1c Essential tremor H/O: HTN (hypertension) Influenza A Knee joint pain Pneumonia Pulmonary emboli Screening for breast cancer Shortness of breath Weight gain Surgical History History of bunionectomy History of partial hysterectomy Family History Sister Diabetes Brother Hypertension Other Heart disease Social History Smoking/Tobacco Use Status: Former Tobacco Use Smoking risk assessment performed?: Yes Alcohol Intake: never Drug use: Never Substance use type: does not use Do you feel safe at home: Yes Do you feel safe in your relationship?: Yes Exam HENMT Face and sinus: face symmetric (Right-sided facial droop) Course Vital Signs Vital signs: Vital Signs Temperature 36.7 C 01/26/23 16:54 Pulse 83 01/26/23 16:54 Respiratory Rate 18 01/26/23 16:54 Blood Pressure 162/91 H 01/26/23 16:54 Pulse Oximetry 97 01/26/23 16:54 Temperature 36.7 C 01/26/23 16:54 Temperature Source Skin 01/26/23 16:54 Pulse 83 01/26/23 16:54 Respiratory Rate 18 01/26/23 16:54 Blood Pressure 162/91 H 01/26/23 16:54 Blood Pressure Position Sitting 01/26/23 16:54 Pulse Oximetry 97 01/26/23 16:54 Oxygen Delivery Method Room Air 01/26/23 16:54 Oxygen Flow Rate 0 01/26/23 16:54 Pain Level 0 01/26/23 16:54
[2023-01-26 17:57] LABS: Abs Immature Grans 0.02 10^3/uL (0.0-0.06); Absolute Basophil Count 0.03 10^3/uL (0.0-0.2); Absolute Eosinophil Count 0.14 10^3/uL (0.0-0.7); Absolute Lymphocyte Count 2.08 10^3/uL (1.2-3.4); Absolute Monocyte Count 0.59 10^3/uL (0.1-0.8); Absolute Neutrophil Count 4.49 10^3/uL (1.2-6.7); Basophils % 0.4; Eosinophils % 1.9; HCT 43.2 % (36.0-46.0); HGB 13.8 g/dL (11.2-15.7); Immature Grans % 0.3; Lymphocytes % 28.3; MCH 27.8 pg (27.0-33.0); MCHC 31.9 % (32.0-36.0); MCV 87 fL (80-95); Neutrophils % 61.1; Platelet Count 261 10^3/uL (130-400); RBC 4.96 10^6/uL (3.93-5.22); RDW 13.1 % (11.7-14.6); RDW-SD 41.3 fL; WBC 7.35 10^3/uL (4.4-10.8)
[2023-01-26 17:58] LABS: ESR 24 mm/hr (0-30)
[2023-01-26 18:13] LABS: ALT 18 U/L (14-59); AST 11 U/L (15-37); Albumin 3.6 g/dL (3.4-5.0); Alkaline Phosphatase 104 U/L (46-116); Anion Gap 7.6 mmol/L (3-11); BUN 16 mg/dL (7-18); Bilirubin, Total 0.3 mg/dL (0.2-1.0); C-Reactive Protein 0.34 mg/dL (0.0-0.3); CO2 28.4 mmol/L (21.0-32.0); CREATININE 0.8 mg/dL (0.55-1.02); Calcium 9.3 mg/dL (8.5-10.1); Chloride 103 mmol/L (98-107); Estimated GFR 80.21 (mL/min/1.73m2); Glucose 98 mg/dL (74-106); Potassium 4.1 mmol/L (3.5-5.1); Sodium 139 mmol/L (136-145); Total Protein 7.5 g/dL (6.4-8.2)
--- NOTE | 2023-01-26 18:56 | DI.VRAD_ITS ---
PROCEDURE INFORMATION: Exam: CT Head Without Contrast Exam date and time: 01/26/2023 6:43 PM Age: 68 years old Clinical indication: Weakness, facial and other: Right sided facial droop TECHNIQUE: Imaging protocol: Computed tomography of the head without contrast. Radiation optimization: All CT scans at this facility use at least one of these dose optimization techniques: automated exposure control; mA and/or kV adjustment per patient size (includes targeted exams where dose is matched to clinical indication); or iterative reconstruction. COMPARISON: CT HEAD WITHOUT CONTRAST 01/11/2017 8:14 PM FINDINGS: Brain: No intracranial hemorrhage. No large territory acute CVA. Periventricular decreased attenuation most consistent with sequela of chronic small vessel ischemia. No mass. No edema. Cerebral ventricles: No ventriculomegaly. Paranasal sinuses: Visualized sinuses are unremarkable. No fluid levels. Mastoid air cells: Visualized mastoid air cells are well aerated. Bones/joints: Unremarkable. No acute fracture. Soft tissues: Unremarkable. Vasculature: Bilateral cavernous carotid arteries with atherosclerotic calcium. IMPRESSION: 1. No acute intracranial findings. 2. Chronic small vessel deep white matter ischemic features. 3. Stable exam since 01/11/2017. Dictated and Authenticated by: Vicente Marin MD. Ordering:CRISTOBAL Doss MD
[2023-01-26 19:05] VITALS: BP 162/83; PULSE 62; RESP 16; TEMP 36.7; O2SAT 97
[2023-01-26] MEDS: predniSONE 20 MG TAB 60 MG PO (19:13)
[2023-01-26 19:27] VITALS: RESP 16
[2023-01-29 10:49] LABS: Lyme Ab w Rflx to Lyme Confirm Negative (Negative)
[2023-01-30 15:08] LABS: Anaplasma phagocytophilum Negative (Negative); B. miyamotoi PCR Negative (Negative); Babesia divergens/MO-1 Negative (Negative); Babesia duncani Negative (Negative); Babesia microti Negative (Negative); Ehrlichia chaffeensis Negative (Negative); Ehrlichia ewingii/canis Negative (Negative); Ehrlichia muris eauclairensis Negative (Negative)
== END 2023-01-26 19:14 | disposition home or self-care (01) ==
PROVIDERS: Emergency Provider Nurse Practitioner Acute Care; PCP Nurse Practitioner Family
DX: G51.0 Bell's palsy (principal); G25.0 Essential tremor; I10 Essential (primary) hypertension; Z86.711 Personal history of pulmonary embolism; Z79.01 Long term (current) use of anticoagulants; Z87.891 Personal history of nicotine dependence
CPT/HCPCS: 80053; 85652; 87798; 99284; 70450; 85025; 86140; 86618; J7512

== ENCOUNTER 2023-04-30 18:48 | Outpatient (REF) | payer MEDICARE, MEDICAID, SELFPAY ==
[2023-04-30 19:24] LABS: Abs Immature Grans 0.03 10^3/uL (0.0-0.06); Absolute Basophil Count 0.03 10^3/uL (0.0-0.2); Absolute Eosinophil Count 0.11 10^3/uL (0.0-0.7); Absolute Lymphocyte Count 2.27 10^3/uL (1.2-3.4); Absolute Monocyte Count 0.58 10^3/uL (0.1-0.8); Absolute Neutrophil Count 4.33 10^3/uL (1.2-6.7); Basophils % 0.4; Eosinophils % 1.5; HGB 13.3 g/dL (11.2-15.7); Immature Grans % 0.4; Lymphocytes % 30.9; MCH 27.9 pg (27.0-33.0); MCHC 31.7 % (32.0-36.0); MCV 88 fL (80-95); MPV 10.4 fL (8.0-11.0); Monocytes % 7.9; Neutrophils % 58.9; Platelet Count 289 10^3/uL (130-400); RBC 4.76 10^6/uL (3.93-5.22); RDW 12.8 % (11.7-14.6); RDW-SD 41.5 fL; WBC 7.35 10^3/uL (4.4-10.8)
[2023-04-30 19:44] LABS: ALT 22 U/L (14-59); AST 17 U/L (15-37); Albumin 3.5 g/dL (3.4-5.0); Alkaline Phosphatase 91 U/L (46-116); Anion Gap 7.4 mmol/L (3-11); BUN 18 mg/dL (7-18); Bilirubin, Total 0.3 mg/dL (0.2-1.0); CO2 30.6 mmol/L (21.0-32.0); CREATININE 0.8 mg/dL (0.55-1.02); Calcium 9.7 mg/dL (8.5-10.1); Calculated LDL 164 mg/dL (<100); Chloride 103 mmol/L (98-107); Cholesterol 246 mg/dL (<200); Estimated GFR 80.21 (mL/min/1.73m2); Glucose 92 mg/dL (74-106); HDL Cholesterol 61 mg/dL (40-60); Magnesium 2.2 mg/dL (1.8-2.4); Potassium 4.4 mmol/L (3.5-5.1); Sodium 141 mmol/L (136-145); TSH (W/Ref FT4) 4.08 uIU/mL (0.36-3.74); Triglyceride 109 mg/dL (<150)
[2023-04-30 20:04] LABS: FREE T4 0.78 ng/dL (0.76-1.46)
[2023-04-30 20:23] LABS: Hemoglobin A1C 5.9 % (<5.7)
[2023-04-30 20:45] LABS: Vitamin D 25 Total 20.7 ng/mL (30-100)
== END 2023-04-30 18:49 | disposition home or self-care (01) ==
LOC: NCHCN 18:48
PROVIDERS: PCP Nurse Practitioner Family; Visit Provider Nurse Practitioner Family
DX: I10 Essential (primary) hypertension (principal); R73.09 Other abnormal glucose; F41.8 Other specified anxiety disorders; E55.9 Vitamin D deficiency, unspecified; J44.9 Chronic obstructive pulmonary disease, unspecified
CPT/HCPCS: 80053; 80061; 82306; 83036; 83735; 84439; 84443; 85025

== ENCOUNTER 2023-07-12 08:42 | Emergency (ER) | payer MEDICARE, MEDICAID, SELFPAY ==
[2023-07-12] VITALS (11 sets, daily range): BP systolic 120–151; BP diastolic 68–85; PULSE 81–102; RESP 18–22; TEMP 36.6–37.2; O2SAT 92–99
--- NOTE | 2023-07-12 08:45 | RT.EKG_ITS ---
APPROVED REPORT Exam: Resting ECG Reason for Exam: sob Patient Location: E HR:97 bpm ECG Measurements Heart Rate 97 AXIS MI 147 P 44 QRSd 81 QRS 58 QT 350 T 59 QTc 445 Conclusion Sinus rhythm...normal P axis, V-rate 60- 99 Consider left ventricular hypertrophy...(S V1+R V5/V6) >3.25mV
--- NOTE | 2023-07-12 10:00 | DI.RAD_ITS ---
Exam(s) XR PORTABLE CHEST AP EXAM: XR PORTABLE CHEST AP CLINICAL HISTORY: cough, pui TECHNIQUE: 2D digital imaging was performed of the chest. One image was obtained. An AP view was ob tained. COMPARISON: CR XR PORTABLE CHEST AP from 04/08/2020 CR,XR XR PORTABLE CHEST AP from 06/12/2022 FINDINGS: MEDIASTINUM: Normal. HEART: Normal. PULMONARY VASCULATURE: Normal. LUNGS: Small faint right perihilar infiltrate. The left lung is clear. PLEURAL SPACE: No pleural effusion or pneumothorax. BONE:Within normal limits for the patient's age. OTHER FINDINGS:Normal. IMPRESSION: Question of a small faint right perihilar infiltrate. DATA REPOSITORY: RADIATION DOSE DELIVERED:
--- NOTE | 2023-07-12 10:08 | ED.GENADUL_ITS ---
HPI General Mode of arrival: ambulatory . Date/Time Provider Initiated Documentation: 07/12/23 09:00 . Limitations to Documentation: no limitations . Information obtained by: patient . HPI Narrative: 68yo female with history of COPD, HTN, pulmonary embolism on eliquis, here with chief complaint of generally not feeling well. Patient notes respiratory illness with cough, congestion and runny nose over the past 4 days. She was exposed to her sick grandson this past weekend. Patient notes associated wheezing and SOB. No calf pain or leg swelling. Patient alse note chest discomfort described as heartburn over the past few days. Discomfort is central burning that is moderate and does improve with antiacids. Related Data Home Medications Medication Instructions Recorded Confirmed loratadine 10 mg tablet 10 mg PO DAILY 09/22/12 07/12/23 fluoxetine 40 mg capsule 40 mg PO DAILY 01/11/15 07/12/23 rizatriptan 10 mg disintegrating 10 mg PO ONCE 01/11/15 07/12/23 tablet (Maxalt-INDUSTRIAL INSULATOR) albuterol sulfate 90 mcg/actuation 2 puff inhalation Q2H PRN PRN #1 10/29/16 07/12/23 aerosol inhaler (ProAir HFA) inh tiotropium bromide 18 mcg capsule 18 mcg inhalation DAILY #1 tab-cap 10/29/16 07/12/23 with inhalation device (Spiriva with HandiHaler) apixaban 5 mg tablet (Eliquis) 5 mg PO BID #60 tabs 12/24/16 07/12/23 budesonide-formoterol HFA 160 2 puff inhalation BID #6 grams 07/28/18 07/12/23 mcg-4.5 mcg/actuation aerosol inhaler (Symbicort) cholecalciferol (vitamin D3) 25 25 mcg PO DAILY 04/08/20 07/12/23 mcg (1,000 unit) capsule (Vitamin D3) calcium carbonate-vitamin 2 tab PO DAILY 05/25/21 07/12/23 D2-minerals tablet fluticasone furoate 100 1 inh inhalation DAILY 10/05/21 07/12/23 mcg-vilanterol 25 mcg/dose inhalation powder (Breo Ellipta) propranolol 10 mg tablet 10 mg PO BID 10/05/21 07/12/23 famotidine 20 mg tablet (Pepcid) 20 mg PO BID #60 tabs 07/12/23 prednisone 20 mg tablet 40 mg (2 x 20 mg) PO DAILY #8 tabs 07/12/23 Previous Rx's Medication Instructions Recorded albuterol sulfate 90 mcg/actuation 2 puff inhalation Q2H PRN PRN #1 10/29/16 aerosol inhaler (ProAir HFA) inh tiotropium bromide 18 mcg capsule 18 mcg inhalation DAILY #1 tab-cap 10/29/16 with inhalation device (Spiriva with HandiHaler) apixaban 5 mg tablet (Eliquis) 5 mg PO BID #60 tabs 12/24/16 budesonide-formoterol HFA 160 2 puff inhalation BID #6 grams 07/28/18 mcg-4.5 mcg/actuation aerosol inhaler (Symbicort) famotidine 20 mg tablet (Pepcid) 20 mg PO BID #60 tabs 07/12/23 prednisone 20 mg tablet 40 mg (2 x 20 mg) PO DAILY #8 tabs 07/12/23 Allergies Allergy/AdvReac Type Severity Reaction Status Date / Time aspirin AdvReac Mild Nausea Unverified 07/12/23 08:59 egg AdvReac Mild Nausea Unverified 07/12/23 08:59 chocolate flavor AdvReac cough Unverified 07/12/23 08:59 migraines General Stated Complaint: RespSymp KIERAN: 3 Review of Systems All systems reviewed & are unremarkable except as noted in HPI and below Constitutional Constitutional: Denies fever(s) ENT Ears, Nose, Mouth, and Throat: Reports as per HPI Cardiovascular Cardiovascular: Reports as per HPI Exam Const General: cooperative and no acute distress HENVT Mouth: moist mucous membranes Other: sinus congestion Eyes Conjunctivae: normal conjunctivae Sclera: normal sclerae Neck Neck: trachea midline and supple Resp Effort & Inspection: not tachypneic Auscultation: no rales, no rhonchi and wheezes Cardio Rate: regular rate and not tachycardic Rhythm: regular rhythm GI Palpation: soft, not firm, no guarding, no masses, not rigid and nontender Skin General skin exam: no rashes or lesions noted Neuro General: patient alert, patient awake, patient oriented x3 and tone normal Extrem General: no pedal edema, no calf tenderness and no edema Psych Appearance: grossly normal Mental Status: mental status grossly normal Speech and Movement: speech and movement normal Course Vital Signs Vital signs: Vital Signs Temperature 36.6 C 07/12/23 08:50 Pulse 91 H 07/12/23 08:50 Respiratory Rate 20 07/12/23 08:50 Blood Pressure 151/78 H 07/12/23 08:50 Pulse Oximetry 99 07/12/23 08:50 Temperature 37.2 C 07/12/23 09:20 Temperature Source Temporal Artery Scan 07/12/23 09:20 Pulse 85 07/12/23 09:20 Respiratory Rate 22 07/12/23 09:20 Respiratory Effort Normal, Non-Labored 07/12/23 09:20 Respiratory Depth Normal 07/12/23 09:20 Blood Pressure 124/72 07/12/23 09:20 Pulse Oximetry 92 07/12/23 09:20 Oxygen Delivery Method Room Air 07/12/23 09:20 Oxygen Flow Rate 0 07/12/23 08:50 Medical Decision Making 1015 --68-year-old female with multiple medical problems including history of COPD, pulmonary embolism, on Eliquis, here with respiratory illness including cough, sinus congestion, generally not feeling well with associated heartburn over the past few days. Patient is saturating well. She does have bilateral expiratory wheeze. Normotensive. EKG was reviewed and interpreted by me: Please report: Sinus rhythm 97 bpm, normal axis, no STEMI, nondiagnostic. Consider ACS. Plan to check troponin and trend. I am concerned for COVID versus pneumonia versus other viral infection with acute exacerbation of COPD. I will give DuoNeb treatments as well as Solu- Medrol IV. Plan to reassess. Initial [id number] COVID testing is negative. PCR sent. Will obtain chest x-ray. I will give Pepcid IV for chest discomfort. -- Patient reassessed and CP completely resolved. Delta trop pending. -- Labs reviewed and RSV positive. Mild leukocytosis. Troponin negative. Chest x-ray reviewed and interpreted by radiology: Question of a small faint right perihilar infiltrate. Patient reassessed and wheeze completely resolved after DuoNebs and Solu-Medrol. Plan for discharge with close outpatient follow-up. Patient has sufficient supply of nebulizer treatments. I will prescribe prednisone burst. Usual customary discharge instructions reviewed with the patient. Quality:SDOH Health Related Social Needs: No Data to Display PFSH All Active Problems (Updated 07/12/23 @ 13:32 by Tomy Taveras MD) GERD (gastroesophageal reflux disease) (Chronic) Acute exacerbation of chronic obstructive pulmonary disease (Acute) Respiratory syncytial virus infection (Acute) Personal history of nicotine dependence (Acute) Asthma-COPD overlap syndrome (Acute) Insect bite (Acute) Pulmonary embolism (Chronic) Essential tremor (Acute) Discharge planning issues (Acute) Medical History Shortness of breath Acute exacerbation of chronic obstructive pulmonary disease Anxiety with depression H/O: HTN (hypertension) Knee joint pain Pneumonia Elevated hemoglobin A1c Screening for breast cancer DVT prophylaxis CAP (community acquired pneumonia) COPD with acute exacerbation Influenza A Pulmonary emboli COPD (chronic obstructive pulmonary disease) Weight gain Arthritis Essential tremor Depression with anxiety Surgical History History of bunionectomy History of partial hysterectomy Family History Sister Diabetes Brother Hypertension Other Heart disease Social History Smoking/Tobacco Use Status: Former Tobacco Use Smoking risk assessment performed?: Yes Alcohol Intake: never Drug use: Occasionally Substance use type: marijuana Do you feel safe at home: Yes Do you feel safe in your relationship?: Yes Discharge Plan Disposition Patient Disposition: Home Condition: Stable Discharge Details Clinical Impression: Respiratory syncytial virus infection, Acute exacerbation of chronic obstructive pulmonary disease, GERD (gastroesophageal reflux disease) Primary Care Provider: MEGA DIGGS ED Provider: Tomy Taveras Home Meds and New Rx's Prescriptions: New prednisone 20 mg tablet 40 mg PO DAILY Qty: 8 0RF Rx Instructions: start 07/13/23 famotidine [Pepcid] 20 mg tablet 20 mg PO BID Qty: 60 0RF Continued rizatriptan [Maxalt-INDUSTRIAL INSULATOR] 10 MG tablet,disintegrating 10 mg PO ONCE fluoxetine 40 MG capsule 40 mg PO DAILY calcium carb-vit D2-minerals Tablet 2 tab PO DAILY fluticasone furoate-vilanterol [Breo Ellipta] 100-25 mcg/dose blister with device 1 inh inhalation DAILY propranolol 10 mg tablet 10 mg PO BID loratadine 10 MG tablet 10 mg PO DAILY albuterol sulfate [ProAir HFA] 1 PUFF HFA aerosol inhaler 2 puff Inhalation Q2H PRN PRNQty: 1 3RF Rx Instructions: use with spacer tiotropium bromide [Spiriva with HandiHaler] 18 MCG capsule, w/inhalation device 18 mcg Inhalation DAILY Qty: 1 3RF Rx Instructions: take every day to prevent worsening of COPD Eliquis 5 MG tablet 5 mg PO BID Qty: 60 3RF Rx Instructions: Take 2 tablets in the morning and 2 tablets in the evening for 6 days (until 12/31/2016), then take 1 tablet in the morning and 1 tablet in the evening. budesonide-formoterol [Symbicort] 160-4.5 mcg/actuation Hfa Aerosol Inhaler 2 puff Inhalation BID Qty: 6 0RF cholecalciferol (vitamin D3) [Vitamin D3] 25 mcg (1,000 unit) Capsule 25 mcg PO DAILY Discontinued prednisone 20 mg tablet 60 mg PO DAILY Qty: 18 0RF Discharge Instructions Instructions: Viral Pneumonia (ED), COPD (Chronic Obstructive Pulmonary Disease) (ED), GERD (Gastroesophageal Reflux Disease) (ED) Additional Instructions: Please drink plenty of fluid to stay hydrated. Please allow for plenty of rest. Use your nebulizer treatments as prescribed. Please contact your primary care physician to arrange follow-up. Return to the ER immediately for any worsening or new concerning symptoms. Referrals: MEGA DIGGS, PT SKILLED [Primary Care Provider] -
[2023-07-12 10:21] LABS: Lactate 0.6 mmol/L (0.6-1.4)
[2023-07-12 10:22] LABS: Abs Immature Grans 0.04 10^3/uL (0.0-0.06); Absolute Basophil Count 0.05 10^3/uL (0.0-0.2); Absolute Eosinophil Count 0.11 10^3/uL (0.0-0.7); Absolute Lymphocyte Count 1.51 10^3/uL (1.2-3.4); Absolute Monocyte Count 1.15 10^3/uL (0.1-0.8); Absolute Neutrophil Count 8.52 10^3/uL (1.2-6.7); Basophils % 0.4; HCT 39.8 % (36.0-46.0); HGB 12.6 g/dL (11.2-15.7); Immature Grans % 0.4; Lymphocytes % 13.3; MCH 27.3 pg (27.0-33.0); MCHC 31.7 % (32.0-36.0); MCV 86 fL (80-95); MPV 9.5 fL (8.0-11.0); Monocytes % 10.1; Neutrophils % 74.8; Platelet Count 250 10^3/uL (130-400); RBC 4.62 10^6/uL (3.93-5.22); RDW 13.3 % (11.7-14.6); RDW-SD 41.4 fL; WBC 11.39 10^3/uL (4.4-10.8)
[2023-07-12] MEDS: methylPREDNISolone SUCC 125 MG VIAL 60 MG IVP (10:28)
[2023-07-12] MEDS: Mylanta Suspension 30 ML CUP PO (10:28)
[2023-07-12] MEDS: Famotidine 20 MG/2 ML VIAL IVP (10:28)
[2023-07-12 10:30] LABS: COVID-19 PCR Negative (Negative); Influenza A PCR Negative (Negative); Influenza B PCR Negative (Negative)
[2023-07-12 10:33] LABS: RSV PCR Positive (Negative); Source Nasopharynx
[2023-07-12] MEDS: Albuterol/Ipratropium 3 ML UPD VIAL UPD ×2 (10:34→11:42)
[2023-07-12 10:41] LABS: ALT 19 U/L (14-59); AST 13 U/L (15-37); Albumin 3.2 g/dL (3.4-5.0); Alkaline Phosphatase 84 U/L (46-116); Anion Gap 9.4 mmol/L (3-11); BUN 19 mg/dL (7-18); Bilirubin, Total 0.5 mg/dL (0.2-1.0); CO2 26.6 mmol/L (21.0-32.0); CREATININE 0.8 mg/dL (0.55-1.02); Calcium 9.3 mg/dL (8.5-10.1); Chloride 103 mmol/L (98-107); Estimated GFR 80.21 (mL/min/1.73m2); Glucose 122 mg/dL (74-106); Potassium 3.8 mmol/L (3.5-5.1); Sodium 139 mmol/L (136-145); Total Protein 7.2 g/dL (6.4-8.2); Troponin I < 50 ng/L (< or =60)
[2023-07-12 10:53] LABS: Procalcitonin < 0.1 ng/mL
[2023-07-12 13:40] LABS: Troponin I < 50 ng/L (< or =60)
== END 2023-07-12 14:24 | disposition home or self-care (01) ==
PROVIDERS: Emergency Provider Student in an Organized Health Care Education/Training Program; PCP Nurse Practitioner Family
DX: J44.1 Chronic obstructive pulmonary disease with (acute) exacerbation (principal); J06.9 Acute upper respiratory infection, unspecified; B97.4 Respiratory syncytial virus as the cause of diseases classified elsewhere; K21.9 Gastro-esophageal reflux disease without esophagitis; Z86.711 Personal history of pulmonary embolism; Z79.01 Long term (current) use of anticoagulants; Z87.891 Personal history of nicotine dependence; I10 Essential (primary) hypertension
CPT/HCPCS: 80053; 84145; 87426; 87637; 93005; 94640; 96374; 96375; 99284; 71045; 83605; 84484; 85025; 93010; J2930; J7620

== ENCOUNTER 2023-07-14 11:25 | Observation (INO) | payer MEDICARE, MEDICAID, SELFPAY ==
[2023-07-14] VITALS (29 sets, daily range): BP systolic 88–213; BP diastolic 57–112; PULSE 71–98; RESP 5–33; TEMP 36.8–37.4; O2SAT 88–95
--- NOTE | 2023-07-14 11:30 | RT.EKG_ITS ---
APPROVED REPORT Exam: Resting ECG Reason for Exam: SOB Patient Location: E HR:82 bpm ECG Measurements Heart Rate 82 AXIS KS 161 P 35 QRSd 77 QRS 27 QT 389 T 34 QTc 455 Conclusion Sinus rhythm normal axis non specific ST changes
--- NOTE | 2023-07-14 11:47 | W.ED.GENAD ---
HPI General Date/Time Provider Initiated Documentation: 07/14/23 11:42. Limitations to Documentation: no limitations. Information obtained by: patient. HPI Narrative: 68-year-old female with past medical history of COPD,, PE on Eliquis, hypertension presents for evaluation of worsening shortness of breath and cough. Patient presented to the emergency department previously for similar symptoms. At that time she was diagnosed with RSV and discharged with prednisone. Patient reports that she has been having symptoms for about a week, progressively worsening. Coughing a lot, reports that cough is productive. Reports that grandchildren have been sick. Denies any chest pain. Denies any fever. Denies any home oxygen requirement. Does use breathing treatments and inhalers. Has been using them with increased frequency for last 2 days without significant improvement. Related Data Home Medications Medication Instructions Recorded Confirmed loratadine 10 mg tablet 10 mg PO DAILY 09/22/12 07/14/23 fluoxetine 40 mg capsule 40 mg PO DAILY 01/11/15 07/14/23 rizatriptan 10 mg disintegrating 10 mg PO ONCE 01/11/15 07/14/23 tablet (Maxalt-LIVESTOCK BUYER) albuterol sulfate 90 mcg/actuation 2 puff inhalation Q2H PRN PRN #1 10/29/16 07/14/23 aerosol inhaler (ProAir HFA) inh tiotropium bromide 18 mcg capsule 18 mcg inhalation DAILY #1 tab-cap 10/29/16 07/14/23 with inhalation device (Spiriva with HandiHaler) apixaban 5 mg tablet (Eliquis) 5 mg PO BID #60 tabs 12/24/16 07/14/23 budesonide-formoterol HFA 160 2 puff inhalation BID #6 grams 07/28/18 07/14/23 mcg-4.5 mcg/actuation aerosol inhaler (Symbicort) cholecalciferol (vitamin D3) 25 25 mcg PO DAILY 04/08/20 07/14/23 mcg (1,000 unit) capsule (Vitamin D3) calcium carbonate-vitamin 2 tab PO DAILY 05/25/21 07/14/23 D2-minerals tablet fluticasone furoate 100 1 inh inhalation DAILY 10/05/21 07/14/23 mcg-vilanterol 25 mcg/dose inhalation powder (Breo Ellipta) propranolol 10 mg tablet 10 mg PO BID 10/05/21 07/14/23 famotidine 20 mg tablet (Pepcid) 20 mg PO BID #60 tabs 07/12/23 07/14/23 prednisone 20 mg tablet 40 mg (2 x 20 mg) PO DAILY #8 tabs 07/12/23 07/14/23 Previous Rx's Medication Instructions Recorded albuterol sulfate 90 mcg/actuation 2 puff inhalation Q2H PRN PRN #1 10/29/16 aerosol inhaler (ProAir HFA) inh tiotropium bromide 18 mcg capsule 18 mcg inhalation DAILY #1 tab-cap 10/29/16 with inhalation device (Spiriva with HandiHaler) apixaban 5 mg tablet (Eliquis) 5 mg PO BID #60 tabs 12/24/16 budesonide-formoterol HFA 160 2 puff inhalation BID #6 grams 07/28/18 mcg-4.5 mcg/actuation aerosol inhaler (Symbicort) famotidine 20 mg tablet (Pepcid) 20 mg PO BID #60 tabs 07/12/23 prednisone 20 mg tablet 40 mg (2 x 20 mg) PO DAILY #8 tabs 07/12/23 Allergies Allergy/AdvReac Type Severity Reaction Status Date / Time aspirin AdvReac Mild Nausea Unverified 07/14/23 11:35 egg AdvReac Mild Nausea Unverified 07/14/23 11:35 chocolate flavor AdvReac cough Unverified 07/14/23 11:35 migraines General Stated Complaint: SOB KIERAN: 2 Exam Narrative Exam Narrative: Review of Systems: All systems reviewed & are unremarkable except as noted in HPI and below: CONSTITUTIONAL: Alert and oriented Well-developed, mild respiratory distress HEENT: NCAT EYES: PERRL, no conjunctival injection NOSE nares patent MOUTH Moist MM NECK: Symmetric, trachea midline, No thyromegaly THROAT oropharynx clear CVS: RRR, No murmurs or gallops. Peripheral pulses 2+ and equal in all extremities Brisk capillary refill in all extremities. No peripheral edema RESP: Mild respiratory distress, no hypoxia, poor air movement. Wheezing noted GI: Soft, Nontender, Nondistended, No organomegaly MSK: Extremities with full range of motion, no deformity or TTP SKIN: Warm, Dry. No rashes or lesions. NEURO: No focal neurologic deficits. 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 Sensation grossly intact Normal strength throughout PSYCH: Appropriate mood and affect Course Vital Signs Vital signs: Vital Signs Temperature 36.9 C 07/14/23 11:36 Pulse 81 07/14/23 11:36 Respiratory Rate 20 07/14/23 11:36 Blood Pressure 213/112 H 07/14/23 11:36 Pulse Oximetry 94 07/14/23 11:36 Temperature 36.9 C 07/14/23 11:36 Temperature Source Oral 07/14/23 11:36 Pulse 81 07/14/23 11:36 Respiratory Rate 20 07/14/23 11:36 Respiratory Effort Short of Breath, Incrsd Work of Breathing 07/14/23 11:41 Blood Pressure 213/112 H 07/14/23 11:36 Pulse Oximetry 94 07/14/23 11:36 Oxygen Delivery Method Room Air 07/14/23 11:36 Oxygen Flow Rate 0 07/14/23 11:36 Pain Level 8 07/14/23 11:36 Medical Decision Making Emergent evaluation of cough and shortness of breath. Initial differential includes viral illness, pneumonia, sepsis, respiratory failure. I reviewed the medical record and noted prior emergency department evaluation, chest x-ray and RSV testing. Patient was discharged with steroids. At this time the patient does not have fever or hypoxia however she does have respiratory distress, some increased work of breathing and wheezing. I will give an additional dose of steroids at this time, bronchodilator. I will check lab work and repeat x-ray. Lab work reviewed. White blood cell count is 10.9, no significant change from yesterday. CMP and lactic acid within normal limits. Chest x-ray reviewed, independently interpreted by me, right-sided perihilar infiltrate, increased consolidation from yesterday. Blood cultures have been ordered. Antibiotics have been given. Patient has now developed some mild hypoxia requiring 2 L of supplemental oxygen. She is also requiring repeat nebs. Given her persistent wheezing, I will order a dose of magnesium as well. Given her RSV infection in the setting of COPD exacerbation, mild hypoxia and concern for pneumonia, will admit the patient for further treatment. Medical Records Medical records reviewed: Yes I reviewed the patient's medical records. Lab Data Lab results reviewed: Yes I reviewed the patient's lab results. ECG Data Attestation: I personally reviewed and interpreted this ECG (s) as follows: Interpretation: Sinus 82, nonspecific ST changes Quality:SDOH Health Related Social Needs: No Data to Display PFSH All Active Problems (Updated 07/14/23 @ 14:33 by Melvin Weston MD) Pneumonia (Acute) Hypoxia (Acute) GERD (gastroesophageal reflux disease) (Chronic) Acute exacerbation of chronic obstructive pulmonary disease (Acute) Respiratory syncytial virus infection (Acute) Personal history of nicotine dependence (Acute) Asthma-COPD overlap syndrome (Acute) Insect bite (Acute) Pulmonary embolism (Chronic) Essential tremor (Acute) Discharge planning issues (Acute) Medical History Shortness of breath Acute exacerbation of chronic obstructive pulmonary disease Anxiety with depression H/O: HTN (hypertension) Knee joint pain Pneumonia Elevated hemoglobin A1c Screening for breast cancer DVT prophylaxis CAP (community acquired pneumonia) COPD with acute exacerbation Influenza A Pulmonary emboli COPD (chronic obstructive pulmonary disease) Weight gain Arthritis Essential tremor Depression with anxiety Surgical History History of bunionectomy History of partial hysterectomy Family History Sister Diabetes Brother Hypertension Other Heart disease Social History Smoking/Tobacco Use Status: Former Tobacco Use Smoking risk assessment performed?: Yes Alcohol Intake: never Drug use: Occasionally Substance use type: marijuana Housing: apartment Do you feel safe at home: Yes Do you feel safe in your relationship?: Yes Discharge Plan Disposition Patient Disposition: Admit to [facility] Condition: Stable Discharge Details Chief Complaint: SOB Clinical Impression: Respiratory syncytial virus infection, Hypoxia, Acute exacerbation of chronic obstructive pulmonary disease, Pneumonia Primary Care Provider: MEGA DIGGS ED Provider: Melvin Weston Home Meds and New Rx's Prescriptions: No Action rizatriptan [Maxalt-LIVESTOCK BUYER] 10 MG tablet,disintegrating 10 mg PO ONCE fluoxetine 40 MG capsule 40 mg PO DAILY calcium carb-vit D2-minerals Tablet 2 tab PO DAILY fluticasone furoate-vilanterol [Breo Ellipta] 100-25 mcg/dose blister with device 1 inh inhalation DAILY propranolol 10 mg tablet 10 mg PO BID loratadine 10 MG tablet 10 mg PO DAILY albuterol sulfate [ProAir HFA] 1 PUFF HFA aerosol inhaler 2 puff Inhalation Q2H PRN PRNQty: 1 3RF Rx Instructions: use with spacer tiotropium bromide [Spiriva with HandiHaler] 18 MCG capsule, w/inhalation device 18 mcg Inhalation DAILY Qty: 1 3RF Rx Instructions: take every day to prevent worsening of COPD prednisone 20 mg tablet 40 mg PO DAILY Qty: 8 0RF Rx Instructions: start 07/13/23 famotidine [Pepcid] 20 mg tablet 20 mg PO BID Qty: 60 0RF Eliquis 5 MG tablet 5 mg PO BID Qty: 60 3RF Rx Instructions: Take 2 tablets in the morning and 2 tablets in the evening for 6 days (until 12/31/2016), then take 1 tablet in the morning and 1 tablet in the evening. budesonide-formoterol [Symbicort] 160-4.5 mcg/actuation Hfa Aerosol Inhaler 2 puff Inhalation BID Qty: 6 0RF cholecalciferol (vitamin D3) [Vitamin D3] 25 mcg (1,000 unit) Capsule 25 mcg PO DAILY
[2023-07-14] MEDS: Albuterol/Ipratropium 3 ML UPD VIAL UPD ×3 (11:48→13:55)
[2023-07-14] MEDS: methylPREDNISolone SUCC 125 MG VIAL IVP (11:55)
--- NOTE | 2023-07-14 12:00 | DI.RAD_ITS ---
Exam(s) XR PORTABLE CHEST AP EXAM: XR PORTABLE CHEST AP CLINICAL HISTORY: sob TECHNIQUE: 2D digital imaging was performed of the chest. One image was obtained. An AP view was ob tained. COMPARISON: CR,XR XR PORTABLE CHEST AP from 06/12/2022 CR XR PORTABLE CHEST AP from 07/12/2023 FINDINGS: MEDIASTINUM: Mediastinum is further accentuated likely due to the AP portable technique. HEART: The heart appears mildly enlarged. This may in part be due to the AP technique but mild cardi omegaly should be considered. PULMONARY VASCULATURE: There is prominence of the right hilum. Again this may be due to technique. The possibility of a right hilar mass should be considered. LUNGS: No focal consolidating infiltrates are present. PLEURAL SPACE: No pleural effusion or pneumothorax. BONE:Within normal limits for the patient's age. OTHER FINDINGS:Normal. IMPRESSION: 1. Mild prominence of the mediastinum including the right hilum. This may be in part due to the AP t echnique but a central mass or adenopathy should be considered. A CT scan of the chest with contrast is recommended for further evaluation. 2. No focal consolidating infiltrates. Unexpected findings DATA REPOSITORY: RADIATION DOSE DELIVERED:
--- NOTE | 2023-07-14 12:45 | DI.VRAD_ITS ---
PROCEDURE INFORMATION: Exam: XR Chest Exam date and time: 07/14/2023 12:24 PM Age: 68 years old Clinical indication: Other: Cough, SOB TECHNIQUE: Imaging protocol: Radiologic exam of the chest. Views: 1 view. COMPARISON: CR XR PORTABLE CHEST AP 07/12/2023 10:31 AM FINDINGS: Tubes, catheters and devices: There are electrocardiographic leads on the thorax. Lungs: No consolidations or vascular congestion. Pleural spaces: Unremarkable. No pleural effusion. No pneumothorax. Heart/Mediastinum: Mild multi chamber cardiac enlargement. The azygous vein diameter is increased. The aorta is unremarkable. Bones/joints: Mild degenerative changes of the osseous structures. IMPRESSION: Mild cardiomegaly. No definite acute pulmonary process. Dictated and Authenticated by: Deonte Villalta MD. Ordering:EUGENE Adams MD
[2023-07-14] MEDS: DOXYCYCLINE 100 MG in Normal Saline 100 ML IVPB ×2 (12:46→22:20)
[2023-07-14 13:11] LABS: Lactate 0.9 mmol/L (0.6-1.4)
[2023-07-14 13:13] LABS: Abs Immature Grans 0.04 10^3/uL (0.0-0.06); Absolute Basophil Count 0.03 10^3/uL (0.0-0.2); Absolute Lymphocyte Count 0.83 10^3/uL (1.2-3.4); Absolute Monocyte Count 0.31 10^3/uL (0.1-0.8); Basophils % 0.3; HCT 38.3 % (36.0-46.0); HGB 12.5 g/dL (11.2-15.7); Immature Grans % 0.4; Lymphocytes % 7.6; MCH 27.7 pg (27.0-33.0); MCHC 32.6 % (32.0-36.0); MCV 85 fL (80-95); MPV 9.8 fL (8.0-11.0); Monocytes % 2.8; Neutrophils % 88.9; Platelet Count 277 10^3/uL (130-400); RBC 4.51 10^6/uL (3.93-5.22); RDW 13.2 % (11.7-14.6); RDW-SD 41.5 fL; WBC 10.95 10^3/uL (4.4-10.8)
[2023-07-14 13:15] LABS: Absolute Neutrophil Count 9.73 10^3/uL (1.2-6.7)
[2023-07-14 13:35] LABS: ALT 19 U/L (14-59); AST 12 U/L (15-37); Albumin 3.1 g/dL (3.4-5.0); Alkaline Phosphatase 79 U/L (46-116); Anion Gap 10.6 mmol/L (3-11); BUN 14 mg/dL (7-18); Bilirubin, Total 0.4 mg/dL (0.2-1.0); CO2 24.4 mmol/L (21.0-32.0); CREATININE 0.6 mg/dL (0.55-1.02); Chloride 106 mmol/L (98-107); Estimated GFR 97.71 (mL/min/1.73m2); Glucose 130 mg/dL (74-106); Potassium 4.1 mmol/L (3.5-5.1); Sodium 141 mmol/L (136-145); Total Protein 7.3 g/dL (6.4-8.2)
[2023-07-14 13:38] LABS: NT-proBNP 262 pg/mL (<300)
[2023-07-14] MEDS: MAGNESIUM SULFATE 2 GM/50 ML BAG IVPB (13:56)
--- NOTE | 2023-07-14 15:55 | HPE_ITS ---
Date of service: 07/14/23 Time of Service: 15:55 Assessment and Plan Assessment and plan (1) Acute exacerbation of chronic obstructive pulmonary disease: Status: Acute Assessment and plan: Continue doxycycline,prednisone, oxygen, home inhalers Starting IS and vibrapep (2) Respiratory syncytial virus infection: Status: Acute Assessment and plan: Continue supportive care (3) HTN (hypertension): Status: None Assessment and plan: continue home propanolol 10 mg BID (4) On deep vein thrombosis (DVT) prophylaxis: Status: Acute Assessment and plan: On apixaban 5 mg po BID at home for PE history History of Present Illness History of Present Illness Chief Complaint: Difficulty breathing, shortness of breath Narrative: This 60 old female with past medical history of COPD, PE on Eliquis, hypertension, essential tremors, presented to the ED at [facility] today for evaluation of increased shortness of breath over the past week and cough. On 07/12/2023, the patient presented to the ED with similar symptoms and was found to be RSV positive and was discharged home on prednisone. On arrival to the ED the patient reported coughing a lot with productive sputum. In the emergency patient also denies fever, home oxygen requirement and using breathing treatments and inhalers as ordered and escalating treatment to 2 times daily without improvement. Remarkable labs in the emergency room were WBC 10.95 glucose 130. Chest x-ray report denotes no definite acute pulmonary process with mild cardiomegaly. The patient was initially the ED provider elected to start the patient on IV doxycycline due to comparison of current x- ray to the previous one done on 07/12/2023 and mentioning worsening of right hilar opacity during discussion with the hospitalist. Mentioned also made at the time of increased oxygen requirement in the ED for new hypoxia finding. Patient was admitted to the hospitalist service on the medical surgical floor as an observation admission. On admission to the floor, the patient denies headache lightheadedness, change in vision, sore throat, chest pain, nausea, vomiting, diarrhea or constipation, or dysuria. Patient also denies night sweats, chills, fevers. Patient reports coughing with production of green sputum from her regular clear colored sputum. Review of Systems Narrative: The patient denies headache lightheadedness, change in vision, sore throat, chest pain, nausea, vomiting, diarrhea or constipation, or dysuria. Patient also denies night sweats, chills, fevers. Patient reports coughing with production of green sputum from her regular clear colored sputum. PFSH All Active Problems (Updated 07/14/23 @ 18:56 by Saumya Trevino APRN) On deep vein thrombosis (DVT) prophylaxis (Acute) Pneumonia (Acute) Hypoxia (Acute) GERD (gastroesophageal reflux disease) (Chronic) Acute exacerbation of chronic obstructive pulmonary disease (Acute) Respiratory syncytial virus infection (Acute) Personal history of nicotine dependence (Acute) Asthma-COPD overlap syndrome (Acute) Insect bite (Acute) Pulmonary embolism (Chronic) Essential tremor (Acute) Discharge planning issues (Acute) Medical History Shortness of breath Acute exacerbation of chronic obstructive pulmonary disease Anxiety with depression H/O: HTN (hypertension) Knee joint pain Pneumonia Elevated hemoglobin A1c Screening for breast cancer DVT prophylaxis CAP (community acquired pneumonia) COPD with acute exacerbation Influenza A Pulmonary emboli COPD (chronic obstructive pulmonary disease) Weight gain Arthritis Essential tremor Depression with anxiety Surgical History History of bunionectomy History of partial hysterectomy Family History Sister Diabetes Brother Hypertension Other Heart disease Social History Smoking/Tobacco Use Status: Former Tobacco Use Smoking risk assessment performed?: Yes Alcohol Intake: never Drug use: Occasionally Substance use type: marijuana Housing: apartment Do you feel safe at home: Yes Do you feel safe in your relationship?: Yes Meds Allergies and Home Medications Allergies Allergy/AdvReac Type Severity Reaction Status Date / Time aspirin AdvReac Mild Nausea Unverified 07/14/23 11:35 egg AdvReac Mild Nausea Unverified 07/14/23 11:35 chocolate flavor AdvReac cough Unverified 07/14/23 11:35 migraines Home Medications Medication Instructions Recorded Confirmed Type loratadine 10 mg tablet 10 mg PO DAILY 09/22/12 07/14/23 History fluoxetine 40 mg capsule 40 mg PO DAILY 01/11/15 07/14/23 History rizatriptan 10 mg disintegrating 10 mg PO ONCE 01/11/15 07/14/23 History tablet (Maxalt-DIRECTOR ENVIRONMENTAL) albuterol sulfate 90 mcg/actuation 2 puff inhalation Q2H PRN PRN #1 10/29/16 07/14/23 Rx aerosol inhaler (ProAir HFA) inh tiotropium bromide 18 mcg capsule 18 mcg inhalation DAILY #1 tab-cap 10/29/16 07/14/23 Rx with inhalation device (Spiriva with HandiHaler) apixaban 5 mg tablet (Eliquis) 5 mg PO BID #60 tabs 12/24/16 07/14/23 Rx budesonide-formoterol HFA 160 2 puff inhalation BID #6 grams 07/28/18 07/14/23 Rx mcg-4.5 mcg/actuation aerosol inhaler (Symbicort) cholecalciferol (vitamin D3) 25 25 mcg PO DAILY 04/08/20 07/14/23 History mcg (1,000 unit) capsule (Vitamin D3) calcium carbonate-vitamin 2 tab PO DAILY 05/25/21 07/14/23 History D2-minerals tablet fluticasone furoate 100 1 inh inhalation DAILY 10/05/21 07/14/23 History mcg-vilanterol 25 mcg/dose inhalation powder (Breo Ellipta) propranolol 10 mg tablet 10 mg PO BID 10/05/21 07/14/23 History famotidine 20 mg tablet (Pepcid) 20 mg PO BID #60 tabs 07/12/23 07/14/23 Rx prednisone 20 mg tablet 40 mg (2 x 20 mg) PO DAILY #8 tabs 07/12/23 07/14/23 Rx Exam Narrative Exam Narrative: Constitutional The patient is lying in bed comfortable and cooperative during the interview. The patient is well groomed without acute distress and has obese body habitus HENMT: Head is atraumatic, normocephalic, no lymphadenopathy. Facial structures with normal appearance Eyes: Well aligned, intact ROM Neck: no meningeal signs Neuro:alert and oriented to self, person, place, time and situation. No neurological focal deficit Resp: clear upper anterior lungs bilaterally, diminished lower lobes posteriorly, scattered ronchi at times clearing with cough Cardio: regular rhythm, S1, S2, no murmur, capillary refill<3 sec., bilateral radial and dorsalis pedis pulses are positive, palpable GI: Abdomen is rounded, not distended, soft and non tender, bowel sounds are present : no bladder distension Back/spine/Pelvis: No back tenderness, normal alignment Integumentary: No skin lesions or rash Extremities: strength 5/5 to bilateral lower and upper extremities Psych: RASS 0, congruent mood and normal affect. Results Labs 07/14/23 12:59 07/14/23 12:59 Labs: Laboratory Results - last 24 hr 07/14/23 12:59 WBC 10.95 H RBC 4.51 Hgb 12.5 Hct 38.3 MCV 85 MCH 27.7 MCHC 32.6 RDW 13.2 Plt Count 277 MPV 9.8 Immature Gran % 0.4 Neutrophils % 88.9 Lymphocytes % 7.6 Monocytes % 2.8 Eosinophils % 0.0 Basophils % 0.3 Nucleated RBC % 0.0 Absolute Neutrophils 9.73 H Absolute Lymphocytes 0.83 L Absolute Monocytes 0.31 Absolute Eosinophils 0.00 Absolute Basophils 0.03 VBG Lactate 0.9 Sodium 141 Potassium 4.1 Chloride 106 Carbon Dioxide 24.4 Anion Gap 10.6 BUN 14 Creatinine 0.6 Est GFR (CKD-EPI 2020) 97.71 Glucose 130 H Calcium 9.0 Total Bilirubin 0.4 AST 12 L ALT 19 Alkaline Phosphatase 79 NT-Pro-B Natriuret Pep 262 Total Protein 7.3 Albumin 3.1 L Last Vital Signs Temp 36.8 C 07/14/23 15:14 Pulse 83 07/14/23 15:14 Resp 19 07/14/23 15:14 BP 166/93 H 07/14/23 15:14 Pulse Ox 91 L 07/14/23 15:14 Time Spent Time spent with Patient: >75 minutes Time was spent: preparing to see the patient(eg.review tests), obtaining and/or reviewing separately otained hiistory, ordering medications,tests, procedures, referring, communicating with other health health care aide, indepentently interpreting results, counseling the patient and care coordination
[2023-07-14] MEDS: Budesonide/Formoterol 160/4.5 6 GM 60 PUFF INH IH (20:05)
[2023-07-14] MEDS: Normal Saline Flush 10 ML SYR IVP (20:18)
[2023-07-14] MEDS: Apixaban 5 MG TAB PO (20:18)
[2023-07-14] MEDS: Famotidine 20 MG TAB PO (20:18)
[2023-07-15] MEDS: Albuterol 2.5 MG/3 ML INH SOLN VIAL UPD ×3 (01:00→19:30)
[2023-07-15 03:09] VITALS: BP 155/69; PULSE 84; RESP 20; TEMP 36.9; O2SAT 90
[2023-07-15 06:12] LABS: Abs Immature Grans 0.05 10^3/uL (0.0-0.06); Absolute Basophil Count 0.02 10^3/uL (0.0-0.2); Absolute Lymphocyte Count 1.88 10^3/uL (1.2-3.4); Absolute Monocyte Count 0.92 10^3/uL (0.1-0.8); Absolute Neutrophil Count 7.22 10^3/uL (1.2-6.7); Basophils % 0.2; HCT 38.9 % (36.0-46.0); HGB 12.6 g/dL (11.2-15.7); Immature Grans % 0.5; Lymphocytes % 18.6; MCH 27.8 pg (27.0-33.0); MCHC 32.4 % (32.0-36.0); MCV 86 fL (80-95); MPV 10.1 fL (8.0-11.0); Monocytes % 9.1; Neutrophils % 71.6; Platelet Count 283 10^3/uL (130-400); RBC 4.53 10^6/uL (3.93-5.22); RDW 13.2 % (11.7-14.6); RDW-SD 41.7 fL; WBC 10.09 10^3/uL (4.4-10.8)
[2023-07-15 06:26] LABS: Magnesium 2.5 mg/dL (1.8-2.4)
[2023-07-15 06:32] LABS: Anion Gap 10.9 mmol/L (3-11); BUN 19 mg/dL (7-18); CO2 24.1 mmol/L (21.0-32.0); CREATININE 0.7 mg/dL (0.55-1.02); Calcium 9.1 mg/dL (8.5-10.1); Chloride 107 mmol/L (98-107); Estimated GFR 94.15 (mL/min/1.73m2); Glucose 114 mg/dL (74-106); Potassium 3.8 mmol/L (3.5-5.1); Sodium 142 mmol/L (136-145)
[2023-07-15 07:43] VITALS: BP 161/84; PULSE 92; RESP 22; TEMP 36.7; O2SAT 90
[2023-07-15] MEDS: Budesonide/Formoterol 160/4.5 6 GM 60 PUFF INH IH ×2 (08:36→20:32)
[2023-07-15 08:37] VITALS: O2SAT 93
[2023-07-15] MEDS: Apixaban 5 MG TAB PO ×2 (09:02→20:32)
[2023-07-15] MEDS: predniSONE 20 MG TAB 40 MG PO (09:02)
[2023-07-15] MEDS: FLUoxetine 20 MG CAP 40 MG PO (09:02)
[2023-07-15] MEDS: Loratidine 10 MG TAB PO (09:02)
[2023-07-15] MEDS: Famotidine 20 MG TAB PO ×2 (09:03→20:32)
[2023-07-15] MEDS: Normal Saline Flush 10 ML SYR IVP ×2 (09:03→20:32)
--- NOTE | 2023-07-15 09:36 | PDOC.CMIN ---
Date of service: 07/15/23 Time of Service: 09:37 Care Management Initial Assmt Initial Assessment REASON FOR HOSPITALIZATION:: COPD Exacerbation PREVIOUS FUNCTIONAL STATUS/SOCIAL/FAMILY SUPPORTS:: Tracie lives in an apartment in [place], [place] with her son Roge. She has 2 other sons and a daughter. Tracie, or Ingrid as she likes to be called, is retired but formerly worked at [employer] and at the [employer]. Ingrid has arthritis in her legs and wears a brace on her left leg. She receives [employer] and is on disability. She does not drive and relies on her granddaughter or the taxi for transportation. CURRENT FUNCTIONAL STATUS:: Ingrid was sitting up in a chair when CM met with her. She was open and friendly and engaged well with CM. She informed CM that her position at the [employer] was the last position she held. 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 She shared that she really enjoyed her interactions with the students the best. Although she needs to wear a brace, Ingrid stated that her balance is good and she does not fall at home. She is even able to climb stairs safely. ADVANCE DIRECTIVES:: none Has patient been provided with info about the portal/API?: Yes Did the patient sign up for the portal?: No CODE STATUS:: Full Code INSURANCE COVERAGE / FINANCIAL ISSUES:: [facility] Medicare replacement plan CURRENT HOME/COMMUNITY SERVICES/EQUIPMENT:: brace for left leg [employer] Disability PRIMARY CARE PHYSICIAN:: Sandra Platt POTENTIAL DISCHARGE NEEDS:: follow up with PCP and plan of care PATIENT/FAMILY EDUCATION NEEDS:: Review of discharge instructions, activity, limitations, follow up plan, discuss Ask Me Three TRANSPORTATION:: RCT vs private vehicle PLAN:: Anticipate Tracie will be discharged home with no new services when medically cleared by provider. She will follow up with her PCP and plan of care and transport with friend/family vs taxi or RCT. CM will follow and support discharge plans. PFSH All Active Problems (Updated 07/14/23 @ 18:56 by Saumya Trevino APRN) On deep vein thrombosis (DVT) prophylaxis (Acute) Pneumonia (Acute) Hypoxia (Acute) GERD (gastroesophageal reflux disease) (Chronic) Acute exacerbation of chronic obstructive pulmonary disease (Acute) Respiratory syncytial virus infection (Acute) Personal history of nicotine dependence (Acute) Asthma-COPD overlap syndrome (Acute) Insect bite (Acute) Pulmonary embolism (Chronic) Essential tremor (Acute) Discharge planning issues (Acute) Medical History Shortness of breath Acute exacerbation of chronic obstructive pulmonary disease Anxiety with depression H/O: HTN (hypertension) Knee joint pain Pneumonia Elevated hemoglobin A1c Screening for breast cancer DVT prophylaxis CAP (community acquired pneumonia) COPD with acute exacerbation Influenza A Pulmonary emboli COPD (chronic obstructive pulmonary disease) Weight gain Arthritis Essential tremor Depression with anxiety Surgical History History of bunionectomy History of partial hysterectomy Family History Sister Diabetes Brother Hypertension Other Heart disease Social History Smoking/Tobacco Use Status: Former Tobacco Use Smoking risk assessment performed?: Yes Alcohol Intake: never Drug use: Occasionally Substance use type: marijuana Housing: apartment Do you feel safe at home: Yes Do you feel safe in your relationship?: Yes SDOH(Care Management) Screening Will the Patient Participate in the Screening?: Yes Do you worry about having a steady place to live?: no Problems where you live: other In the past 12 months, have you had to go without electric, gas, oil or water in your home?: no Have you or anyone in your house had to go without enough food to eat?: no Has lack of transportation kept you from medical appointments or from doing things needed for daily living?: yes Has anyone in your support network made you feel unsafe for any reason?: no Health Related Social Needs Health related social needs: transportation insecurity(Z59.82)
[2023-07-15] MEDS: DOXYCYCLINE 100 MG in Normal Saline 100 ML IVPB ×2 (10:30→23:17)
--- NOTE | 2023-07-15 10:58 | PGE_ITS ---
Date of Service Date of service: 07/15/23 Time of Service: 10:58 Assessment and Plan Assessment and plan (1) Acute exacerbation of chronic obstructive pulmonary disease: Status: Acute Assessment and plan: Continue doxycycline IV and oral for a total of 5 days of therapy upon discharge,prednisone for total of 5 days, oxygen PRN weaned for sat 88 to 92%, home inhalers, PRN albuterol On RA now Continue IS and vibrapep (2) Respiratory syncytial virus infection: Status: Acute Assessment and plan: As above (3) HTN (hypertension): Status: None Assessment and plan: continue home propanolol 10 mg BID Discussed the use of propranolol as antihypertensive with patient, patient not aware of specific reason for which she would be on this beta-andrés and not on an BLANCA as lisinopril. (4) On deep vein thrombosis (DVT) prophylaxis: Status: Acute Assessment and plan: On apixaban 5 mg po BID at home for PE history no DVT prophylaxis drug indicated at this time (5) Discharge planning issues: Status: Acute Assessment and plan: No new need at this point.CM will f/u if need arises Discussed with Dr. Feliciano Subjective Subjective Patient reports: feels better, tolerating liquids well, tolerating a regular diet, voiding w/o difficulty, flatus, no bowel movement, bowel movement and shortness of breath (improved now and recovers w/i 3 minutes); denies diarrhea, nausea, vomiting or fever Exam Narrative Exam Narrative: Constitutional The patient is without acute distress; slight SOB witnessed on exertion, but sat remains 90-92% on RA HENMT: Facial structures with normal appearance Eyes: Well aligned Neuro:alert and oriented x 4 No neurological focal deficit Resp: Laryngeal wheezing, clear upper lung meyers, diminished bases Cardio: regular rhythm, S1, S2, positive pulses all 4 extremities GI: Abdomen is rounded, not distended, soft and non tender, bowel sounds are present Integumentary: No skin lesions or rash Extremities: strength 4/5 to left lower ext; 5/5 otherwise psych: RASS 0, congruent mood and normal affect. Objective Last Vital Signs Temp 36.7 C 07/15/23 07:43 Pulse 92 H 07/15/23 07:43 Resp 22 07/15/23 07:43 BP 161/84 H 07/15/23 07:43 Pulse Ox 93 07/15/23 08:37 Laboratory Results - last 24 hr 07/14/23 07/15/23 12:59 05:42 WBC 10.95 H 10.09 RBC 4.51 4.53 Hgb 12.5 12.6 Hct 38.3 38.9 MCV 85 86 MCH 27.7 27.8 MCHC 32.6 32.4 RDW 13.2 13.2 Plt Count 277 283 MPV 9.8 10.1 Immature Gran % 0.4 0.5 Neutrophils % 88.9 71.6 Lymphocytes % 7.6 18.6 Monocytes % 2.8 9.1 Eosinophils % 0.0 0.0 Basophils % 0.3 0.2 Nucleated RBC % 0.0 0.0 Absolute Neutrophils 9.73 H 7.22 H Absolute Lymphocytes 0.83 L 1.88 Absolute Monocytes 0.31 0.92 H Absolute Eosinophils 0.00 0.00 Absolute Basophils 0.03 0.02 VBG Lactate 0.9 Sodium 141 142 Potassium 4.1 3.8 Chloride 106 107 Carbon Dioxide 24.4 24.1 Anion Gap 10.6 10.9 BUN 14 19 H Creatinine 0.6 0.7 Est GFR (CKD-EPI 2020) 97.71 94.15 Glucose 130 H 114 H Calcium 9.0 9.1 Magnesium 2.5 H Total Bilirubin 0.4 AST 12 L ALT 19 Alkaline Phosphatase 79 NT-Pro-B Natriuret Pep 262 Total Protein 7.3 Albumin 3.1 L Time Spent with Patient Time Spent with Patient: >50 minutes Time was spent: preparing to see the patient(eg.review tests), ordering medications,tests, procedures, referring, communicating with other health healthcare insurance sales agent, indepentently interpreting results, counseling the patient and care coordination
[2023-07-15 16:05] VITALS: BP 161/101; PULSE 94; RESP 18; TEMP 37.2; O2SAT 91
[2023-07-15] MEDS: Propranolol 10 MG TAB PO ×2 (16:50→20:33)
[2023-07-16 00:23] VITALS: BP 151/92; PULSE 75; RESP 18; TEMP 36.9; O2SAT 92
[2023-07-16 06:42] LABS: Abs Immature Grans 0.13 10^3/uL (0.0-0.06); Absolute Basophil Count 0.03 10^3/uL (0.0-0.2); Absolute Eosinophil Count 0.03 10^3/uL (0.0-0.7); Absolute Lymphocyte Count 3.44 10^3/uL (1.2-3.4); Absolute Monocyte Count 1.05 10^3/uL (0.1-0.8); Absolute Neutrophil Count 6.77 10^3/uL (1.2-6.7); Basophils % 0.3; Eosinophils % 0.3; HCT 41.1 % (36.0-46.0); HGB 13.2 g/dL (11.2-15.7); Immature Grans % 1.1; MCH 28.1 pg (27.0-33.0); MCHC 32.1 % (32.0-36.0); MCV 88 fL (80-95); Monocytes % 9.2; Neutrophils % 59.1; RBC 4.69 10^6/uL (3.93-5.22); RDW 13.5 % (11.7-14.6); RDW-SD 43.2 fL; WBC 11.45 10^3/uL (4.4-10.8)
[2023-07-16 07:16] LABS: BUN 21 mg/dL (7-18); CREATININE 0.6 mg/dL (0.55-1.02); Calcium 8.8 mg/dL (8.5-10.1); Chloride 109 mmol/L (98-107); Estimated GFR 97.71 (mL/min/1.73m2); Glucose 83 mg/dL (74-106); Potassium 4.1 mmol/L (3.5-5.1); Sodium 143 mmol/L (136-145)
[2023-07-16 07:18] LABS: Diff Comment Agrees w/ Instrument; RBC Morphology Normal
[2023-07-16 07:23] VITALS: BP 171/92; PULSE 81; RESP 18; TEMP 37.2; O2SAT 93
[2023-07-16] MEDS: predniSONE 20 MG TAB 40 MG PO (07:37)
[2023-07-16] MEDS: FLUoxetine 20 MG CAP 40 MG PO (07:38)
[2023-07-16] MEDS: Famotidine 20 MG TAB PO (07:38)
[2023-07-16] MEDS: Apixaban 5 MG TAB PO (07:38)
[2023-07-16] MEDS: Loratidine 10 MG TAB PO (07:39)
[2023-07-16] MEDS: Normal Saline Flush 10 ML SYR IVP ×2 (07:39→10:04)
[2023-07-16] MEDS: Propranolol 10 MG TAB PO (07:45)
[2023-07-16] MEDS: Budesonide/Formoterol 160/4.5 6 GM 60 PUFF INH IH (07:54)
--- NOTE | 2023-07-16 09:36 | DSE_ITS ---
Date of service: 07/16/23 Time of Service: 09:37 DS: Diagnosis Discharge Diagnosis (1) Acute exacerbation of chronic obstructive pulmonary disease: Status: Acute (2) Respiratory syncytial virus infection: Status: Acute (3) HTN (hypertension): Status: None Discharge Plan Disposition Patient Disposition: Home Condition: Improving Discharge Details Reason For Visit: COPD exacerbation, RSV infection Admit Date/Time: 07/14/23 13:40 Admit Provider: Nicolas Feliciano Attending Provider: Nicolas Feliciano Primary Care Provider: MEGA DIGGS Hospital Course Hospital Course: This 60 old female with past medical history of COPD, PE on Eliquis, hypertension, essential tremors, presented to the ED at [facility] today for evaluation of increased shortness of breath over the past week and cough. On 07/12/2023, the patient presented to the ED with similar symptoms and was found to be RSV positive and was discharged home on prednisone; her procalcitonin was negative. On arrival to the ED the patient reported coughing a lot with productive sputum. In the emergency patient also denies fever, home oxygen requirement and using breathing treatments and inhalers as ordered and escalating treatment to 2 times daily without improvement. Labs in the ED were unremarkable except for a WBC of 10.95, blood sugar of 130; the patient has been on oral prednisone at home. No acute pulmonary findings noted on chest x-ray, but mild cardiomegaly noted. The patient was initially the ED provider elected to start the patient on IV doxycycline due to comparison of current x-ray to the previous one done on 07/12/2023 and mentioning worsening of right hilar opacity during discussion with the hospitalist. Mentioned also made at the time of increased oxygen requirement in the ED for new hypoxia finding. Patient was admitted to the hospitalist service on the medical surgical floor as an observation admission. During the stay, the patient continued to receive IV doxycycline, oral prednisone, and nebulizer treatments. Incentive spirometer and acapella were ordered for the patient as she also reported expectorating thick green sputum as opposed to her clear-colored sputum that she usually expectorated at home, and diminished breath sounds. The patient continues to receive her home meds for her chronic obstructive pulmonary disease. The patient was initially on propranolol for hypertension, but had not renewed it since September 2023 and was uncertain if her PCP stopped it. Patient initiated on amlodipine 5 mg orally for sustained blood pressure of over 150/90. Propranolol was discontinued.Labs were unremarkable except for WBC of 11.45 which could be attributed to the use of prednisone, the patient remains afebrile without any hypotension for the past 24 hours the patient had no further need for oxygen supplementation, and overall breathing status had improved as evidenced by decreased shortness of breath on exertion, decreased cough and decreased sputum production. The patient will be discharged on amlodipine 5 mg orally daily and further management will be done as per primary care practitioner. The patient will have short course of oral doxycycline, oral probiotics, and oral prednisone at home. The patient would like to get a pulmonary referral as an outpatient and this will have to be arranged through her primary care practitioner. The patient will have to see her primary care provider within 1 to 2 weeks. The patient will be instructed to come back to the emergency room if her respiratory status deteriorates. Discussed with Dr. Briseno Home Meds and New Rx's Prescriptions: New doxycycline hyclate 100 mg capsule 100 mg PO BID Qty: 5 0RF Bio-K plus 50 billion cell capsule,delayed release(DR/EC) 1 cap PO DAILY Qty: 3 0RF prednisone 20 mg tablet See Rx Instructions .ROUTE .COMPLEX Qty: 15 0RF Rx Instructions: 40 mg orally for 3 days then 30 for 3 days then 20mg for 3 days then 10 for 3 days then 5 for 3 days then stop amlodipine 5 mg tablet 5 mg PO DAILY Qty: 30 0RF Continued rizatriptan [Maxalt-OFFSET PLATE PREPARATION SUPERVISOR] 10 MG tablet,disintegrating 10 mg PO ONCE fluoxetine 40 MG capsule 40 mg PO DAILY loratadine 10 MG tablet 10 mg PO DAILY albuterol sulfate [ProAir HFA] 1 PUFF HFA aerosol inhaler 2 puff Inhalation Q2H PRN PRNQty: 1 3RF Rx Instructions: use with spacer tiotropium bromide [Spiriva with HandiHaler] 18 MCG capsule, w/inhalation device 18 mcg Inhalation DAILY Qty: 1 3RF Rx Instructions: take every day to prevent worsening of COPD famotidine [Pepcid] 20 mg tablet 20 mg PO BID Qty: 60 0RF calcium carbonate-vitamin D3 [Oyster Shell Calcium-Vit D3] 500 mg-5 mcg (200 unit) tablet 1 tab PO DAILY Patient Comments: TAKE ONE TABLET BY MOUTH EVERY DAY fluticasone furoate-vilanterol [Breo Ellipta] 200-25 mcg/dose blister with device 1 inh INHALATION DAILY Patient Comments: INHALE 1 PUFF BY MOUTH DIRECTED ONCE A DAY Eliquis 5 MG tablet 5 mg PO BID Qty: 60 3RF Rx Instructions: Take 2 tablets in the morning and 2 tablets in the evening for 6 days (until 12/31/2016), then take 1 tablet in the morning and 1 tablet in the evening. budesonide-formoterol [Symbicort] 160-4.5 mcg/actuation Hfa Aerosol Inhaler 2 puff Inhalation BID Qty: 6 0RF cholecalciferol (vitamin D3) [Vitamin D3] 25 mcg (1,000 unit) Capsule 25 mcg PO DAILY Discontinued prednisone 20 mg tablet 40 mg PO DAILY Qty: 8 0RF Rx Instructions: start 07/13/23 Discharge Instructions Stand Alone Forms: Nursing Discharge Form Referrals: MEGA DIGGS, [employer]CT PSYCHOLOGY FACULTY MEMBER [Primary Care Provider] - 07/26/23 2:00 pm Activity:: Activity as Tolerated Equipment/Supplies:: No Equipment Needed Diet:: As Tolerated Discharge Orders Discharge Orders: Discharge Order (Routine); Ordered 07/16/23 Ordered By: Saumya Trevino DS: Summary Time Spent with Patient providing and/or coordinating discharge services: Greater than 30 minutes Status at Discharge Functional status at discharge: independent ambulation Overall status at discharge: patient is progressing back to baseline Mental Status: mental status grossly normal Speech and Movement: speech and movement normal Mood: congruent mood Affect: normal affect Quality:SDOH Health Related Social Needs: Health related social needs transpo insecurity Exam Narrative Exam Narrative: Constitutional The patient is without acute distress; slight SOB witnessed on exertion subsiding with rest, sat remains 93 % on RA HENMT: Facial structures with normal appearance Neuro:alert and oriented x 4 w/o neurological focal deficit Resp: Laryngeal wheezing with exertion, clear upper lung meyers, diminished bases Cardio: regular rhythm, S1, S2, positive pulses all 4 extremities GI: Abdomen is not distended, soft and non tender Extremities: strength 4/5 to left lower ext has a knee brace at home; 5/5 otherwise psych: RASS 0, congruent mood and normal affect. Psych Mental Status: mental status grossly normal Speech and Movement: speech and movement normal Mood: congruent mood Affect: normal affect DS: Data Vitals/I&O Vitals and I&O: Vital Signs Temperature 37.2 C 07/16/23 07:23 Temperature Source Tympanic 07/16/23 07:23 Pulse 81 07/16/23 07:23 Pulse Rhythm Regular 07/16/23 08:05 Pulse 73 07/14/23 14:31 Respiratory Rate 18 07/16/23 07:23 Respiratory Effort Normal, Non-Labored 07/16/23 08:05 Respiratory Depth Normal 07/16/23 08:05 Respiratory Pattern Normal 07/16/23 08:05 Blood Pressure 171/92 H 07/16/23 07:23 Blood Pressure Mean 124 07/14/23 14:30 Blood Pressure Position Supine 07/14/23 13:02 Pulse Oximetry 93 07/16/23 07:23 Oxygen Delivery Method Room Air 07/16/23 07:23 Oxygen Flow Rate 0 07/16/23 07:23 Pain Level 0 07/16/23 07:23 Comment Nurse notified bout BP. 07/15/23 16:05 Intake & Output 07/15/23 07/15/23 07/16/23 11:59 23:59 11:59 Intake Total 110 / 940 830 / 940 300 / 300 Output Total 0 / 0 Balance 110 / 940 830 / 940 300 / 300 Intake: IV 110 / 220 110 / 220 100 / 100 Oral 720 / 720 200 / 200 Output: Urine 0 / 0 Stool 0 / 0 Other: Urine Appearance Clear Clear Clear Comment independent @ 0530 pT stated she had voided. pT gets up and uses bathroom independently. Stool Size Small Stool Characteristics Green Voiding Methods Toilet Toilet Data Completed and Pending Labs on day of discharge: Labs from last 24 hours 07/16/23 06:15 WBC 11.45 H RBC 4.69 Hgb 13.2 Hct 41.1 MCV 88 MCH 28.1 MCHC 32.1 RDW 13.5 Plt Count MPV Immature Gran % 1.1 Neutrophils % 59.1 Lymphocytes % 30.0 Monocytes % 9.2 Eosinophils % 0.3 Basophils % 0.3 Nucleated RBC % 0.0 Absolute Neutrophils 6.77 H Absolute Lymphocytes 3.44 H Absolute Monocytes 1.05 H Absolute Eosinophils 0.03 Absolute Basophils 0.03 RBC Morphology Normal Sodium 143 Potassium 4.1 Chloride 109 H Carbon Dioxide 24.0 Anion Gap 10.0 BUN 21 H Creatinine 0.6 Est GFR (CKD-EPI 2020) 97.71 Glucose 83 Calcium 8.8 Preliminary micro results at discharge 07/14/23 12:35 Blood Culture - Preliminary Blood NO GROWTH 24 HOURS 07/14/23 12:35 Blood Culture - Preliminary Blood NO GROWTH 24 HOURS PFSH All Active Problems (Updated 07/14/23 @ 18:56 by Saumya Trevino APRN) On deep vein thrombosis (DVT) prophylaxis (Acute) Pneumonia (Acute) Hypoxia (Acute) GERD (gastroesophageal reflux disease) (Chronic) Acute exacerbation of chronic obstructive pulmonary disease (Acute) Respiratory syncytial virus infection (Acute) Personal history of nicotine dependence (Acute) Asthma-COPD overlap syndrome (Acute) Insect bite (Acute) Pulmonary embolism (Chronic) Essential tremor (Acute) Discharge planning issues (Acute) Medical History Shortness of breath Acute exacerbation of chronic obstructive pulmonary disease Anxiety with depression H/O: HTN (hypertension) Knee joint pain Pneumonia Elevated hemoglobin A1c Screening for breast cancer DVT prophylaxis CAP (community acquired pneumonia) COPD with acute exacerbation Influenza A Pulmonary emboli COPD (chronic obstructive pulmonary disease) Weight gain Arthritis Essential tremor Depression with anxiety Surgical History History of bunionectomy History of partial hysterectomy Family History Sister Diabetes Brother Hypertension Other Heart disease Social History Smoking/Tobacco Use Status: Former Tobacco Use Smoking risk assessment performed?: Yes Alcohol Intake: never Drug use: Occasionally Substance use type: marijuana Housing: apartment Do you feel safe at home: Yes Do you feel safe in your relationship?: Yes Time Spent with Patient Time Spent with Patient: >85 minutes Time was spent: preparing to see the patient(eg.review tests), obtaining and/or reviewing separately otained hiistory, ordering medications,tests, procedures, referring, communicating with other health managed care provider, indepentently interpreting results, counseling the patient and care coordination
[2023-07-16 09:51] VITALS: PULSE 78; RESP 18; RESP 5; O2SAT 93
[2023-07-16] MEDS: Albuterol 2.5 MG/3 ML INH SOLN VIAL UPD (09:51)
[2023-07-16 09:53] VITALS: O2SAT 93
[2023-07-16] MEDS: amLODIPine 5 MG TAB PO (10:03)
[2023-07-16] MEDS: DOXYCYCLINE 100 MG in Normal Saline 100 ML IVPB (10:03)
[2023-07-16] MEDS: Loperamide 2 MG CAP PO (10:55)
--- NOTE | 2023-07-16 11:18 | PT.INIE ---
PT Notes Visit Reasons: COPD exacerbation, RSV infection Physical Therapy Inpatient Initial Evaluation Date: 07/16/2023 Referring Doctor: Saumya Trevino APRN PT Orders: PT CONSULT: Safety consult for D/C Precautions: Fall. Standard. Activity as tolerated. Patient Profile/Admitting Diagnosis: Tracie Lang is a 68-year-old female who presented to the ED on 07/14/2023 due to worsening shortness of breath and cough. She was admitted to [facility] of care for management of acute exacerbation of COPD, RSV infection, and hypertension. PMHX: All Active Problems (Updated 07/14/23 @ 18:56 by Saumya Trevino APRN) On deep vein thrombosis (DVT) prophylaxis (Acute) Pneumonia (Acute) Hypoxia (Acute) GERD (gastroesophageal reflux disease) (Chronic) Acute exacerbation of chronic obstructive pulmonary disease (Acute) Respiratory syncytial virus infection (Acute) Personal history of nicotine dependence (Acute) Asthma-COPD overlap syndrome (Acute) Insect bite (Acute) Pulmonary embolism (Chronic) Essential tremor (Acute) Discharge planning issues (Acute) Medical History Shortness of breath Acute exacerbation of chronic obstructive pulmonary disease Anxiety with depression H/O: HTN (hypertension) Knee joint pain Pneumonia Elevated hemoglobin A1c Screening for breast cancer DVT prophylaxis CAP (community acquired pneumonia) COPD with acute exacerbation Influenza A Pulmonary emboli COPD (chronic obstructive pulmonary disease) Weight gain Arthritis Essential tremor Depression with anxiety Surgical History History of bunionectomy History of partial hysterectomy Social History/Home Situation: Lives with son in an apartment with 21 steps to enter with a railing on 1 side. Son does not work and is available to provide assistance as needed. Daughter lives close by. Independent with all aspects of ADLs prior to admission. Equipment Owned/DME: None Subjective: Patient reports feeling a lot better, not short of breath not coughing. Looking forward to going home today. Agreeable to mobility assessment with PT. denies headache, chest pain, and lightheadedness throughout session. Objective: General Observation: Resting in bed. IV through left UE. Mild swelling on medial side of left knee. Mental Status: Alert and oriented as to person, place, time, and purpose. Able to pay attention, focus, and respond appropriately. Pain: Denies Vital Signs: BP158/62 mmHg, HR 75 bpm, oxygen saturation between 88% and 91% throughout session ROM: Right Upper Extremity: Shoulder Flexion WFL. Shoulder abduction WFL. Elbow flexion WFL. Wrist flexion WFL. Functional opening and closing of hand WFL. Left Upper Extremity: Shoulder Flexion WFL. Shoulder abduction WFL. Elbow flexion WFL. Wrist flexion WFL. Functional opening and closing of hand WFL. Right Lower Extremity: Hip flexion WFL. Hip abduction WFL. Knee flexion WFL. Ankle dorsiflexion WFL. Ankle plantarflexion WFL. Left Lower Extremity: Hip flexion WFL. Hip abduction WFL. Kne e flexion WFL. Ankle dorsiflexion WFL. Ankle plantarflexion WFL. Strength: Right Upper Extremity: Shoulder flexors 4/5. Shoulder abductors 4/5. Elbow flexors 5/5. Elbow extensors 5/5. Disability Liaison Officer strong. Left Upper Extremity: Shoulder flexors 4/5. Shoulder abductors 4/5. Elbow flexors 5/5. Elbow extensors 5/5. Disability Liaison Officer strong. Right Lower Extremity: Hip flexors 4/5. Hip abductors 4/5. Knee flexors 4-/5. Knee extensors 4-/5. Ankle dorsiflexors 4-/5. Ankle plantarflexors 4-/5. Left Lower Extremity: Hip flexors 4/5. Hip abductors 4/5. Knee flexors 4-/5. Knee extensors 3+/5. Ankle dorsiflexors 4-/5. Ankle plantarflexors 4-/5. Bed Mobility/Transfers: Minimal verbal cueing provided for self pacing and energy conservation technique Rolling independent Supine to sit independent Sit to supine independent Sit to stand independent Stand to sit independent Bed to reclining chair independent Reclining chair to bed independent Gait: 80 feet with no assistive device. Mild shortness of breath that resolved with rest. Denied headache, chest pain, and lightheadedness throughout session. Did report mild shortness of breath that resolved with rest. Mild shakiness but no LOB. VS as above. Balance: Static Sitting: Normal Dynamic Sitting: Normal Static Standing: Fair Dynamic Standing: Fair Special Tests: Mobility Limitations Standardized Measure [facility] 6 clicks Basic Mobility Inpatient Short Form: Raw Score: 24 CMS Score: % deficit Informed Consent/Education: Patient was instructed in purpose of PT consult. No skilled services needed after this session. THERA ACT: Education and training on: Energy conservation techniques, deep breathing, and self pacing. Instrcuted on using B hands onto single railing as she slowly navigates 21 steps to enter. Rest is hong. Assessment: Patient at almost mobility baseline level except for minimal shortness of breath that ends to limit her tolerance. Oxygen saturation and VS are WNL with in-room ambulation of up to 80 feet which patient states is more than the distance she will walk at home at a time. No assistive devices needed. Patient is assessed as a 81818 low complexity based on the following: History: 68-year-old female with past medical history as indicated above Examination: As above Presentation: Stable Decision Makin low complexity Goals: N/A. PT evaluation only Plan of Care/Treatment Plan: N/A. PT evaluation only DISCHARGE RECOMMENDATIONS: [X] Home with no services. Home when medically cleared by hospitalist. [] Home with services [specify] [] Home with outpatient PT [] [] SNF for continued rehabilitation [] [] Custodial Care [] [] SNF versus LTC based on ability to participate and progress [] TREATMENT CODE/TIME: 78262 x 16 minutes beginning at 11:18 AM. Thank you for the opportunity to participate in the care of this patient. Ella Moya PT, DPT, CLT [facility] [place], [place]
--- NOTE | 2023-07-16 12:05 | PDOC.CMDIS ---
Date of service: 07/16/23 Time of Service: 12:05 LACE Index Scoring Tool Questions: Length of Stay (in days): 2 Was the patient admitted via the E.D.?: Yes Comorbidities: Chronic Pulmonary Disease E.D. Visits: 2 Answers: Total Score: 9 Risk of Readmission: Low Risk Care Management Discharge Plan Reason for Hospitalization: COPD Exacerbation Discharge Plan: Tracie will return home today with no new services. She will be driven home via private vehicle by family. She will follow up with her PCP and discharge plan of care. She is happy to be going home. Patient/Family Education Needs: Review discharge instructions and limitations, discussion of self care needs including ask me three. SDOH Health Related Social Needs: Health related social needs transpo insecurity Health related social needs: transportation insecurity(Z59.82)
== END 2023-07-16 15:32 | disposition home or self-care (01) ==
LOC: ER 14:33 → MS 14:55
PROVIDERS: Nurse Practitioner Acute Care; Admitting Provider Internal Medicine; Emergency Provider Emergency Medicine; PCP Nurse Practitioner Family; Visit Provider Internal Medicine
DX: J44.1 Chronic obstructive pulmonary disease with (acute) exacerbation (principal); R05.9 Cough, unspecified; B97.4 Respiratory syncytial virus as the cause of diseases classified elsewhere; R06.02 Shortness of breath; Z79.01 Long term (current) use of anticoagulants; Z86.711 Personal history of pulmonary embolism; G25.0 Essential tremor; R09.02 Hypoxemia; K21.9 Gastro-esophageal reflux disease without esophagitis; F41.8 Other specified anxiety disorders; I10 Essential (primary) hypertension
CPT/HCPCS: 00123; 36415; 80048; 80053; 87040; 93005; 94640; 96365; 96366; 96367; 96375; 97161; 99285; 71045; 83605; 83735; 83880; 85025; 93010; 94664; 94667; 94668; 94760; 99223; 99233; 99239; J2930; J3475; J7512; J7613; J7620

== ENCOUNTER 2024-08-13 17:31 | Outpatient (REF) | payer MEDICARE, MEDICAID, SELFPAY ==
[2024-08-13 15:35] LABS: HCT 42.8 % (36.0-46.0); HGB 13.4 g/dL (11.2-15.7); MCH 27.6 pg (27.0-33.0); MCHC 31.3 % (32.0-36.0); MCV 88 fL (80-95); MPV 10.1 fL (8.0-11.0); Platelet Count 298 10^3/uL (130-400); RBC 4.85 10^6/uL (3.93-5.22); RDW 12.8 % (11.7-14.6); RDW-SD 41.9 fL; WBC 7.54 10^3/uL (4.4-10.8)
[2024-08-13 16:19] LABS: ALT 28 U/L (14-59); AST 15 U/L (15-37); Albumin 3.8 g/dL (3.4-5.0); Alkaline Phosphatase 114 U/L (46-116); Anion Gap 4.1 mmol/L (3-11); BUN 17 mg/dL (7-18); Bilirubin, Total 0.53 mg/dL (0.2-1.0); CO2 29.9 mmol/L (21.0-32.0); CREATININE 0.8 mg/dL (0.55-1.02); Calcium 9.6 mg/dL (8.5-10.1); Calculated LDL 169 mg/dL (<100); Chloride 105 mmol/L (98-107); Cholesterol 241 mg/dL (<200); Estimated GFR 79.71 (mL/min/1.73m2); Glucose 97 mg/dL (74-106); HDL Cholesterol 56 mg/dL (40-60); Potassium 4.9 mmol/L (3.5-5.1); Sodium 139 mmol/L (136-145); TSH (W/Ref FT4) 5.72 uIU/mL (0.36-3.74); Total Protein 7.2 g/dL (6.4-8.2); Triglyceride 81 mg/dL (<150)
[2024-08-13 17:05] LABS: FREE T4 1.01 ng/dL (0.76-1.46)
[2024-08-13 17:33] LABS: Hemoglobin A1C 6.1 % (<5.7)
== END 2024-08-13 17:32 | disposition home or self-care (01) ==
LOC: NCHCN 17:31
PROVIDERS: PCP Nurse Practitioner Family; Visit Provider Nurse Practitioner Family
DX: I10 Essential (primary) hypertension (principal); R73.09 Other abnormal glucose; F41.8 Other specified anxiety disorders; Z86.711 Personal history of pulmonary embolism; E78.5 Hyperlipidemia, unspecified
CPT/HCPCS: 80053; 80061; 85027; 83036; 84439; 84443

== ENCOUNTER 2024-09-26 10:22 | Emergency (ER) | payer MEDICARE, MEDICAID, SELFPAY ==
[2024-09-26] VITALS (113 sets, daily range): BP systolic 138–143; BP diastolic 72–79; PULSE 59–85; RESP 12–31; O2SAT 83–98
--- NOTE | 2024-09-26 10:15 | RT.EKG_ITS ---
APPROVED REPORT Exam: Resting ECG Reason for Exam: Dyspnea Patient Location: E HR:69 bpm ECG Measurements Heart Rate 69 AXIS CA 152 P 58 QRSd 80 QRS 69 QT 392 T 67 QTc 422 Conclusion Sinus rhythm...normal P axis, V-rate 60- 99
[2024-09-26] MEDS: Albuterol/Ipratropium 3 ML UPD VIAL UPD (11:17)
[2024-09-26] MEDS: methylPREDNISolone SUCC 125 MG VIAL 60 MG IVP (11:17)
--- NOTE | 2024-09-26 11:55 | ED.GENADUL_ITS ---
Discharge Plan Disposition Patient Disposition: Home Condition: Stable Discharge Details Clinical Impression: Acute exacerbation of chronic obstructive pulmonary disease Primary Care Provider: MEGA DIGGS ED Provider: Tomy Taveras Home Meds and New Rx's Prescriptions: New prednisone 20 mg tablet 40 mg PO DAILY Qty: 8 0RF Rx Instructions: start 09/27/24 Continued rizatriptan [Maxalt-SEAM STAY STITCHER] 10 MG tablet,disintegrating 10 mg PO ONCE fluoxetine 40 MG capsule 40 mg PO DAILY propranolol 10 mg tablet 10 mg PO BID diclofenac sodium 1 % gel 1 g topical BID Rx Instructions: apply 1 g twice a day by topical route as directed for 30 days, for chronic knee pain Eliquis 5 mg tablet 5 mg PO BID ipratropium-albuterol 0.5 mg-3 mg(2.5 mg base)/3 mL solution for nebulization 3 ml inhalation Q6H PRN losartan 25 mg tablet 25 mg PO DAILY loratadine 10 MG tablet 10 mg PO DAILY albuterol sulfate [ProAir HFA] 1 PUFF HFA aerosol inhaler 2 puff Inhalation Q2H PRN PRNQty: 1 3RF Rx Instructions: use with spacer tiotropium bromide [Spiriva with HandiHaler] 18 MCG capsule, w/inhalation device 18 mcg Inhalation DAILY Qty: 1 3RF Rx Instructions: take every day to prevent worsening of COPD famotidine [Pepcid] 20 mg tablet 20 mg PO BID Qty: 60 0RF calcium carbonate-vitamin D3 [Oyster Shell Calcium-Vit D3] 500 mg-5 mcg (200 unit) tablet 1 tab PO DAILY Patient Comments: TAKE ONE TABLET BY MOUTH EVERY DAY fluticasone furoate-vilanterol [Breo Ellipta] 200-25 mcg/dose blister with device 1 inh INHALATION DAILY Patient Comments: INHALE 1 PUFF BY MOUTH DIRECTED ONCE A DAY doxycycline hyclate 100 mg capsule 100 mg PO BID Qty: 5 0RF Bio-K plus 50 billion cell capsule,delayed release(DR/EC) 1 cap PO DAILY Qty: 3 0RF prednisone 20 mg tablet See Rx Instructions .ROUTE .COMPLEX Qty: 15 0RF Rx Instructions: 40 mg orally for 3 days then 30 for 3 days then 20mg for 3 days then 10 for 3 days then 5 for 3 days then stop amlodipine 5 mg tablet 5 mg PO DAILY Qty: 30 0RF Eliquis 5 MG tablet 5 mg PO BID Qty: 60 3RF Rx Instructions: Take 2 tablets in the morning and 2 tablets in the evening for 6 days (until 12/31/2016), then take 1 tablet in the morning and 1 tablet in the evening. budesonide-formoterol [Symbicort] 160-4.5 mcg/actuation Hfa Aerosol Inhaler 2 puff Inhalation BID Qty: 6 0RF cholecalciferol (vitamin D3) [Vitamin D3] 25 mcg (1,000 unit) Capsule 25 mcg PO DAILY Discharge Instructions Instructions: COPD Exacerbation, Adult ED Additional Instructions: You were given initial dose of prednisone here in the emergency department. Your next dose is tomorrow. Please take as prescribed. Please use your albuterol neb and inhaler as prescribed. Please follow-up with your primary care physician. Call today. Return to the emergency department immediately for any worsening or new concerning symptoms. Referrals: MEGA DIGGS, [employer] TRA[employer] [Primary Care Provider] - [facility] General Date/Time Provider Initiated Documentation: 09/26/24 10:57 . Limitations to Documentation: no limitations . Information obtained by: patient . HPI Narrative: HISTORY OF PRESENT ILLNESS 69-year-old female with asthma, COPD, and history of pulmonary embolism on apixaban, presenting via EMS with dyspnea and wheezing since last night. Symptoms consistent with prior COPD exacerbation. Patient has no chest pain. No recent cold symptoms, cough, chills, edema, or pain. No influenza vaccine due to allergy; uncertain COVID-19 vaccination status. No supplemental oxygen use. Nasal swab testing done. Previously prescribed prednisone but not taken recently. Current medications: inhaled steroids, apixaban. Non-smoker, quit 9 years ago. Nebulizer treatment provided no relief. No chest pain or thromboembolic symptoms. Related Data Home Medications ?Medication ?Instructions ?Recorded ?Confirmed loratadine 10 mg tablet 10 mg PO DAILY 09/22/12 09/26/24 fluoxetine 40 mg capsule 40 mg PO DAILY 01/11/15 09/26/24 rizatriptan 10 mg disintegrating 10 mg PO ONCE 01/11/15 09/26/24 tablet (Maxalt-SEAM STAY STITCHER) albuterol sulfate 90 mcg/actuation 2 puff inhalation Q2H PRN PRN #1 10/29/16 09/26/24 aerosol inhaler (ProAir HFA) inh tiotropium bromide 18 mcg capsule 18 mcg inhalation DAILY #1 tab-cap 10/29/16 09/26/24 with inhalation device (Spiriva with HandiHaler) apixaban 5 mg tablet (Eliquis) 5 mg PO BID #60 tabs 12/24/16 07/14/23 budesonide-formoterol HFA 160 2 puff inhalation BID #6 grams 07/28/18 09/26/24 mcg-4.5 mcg/actuation aerosol inhaler (Symbicort) cholecalciferol (vitamin D3) 25 25 mcg PO DAILY 04/08/20 09/26/24 mcg (1,000 unit) capsule (Vitamin D3) famotidine 20 mg tablet (Pepcid) 20 mg PO BID #60 tabs 07/12/23 09/26/24 L. acidophilus,casei,rhamnosus 50 1 cap PO DAILY #3 caps 07/16/23 billion cell capsule,delayed release (Bio-K plus) amlodipine 5 mg tablet 5 mg PO DAILY #30 tabs 07/16/23 09/26/24 calcium 500 mg (as 1 tab PO DAILY 07/16/23 09/26/24 carbonate)-vitamin D3 5 mcg (200 unit) tablet (Oyster Shell Calcium-Vitamin D3) doxycycline hyclate 100 mg capsule 100 mg PO BID #5 caps 07/16/23 09/26/24 fluticasone furoate 200 1 inh inhalation DAILY 07/16/23 09/26/24 mcg-vilanterol 25 mcg/dose inhalation powder (Breo Ellipta) prednisone 20 mg tablet See Rx Instructions .Route 07/16/23 09/26/24 .COMPLEX #15 tabs propranolol 10 mg tablet 10 mg PO BID 09/12/23 09/26/24 apixaban 5 mg tablet (Eliquis) 5 mg PO BID 09/05/24 09/26/24 diclofenac sodium 1 % topical gel 1 g topical BID 09/05/24 09/26/24 ipratropium 0.5 mg-albuterol 3 mg 3 ml inhalation Q6H PRN 09/05/24 09/26/24 (2.5 mg base)/3 mL nebulization soln losartan 25 mg tablet 25 mg PO DAILY 09/05/24 09/26/24 prednisone 20 mg tablet 40 mg (2 x 20 mg) PO DAILY #8 tabs 09/26/24 Previous Rx's ?Medication ?Instructions ?Recorded albuterol sulfate 90 mcg/actuation 2 puff inhalation Q2H PRN PRN #1 10/29/16 aerosol inhaler (ProAir HFA) inh tiotropium bromide 18 mcg capsule 18 mcg inhalation DAILY #1 tab-cap 10/29/16 with inhalation device (Spiriva with HandiHaler) apixaban 5 mg tablet (Eliquis) 5 mg PO BID #60 tabs 12/24/16 budesonide-formoterol HFA 160 2 puff inhalation BID #6 grams 07/28/18 mcg-4.5 mcg/actuation aerosol inhaler (Symbicort) famotidine 20 mg tablet (Pepcid) 20 mg PO BID #60 tabs 07/12/23 L. acidophilus,casei,rhamnosus 50 1 cap PO DAILY #3 caps 07/16/23 billion cell capsule,delayed release (Bio-K plus) amlodipine 5 mg tablet 5 mg PO DAILY #30 tabs 07/16/23 doxycycline hyclate 100 mg capsule 100 mg PO BID #5 caps 07/16/23 prednisone 20 mg tablet See Rx Instructions .Route 07/16/23 .COMPLEX #15 tabs prednisone 20 mg tablet 40 mg (2 x 20 mg) PO DAILY #8 tabs 09/26/24 Allergies Allergy/AdvReac Type Severity Reaction Status Date / Time aspirin AdvReac Mild Nausea Unverified 07/14/23 11:35 egg AdvReac Mild Nausea Unverified 07/14/23 11:35 chocolate flavor AdvReac cough Unverified 07/14/23 11:35 migraines General Stated Complaint: SOB KIERAN: 3 Review of Systems All systems reviewed & are unremarkable except as noted in HPI and below Constitutional Constitutional: Denies fever(s) Gastrointestinal Gastrointestinal: Denies abdominal pain Exam Const General: cooperative and no acute distress HENMT Mouth: moist mucous membranes Eyes Conjunctivae: normal conjunctivae Sclera: normal sclerae Neck Neck: trachea midline and supple Resp Effort & Inspection: no respiratory distress Auscultation: diminished lung sounds bilaterally in the lower lung meyers, no rales, no rhonchi and wheezes expiratory wheezes Cardio Rate: regular rate and not tachycardic Rhythm: regular rhythm GI Palpation: soft, not firm, no guarding, no masses, not rigid and nontender Skin General skin exam: no rashes or lesions noted Neuro General: patient alert, patient awake, patient oriented x3 and tone normal Extrem General: no calf tenderness and no edema Psych Appearance: grossly normal Mental Status: mental status grossly normal Speech and Movement: speech and movement normal Course Vital Signs Vital signs: Vital Signs Pulse 67 09/26/24 10:24 Respiratory Rate 20 09/26/24 10:24 Blood Pressure 143/79 H 09/26/24 10:24 Pulse Oximetry 96 09/26/24 10:24 Pulse 69 09/26/24 11:42 Pulse 76 09/26/24 10:50 Respiratory Rate 19 09/26/24 11:42 Respiratory Effort Short of Breath 09/26/24 10:32 Blood Pressure 143/79 H 09/26/24 10:24 Pulse Oximetry 96 09/26/24 11:42 Oxygen Delivery Method Room Air 09/26/24 10:24 Oxygen Flow Rate 0 09/26/24 10:24 Medical Decision Making ASSESSMENT AND PLAN Initial Assessment: 69-year-old female with history of asthma, COPD, and pulmonary embolism, presenting with shortness of breath and wheezing since last night. Differential Diagnosis: - ACS: Presents with dyspnea and wheezing, consistent with prior exacerbation of asthma and COPD. No chest pain. - Pulmonary embolism: Compliant with apixaban for history of pulmonary embolism. No new clot symptoms. ED Course: - Screening EKG reviewed and interpreted by me: sinus rhythm 69 bpm, normal axis , no STEMI, nondiagnostic. - Administer albuterol nebulizer and reassess. - Solu-Medrol IV. - Discharge on prednisone burst. - Usual discharge instructions reviewed. - Patient reassessed and feeling better, requesting discharge. Final Assessment: Patient presented with dyspnea and wheezing, consistent with asthma and COPD. No chest pain or new clot symptoms. Treatment included albuterol nebulizer, Solu-Medrol IV, and prednisone burst. Patient improved and requested discharge. Clinical Impression: Acute COPD exacerbation Disposition: - Discharge - Follow-Up: Follow up with PCP, use nebulizer as prescribed. MDM Components Evaluation: - Number of Differential Diagnoses or Management Options: ACS, Pulmonary embolism - Amount and Complexity of Data Reviewed: Screening EKG - Risk of Complication and Morbidity or Mortality: Moderate risk due to history of pulmonary embolism and current respiratory symptoms. This document was written with the assistance of JHONATAN Nogueira. The patient consented to its use. Quality:SDOH Health Related Social Needs: No Data to Display PFSH All Active Problems Acute exacerbation of chronic obstructive pulmonary disease (Acute) Asthma (Chronic) GERD (gastroesophageal reflux disease) (Chronic) Acute exacerbation of chronic obstructive pulmonary disease (Acute) Respiratory syncytial virus infection (Acute) Personal history of nicotine dependence (Acute) Asthma-COPD overlap syndrome (Acute) Insect bite (Acute) Pulmonary embolism (Chronic) Essential tremor (Acute) Medical History History of pulmonary embolism Pneumonia Hypoxia Discharge planning issues Shortness of breath Acute exacerbation of chronic obstructive pulmonary disease Anxiety with depression H/O: HTN (hypertension) Knee joint pain Pneumonia Elevated hemoglobin A1c Screening for breast cancer DVT prophylaxis CAP (community acquired pneumonia) COPD with acute exacerbation Influenza A Pulmonary emboli COPD (chronic obstructive pulmonary disease) Weight gain Arthritis Essential tremor Depression with anxiety Surgical History History of bunionectomy History of partial hysterectomy Family History Sister Diabetes Brother Hypertension Mother Alcohol abuse Father Heart disease Social History Smoking/Tobacco Use Status: Former Tobacco Use Pack-years: 45 Smoking risk assessment performed?: Yes Alcohol Intake: never Housing: apartment Do you feel safe at home: Yes Do you feel safe in your relationship?: Yes Additional Social history: Former tobacco user: quit in 2016
== END 2024-09-26 13:03 | disposition home or self-care (01) ==
LOC: ER 12:02
PROVIDERS: Emergency Provider Student in an Organized Health Care Education/Training Program; PCP Nurse Practitioner Family
DX: J44.1 Chronic obstructive pulmonary disease with (acute) exacerbation (principal); I10 Essential (primary) hypertension; Z79.01 Long term (current) use of anticoagulants; Z86.711 Personal history of pulmonary embolism; Z87.891 Personal history of nicotine dependence
CPT/HCPCS: 87426; 93005; 94640; 99284; 93010; J2919; J7620

== ENCOUNTER 2024-10-11 17:02 | Emergency (ER) | payer MEDICARE, MEDICAID, SELFPAY ==
[2024-10-11 17:09] VITALS: BP 123/72; PULSE 99; RESP 25; TEMP 36.6; O2SAT 97
[2024-10-11 17:17] VITALS: BP 123/72; PULSE 99; RESP 25; TEMP 36.6; O2SAT 97
--- NOTE | 2024-10-11 17:23 | W.ED.GENAD ---
Discharge Plan Disposition Patient Disposition: Home Condition: Stable Discharge Details Clinical Impression: Right knee pain, Sprain of left foot Primary Care Provider: [facility] ED Provider: Clifford Dominguez Home Meds and New Rx's Prescriptions: Continued rizatriptan [Maxalt-[employer] REPRESENTATIVE] 10 MG tablet,disintegrating 10 mg PO ONCE fluoxetine 40 MG capsule 40 mg PO DAILY propranolol 10 mg tablet 10 mg PO BID diclofenac sodium 1 % gel 1 g topical BID Rx Instructions: apply 1 g twice a day by topical route as directed for 30 days, for chronic knee pain Eliquis 5 mg tablet 5 mg PO BID ipratropium-albuterol 0.5 mg-3 mg(2.5 mg base)/3 mL solution for nebulization 3 ml inhalation Q6H PRN losartan 25 mg tablet 25 mg PO DAILY loratadine 10 MG tablet 10 mg PO DAILY albuterol sulfate [ProAir HFA] 1 PUFF HFA aerosol inhaler 2 puff Inhalation Q2H PRN PRNQty: 1 3RF Rx Instructions: use with spacer tiotropium bromide [Spiriva with HandiHaler] 18 MCG capsule, w/inhalation device 18 mcg Inhalation DAILY Qty: 1 3RF Rx Instructions: take every day to prevent worsening of COPD famotidine [Pepcid] 20 mg tablet 20 mg PO BID Qty: 60 0RF calcium carbonate-vitamin D3 [Oyster Shell Calcium-Vit D3] 500 mg-5 mcg (200 unit) tablet 1 tab PO DAILY Patient Comments: TAKE ONE TABLET BY MOUTH EVERY DAY fluticasone furoate-vilanterol [Breo Ellipta] 200-25 mcg/dose blister with device 1 inh INHALATION DAILY Patient Comments: INHALE 1 PUFF BY MOUTH DIRECTED ONCE A DAY Bio-K plus 50 billion cell capsule,delayed release(DR/EC) 1 cap PO DAILY Qty: 3 0RF amlodipine 5 mg tablet 5 mg PO DAILY Qty: 30 0RF Eliquis 5 MG tablet 5 mg PO BID Qty: 60 3RF Rx Instructions: Take 2 tablets in the morning and 2 tablets in the evening for 6 days (until 12/31/2016), then take 1 tablet in the morning and 1 tablet in the evening. budesonide-formoterol [Symbicort] 160-4.5 mcg/actuation Hfa Aerosol Inhaler 2 puff Inhalation BID Qty: 6 0RF cholecalciferol (vitamin D3) [Vitamin D3] 25 mcg (1,000 unit) Capsule 25 mcg PO DAILY prednisone 20 mg tablet 40 mg PO DAILY Qty: 8 0RF Rx Instructions: start 09/27/24 Discharge Instructions Instructions: Foot Sprain ED, Knee Pain ED Additional Instructions: You were seen in the emergency department for your fall 2 days ago, you have some bruising to your left foot, there is no fracture on x-ray of your left foot or ankle, you have some right knee pain with no evidence of fracture on x-ray, you have diffuse arthritis at each site x-rayed. Please take Tylenol as needed for pain apply ice to areas of pain, please follow-up with your primary care provider and follow-up with orthopedics for failure to improve in 2 weeks. Please return for any emergent concerns like increasing leg swelling, inability to ambulate, complete weakness of legs. Referrals: [facility] [Primary Care Provider] - Discharge Data Discharge Date/Time-TO BE ENTERED AT DEPARTURE: 10/11/24 19:36 HPI General Date/Time Provider Initiated Documentation: 10/11/24 17:06. HPI Narrative: 69 year-old female presents to ED today by POV/ambulating with a chief complaint of L foot pain and R knee pain from a fall with bruising, mild chronic shortness of breath also noted with onset 2 days ago. Quality described as bruising to anterior L foot, and R knee focal pain, no radiation to headstrike, LOC, altered mental status, chest pain, palpitations, fever, nausea, cough, syncope, inability to ambulate. Severity is described as moderate. Palliating factors include took Tylenol. Provoking factors include nothing specific. Events leading up to the incident/Associated Symptoms: Patient states her SOB is chronic, will use her at-home meds. Patient is anticoagulated. Related Data Home Medications ?Medication ?Instructions ?Recorded ?Confirmed loratadine 10 mg tablet 10 mg PO DAILY 09/22/12 10/11/24 fluoxetine 40 mg capsule 40 mg PO DAILY 01/11/15 10/11/24 rizatriptan 10 mg disintegrating 10 mg PO ONCE 01/11/15 10/11/24 tablet (Maxalt-[employer]PRESENT[employer]IVE) albuterol sulfate 90 mcg/actuation 2 puff inhalation Q2H PRN PRN #1 10/29/16 10/11/24 aerosol inhaler (ProAir HFA) inh tiotropium bromide 18 mcg capsule 18 mcg inhalation DAILY #1 tab-cap 10/29/16 10/11/24 with inhalation device (Spiriva with HandiHaler) apixaban 5 mg tablet (Eliquis) 5 mg PO BID #60 tabs 12/24/16 10/11/24 budesonide-formoterol HFA 160 2 puff inhalation BID #6 grams 07/28/18 10/11/24 mcg-4.5 mcg/actuation aerosol inhaler (Symbicort) cholecalciferol (vitamin D3) 25 25 mcg PO DAILY 04/08/20 10/11/24 mcg (1,000 unit) capsule (Vitamin D3) famotidine 20 mg tablet (Pepcid) 20 mg PO BID #60 tabs 07/12/23 10/11/24 L. acidophilus,casei,rhamnosus 50 1 cap PO DAILY #3 caps 07/16/23 10/11/24 billion cell capsule,delayed release (Bio-K plus) amlodipine 5 mg tablet 5 mg PO DAILY #30 tabs 07/16/23 10/11/24 calcium 500 mg (as 1 tab PO DAILY 07/16/23 10/11/24 carbonate)-vitamin D3 5 mcg (200 unit) tablet (Oyster Shell Calcium-Vitamin D3) fluticasone furoate 200 1 inh inhalation DAILY 07/16/23 10/11/24 mcg-vilanterol 25 mcg/dose inhalation powder (Breo Ellipta) propranolol 10 mg tablet 10 mg PO BID 09/12/23 10/11/24 apixaban 5 mg tablet (Eliquis) 5 mg PO BID 09/05/24 10/11/24 diclofenac sodium 1 % topical gel 1 g topical BID 09/05/24 10/11/24 ipratropium 0.5 mg-albuterol 3 mg 3 ml inhalation Q6H PRN 09/05/24 10/11/24 (2.5 mg base)/3 mL nebulization soln losartan 25 mg tablet 25 mg PO DAILY 09/05/24 10/11/24 prednisone 20 mg tablet 40 mg (2 x 20 mg) PO DAILY #8 tabs 09/26/24 10/11/24 Previous Rx's ?Medication ?Instructions ?Recorded albuterol sulfate 90 mcg/actuation 2 puff inhalation Q2H PRN PRN #1 10/29/16 aerosol inhaler (ProAir HFA) inh tiotropium bromide 18 mcg capsule 18 mcg inhalation DAILY #1 tab-cap 10/29/16 with inhalation device (Spiriva with HandiHaler) apixaban 5 mg tablet (Eliquis) 5 mg PO BID #60 tabs 12/24/16 budesonide-formoterol HFA 160 2 puff inhalation BID #6 grams 07/28/18 mcg-4.5 mcg/actuation aerosol inhaler (Symbicort) famotidine 20 mg tablet (Pepcid) 20 mg PO BID #60 tabs 07/12/23 L. acidophilus,casei,rhamnosus 50 1 cap PO DAILY #3 caps 07/16/23 billion cell capsule,delayed release (Bio-K plus) amlodipine 5 mg tablet 5 mg PO DAILY #30 tabs 07/16/23 prednisone 20 mg tablet 40 mg (2 x 20 mg) PO DAILY #8 tabs 09/26/24 Allergies Allergy/AdvReac Type Severity Reaction Status Date / Time aspirin AdvReac Mild Nausea Verified 10/11/24 17:13 egg AdvReac Mild Nausea Verified 10/11/24 17:13 chocolate flavor AdvReac cough Verified 10/11/24 17:13 migraines General Stated Complaint: RespSymp KIERAN: 3 Review of Systems All systems reviewed & are unremarkable except as noted in HPI and below Exam Narrative Exam Narrative: GENERAL APPEARANCE: Well-nourished, non-toxic, awake and alert, atraumatic, no acute distress. SKIN: Warm, pink, dry, intact, without rashes/lesions/ulcerations. HEAD: Normocephalic, atraumatic, normal hair distribution for gender/age. EYES: Normal conjunctiva, no exudates on lids/lashes. ENT: Nares patent, no circumoral cyanosis, no facial swelling NECK: Supple, trachea midline, painless cervical ROM. LUNGS/CHEST: Lungs -diffuse mild expiratory wheezing, non-labored respirations, normal A/P diameter, symmetrical expansion, no chest wall deformity HEART (CV/PV): Regular rate and rhythm without murmur, no peripheral edema, no JVD. ABDOMEN: Soft, non-distended, no guarding. MSK: Normal ROM, no swelling/deformity to bilateral UEs or LEs, moving all extremities without weakness, no cyanosis, spine midline without tenderness, normal curvature, ecchymosis to left anterior foot, tenderness in the left lateral malleolus, tenderness diffusely to the right knee without crepitus, no unilateral leg swelling, left leg has chronic varicosities, bilateral pedal pulses intact, able to ambulate NEURO: Mental Status AAOx4 - alert to person, place, time, events No facial droop, no forehead involvement. Motor: No focal weakness - strength 5/5 in bilateral UEs and LEs, proximal and distal, symmetric. Sensory: sensation intact to light touch globally. Gait antalgic. PSYCH: euthymic, cooperative, pleasant, appropriate speech Course Vital Signs Vital signs: Vital Signs Temperature 36.6 C 10/11/24 17:09 Pulse 99 H 10/11/24 17:09 Respiratory Rate 25 H 10/11/24 17:09 Blood Pressure 123/72 10/11/24 17:09 Pulse Oximetry 97 10/11/24 17:09 Temperature 36.6 C 10/11/24 17:17 Pulse 99 H 10/11/24 17:17 Respiratory Rate 25 H 10/11/24 17:17 Blood Pressure 123/72 10/11/24 17:17 Pulse Oximetry 97 10/11/24 17:17 Oxygen Delivery Method Room Air 10/11/24 17:17 Oxygen Flow Rate 0 10/11/24 17:17 Pain Level 9 10/11/24 17:17 Medical Decision Making This dictation utilizes [id number] dictation software and may contain unedited grammatical errors. 69 year-old female presents to ED today by POV/ambulating with a chief complaint of L foot pain and R knee pain from a fall with bruising, mild chronic shortness of breath also noted with onset 2 days ago. Quality described as bruising to anterior L foot, and R knee focal pain, no radiation to headstrike, LOC, altered mental status, chest pain, palpitations, fever, nausea, cough, syncope, inability to ambulate. Severity is described as moderate. Palliating factors include took Tylenol. Provoking factors include nothing specific. Events leading up to the incident/Associated Symptoms: Patient states her SOB is chronic, will use her at-home meds. Patients' medical history: History of PE, pneumonia, COPD, DVT prophylaxis, arthritis, hypertension. Family and social history: Noncontributory. Pertinent exam findings / vital signs include bruising and mild swelling to the anterior left foot with tenderness around the ankle, right knee tenderness and swelling with mild bruising, Homans negative bilaterally, neurovascularly intact, no unilateral leg swelling, varicosities are present and chronic, diffuse mild expiratory wheezes consistent with COPD. Differential / pathologies of concern include fracture, sprain/strain, contusion, unlikely DVT. Diagnostic studies of: - XR R knee, XR L ankle-no acute fracture seen, degenerative changes. Interventions of: - Given 1 DuoNeb. ED Course/Assessment/Plan: 69-year-old female presents 2 days after a fall, she is anticoagulated did not hit her head or have LOC, experiencing some left foot pain and bruising as well as right knee pain, there is no fracture on x-ray, she has no evidence of significant hematoma or neurovascular compromise, counseled her on taking Tylenol as needed as well as icing the areas of pain, strict return criteria for any unilateral leg swelling, shortness of breath, chest pain with ambulation or other emergent concerns. Findings not consistent with DVT, fracture, unstable fracture, neurovascular compromise, compartment syndrome. Disposition of sprain of left foot, right knee pain. Patient verbalized understanding of the plan and return to ED criteria and engaged in shared decision making. Medical Records Medical records reviewed: Yes I reviewed the patient's medical records. Imaging Data Radiologic Study: Attestation: I personally reviewed and interpreted this imaging study as follows: Imaging: X-Ray Radiologist's impression: EXAM: XR KNEE RT 3V AP,LAT,SKY CLINICAL HISTORY: R knee pain. TECHNIQUE: 2D digital imaging was performed of the right knee. Three views obtained. AP, lateral and PA tunnel views were obtained. COMPARISON: CR RIGHT KNEE 3 VIEWS from 12/23/2016 CR XR KNEE LT 3V AP,LAT,SKY from 05/23/2021 FINDINGS: BONES: No acute fracture is present. No bony destructive lesion is seen. JOINTS: There are moderate tricompartment degenerative changes characterized by joint space narrowing and osteophytes. There is a small joint effusion. SOFT TISSUE: Normal. IMPRESSION: 1. No acute fracture or dislocation. 2. Moderate degenerative changes in the right knee. Radiologic Study #2: Attestation: I personally reviewed and interpreted this imaging study as follows: Imaging: X-Ray Radiologist's impression: EXAM: XR FOOT LT COMPLETE and XR ankle LT complete CLINICAL HISTORY: L foot pain. TECHNIQUE: 2D digital imaging was performed of the left ankle and foot. Six images were obtained. AP, oblique and lateral views were obtained. COMPARISON: CR LEFT FOOT COMPLETE from 11/04/2011 FINDINGS: BONES: No acute fracture is present. No bony destructive lesion is seen. There is a small plantar calcaneal spur. JOINTS: No dislocation present. There is been of bunionectomy. Degenerative changes are seen particularly at the 1st MTP joint. SOFT TISSUE: Normal. IMPRESSION: 1. No acute fracture or dislocation. 2. Degenerative changes in the foot. Quality:SDOH Health Related Social Needs: No Data to Display PFSH All Active Problems (Updated 10/11/24 @ 19:14 by AJ Bergeron) Sprain of left foot (Acute) Right knee pain (Acute) Acute exacerbation of chronic obstructive pulmonary disease (Acute) Asthma (Chronic) GERD (gastroesophageal reflux disease) (Chronic) Acute exacerbation of chronic obstructive pulmonary disease (Acute) Respiratory syncytial virus infection (Acute) Personal history of nicotine dependence (Acute) Asthma-COPD overlap syndrome (Acute) Insect bite (Acute) Pulmonary embolism (Chronic) Essential tremor (Acute) Medical History History of pulmonary embolism Pneumonia Hypoxia Discharge planning issues Shortness of breath Acute exacerbation of chronic obstructive pulmonary disease Anxiety with depression H/O: HTN (hypertension) Knee joint pain Pneumonia Elevated hemoglobin A1c Screening for breast cancer DVT prophylaxis CAP (community acquired pneumonia) COPD with acute exacerbation Influenza A Pulmonary emboli COPD (chronic obstructive pulmonary disease) Weight gain Arthritis Essential tremor Depression with anxiety Surgical History History of bunionectomy History of partial hysterectomy Family History Sister Diabetes Brother Hypertension Mother Alcohol abuse Father Heart disease Social History Smoking/Tobacco Use Status: Former Tobacco Use Pack-years: 45 Smoking risk assessment performed?: Yes Alcohol Intake: never Substance use type: does not use Housing: apartment Do you feel safe at home: Yes Do you feel safe in your relationship?: Yes Additional Social history: Former tobacco user: quit in 2017
--- NOTE | 2024-10-11 17:30 | DI.RAD_ITS ---
Exam(s) XR KNEE RT 3V AP,LAT,SKY EXAM: XR KNEE RT 3V AP,LAT,SKY CLINICAL HISTORY: R knee pain. TECHNIQUE: 2D digital imaging was performed of the right knee. Three views obtained. AP, lateral an d PA tunnel views were obtained. COMPARISON: CR RIGHT KNEE 3 VIEWS from 12/23/2016 CR XR KNEE LT 3V AP,LAT,SKY from 05/23/2021 FINDINGS: BONES: No acute fracture is present. No bony destructive lesion is seen. JOINTS: There are moderate tricompartment degenerative changes characterized by joint space narrowing and osteophytes. There is a small joint effusion. SOFT TISSUE: Normal. IMPRESSION: 1. No acute fracture or dislocation. 2. Moderate degenerative changes in the right knee. DATA REPOSITORY: RADIATION DOSE DELIVERED:
--- NOTE | 2024-10-11 17:30 | DI.RAD_ITS ---
Exam(s) XR FOOT LT COMPLETE XR ANKLE LT COMPLETE EXAM: XR FOOT LT COMPLETE and XR ankle LT complete CLINICAL HISTORY: L foot pain. TECHNIQUE: 2D digital imaging was performed of the left ankle and foot. Six images were obtained. AP, oblique and lateral views were obtained. COMPARISON: CR LEFT FOOT COMPLETE from 11/04/2011 FINDINGS: BONES: No acute fracture is present. No bony destructive lesion is seen. There is a small plantar chapincito caneal spur. JOINTS: No dislocation present. There is been of bunionectomy. Degenerative changes are seen particu larly at the 1st MTP joint. SOFT TISSUE: Normal. IMPRESSION: 1. No acute fracture or dislocation. 2. Degenerative changes in the foot. DATA REPOSITORY: RADIATION DOSE DELIVERED:
[2024-10-11] MEDS: Albuterol/Ipratropium 3 ML UPD VIAL UPD (17:36)
[2024-10-11 19:34] VITALS: BP 133/77; PULSE 106; RESP 18; O2SAT 97
== END 2024-10-11 19:36 | disposition home or self-care (01) ==
PROVIDERS: Emergency Provider Physician Assistant; PCP Nurse Practitioner Family
DX: M25.561 Pain in right knee (principal); S93.602A Unspecified sprain of left foot, initial encounter; M25.461 Effusion, right knee; J44.9 Chronic obstructive pulmonary disease, unspecified; I10 Essential (primary) hypertension; Z86.711 Personal history of pulmonary embolism; W18.39XA Other fall on same level, initial encounter; Y93.89 Activity, other specified; Z79.01 Long term (current) use of anticoagulants; Z87.891 Personal history of nicotine dependence
CPT/HCPCS: 73562; 94640; 99283; 73610; 73630; J7620

== ENCOUNTER 2024-11-14 15:00 | Emergency (ER) | payer MEDICARE, MEDICAID, SELFPAY ==
[2024-11-14 15:01] VITALS: BP 125/72; PULSE 81; RESP 18; TEMP 36.6; O2SAT 98
[2024-11-14 15:04] VITALS: BP 125/72; PULSE 81; RESP 18; TEMP 36.6; O2SAT 98
[2024-11-14 15:59] VITALS: BP 134/82; PULSE 99; TEMP 36.7; O2SAT 95
[2024-11-14] MEDS: Lidocaine/Epinephri/Tetracaine Topical Gel 3 ML TP (16:57)
--- NOTE | 2024-11-14 17:00 | W.ED.GENAD ---
Discharge Plan Disposition Patient Disposition: Home Condition: Stable Discharge Details Clinical Impression: Abscess of neck Primary Care Provider: MEGA DIGGS ED Provider: Chito Givens [place] Meds and New Rx's Prescriptions: New clindamycin HCl 150 mg capsule 450 mg PO TID 7 Days Qty: 63 0RF Continued rizatriptan [Maxalt-MICROWAVE OVEN ASSEMBLER] 10 MG tablet,disintegrating 10 mg PO ONCE fluoxetine 40 MG capsule 40 mg PO DAILY propranolol 10 mg tablet 10 mg PO BID diclofenac sodium 1 % gel 1 g topical BID Rx Instructions: apply 1 g twice a day by topical route as directed for 30 days, for chronic knee pain Eliquis 5 mg tablet 5 mg PO BID ipratropium-albuterol 0.5 mg-3 mg(2.5 mg base)/3 mL solution for nebulization 3 ml inhalation Q6H PRN losartan 25 mg tablet 25 mg PO DAILY loratadine 10 MG tablet 10 mg PO DAILY albuterol sulfate [ProAir HFA] 1 PUFF HFA aerosol inhaler 2 puff Inhalation Q2H PRN PRNQty: 1 3RF Rx Instructions: use with spacer tiotropium bromide [Spiriva with HandiHaler] 18 MCG capsule, w/inhalation device 18 mcg Inhalation DAILY Qty: 1 3RF Rx Instructions: take every day to prevent worsening of COPD famotidine [Pepcid] 20 mg tablet 20 mg PO BID Qty: 60 0RF calcium carbonate-vitamin D3 [Oyster Shell Calcium-Vit D3] 500 mg-5 mcg (200 unit) tablet 1 tab PO DAILY Patient Comments: TAKE ONE TABLET BY MOUTH EVERY DAY fluticasone furoate-vilanterol [Breo Ellipta] 200-25 mcg/dose blister with device 1 inh INHALATION DAILY Patient Comments: INHALE 1 PUFF BY MOUTH DIRECTED ONCE A DAY Bio-K plus 50 billion cell capsule,delayed release(DR/EC) 1 cap PO DAILY Qty: 3 0RF amlodipine 5 mg tablet 5 mg PO DAILY Qty: 30 0RF metoprolol succinate 25 mg tablet extended release 24 hr 25 mg PO DAILY Eliquis 5 MG tablet 5 mg PO BID Qty: 60 3RF Rx Instructions: Take 2 tablets in the morning and 2 tablets in the evening for 6 days (until 12/31/2016), then take 1 tablet in the morning and 1 tablet in the evening. budesonide-formoterol [Symbicort] 160-4.5 mcg/actuation Hfa Aerosol Inhaler 2 puff Inhalation BID Qty: 6 0RF cholecalciferol (vitamin D3) [Vitamin D3] 25 mcg (1,000 unit) Capsule 25 mcg PO DAILY prednisone 20 mg tablet 40 mg PO DAILY Qty: 8 0RF Rx Instructions: start 09/27/24 Discharge Instructions Additional Instructions: I have placed you on our follow-up list to follow-up with general surgery. You should receive a call for an appointment. Take the antibiotic as prescribed. If you feel significantly more ill or have severe worsening pain or high fevers return to the emergency department for reevaluation HPI General Mode of arrival: ambulatory. Date/Time Provider Initiated Documentation: 11/14/24 15:28. Limitations to Documentation: no limitations. Information obtained by: patient. History of Present Illness 69 year old F presents to the emergency department with the chief complaint of swelling/tenderness posterior neck, described as moderate, Patient started experiencing this day(s) (2) and it has been constant. No relieving factors improve symptom(s), No exacerbating factors reported . Patient notes no other symptoms.. Patient did receive the following treatments prior to arrival, none Related Data Home Medications ?Medication ?Instructions ?Recorded ?Confirmed loratadine 10 mg tablet 10 mg PO DAILY 09/22/12 11/14/24 fluoxetine 40 mg capsule 40 mg PO DAILY 01/11/15 11/14/24 rizatriptan 10 mg disintegrating 10 mg PO ONCE 01/11/15 11/14/24 tablet (Maxalt-MICROWAVE OVEN ASSEMBLER) albuterol sulfate 90 mcg/actuation 2 puff inhalation Q2H PRN PRN #1 10/29/16 11/14/24 aerosol inhaler (ProAir HFA) inh tiotropium bromide 18 mcg capsule 18 mcg inhalation DAILY #1 tab-cap 10/29/16 11/14/24 with inhalation device (Spiriva with HandiHaler) apixaban 5 mg tablet (Eliquis) 5 mg PO BID #60 tabs 12/24/16 11/14/24 budesonide-formoterol HFA 160 2 puff inhalation BID #6 grams 07/28/18 11/14/24 mcg-4.5 mcg/actuation aerosol inhaler (Symbicort) cholecalciferol (vitamin D3) 25 25 mcg PO DAILY 04/08/20 11/14/24 mcg (1,000 unit) capsule (Vitamin D3) famotidine 20 mg tablet (Pepcid) 20 mg PO BID #60 tabs 07/12/23 11/14/24 L. acidophilus,casei,rhamnosus 50 1 cap PO DAILY #3 caps 07/16/23 11/14/24 billion cell capsule,delayed release (Bio-K plus) amlodipine 5 mg tablet 5 mg PO DAILY #30 tabs 07/16/23 11/14/24 calcium 500 mg (as 1 tab PO DAILY 07/16/23 11/14/24 carbonate)-vitamin D3 5 mcg (200 unit) tablet (Oyster Shell Calcium-Vitamin D3) fluticasone furoate 200 1 inh inhalation DAILY 07/16/23 11/14/24 mcg-vilanterol 25 mcg/dose inhalation powder (Breo Ellipta) propranolol 10 mg tablet 10 mg PO BID 09/12/23 11/14/24 apixaban 5 mg tablet (Eliquis) 5 mg PO BID 09/05/24 11/14/24 diclofenac sodium 1 % topical gel 1 g topical BID 09/05/24 11/14/24 ipratropium 0.5 mg-albuterol 3 mg 3 ml inhalation Q6H PRN 09/05/24 11/14/24 (2.5 mg base)/3 mL nebulization soln losartan 25 mg tablet 25 mg PO DAILY 09/05/24 11/14/24 prednisone 20 mg tablet 40 mg (2 x 20 mg) PO DAILY #8 tabs 09/26/24 11/14/24 clindamycin HCl 150 mg capsule 450 mg (3 x 150 mg) PO TID 7 days 11/14/24 #63 caps metoprolol succinate 25 mg 25 mg PO DAILY 11/14/24 11/14/24 tablet,extended release 24 hr Previous Rx's ?Medication ?Instructions ?Recorded albuterol sulfate 90 mcg/actuation 2 puff inhalation Q2H PRN PRN #1 10/29/16 aerosol inhaler (ProAir HFA) inh tiotropium bromide 18 mcg capsule 18 mcg inhalation DAILY #1 tab-cap 10/29/16 with inhalation device (Spiriva with HandiHaler) apixaban 5 mg tablet (Eliquis) 5 mg PO BID #60 tabs 12/24/16 budesonide-formoterol HFA 160 2 puff inhalation BID #6 grams 07/28/18 mcg-4.5 mcg/actuation aerosol inhaler (Symbicort) famotidine 20 mg tablet (Pepcid) 20 mg PO BID #60 tabs 07/12/23 L. acidophilus,casei,rhamnosus 50 1 cap PO DAILY #3 caps 07/16/23 billion cell capsule,delayed release (Bio-K plus) amlodipine 5 mg tablet 5 mg PO DAILY #30 tabs 07/16/23 prednisone 20 mg tablet 40 mg (2 x 20 mg) PO DAILY #8 tabs 09/26/24 clindamycin HCl 150 mg capsule 450 mg (3 x 150 mg) PO TID 7 days 11/14/24 #63 caps Allergies Allergy/AdvReac Type Severity Reaction Status Date / Time aspirin AdvReac Mild Nausea Verified 11/14/24 15:04 egg AdvReac Mild Nausea Verified 11/14/24 15:04 chocolate flavor AdvReac cough Verified 11/14/24 15:04 migraines General Stated Complaint: Cellulitis KIERAN: 3 Review of Systems All systems reviewed & are unremarkable except as noted in HPI and below Constitutional Constitutional: Denies chills, Denies fever(s) and Denies weakness Cardiovascular Cardiovascular: Denies dyspnea Respiratory Respiratory: Denies cough and Denies dyspnea Gastrointestinal Gastrointestinal: Denies abdominal pain and Denies vomiting Integumentary/Breasts Skin/Breast: Reports other (?abscess) Neurologic Neurologic: Denies weakness Psychiatric Psychiatric: Denies depression Exam Const General: no acute distress Orientation: alert [facility] Head: normal to inspection Ears: external ears normal General nose exam: external nose normal Mouth: moist mucous membranes Eyes General: appearance normal, both eyes and all related structures Neck Neck: full ROM, no lymphadenopathy and no meningeal signs Resp Effort & Inspection: normal respiratory effort and able to speak in complete sentences Cardio Rate: regular rate Skin General skin exam: erythema Neuro General: patient alert and patient oriented x3 Extrem General: normal to inspection Psych Mental Status: mental status grossly normal Course Vital Signs Vital signs: Vital Signs Temperature 36.6 C 11/14/24 15:01 Pulse 81 11/14/24 15:01 Respiratory Rate 18 11/14/24 15:01 Blood Pressure 125/72 11/14/24 15:01 Pulse Oximetry 98 11/14/24 15:01 Temperature 36.7 C 11/14/24 15:59 Temperature Source Oral 11/14/24 15:59 Pulse 99 H 11/14/24 15:59 Respiratory Rate 18 11/14/24 15:04 Respiratory Effort Normal, Non-Labored 11/14/24 15:59 Respiratory Depth Normal 11/14/24 15:59 Respiratory Pattern Normal 11/14/24 15:59 Blood Pressure 134/82 11/14/24 15:59 Blood Pressure Mean 99 11/14/24 15:59 Blood Pressure Position Sitting 11/14/24 15:59 Pulse Oximetry 95 11/14/24 15:59 Oxygen Delivery Method Room Air 11/14/24 15:59 Oxygen Flow Rate 0 11/14/24 15:59 Procedure Abscess Drainage Patient Consented: Verbally Location of Exam: Neck/right side (midline) Indication: Abscess. Local anesthetic: other anesthetic (topical lidocaine/epi/tetracaine), Procedure Prep: Hand hygiene, Surgical Mask, Sterile Gloves, Chlohexidine and 11 blade Technique used, incised with blade. Amount of fluid expressed(mL): 20. Irrigation: irrigation used. Packing: None. Outcome: Sucessful. Medical Decision Making 69-year-old female with a history of GERD, COPD who comes in with several days of worsening swelling and tenderness in the posterior mid neck. Denies any fevers or systemic symptoms. She has a 2 x 3 cm fluctuance in the mid upper neck at the base of the hairline. There is very mild erythema overlying the area. No crepitus or severe tenderness. Exam consistent with likely abscess. Will place topical lidocaine and plan for I&D attempt. I cleaned the area of the neck with chlorhexidine and used a #11 scalpel made incision and had copious amounts of purulent material return and used forceps to break up loculations. Patient tolerated well. No complications. Given the size of the abscess I am going to have her follow-up with general surgery this week to make sure he seems to be healing well and does need to be retrained. She will return if anything worsens in the meantime. Quality:SDOH Health Related Social Needs: No Data to Display PFSH All Active Problems (Updated 11/14/24 @ 18:10 by Chito Givens MD) Abscess of neck (Acute) Asthma (Chronic) GERD (gastroesophageal reflux disease) (Chronic) Acute exacerbation of chronic obstructive pulmonary disease (Acute) Respiratory syncytial virus infection (Acute) Personal history of nicotine dependence (Acute) Asthma-COPD overlap syndrome (Acute) Insect bite (Acute) Pulmonary embolism (Chronic) Essential tremor (Acute) Medical History History of pulmonary embolism Pneumonia Hypoxia Discharge planning issues Shortness of breath Acute exacerbation of chronic obstructive pulmonary disease Anxiety with depression H/O: HTN (hypertension) Knee joint pain Pneumonia Elevated hemoglobin A1c Screening for breast cancer DVT prophylaxis CAP (community acquired pneumonia) COPD with acute exacerbation Influenza A Pulmonary emboli COPD (chronic obstructive pulmonary disease) Weight gain Arthritis Essential tremor Depression with anxiety Surgical History History of bunionectomy History of partial hysterectomy Family History Sister Diabetes Brother Hypertension Mother Alcohol abuse Father Heart disease Social History Smoking/Tobacco Use Status: Former Tobacco Use Pack-years: 45 Smoking risk assessment performed?: Yes Alcohol Intake: never Substance use type: does not use Housing: apartment Do you feel safe at home: Yes Do you feel safe in your relationship?: Yes Additional Social history: Former tobacco user: quit in 2016
[2024-11-14] MEDS: Clindamycin 150 MG CAP 450 MG PO (18:21)
[2024-11-14 18:24] VITALS: TEMP 36.7; O2SAT 95
== END 2024-11-14 18:25 | disposition home or self-care (01) ==
PROVIDERS: Emergency Provider Emergency Medicine; PCP Nurse Practitioner Family
DX: L02.11 Cutaneous abscess of neck (principal); I10 Essential (primary) hypertension; J44.9 Chronic obstructive pulmonary disease, unspecified; Z86.711 Personal history of pulmonary embolism; Z79.01 Long term (current) use of anticoagulants; Z87.891 Personal history of nicotine dependence
CPT/HCPCS: 10060; 99283